=== PATIENT | male | born 1970 | race Caucasian/White ===

== ENCOUNTER 2021-09-11 16:52 | Inpatient (IN) | payer SELFPAY ==
[2021-09-11 16:53] VITALS: BP 122/77; PULSE 86; RESP 18; TEMP 35.9; O2SAT 97; BMI 32.9
--- NOTE | 2021-09-11 17:07 | CT_ITS ---
STUDY: CT ABDOMEN AND PELVIS WITH CONTRAST REASON FOR EXAM: Male, 51 years old. abd pain RADIATION DOSAGE (If Supplied By Facility): CTDIvol = ( 15.45 ) mGy, DLP = ( 1202.52 ) mGycm TECHNIQUE: Transaxial images were obtained from the dome of the diaphragm to the symphysis pubis without oral contrast. IV 100mL Isovue-370 was administered. Sagittal and coronal images were reconstructed. Individualized dose optimization techniques were used for this CT. COMPARISON: None. FINDINGS: The visualized lung bases are unremarkable. The visualized portions of the heart are within normal limits. Normal liver. Normal gallbladder and extrahepatic biliary system. Normal spleen. Normal pancreas. Moderate ascites with mesenteric thickening. Normal bilateral adrenal glands. Normal right kidney. Subcentimeter cysts in the left kidney. Normal visualized stomach. Normal small intestine. Normal colon. The appendix is not visualized. Normal abdominal aorta. Normal inferior vena cava. Normal retroperitoneum. Normal urinary bladder. Fatty density in the inguinal canals. Normal abdominal wall. Mild degenerative vertebral changes. Grade 1 spondylolisthesis at L4-5. Spondylolysis of L4. CT/Abdomen/Pelvis W IV Cont ONLY IMPRESSION: Moderate ascites with mild mesenteric thickening. Left renal cysts. Fatty density in the inguinal canals. Electronically Signed: Edu Herndon DO at 18:58 EST Reading Location ID and State: [facility] / [place] Tel [phone], Service support ,
--- NOTE | 2021-09-11 17:08 | ED.VIS.GI ---
HPI HPI - GI History of Present Illness Chief Complaint: Abd Pain Informant: patient and spouse/S.O. Abdominal Pain/Flank Pain Onset: Days Context: Gradual Onset Timing: Continuous Quality: Aching Location: Diffuse Current Severity: Mild Maximum Severity: Mild Worsened by: Nothing Relieved by: Nothing Nausea/Vomiting/Emesis GI Symptom: Positive for Nausea and Vomiting Onset: Days Diarrhea/Melena/Hematochezia GI Symptom: Negative for Diarrhea, Melena and Hematochezia Associated Symptoms Associated Symptoms: Negative for Dysuria, Frequency and Hematuria Narrative Narrative: 51-year-old male history of liver failure secondary to either alcohol abuse and/or autoimmune hepatitis. No history of ascites he has had 3 paracentesis I believe at [facility] in August. States he is having more abdominal discomfort. More swelling. He denies fever. He did have nausea and vomiting 2 days ago. States he is also had some constipation. Denies any dysuria. Prior similar symptoms: Yes Recent Illness/Hospitalization: Yes [facility] Medical History Cirrhosis of liver Home Medications furosemide [Lasix] 20 mg PO DAILY 09/11/21 [History Last Taken Unknown] spironolactone 50 mg PO DAILY 09/11/21 [History Last Taken Unknown] Allergy/AdvReac Type Severity Reaction Status Date / Time No Known Allergies Allergy Verified 09/11/21 16:52 Surgical History H/O repair of rotator cuff Social History Smoking Status: Never smoker ROS ROS ED ROS Narrative Abdominal pain. Constipation. Nausea and vomiting. Review of Systems ROS Unobtainable: Denies due to encephalopathy Constitutional Constitutional ED: Denies chills or fever(s) ENT ENT ED: Denies ear pain Cardiovascular Cardiovascular: Denies chest pain or palpitations Respiratory/Chest Respiratory/Chest: Denies cough or dyspnea Gastrointestinal Gastrointestinal: Reports abdominal pain, constipation, nausea and vomiting; Denies diarrhea or melena Genitourinary Genitourinary ED: Denies dysuria Musculoskeletal Musculoskeletal: Denies myalgias Integumentary Denies rash Neurologic Neurologic: Denies headache(s) Psychiatric Psychiatric: Denies depression Endocrine Endocrinology: Denies polyuria Hematologic/Lymphatic Hematologic/Lymphatic: Denies easy bruising Allergic/Immunologic Allergic/Immunologic ED: Denies urticaria EXAM Physical Exam Narrative Exam Narrative: 31-year-old male no acute distress vital signs stable afebrile. Pulse ox 97% on room air no signs hypoxia. H EENT exam unremarkable. Neck nontender. No JVD. Lungs clear to auscultation bilaterally. Heart regular rhythm rate about 85 no murmur. Abdomen soft. He is distended with ascites fluid. There are no peritoneal signs. He does have bowel sounds are slightly diminished. Moving all 4 extremities. Calves are nontender without edema. Neurologically is awake and alert. No focal motor deficits. Const Vital Signs: 09/11/21 16:53 09/11/21 18:54 Temperature 96.7 F L Temperature Source Temporal Pulse Rate 86 68 Respiratory Rate 18 14 Blood Pressure 122/77 H 122/74 H Blood Pressure Mean 92 90 Pulse Ox 97 98 Oxygen Delivery Method Room Air Room Air Positive well nourished, well developed and obese; Negative for cachectic, contractures or unkempt General Appearance ED: well developed and NAD; Negative for unkempt, cachectic, contractures or pallor Nutritional Appearance: obese; Negative for cachectic HEENT Reports moist mucous membranes normocephalic and atraumatic; Negative for trauma or tenderness Eyes PERRL and EOMs intact bilaterally Neck no lymphadenopathy, supple and no JVD General: Negative for tenderness Resp normal respiratory effort and clear to auscultation bilaterally Auscultation: Negative for rales, rhonchi or wheezes Cardio regular rate, regular rhythm, S1 normal heart sound, S2 normal heart sound and no murmurs GI non-tender and no masses; Negative for non-distended Inspection: abdominal distention Auscultation: hypoactive bowel sounds; Negative for normoactive bowel sounds Palpation: soft; Negative for tender, guarding, rigid or rebound tenderness present Back/Spine no CVA tenderness Cervical Spine: Negative for cervical spine tenderness Thoracic Spine / Upper Back: Negative for thoracic spinal tenderness Extremity full ROM General Extremety ED: Negative for edema or tenderness General Extremity: Negative for edema Neuro CN's II-XII intact bilaterally and moves all extremities Sensorium / Orientation: alert, oriented to person, oriented to place and oriented to time; Negative for confused, lethargic or stuporous Motor Exam: strength 5/5 throughout Psych mental status grossly normal and thought process normal Appearance: Negative for unkempt Attitude: No agitated Mood & Affect: Negative for depressed or tearful Skin no wounds General Skin Exam: Negative for jaundice or pallor Lesions: no lesions Rashes: no rashes MDM MDM MDM Narrative Medical decision making narrative: 51-year-old male with known liver failure and ascites. Complaining of more pain and more ascites. He has had 3 abdominal paracentesis in the last month. CAT scan labs are pending. He was also complained of mild shortness of breath so a chest x-ray was also obtained. Repeat exam patient is doing well at 7:30 PM. With his sodium being on 21 I spoke to the hospitalist will be down to discuss with the patient admission versus outpatient follow-up for paracentesis. Spoke to the patient and his he actually had sodiums around 113 before that had to be admitted for. Lab Data Attestation: I reviewed the patient's lab results. Lab results narrative: CBC shows a white count of 10. H&H 11.1 and 29.6. Platelets are slightly low at 146. Electrolytes show a sodium of 121. Gap of 9. Normal BUN and creatinine. Liver enzymes are elevated with a total bilirubin of 6. AST 185. ALT of 113. Albumin is low at 1.8. Lipase normal at 330. Glucose is 132. Urinalysis shows 5-10 white cells otherwise unremarkable. No bacteria no nitrates. CAT scan shows ascites and renal cyst. Labs: Laboratory Results - last 24 hr 09/11/21 09/11/21 09/11/21 17:23 17:23 18:35 WBC 10.7 RBC 3.19 L Hgb 11.1 L Hct 29.6 L MCV 92.8 MCH 34.8 H MCHC 37.5 H RDW Std Deviation 54.9 H RDW Coeff of Teri 16.2 H Plt Count 146 L MPV 11.4 Immature Gran % (Auto) 0.600 Neut % (Auto) 72.8 H Lymph % (Auto) 13.5 L [place] % (Auto) 10.9 H Eos % (Auto) 1.5 Baso % (Auto) 0.7 Absolute Neuts (auto) 7.8 H Absolute Lymphs (auto) 1.44 Nucleated RBC % 0 Sodium 121 L Potassium 3.9 Chloride 89 L Carbon Dioxide 23.0 Anion Gap 9 BUN 8 Creatinine 1.01 Estim Creat Clear Calc 86.53 Est GFR (MDRD) Af Amer 100 Est GFR (MDRD) Non-Af 83 BUN/Creatinine Ratio 7.9 L Glucose 132 H Calcium 8.4 L Total Bilirubin 6.00 H AST 185 H ALT 113 H Alkaline Phosphatase 117 Total Protein 7.5 Albumin 1.8 L Globulin 5.7 H Albumin/Globulin Ratio 0.3 L Lipase 330 Urine Color Yellow Urine Clarity Clear Urine pH 7.0 Ur Specific [place] 1.015 Urine Protein 15 H Urine Glucose (UA) Normal Urine Ketones Negative Urine Occult Blood Negative Urine Nitrite Negative Urine Bilirubin 1 H Urine Urobilinogen 4 H Ur Leukocyte Esterase 25 H Urine RBC 0 SEEN Urine WBC 5-10 SEEN Ur Squamous Epith Cells 0 SEEN Urine Bacteria 0 SEEN Urine Mucus 0 SEEN Radiography Diagnostic Testing: Clinical Impression(s) from Imaging Studies Abdomen/Pelvis CT 09/11/21 17:07 IMPRESSION: Moderate ascites with mild mesenteric thickening. Left renal cysts. Fatty density in the inguinal canals. Electronically Signed: Edu Herndon DO at 18:58 EST Reading Location ID and State: [facility] / [place] Tel [phone], Service support , Chest X-Ray 09/11/21 17:42 IMPRESSION: No acute pulmonary pathology of the chest. Electronically Signed: Edu Herndon DO at 19:00 EST , Chest x-ray single view shows no acute abnormality. Normal cardiac silhouette. No effusion. Normal lung berman. Interpreted both by myself and the radiology. Discharge Plan Triage Chief Complaint: Abd Pain ED Provider: Harris Lopez Dx/Rx/DC Orders Clinical Impression: Abdominal pain, Abdominal ascites, History of liver disease, Acute hyponatremia Prescriptions: No Action furosemide [Lasix] 20 mg Tablet 20 mg PO DAILY RF: 0 spironolactone 50 mg Tablet 50 mg PO DAILY RF: 0 Primary Care Provider: Jovi Rodriguez Referrals: Jovi Rodriguez DO [Primary Care Provider] -
--- NOTE | 2021-09-11 17:42 | RAD_ITS ---
STUDY: X-RAY CHEST REASON FOR EXAM: Male, 51 years old. Dyspnea TECHNIQUE: Frontal view COMPARISON: None. FINDINGS: Right pulmonary granuloma. The lungs are not fully expanded. There is no demonstrated pleural abnormality. Normal size heart. Normal mediastinum and kimmy. Normal visualized pulmonary arteries. Normal visualized aortic arch and descending thoracic aorta. Normal visualized thoracic spine. Normal visualized ribs, clavicles, and shoulders. There is no demonstrated abnormality of the visualized soft tissue structures of the upper abdomen. RAD/Chest 1 View (Portable) IMPRESSION: No acute pulmonary pathology of the chest. Electronically Signed: Edu Herndon DO at 19:00 EST ,
[2021-09-11 17:54] LABS: ALB/GLOB Ratio 0.3 RATIO (0.9-2.4); AST(SGOT) 185 U/L (15-37); Alanine Aminotransfer ALT/SGPT 113 U/L (16-61); Albumin, Serum 1.8 g/dL (3.2-5.0); Alkaline Phosphatase 117 U/L (45-117); Anion Gap 9 (5-15); BUN 8 mg/dL (7-18); BUN/Creat Ratio 7.9 RATIO (10-20); Calcium,Total 8.4 mg/dL (8.5-10.1); Chloride 89 mmol/L (98-107); Creatinine, Serum 1.01 mg/dL (0.70-1.30); EST Glomerular Filtration Rate 83 mL/min (>60); Est Glom Filt Rate - Afr Amer 100 mL/min (>60); Estimated Creatinine Clearance 86.53 ml/min; Globulin 5.7 g/dL (2.2-4.2); Glucose 132 mg/dL (74-106); Lipase 330 U/L (73-393); Potassium 3.9 mmol/L (3.5-5.1); Protein, Total 7.5 g/dL (6.4-8.2); Sodium Level 121 mmol/L (136-145)
[2021-09-11 18:07] LABS: Absolute Lymphocyte Count 1.44 X10^3/uL (0.83-4.51); Absolute Neutrophil Count 7.8 X10^3/uL (2.0-7.7); Basophil# 0.08 X10^3/uL; Basophil% 0.7 % (0-1); Eosinophil# 0.16 X10^3/uL; Eosinophils% 1.5 % (0-5); Hematocrit 29.6 % (40-54); Hemoglobin 11.1 g/dL (13.0-16.5); Lymphocyte # 1.44 X10^3/ul (0.83-4.51); Lymphocyte % 13.5 % (19-41); Mean Corp Hgb Conc 37.5 g/dL (32-36); Mean Corpuscular Hgb 34.8 pg (27.0-32.0); Mean Corpuscular Volume 92.8 fL (80-94); Mean Platelet Vol. 11.4 fl (6.2-12.0); Monocyte# 1.17 X10^3/uL; Monocyte% 10.9 % (0-10); NRBC Flagged by Analyzer 0 % (0-5); Neutrophil # 7.79 X10^3/uL (2.7-7.7); Neutrophil % 72.8 % (47-70); Platelet Count 146 K/mm3 (150-450); RBC Distribution Width CV 16.2 % (11.6-14.6); RBC Distribution Width SD 54.9 fl (35.1-43.9); Red Blood Count 3.19 M/mm3 (4.6-6.2); White Blood Count 10.7 K/mm3 (4.4-11.0)
[2021-09-11 18:40] LABS: Bacteria 0 SEEN /hpf (None Seen); Mucous, Urine 0 SEEN /hpf (<or=2+); Red Blood Cells-Urine 0 SEEN /hpf (0-5); Squamous Epithelial Cells - UA 0 SEEN /hpf (0-5)
[2021-09-11 18:43] LABS: Color, Urine Yellow (Yellow); Glucose, Dipstick Normal (Normal); Ketone-Dipstick Negative (Negative); Leukocyte Esterase-Dipstick 25 /ul (Negative); Nitrite-Dipstick Negative (Negative); Occult Blood-Urine Negative /ul (Negative); Protein-Dipstick 15 mg/dl (Negative); Specific Gravity, Urine 1.015 (1.002-1.030); Urine Clarity Clear (Clear); Urine Urobilinogen 4 mg/dl (Normal)
[2021-09-11 18:44] LABS: Urine Bilirubin Dipstick 1 mg/dL (Negative)
[2021-09-11 18:48] LABS: White Blood Cells 5-10 SEEN /hpf (0-5)
[2021-09-11 18:54] VITALS: BP 122/74; PULSE 68; RESP 14; O2SAT 98
--- NOTE | 2021-09-11 20:13 | HP.PCM.HOS_ITS ---
HPI - General HPI Narrative JOSE CRUZ THOMPSON, is a 51 M who presents to presents to the hospital with abdominal pain secondary to cirrhosis with ascites. This is a new diagnosis for him since about August. His last drink was in July and this is likely the cause of his cirrhosis. 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 According to his , he had a paracentesis done August 16, , but then has not had one since then. States that around each time they were draining around 6 L of fluid. Denies any fevers or chills and no significant abdominal pain with palpation. Of note in the ER his white count was normal however his sodium is 121 with a chloride of 89. Creatinine is 1.01 with a bilirubin of 6 and an AST of 185 and an ALT of 113 with a normal alk phos. We do not have previous labs to compare with. [facility] Medical History Cirrhosis of liver Home Medications furosemide [Lasix] 20 mg PO DAILY 09/11/21 [History Last Taken Unknown] spironolactone 50 mg PO DAILY 09/11/21 [History Last Taken Unknown] Allergy/AdvReac Type Severity Reaction Status Date / Time No Known Allergies Allergy Verified 09/11/21 16:52 Family History (Updated 09/11/21 @ 20:[address] Dustin Metz MD) Other Cancer Diabetes Heart disease Surgical History H/O repair of rotator cuff Social History Smoking Status: Never smoker ROS Constitutional Constitutional: Denies chills, fatigue, fever(s) or malaise Eyes Eyes: Denies blurry vision ENT HEENT: Denies headache(s) or nasal discharge Cardiovascular Cardiovascular: Denies chest pain, dyspnea on exertion or syncope Respiratory/Chest Respiratory/Chest: Denies cough, shortness of breath at rest or shortness of breath with exertion Gastrointestinal Gastrointestinal: Reports abdominal pain; Denies constipation, diarrhea, nausea or vomiting Genitourinary Genitourinary: Denies dysuria Neurologic Neurologic: Denies focal weakness, numbness or tremor(s) Psychiatric Psychiatric: Denies anxiety or depression Vital Signs Vital Signs Vital Signs: 09/11/21 16:53 09/11/21 18:54 Temperature 96.7 F L Temperature Source Temporal Pulse Rate 86 68 Respiratory Rate 18 14 Blood Pressure 122/77 H 122/74 H Blood Pressure Mean 92 90 Pulse Ox 97 98 Oxygen Delivery Method Room Air Room Air Weight Weight: 223 lb Body Mass Index (BMI) 32.9 Physical Exam Const alert, oriented x3 and no apparent distress General Appearance: cooperative HEENT normocephalic Mouth: dry mucous membranes Eyes PERRL, EOMs intact bilaterally and conjunctivae normal Neck supple and no JVD Resp normal respiratory effort, no retractions, no use of accessory muscles and clear to auscultation bilaterally Auscultation: Negative for crackles, rales, rhonchi or wheezes Cardio regular rate, regular rhythm, S1 normal heart sound, S2 normal heart sound and no murmurs GI soft to palpation and non-tender; Negative for hepatosplenomegaly Inspection: abdominal distention and fluid wave present Extremity no clubbing, cyanosis or edema Skin no rashes or lesions noted Neuro no focal motor deficits and no sensory deficits noted Psych affect normal Appearance: appropriate Results Lab / Micro Data Result Diagrams: 09/11/21 17:23 09/11/21 17:23 Labs: Laboratory Results - last 24 hr 09/11/21 17:23: WBC 10.7, RBC 3.19 L, Hgb 11.1 L, Hct 29.6 L, MCV 92.8, MCH 34.8 H, MCHC 37.5 H, RDW Std Deviation 54.9 H, RDW Coeff of Teri 16.2 H, Plt Count 146 L, MPV 11.4, Immature Gran % (Auto) 0.600, Neut % (Auto) 72.8 H, Lymph % (Auto) 13.5 L, [place] % (Auto) 10.9 H, Eos % (Auto) 1.5, Baso % (Auto) 0.7, Absolute Neuts (auto) 7.8 H, Absolute Lymphs (auto) 1.44, Nucleated RBC % 0 09/11/21 17:23: Sodium 121 L, Potassium 3.9, Chloride 89 L, Carbon Dioxide 23.0, Anion Gap 9, BUN 8, Creatinine 1.01, Estim Creat Clear Calc 86.53, Est GFR (MDRD) Af Amer 100, Est GFR (MDRD) Non-Af 83, BUN/Creatinine Ratio 7.9 L, Glucose 132 H, Calcium 8.4 L, Total Bilirubin 6.00 H, AST 185 H, ALT 113 H, Alkaline Phosphatase 117, Total Protein 7.5, Albumin 1.8 L, Globulin 5.7 H, Albumin/Globulin Ratio 0.3 L, Lipase 330 09/11/21 18:35: Urine Color Yellow, Urine Clarity Clear, Urine pH 7.0, Ur Specific [place] 1.015, Urine Protein 15 H, Urine Glucose (UA) Normal, Urine Ketones Negative, Urine Occult Blood Negative, Urine Nitrite Negative, Urine Bilirubin 1 H, Urine Urobilinogen 4 H, Ur Leukocyte Esterase 25 H, Urine RBC 0 SEEN, Urine WBC 5-10 SEEN, Ur Squamous Epith Cells 0 SEEN, Urine Bacteria 0 SEEN, Urine Mucus 0 SEEN Radiology Impression Abdomen/Pelvis CT 09/11/21 17:07 IMPRESSION: Moderate ascites with mild mesenteric thickening. Left renal cysts. Fatty density in the inguinal canals. Electronically Signed: Edu Herndon DO at 18:58 EST , Chest X-Ray 09/11/21 17:42 IMPRESSION: No acute pulmonary pathology of the chest. Electronically Signed: Edu Herndon DO at 19:00 EST , Assessment & Plan Assessment/Plan (1) Acute hyponatremia: (2) History of liver disease: (3) Abdominal ascites: PLAN: 1. Alcohol induced cirrhosis with ascites and abdominal pain/hyponatremia and hypochloremia ?Given his hyponatremia will hold his Lasix and Aldactone ?Consult to gastroenterology for possible paracentesis at bedside tomorrow or by IR on Monday ?We will obtain hepatitis panel and they would like to follow-up with gastroenterology here at this hospital ?No fevers and no significant tenderness to be concerned about SBP ?We will obtain an INR to better calculate a MELD score, regardless of his INR his Child class is a C DVT: Ambulation Charges/Coding Visit Charges Inpatient E&M: 43171 Init Hosp L2
[2021-09-11 20:18] VITALS: BP 140/85; PULSE 77; RESP 14; O2SAT 98
[2021-09-11 20:38] VITALS: BP 133/70; PULSE 76; RESP 18; TEMP 37.2; O2SAT 98
[2021-09-11 21:29] VITALS: BMI 32.1
[2021-09-11 21:33] VITALS: BP 115/65; PULSE 77; RESP 20; TEMP 36.7; O2SAT 99
[2021-09-12 03:30] VITALS: BP 114/65; PULSE 64; RESP 16; TEMP 36.9; O2SAT 98
[2021-09-12 05:24] LABS: Prothrombin Time (Protime)PT. 22.1 SECONDS (11.7-14.9)
[2021-09-12 05:56] LABS: ALB/GLOB Ratio 0.3 RATIO (0.9-2.4); AST(SGOT) 176 U/L (15-37); Alanine Aminotransfer ALT/SGPT 111 U/L (16-61); Albumin, Serum 1.8 g/dL (3.2-5.0); Alkaline Phosphatase 110 U/L (45-117); Anion Gap 7 (5-15); BUN 9 mg/dL (7-18); BUN/Creat Ratio 11.1 RATIO (10-20); Chloride 87 mmol/L (98-107); Creatinine, Serum 0.81 mg/dL (0.70-1.30); EST Glomerular Filtration Rate 107 mL/min (>60); Est Glom Filt Rate - Afr Amer 129 mL/min (>60); Estimated Creatinine Clearance 107.89 ml/min; Globulin 5.6 g/dL (2.2-4.2); Glucose 98 mg/dL (74-106); Potassium 3.7 mmol/L (3.5-5.1); Protein, Total 7.4 g/dL (6.4-8.2); Sodium Level 119 mmol/L (136-145)
[2021-09-12 07:14] LABS: Eosinophils% 2.6 % (0-5); Mean Corp Hgb Conc 37.5 g/dL (32-36); Mean Corpuscular Hgb 34.4 pg (27.0-32.0); Mean Corpuscular Volume 91.8 fL (80-94); Mean Platelet Vol. 11.9 fl (6.2-12.0); Monocyte% 9.8 % (0-10); NRBC Flagged by Analyzer 0 % (0-5); Neutrophil % 69.6 % (47-70); POSITIVE COUNT YES; POSITIVE DIFFERENTIAL YES; RBC Distribution Width CV 16.1 % (11.6-14.6); RBC Distribution Width SD 53.5 fl (35.1-43.9)
[2021-09-12 07:23] LABS: Hemoglobin 10.5 g/dL (13.0-16.5); Red Blood Count 3.05 M/mm3 (4.6-6.2); White Blood Count 9.7 K/mm3 (4.4-11.0)
[2021-09-12 07:24] LABS: Platelet Count 110 K/mm3 (150-450)
[2021-09-12 07:26] LABS: Absolute Lymphocyte Count 1.65 X10^3/uL (0.83-4.51); Absolute Neutrophil Count 6.8 X10^3/uL (2.0-7.7); Eosinophil# 0.25 X10^3/uL; Lymphocyte # 1.65 X10^3/ul (0.83-4.51); Monocyte# 0.95 X10^3/uL; Neutrophil # 6.75 X10^3/uL (2.7-7.7)
--- NOTE | 2021-09-12 07:57 | PCM.PN.HOSP ---
Subjective Subjective Follow-up on ascites: Patient was seen and examined. He denied any new complaints. He stated that he has had ascites for a while. Last had paracentesis in August. He denied any fever chills melena or hematemesis or hematochezia. No other acute events overnight. Objective Data Objective Data Vital Signs: Vital Signs Temp Pulse Resp BP Pulse Ox 98.4 F 64 16 114/65 98 09/12/21 03:30 09/12/21 03:30 09/12/21 03:30 09/12/21 03:30 09/12/21 03:30 Oxygen Delivery Method Room Air Weight: 98.5 kg Body Mass Index (BMI) 32.1 Lab / Micro Data Result Diagrams: 09/12/21 04:53 09/12/21 04:53 Labs: Laboratory Results - last 24 hr 09/11/21 17:23: WBC 10.7, RBC 3.19 L, Hgb 11.1 L, Hct 29.6 L, MCV 92.8, MCH 34.8 H, MCHC 37.5 H, RDW Std Deviation 54.9 H, RDW Coeff of Teri 16.2 H, Plt Count 146 L, MPV 11.4, Immature Gran % (Auto) 0.600, Neut % (Auto) 72.8 H, Lymph % (Auto) 13.5 L, [place] % (Auto) 10.9 H, Eos % (Auto) 1.5, Baso % (Auto) 0.7, Absolute Neuts (auto) 7.8 H, Absolute Lymphs (auto) 1.44, Nucleated RBC % 0 09/11/21 17:23: Sodium 121 L, Potassium 3.9, Chloride 89 L, Carbon Dioxide 23.0, Anion Gap 9, BUN 8, Creatinine 1.01, Estim Creat Clear Calc 86.53, Est GFR (MDRD) Af Amer 100, Est GFR (MDRD) Non-Af 83, BUN/Creatinine Ratio 7.9 L, Glucose 132 H, Calcium 8.4 L, Total Bilirubin 6.00 H, AST 185 H, ALT 113 H, Alkaline Phosphatase 117, Total Protein 7.5, Albumin 1.8 L, Globulin 5.7 H, Albumin/Globulin Ratio 0.3 L, Lipase 330 09/11/21 18:35: Urine Color Yellow, Urine Clarity Clear, Urine pH 7.0, Ur Specific [place] 1.015, Urine Protein 15 H, Urine Glucose (UA) Normal, Urine Ketones Negative, Urine Occult Blood Negative, Urine Nitrite Negative, Urine Bilirubin 1 H, Urine Urobilinogen 4 H, Ur Leukocyte Esterase 25 H, Urine RBC 0 SEEN, Urine WBC 5-10 SEEN, Ur Squamous Epith Cells 0 SEEN, Urine Bacteria 0 SEEN, Urine Mucus 0 SEEN 09/12/21 04:53: WBC 9.7, RBC 3.05 L, Hgb 10.5 L, Hct 28.0 L, MCV 91.8, MCH 34.4 H, MCHC 37.5 H, RDW Std Deviation 53.5 H, RDW Coeff of Teri 16.1 H, Plt Count 110 L, MPV 11.9, Immature Gran % (Auto) 1.000 H, Neut % (Auto) 69.6, Lymph % (Auto) 17.0 L, [place] % (Auto) 9.8, Eos % (Auto) 2.6, Baso % (Auto) 0.0, Absolute Neuts (auto) 6.8, Absolute Lymphs (auto) 1.65, Nucleated RBC % 0 09/12/21 04:53: PT 22.1 H, INR 2.0 09/12/21 04:53: Sodium 119 L*, Potassium 3.7, Chloride 87 L, Carbon Dioxide 25.0, Anion Gap 7, BUN 9, Creatinine 0.81, Estim Creat Clear Calc 107.89, Est GFR (MDRD) Af Amer 129, Est GFR (MDRD) Non-Af 107, BUN/Creatinine Ratio 11.1, Glucose 98, Calcium 8.0 L, Total Bilirubin 6.40 H, AST 176 H, ALT 111 H, Alkaline Phosphatase 110, Total Protein 7.4, Albumin 1.8 L, Globulin 5.6 H, Albumin/Globulin Ratio 0.3 L Radiography Diagnostic Testing: Radiology Impression Abdomen/Pelvis CT 09/11/21 17:07 IMPRESSION: Moderate ascites with mild mesenteric thickening. Left renal cysts. Fatty density in the inguinal canals. Electronically Signed: Edu Herndon DO at 18:58 EST Reading Location ID and State: [facility] / [place] Tel [phone], Service support , Chest X-Ray 09/11/21 17:42 IMPRESSION: No acute pulmonary pathology of the chest. Electronically Signed: Edu Herndon DO at 19:00 EST Reading Location ID and State: [facility] / [place] Tel [phone], Service support , Physical Exam Narrative Physical exam: General: Alert, Oriented x3, Cooperative, No apparent distress, jaundiced HEENT: Atraumatic Oral: Moist Mucosa Neck: Supple Lungs: Diminished to auscultation Cardiovascular: HS I+II, regular, no murmurs Abdomen: Distended abdomen, ascites ++, bowel Sounds Present, Soft, Non Tender Extremities: Bilateral leg edema +2 Assessment & Plan Assessment/Plan (1) Acute hyponatremia: (2) History of liver disease: (3) Abdominal ascites: QUALIFIERS: Ascites type: due to alcoholic cirrhosis Qualified Code(s): K70.31 - Alcoholic cirrhosis of liver with ascites PLAN: 1. Acute decompensated alcoholic liver cirrhosis with ascites; patient with gross ascites No concern for SBP clinically. No reported GI bleeding MELD score 29, Child-Franco score Class C, 12 LFTs remain about the same although total bilirubin is worsened to 6.4 INR is 2.0 GI consulted; diagnostic and therapeutic paracentesis planned for tomorrow We will give vitamin K 5 mg p.o. x1, repeat INR in a.m. Start patient on Lasix, Aldactone, lactulose, rifaximin, PPI Liver ultrasound, follow-up on acute hepatitis panel Stat [facility] 2. Acute on chronic hyponatremia secondary to fluid overload state/alcoholic liver cirrhosis We will continue to monitor on Lasix, Aldactone 3. DVT PPx- SCDs Charges/Coding Visit Charges Inpatient E&M: 97750 Subs Hosp L3
[2021-09-12 09:30] VITALS: BP 128/74; PULSE 79; RESP 20; TEMP 36.6; O2SAT 96
--- NOTE | 2021-09-12 12:44 | US_ITS ---
PROCEDURE: Ultrasound guided paracentesis. DATE OF EXAMINATION: 09/13/2021. INDICATION: Male, 51 years old. Ascites. PHYSICIAN: Austyn Aguilar M.D. TECHNIQUE: The risks, benefits, and alternatives to the procedure were explained to the patient. The specific risks of bleeding, infection, and damage to bowel were detailed and accepted. Witnessed informed consent was obtained. The abdomen was ultrasonographically surveyed. An appropriate pocket of fluid was identified at the right lower quadrant. The skin were cleaned and prepped in the usual sterile fashion. Using ultrasound guidance, the peritoneal cavity was accessed with a 5-Chadian paracentesis needle/catheter system. The trocar was removed. A total of 8750 ml of brian-colored fluid were removed from the peritoneal cavity. A 120 mL sample was sent to the laboratory as requested. The catheter was removed and a sterile dressing was applied. The procedure was well tolerated. US/Paracentesis with US IMPRESSION: Ultrasound guided paracentesis. Electronically Signed: Austyn Aguilar MD at 12:02 EST ,
[2021-09-12] MEDS: Morphine 2 MG/ML Syringe 1 MG IV ×2 (13:07→21:11)
[2021-09-12] MEDS: 0.9% Saline Lock 10 ML Syringe IV ×3 (13:07→21:11)
[2021-09-12] MEDS: Phytonadione (Vit K1) 5 MG TABLET PO (15:36)
[2021-09-12] MEDS: rifAXIMin 550 MG Tablet PO ×2 (15:36→21:02)
[2021-09-12 15:41] VITALS: BP 109/78; PULSE 74; RESP 16; TEMP 36.7; O2SAT 99
--- NOTE | 2021-09-12 18:28 | EX.PCM.CON.G ---
HPI Consult Data Date of Consult: 09/12/21 HPI Narrative HPI Narrative: JOSE CRUZ THOMPSON, is a 51 M who presents to the ED with abdominal distention. He is a newly diagnosed cirrhotic and has undergone 2 paracentesis. He has been on diuretic therapy. He is not know if he has been checked for hepatitis C. He says his family doctor has been prescribing his diuretics. He has not drank since July. He did notice that he was starting to become more yellow recently. He is not been treated for alcoholic hepatitis. He has never had a blood transfusion. He has no family members with liver disease. He said he has been struggling with his sodium and his abdominal distention. He has never seen a assistant associate professor. He denies any bleeding, fatigue or weakness. He is not having any problems sleeping at night. He has no problems with tremors. He had a paracentesis done August 16, , but then has not had one since then. States that around each time they were draining around 6 L of fluid. Denies any fevers or chills and no significant abdominal pain with palpation. Of note in the ER his white count was normal however his sodium is 121 with a chloride of 89. Creatinine is 1.01 with a bilirubin of 6 and an AST of 185 and an ALT of 113 with a normal alk phos. We do not have previous labs to compare with. [facility] Medical History (Updated 09/12/21 @ 18:[address] Lee Friend, DO) Cirrhosis of liver Nicotine dependence Home Medications furosemide [Lasix] 20 mg PO DAILY 09/11/21 [History Last Taken 09/11/21] spironolactone 50 mg PO DAILY 09/11/21 [History Last Taken 09/11/21] Allergy/AdvReac Type Severity Reaction Status Date / Time No Known Allergies Allergy Verified 09/11/21 16:52 Family History (Updated 09/11/21 @ 20:[address] Dustin Metz MD) Other Cancer Diabetes Heart disease Surgical History H/O repair of rotator cuff Social History Smoking Status: Never smoker ROS Review of Systems ROS Unobtainable: other Constitutional Constitutional: Denies fatigue, fever(s), poor appetite, weight gain or weight loss ENT HEENT: Denies mouth lesions Cardiovascular Cardiovascular: Denies abdominal bloating, abdominal edema or abdominal pain Respiratory/Chest Respiratory/Chest: Denies change in mental status, change in phlegm color, chest congestion or chest tightness Gastrointestinal Gastrointestinal: Reports abdominal pain and bloating Genitourinary Genitourinary: Denies abdominal discomfort, burning urination or itching Musculoskeletal Musculoskeletal: Reports as per HPI; Denies muscle weakness or myalgias Integumentary Integumentary: Denies jaundice Neurologic Neurologic: Denies lack of coordination or weakness Psychiatric Psychiatric: Denies confusion, depression, memory loss, mood swings, paranoia or suicidal ideation Endocrine Endocrinology: Denies systems reviewed and no addt'l complaints, except as documented Hematologic/Lymphatic Hematologic/Lymphatic: Denies anemia, easy bleeding, easy bruising or lymphadenopathy Allergic/Immunologic Allergic/Immunologic: Denies systems reviewed and no addt'l complaints, except as documented Physical Exam Const alert General Appearance: cooperative Orientation / Consciousness: oriented to person HEENT hearing grossly normal bilaterally Head and Scalp: normal to inspection Face and Sinus: face symmetric Nose: external nose normal Mouth: oral and palatal mucosa normal Eyes conjunctivae normal General Eye: normal appearance of both eyes Neck full ROM General: normal visual inspection Lymph Lymphatic: no lymphadenopathy noted Chest inspection of chest normal and palpation of chest normal Chest: symmetrical chest wall rise Resp normal respiratory effort Effort and Inspection: able to speak in complete sentences Cardio regular rate GI Percussion: fluid wave Rectal Exam: deferred Extremity Extremity Narrative: Multiple varices throughout his extremities. Neuro Speech: speech normal Gait (Neuro): normal gait Lab / Micro Data Result Diagrams: 09/12/21 04:53 09/12/21 04:53 Labs: Laboratory Results - last 24 hr 09/11/21 18:35: Urine Color Yellow, Urine Clarity Clear, Urine pH 7.0, Ur Specific [place] 1.015, Urine Protein 15 H, Urine Glucose (UA) Normal, Urine Ketones Negative, Urine Occult Blood Negative, Urine Nitrite Negative, Urine Bilirubin 1 H, Urine Urobilinogen 4 H, Ur Leukocyte Esterase 25 H, Urine RBC 0 SEEN, Urine WBC 5-10 SEEN, Ur Squamous Epith Cells 0 SEEN, Urine Bacteria 0 SEEN, Urine Mucus 0 SEEN 09/12/21 04:53: WBC 9.7, RBC 3.05 L, Hgb 10.5 L, Hct 28.0 L, MCV 91.8, MCH 34.4 H, MCHC 37.5 H, RDW Std Deviation 53.5 H, RDW Coeff of Teri 16.1 H, Plt Count 110 L, MPV 11.9, Immature Gran % (Auto) 1.000 H, Neut % (Auto) 69.6, Lymph % (Auto) 17.0 L, [place] % (Auto) 9.8, Eos % (Auto) 2.6, Baso % (Auto) 0.0, Absolute Neuts (auto) 6.8, Absolute Lymphs (auto) 1.65, Nucleated RBC % 0 09/12/21 04:53: PT 22.1 H, INR 2.0 09/12/21 04:53: Sodium 119 L*, Potassium 3.7, Chloride 87 L, Carbon Dioxide 25.0, Anion Gap 7, BUN 9, Creatinine 0.81, Estim Creat Clear Calc 107.89, Est GFR (MDRD) Af Amer 129, Est GFR (MDRD) Non-Af 107, BUN/Creatinine Ratio 11.1, Glucose 98, Calcium 8.0 L, Total Bilirubin 6.40 H, AST 176 H, ALT 111 H, Alkaline Phosphatase 110, Total Protein 7.4, Albumin 1.8 L, Globulin 5.6 H, Albumin/Globulin Ratio 0.3 L Radiology Impression Abdomen/Pelvis CT 09/11/21 17:07 IMPRESSION: Moderate ascites with mild mesenteric thickening. Left renal cysts. Fatty density in the inguinal canals. Electronically Signed: Edu Herndon DO at 18:58 EST Reading Location ID and State: [facility] / [place] Tel [phone], Service support , Chest X-Ray 09/11/21 17:42 IMPRESSION: No acute pulmonary pathology of the chest. Electronically Signed: Edu Herndon DO at 19:00 EST , Assessment & Plan Assessment/Plan (1) Abdominal ascites: QUALIFIERS: Ascites type: due to alcoholic cirrhosis Qualified Code(s): K70.31 - Alcoholic cirrhosis of liver with ascites PLAN: Intra-abdominal ascites likely secondary to cirrhosis from alcoholic cirrhosis. Also dual diagnosis would be hepatitis C, autoimmune hepatitis, chronic hepatitis B, hemochromatosis, secondary amyloidosis. Also differential diagnosis would be nephrotic syndrome be because he has a lot of protein in his urine. He should have a acute otitis profile, anti-smooth muscle antibody, antimitochondrial antibody, protein letter pheresis with immunofixation, ferritin, transferrin saturation. He will undergo large-volume paracentesis. I instructed him to have no more than a 500 mg of sodium per day. I would try that first before putting him on a fluid restriction. Along with increasing his diuretics hopefully will be able to decrease his recurrent need for paracentesis. I will also start him on Midrodrine 10 mg 3 times a day as it has been shown to decrease ascites formation. His meld score at this time is 36. Typically we list for transplant at 14. He had a meld of 36 his 1 year mortality is 60%. I will have a talk with his to explain the severity of his disease and the need for very strict compliance. He also may be a candidate for TIPS after 3 months of compliance with diuretics. (2) Cirrhosis of liver: PLAN: Alcoholic cirrhosis we will perform work-up to see if he has any other etiology to his cirrhosis. 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 I will start him on prednisone 20mg per day. Charges/Coding Visit Charges Inpatient E&M: 94165 Init Hosp L3
[2021-09-12] MEDS: Furosemide 40 MG/4 ML Vial IV (18:44)
[2021-09-12] MEDS: MELATONIN 3 MG TABLET PO (21:11)
[2021-09-12 21:40] VITALS: BP 149/132; PULSE 98; RESP 18; TEMP 36.5; O2SAT 95
--- NOTE | 2021-09-13 | FLU_PTH ---
PATIENT: JOSE CRUZ THOMPSON . LOC: MS3 U#:[id number] AGE/SX: 51/M ROOM: [facility] RE09/11/[address]: Dr. Maycol Christie MD : 1970 BED: 1 DIS: 09/14/2021 SPEC #: [id number] RECD: 09/13/21 10:57 STATUS: MARIA ALEJANDRA REQ #: [id number] GABRIELE: 09/13/21 00:[address]: Maycol Christie DEPT: CYTOLOGY RECD BY: Stephane Adam ENTERED: 09/13/21 13:46 SP TYPE: Fluid OTHR DR: MD Dr. Jovi Geiger DO Dr. Nicholas F Kotsonis, MD Tissues: PARACENTESIS FLUID Procedures: Special Stain Group II Surgery Specimen Level IV Cytospin Fluid HEADER OPERATION: Paracentesis PRE-OP DIAGNOSIS: Ascites TISSUE SUBMITTED: Paracentesis fluid for cytology DIAGNOSIS CYTOLOGY Paracentesis fluid for cytology (cytospin and cell block): Negative for malignant cells. See comment. MARILU:gold 09/14/2021 COMMENT Clinical correlation and appropriate follow up are necessary. CYTOLOGY STUDY Slides are reviewed. CYTOLOGY GROSS Received is 100 ml of yellow cloudy fluid labeled with the patient's name and and designated per the requisition as paracentesis. Submitted for cytology preparation including cell block. / gold 09/13/2021 TC:5 CPT: 36775, 38252
[2021-09-13 04:55] VITALS: BP 131/72; PULSE 86; RESP 18; TEMP 36.2; O2SAT 98
[2021-09-13] MEDS: Morphine 2 MG/ML Syringe 1 MG IV (05:22)
[2021-09-13] MEDS: 0.9% Saline Lock 10 ML Syringe IV ×3 (05:22→18:03)
[2021-09-13 05:47] LABS: International Normalized Ratio 1.9; Prothrombin Time (Protime)PT. 20.8 SECONDS (11.7-14.9)
--- NOTE | 2021-09-13 07:27 | PCM.PN.HOSP ---
Subjective Subjective Patient is a 51-year-old gentleman with history of cirrhosis of the liver who presented with abdominal painAn assessment of acute decompensated cirrhosis of the liver with mild ascites made admitted to the regular nursing floor where patient is currently being managed. Patient scheduled to undergo diagnostic and therapeutic paracentesis Objective Data Objective Data Vital Signs: Vital Signs Temp Pulse Resp BP Pulse Ox 97.1 F L 86 18 131/72 H 98 09/13/21 04:55 09/13/21 04:55 09/13/21 04:55 09/13/21 04:55 09/13/21 04:55 Oxygen Delivery Method Room Air Weight: 98.5 kg Body Mass Index (BMI) 32.1 Intake & Output: Intake and Output for Last 24 Hours 09/11/21 09/12/21 09/13/21 23:59 23:59 23:59 Intake Total 1560 / 1560 Balance 1560 / 1560 Lab / Micro Data Result Diagrams: 09/12/21 04:53 09/12/21 04:53 Labs: Laboratory Results - last 24 hr 09/12/21 04:53: WBC 9.7, RBC 3.05 L, Hgb 10.5 L, Hct 28.0 L, MCV 91.8, MCH 34.4 H, MCHC 37.5 H, RDW Std Deviation 53.5 H, RDW Coeff of Teri 16.1 H, Plt Count 110 L, MPV 11.9, Immature Gran % (Auto) 1.000 H, Neut % (Auto) 69.6, Lymph % (Auto) 17.0 L, [place] % (Auto) 9.8, Eos % (Auto) 2.6, Baso % (Auto) 0.0, Absolute Neuts (auto) 6.8, Absolute Lymphs (auto) 1.65, Nucleated RBC % 0 09/13/21 05:20: PT 20.8 H, INR 1.9 Physical Exam Narrative GENERAL: cooperative HEENT: Atraumatic;Distended JVD EYES; Anicteric, Normal Conjunctiva NECK; supple, normal thyroid, RESPIRATORY: Diminished to auscultation CARDIOVASCULAR: Regular S1 S2, GI: soft, normoactive bowel sounds, Abdomen markedly distended : No Renal angle tenderness; EXTREMITIES: No edema, no clubbing, MUSCULOSKELETAL: no muscle wasting NEURO: Awake; no lateralizing signs. SKIN: Mottling involving both lower extremities PSYCH; Flat affect Assessment & Plan Assessment/Plan (1) Acute hyponatremia: (2) History of liver disease: (3) Abdominal ascites: QUALIFIERS: Ascites type: due to alcoholic cirrhosis Qualified Code(s): K70.31 - Alcoholic cirrhosis of liver with ascites PLAN: Patient is a 51-year-old gentleman with history of cirrhosis of the liver who presented with abdominal painAn assessment of acute decompensated cirrhosis of the liver with mild ascites made admitted to the regular nursing floor where patient is currently being managed 1. Acute decompensated cirrhosis of the liver ?Patient was noted to have gross ascites. Started on Lasix Aldactone as well as rifaximin. Consult placed to GI plan is for patient to undergo diagnostic and therapeutic paracentesis on 09/13/2021. As part of patient's evaluation, Ascitic fluid analysis ordered. 2. Hyponatremia ?Multifactorial including patient fluid overload status as well as patient cirrhosis of the liver. Patient currently on Lasix and Aldactone with serial monitoring of electrolyte. Consult has been placed to nephrology 3.Coagulopathy ?Secondary to patient's cirrhosis of the liver monitoring 4. Acute cystitis ?Started on Rocephin 5. GI prophylaxis ?Patient on PPI 6. DVT prophylaxis ?SCDs 7. Class I obesity with BMI of 32.1 ?Weight loss advised. 8. Tobacco dependence Outpatient use counseled on cessation offered nicotine patch for tobacco cravings Charges/Coding Visit Charges Inpatient E&M: 29932 [facility] Hosp L3
--- NOTE | 2021-09-13 07:45 | NURSING ---
Esperanza From imaging called to tell this nurse that paracentsis /U.S will be at 1050 this morning. this nurse asked if pt had to be NPO. Esperanza said not for Paracentsis but not sure for U/.S. and would call them. Esperanza called this nurse back and informed me that he does need to be NPO for Ultrasound. This nurse went in to tell pt and pt already snf through his breakfast. Will Call [facility] and inform them.
[2021-09-13 08:28] LABS: Absolute Lymphocyte Count 1.92 X10^3/uL (0.83-4.51); Eosinophil# 0.35 X10^3/uL; Eosinophils% 3.4 % (0-5); Hematocrit 28.8 % (40-54); Hemoglobin 10.8 g/dL (13.0-16.5); Lymphocyte # 1.92 X10^3/ul (0.83-4.51); Lymphocyte % 18.4 % (19-41); Mean Corp Hgb Conc 37.5 g/dL (32-36); Mean Corpuscular Hgb 35.1 pg (27.0-32.0); Mean Corpuscular Volume 93.5 fL (80-94); Mean Platelet Vol. 11.2 fl (6.2-12.0); Monocyte# 0.96 X10^3/uL; Monocyte% 9.2 % (0-10); NRBC Flagged by Analyzer 0.2 % (0-5); Neutrophil # 7.04 X10^3/uL (2.7-7.7); Neutrophil % 67.5 % (47-70); POSITIVE COUNT YES; Platelet Count 138 K/mm3 (150-450); RBC Distribution Width CV 16.5 % (11.6-14.6); Red Blood Count 3.08 M/mm3 (4.6-6.2); White Blood Count 10.4 K/mm3 (4.4-11.0)
[2021-09-13 08:41] LABS: Albumin, Serum 1.8 g/dL (3.2-5.0); BUN 12 mg/dL (7-18); BUN/Creat Ratio 12.5 RATIO (10-20); Creatinine, Serum 0.96 mg/dL (0.70-1.30); EST Glomerular Filtration Rate 88 mL/min (>60); Est Glom Filt Rate - Afr Amer 107 mL/min (>60); Estimated Creatinine Clearance 91.03 ml/min; Glucose 112 mg/dL (74-106); Protein, Total 7.2 g/dL (6.4-8.2)
[2021-09-13 08:42] LABS: AST(SGOT) 166 U/L (15-37); Alanine Aminotransfer ALT/SGPT 102 U/L (16-61); Alkaline Phosphatase 161 U/L (45-117); Anion Gap 5 (5-15); Bilirubin, Direct 1.96 mg/dL (0.00-0.30); Calcium,Total 8.4 mg/dL (8.5-10.1); Chloride 90 mmol/L (98-107); Globulin 5.4 g/dL (2.2-4.2); Potassium 4.3 mmol/L (3.5-5.1); Sodium Level 119 mmol/L (136-145)
[2021-09-13] MEDS: Midodrine HCl 5 MG Tablet 10 MG PO ×3 (09:30→18:02)
[2021-09-13] MEDS: rifAXIMin 550 MG Tablet PO ×2 (09:31→21:00)
[2021-09-13] MEDS: Spironolactone 25 MG Tablet PO (09:31)
[2021-09-13] MEDS: predniSONE 20 MG Tablet PO (09:31)
[2021-09-13 09:43] LABS: Differential Indicated SCAN CRITERIA MET
[2021-09-13 09:44] LABS: Platelet Estimate SLT DEC (ADEQ)
[2021-09-13] MEDS: Ceftriaxone 1 GM/50 ML BAG IV (09:47)
[2021-09-13] MEDS: Furosemide 40 MG/4 ML Vial IV ×2 (09:47→18:02)
[2021-09-13 09:57] VITALS: BP 116/78; PULSE 73; RESP 18; TEMP 36.4; O2SAT 94
--- NOTE | 2021-09-13 10:09 | CASEMGMT ---
Social Work SW met w/pt in room, pt's present also. Pt in bed, eyes closed, minimally participating in conversation. Pt is waiting to go down for a paracentesis shortly, and thinks he will be discharged after that today. Pt is listed as self pay, and also has a history of alcohol abuse. SW initially inquired about self pay status. states her income is too high and they do not qualify for Medicaid. SW inquired if she has looked into insurance through the marketplace. She states she has not as she takes care of her mother and pt has had so many appointments. At [place] she said they got 75% off of their bill. They came here however as they felt like they were not getting clear answers on what to do for pt and his medical condition. SW inquired if they got the application for assist through the hospital. states she was told in the ER it would get mailed to them with the bill, declined getting the form from SW--she plans to just complete it when it comes in the mail. As per chart, pt stopped drinking in July. SW inquired if he would like any support around this. states he is managing well. SW offered resources, including [employer], explained also that there is someone here from [employer] who could talk to them if pt is interested. then said this is where someone she knew was going to sell meth. Pt not wanting to speak w/someone from [employer] today, but was open to the information from SW. SW gave pt and information on [employer] and [facility], did explain [facility] has open intake but it's better to make an appointment. SW also explained they have sliding scale for cost. Pt states understanding. SW also provided information on [facility], food pantries, [facility] assist, prescription assist programs, dental clinics and 211. Transportation is not an issue for them. No further needs are anticipated at this time, resources given, pt declined further intervention from [facility] around alcohol abuse. SW remains available should any needs arise. PEDRO Hudson
--- NOTE | 2021-09-13 10:20 | NURSING ---
Going down to Radiology for Paracentesis via bed. Ultrasound is aware that pt ate breakfast. Per Ultrasound they will reschedule to liver Ultrasound another day.
[2021-09-13] MEDS: Lidocaine 2% (20 ml mdv) 20 ML Vial INFILT (10:47)
[2021-09-13 10:48] VITALS: BP 123/69; BP 136/76; PULSE 74; PULSE 77; PULSE 81; RESP 20; TEMP 36.2; O2SAT 97; O2SAT 99
--- NOTE | 2021-09-13 10:56 | PCM.PN.REN ---
Objective Data Objective Data Vital Signs: Vital Signs Temp Pulse Resp BP Pulse Ox 97.5 F L 73 18 116/78 94 09/13/21 09:57 09/13/21 09:57 09/13/21 09:57 09/13/21 09:57 09/13/21 09:57 Oxygen Delivery Method Room Air Weight: 98.5 kg Body Mass Index (BMI) 32.1 Intake & Output: Intake and Output for Last 24 Hours 09/11/21 09/12/21 09/13/21 23:59 23:59 23:59 Intake Total 1560 / 1560 Balance 1560 / 1560 Lab / Micro Data Result Diagrams: 09/13/21 05:20 09/13/21 05:20 Labs: Laboratory Results - last 24 hr 09/13/21 05:20: PT 20.8 H, INR 1.9 09/13/21 05:20: WBC 10.4, RBC 3.08 L, Hgb 10.8 L, Hct 28.8 L, MCV 93.5, MCH 35.1 H, MCHC 37.5 H, RDW Std Deviation 56.0 H, RDW Coeff of Teri 16.5 H, Plt Count 138 L, MPV 11.2, Immature Gran % (Auto) 0.500, Neut % (Auto) 67.5, Lymph % (Auto) 18.4 L, [place] % (Auto) 9.2, Eos % (Auto) 3.4, Baso % (Auto) 1.0, Absolute Neuts (auto) 7.0, Absolute Lymphs (auto) 1.92, Nucleated RBC % 0.2, Platelet Estimate SLT 09/13/21 05:20: Sodium 119 L*, Potassium 4.3, Chloride 90 L, Carbon Dioxide 24.0, Anion Gap 5, BUN 12, Creatinine 0.96, Estim Creat Clear Calc 91.03, Est GFR (MDRD) Af Amer 107, Est GFR (MDRD) Non-Af 88, BUN/Creatinine Ratio 12.5, Glucose 112 H, Calcium 8.4 L, Total Bilirubin 3.90 H, Direct Bilirubin 1.96 H, AST 166 H, ALT 102 H, Alkaline Phosphatase 161 H, Total Protein 7.2, Albumin 1.8 L, Globulin 5.4 H Assessment & Plan Assessment/Plan (1) Acute hyponatremia: PLAN: patient went down to paracentesis. could not examine. chart reviewed. albumin for today. full note to follow
[2021-09-13 10:59] LABS: Cytology, Body Fluid / CSF SEE PATHOLOGY REPORT
[2021-09-13 11:26] LABS: Body Fluid Mononuclear WBC # 0.163 10^3/uL; Body Fluid Mononuclear WBC % 96.4 %; Body Fluid Polynuclear WBC # 0.006 10^3/uL; Body Fluid Polynuclear WBC % 3.6 %; Body Fluid Total Cells Counted 0.283 10^3/ul; White Blood Count/Body Fluid 0.169 10^3/uL
[2021-09-13 11:45] LABS: Appearance/Body Fluid SL CLDY; Auto B Fluid Analyzer BKGD Ct COUNTS W/IN LIMITS (W/IN LIMITS); Color/Body Fluid YELLOW; Source- Body Fluid OTHER
[2021-09-13] MEDS: Lactulose 20 GM/30 ML UDC PO (11:48)
--- NOTE | 2021-09-13 11:53 | PCA ---
RECIEVED MEDICAL RECORDS FROM [facility] FOR THIS PATIENT. PLACED THEM ON THE CHART
--- NOTE | 2021-09-13 11:54 | NURSING ---
Pt back in his room at this time.
--- NOTE | 2021-09-13 12:00 | CASEMGMT ---
RN CM Face to Face with patient for initial transition planning/care coordination assessment. RN CM introduced self and role at [facility]. Patient lying in bed, alert and oriented, at bedside. Patient willing to participate in assessment and is able to answer all questions appropriately. Care providers, pharmacy, and demographics verified. Patient wishes to discharge home, denies need for home health at this time. Patient states he has no further needs or concerns at this time. CM to follow for discharge planning needs that may arise. PCP: Michael. Patient and thinking of changing PCP, provided with physician directory. Specialists: Friend, GI Preferred Pharmacy: [facility] Insurance: none Prescription Benefit: none Living Will/HPOA: none LNOK: Living Arrangements: Patient lives in a 2 story home with . Patient states he is independent at home and able to ambulate stairs. Transportation: self, DME/HHC: Patient denies DME at home. No previous HHC or SNF. states she is a nurse and able to provide care to patient. Disposition Plan: Patient to discharge home with family support and folllow-up plans in place. Luana WELLSN, RN, CM
[2021-09-13 12:02] LABS: Red Cell Count/Body Fluid 88 /mm3
[2021-09-13 12:13] LABS: LDH,Body Fluid 48 Units/l (Not Establ.)
[2021-09-13] MEDS: Albumin Human 25% (100 mL) 25 GM/100 ML BAG IV (12:42)
[2021-09-13 14:00] LABS: Lymphocytes 16 %; Macrophages 16 %; Mesothelial Cells 48 %; Monocytes 13 %; Neutrophil (Segs) 4 %; Plasma Cell/BodyFluid 3 %
[2021-09-13 14:01] LABS: Body Fluid QC Type(s) BF1Q,BF2Q
--- NOTE | 2021-09-13 17:44 | PN_ITS ---
Subjective Subjective Did well with paracentesis today. He had 9 L removed. He is not having abdominal pain. He is getting albumin at this time. His is with him at the bedside. Objective Data Objective Data Vital Signs: Vital Signs Temp Pulse Resp BP Pulse Ox 97.1 F L 74 20 H 123/69 H 94 09/13/21 10:48 09/13/21 10:48 09/13/21 10:48 09/13/21 10:48 09/13/21 09:57 Oxygen Delivery Method [3] Room Air Oxygen Delivery Method Room Air Weight: 217 lb 2.485 oz Body Mass Index (BMI) 32.1 Intake & Output: Intake and Output for Last 24 Hours 09/11/21 09/12/21 09/13/21 23:59 23:59 23:59 Intake Total 1560 / 1560 403.5 / 403.5 Output Total 8650 / 8650 Balance 1560 / 1560 -8246.5 / -8246.5 Lab / Micro Data Result Diagrams: 09/13/21 05:20 09/13/21 05:20 Labs: Laboratory Results - last 24 hr 09/13/21 05:20: PT 20.8 H, INR 1.9 09/13/21 05:20: WBC 10.4, RBC 3.08 L, Hgb 10.8 L, Hct 28.8 L, MCV 93.5, MCH 35.1 H, MCHC 37.5 H, RDW Std Deviation 56.0 H, RDW Coeff of Teri 16.5 H, Plt Count 138 L, MPV 11.2, Immature Gran % (Auto) 0.500, Neut % (Auto) 67.5, Lymph % (Auto) 18.4 L, [place] % (Auto) 9.2, Eos % (Auto) 3.4, Baso % (Auto) 1.0, Absolute Neuts (auto) 7.0, Absolute Lymphs (auto) 1.92, Nucleated RBC % 0.2, Platelet Estimate SLT 09/13/21 05:20: Sodium 119 L*, Potassium 4.3, Chloride 90 L, Carbon Dioxide 24.0, Anion Gap 5, BUN 12, Creatinine 0.96, Estim Creat Clear Calc 91.03, Est GFR (MDRD) Af Amer 107, Est GFR (MDRD) Non-Af 88, BUN/Creatinine Ratio 12.5, Glucose 112 H, Calcium 8.4 L, Total Bilirubin 3.90 H, Direct Bilirubin 1.96 H, AST 166 H, ALT 102 H, Alkaline Phosphatase 161 H, Total Protein 7.2, Albumin 1.8 L, Globulin 5.4 H 09/13/21 10:45: Fluid LDH 48 09/13/21 10:45: Fluid Total Protein 1.0 09/13/21 10:45: Fluid Source OTHER, Fluid Color YELLOW, Fluid Appearance SL CLDY, Fluid WBC 0.169, Fluid RBC 88, Fluid Tot Cell Count 0.283, Fld Polynuclear WBCs # 0.006, Fld Polynuclear WBCs % 3.6, Fluid Mononuclear WBCs 0.163, Fld Mononuclear WBCs % 96.4, Fluid Neutrophils 4, Fluid Lymphocytes 16, Fluid [place] cytes 13, Fluid Plasma Cells 3, Fluid Macrophages 16, Fld Mesothelial Cells 48, Fl Pathologist Comment May follow, Fluid Comment 2 Not Reportable Radiography Diagnostic Testing: Radiology Impression Paracentesis Ultrasound 09/12/21 12:44 IMPRESSION: Ultrasound guided paracentesis. Electronically Signed: Austyn Aguilar MD at 12:02 EST , Physical Exam Const alert General Appearance: cooperative Orientation / Consciousness: oriented to person HEENT hearing grossly normal bilaterally Head and Scalp: normal to inspection Face and Sinus: face symmetric Nose: external nose normal Mouth: oral and palatal mucosa normal Eyes conjunctivae normal General Eye: normal appearance of both eyes Neck full ROM General: normal visual inspection Lymph Lymphatic: no lymphadenopathy noted Chest inspection of chest normal and palpation of chest normal Chest: symmetrical chest wall rise Resp normal respiratory effort Effort and Inspection: able to speak in complete sentences Cardio regular rate GI non-distended Percussion: normal to percussion Rectal Exam: deferred Neuro Speech: speech normal Gait (Neuro): normal gait Assessment & Plan Assessment/Plan (1) Alcoholic hepatitis: PLAN: Patient is on steroids for alcoholic hepatitis. His bilirubin is improving. He is looking less jaundiced today and is more alert today. He will need to be on steroids for 30 days. 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 Seems to be stable at this time. (3) Anemia: PLAN: His hemoglobin seems to be stable. This is likely secondary to bone marrow toxicity. He will also need to be screened for varices. (4) Cirrhosis of liver: PLAN: Cirrhosis of the liver likely secondary to alcohol. He will be st arted on propanolol therapy versus nadolol therapy, lactulose 10 mg twice a day, Xifaxan 550 twice a day, ursodiol 250 or 300 mg twice a day. (5) Abdominal ascites: QUALIFIERS: Ascites type: due to alcoholic cirrhosis Qualified Code(s): K70.31 - Alcoholic cirrhosis of liver with ascites PLAN: I had a long talk with his and the patient at the bedside explained to them that if he gains more than 5 pounds and he will have to adjust his diuretics. At this time I would not adjust his diuretics until nephrology has seen him regarding his hyponatremia. Charges/Coding Visit Charges Inpatient E&M: 28216 Subs Hosp L3
[2021-09-13 18:09] VITALS: BP 121/64; PULSE 72; RESP 18; TEMP 36.5; O2SAT 96
[2021-09-13 19:29] VITALS: BP 113/59; PULSE 72; RESP 16; TEMP 36.6; O2SAT 100
[2021-09-14 02:32] VITALS: BP 117/61; PULSE 83; RESP 16; TEMP 37; O2SAT 100
--- NOTE | 2021-09-14 07:00 | US_ITS ---
STUDY: ABDOMINAL ULTRASOUND - RIGHT UPPER QUADRANT REASON FOR VISIT: Male, 51 years old Ascites -- CIRRHOSIS W/ ASCITES HYPONATREMIA TECHNIQUE: Ultrasound evaluation of the right upper quadrant was performed with real-time and static bartlett-scale imaging. TECHNICAL QUALITY: Adequate. COMPARISON: Comparison is made with prior CT scan of the abdomen and pelvis dated 09/11/2021. FINDINGS: Liver: The liver is enlarged and measures 19.5 cm. There is increased echogenicity consistent with fatty infiltration. The bile ducts are within normal limits. There is hepatic color flow. The direction of portal flow is hepatopetal. There is no demonstrated mass lesion. Gallbladder: Normal distended gallbladder. The gallbladder wall is slightly thickened and measures 3.2 mm. There is a negative sonographic Baig''s sign. There is small amount of pericholecystic fluid. There are no gallstones. Sludge is seen within the gallbladder lumen. Common Bile Duct (C.B.D.): The common bile duct measures 3.7 mm. Pancreas: Normal size of the head, body and tail of the pancreas. There is normal echogenicity of the pancreas. There is no demonstrated pancreatic mass or cyst. Right Kidney: Normal size of the right kidney. The right kidney measures 11.8 cm x 6.2cmx 7 cm. Normal renal cortex. The right cortex measures 1.8 cm. There is no demonstrated renal mass or cyst. There is no right hydronephrosis. Small amount of residual ascites. US/Liver IMPRESSION: Hepatomegaly and fatty infiltration of the liver. Minimal thickening of the gallbladder wall with a small amount of pericholecystic fluid. Electronically Signed: Austyn Aguilar MD at 8:45 EST ,
[2021-09-14 07:08] LABS: HEPATITIS B SURFACE AG Negative (Negative); Hepatitis A IgM Antibody Negative (Negative); Hepatitis B Core AB IgM Negative (Negative)
[2021-09-14 07:14] LABS: Absolute Neutrophil Count 9.6 X10^3/uL (2.0-7.7); Basophil# 0.05 X10^3/uL; Basophil% 0.4 % (0-1); Eosinophil# 0.11 X10^3/uL; Eosinophils% 0.9 % (0-5); Hematocrit 26.4 % (40-54); Hemoglobin 10.1 g/dL (13.0-16.5); Lymphocyte % 11.7 % (19-41); Mean Corp Hgb Conc 38.3 g/dL (32-36); Mean Corpuscular Hgb 34.8 pg (27.0-32.0); Monocyte# 0.77 X10^3/uL; Monocyte% 6.4 % (0-10); NRBC Flagged by Analyzer 0 % (0-5); Neutrophil # 9.56 X10^3/uL (2.7-7.7); Neutrophil % 79.7 % (47-70); POSITIVE COUNT YES; Platelet Count 115 K/mm3 (150-450); RBC Distribution Width SD 53.4 fl (35.1-43.9)
[2021-09-14 07:16] LABS: Prothrombin Time (Protime)PT. 21.9 SECONDS (11.7-14.9)
[2021-09-14 07:33] LABS: AST(SGOT) 134 U/L (15-37); Alanine Aminotransfer ALT/SGPT 87 U/L (16-61); Albumin, Serum 1.8 g/dL (3.2-5.0); Alkaline Phosphatase 126 U/L (45-117); Anion Gap 7 (5-15); BUN 13 mg/dL (7-18); BUN/Creat Ratio 18.6 RATIO (10-20); Bilirubin, Direct 1.32 mg/dL (0.00-0.30); Calcium,Total 8.1 mg/dL (8.5-10.1); Chloride 92 mmol/L (98-107); EST Glomerular Filtration Rate 126 mL/min (>60); Est Glom Filt Rate - Afr Amer 153 mL/min (>60); Estimated Creatinine Clearance 124.85 ml/min; Globulin 4.8 g/dL (2.2-4.2); Glucose 127 mg/dL (74-106); Potassium 3.9 mmol/L (3.5-5.1); Protein, Total 6.6 g/dL (6.4-8.2); Sodium Level 122 mmol/L (136-145)
--- NOTE | 2021-09-14 08:12 | PN.HOSP_ITS ---
Subjective Subjective Patient underwent paracentesis with a total of 8750 ml of brian-colored fluid removed. Objective Data Objective Data Vital Signs: Vital Signs Temp Pulse Resp BP Pulse Ox 98.6 F 83 16 117/61 100 09/14/21 02:32 09/14/21 02:32 09/14/21 02:32 09/14/21 02:32 09/14/21 02:32 Oxygen Delivery Method [3] Room Air Oxygen Delivery Method Room Air Weight: 98.5 kg Body Mass Index (BMI) 32.1 Intake & Output: Intake and Output for Last 24 Hours 09/12/21 09/13/21 09/14/21 23:59 23:59 23:59 Intake Total 1560 / 1560 1310.75 / 1310.75 Output Total 8650 / 8650 Balance 1560 / 1560 -7339.25 / -7339.25 Lab / Micro Data Result Diagrams: 09/14/21 06:30 09/14/21 06:30 Labs: Laboratory Results - last 24 hr 09/13/21 05:20: WBC 10.4, RBC 3.08 L, Hgb 10.8 L, Hct 28.8 L, MCV 93.5, MCH 35.1 H, MCHC 37.5 H, RDW Std Deviation 56.0 H, RDW Coeff of Teri 16.5 H, Plt Count 138 L, MPV 11.2, Immature Gran % (Auto) 0.500, Neut % (Auto) 67.5, Lymph % (Auto) 18.4 L, [place] % (Auto) 9.2, Eos % (Auto) 3.4, Baso % (Auto) 1.0, Absolute Neuts (auto) 7.0, Absolute Lymphs (auto) 1.92, Nucleated RBC % 0.2, Platelet Est imate SLT 09/13/21 05:20: Sodium 119 L*, Potassium 4.3, Chloride 90 L, Carbon Dioxide 24.0, Anion Gap 5, BUN 12, Creatinine 0.96, Estim Creat Clear Calc 91.03, Est GFR (MDRD) Af Amer 107, Est GFR (MDRD) Non-Af 88, BUN/Creatinine Ratio 12.5, Glucose 112 H, Calcium 8.4 L, Total Bilirubin 3.90 H, Direct Bilirubin 1.96 H, AST 166 H, ALT 102 H, Alkaline Phosphatase 161 H, Total Protein 7.2, Albumin 1.8 L, Globulin 5.4 H 09/13/21 10:45: Fluid LDH 48 09/13/21 10:45: Fluid Total Protein 1.0 09/13/21 10:45: Fluid Source OTHER, Fluid Color YELLOW, Fluid Appearance SL CLDY, Fluid WBC 0.169, Fluid RBC 88, Fluid Tot Cell Count 0.283, Fld Polynuclear WBCs # 0.006, Fld Polynuclear WBCs % 3.6, Fluid Mononuclear WBCs 0.163, Fld Mononuclear WBCs % 96.4, Fluid Neutrophils 4, Fluid Lymphocytes 16, Fluid Monocytes 13, Fluid Plasma Cells 3, Fluid Macrophages 16, Fld Mesothelial Cells 48, Fl Pathologist Comment May follow, Fluid Comment 2 Not Reportable 09/14/21 06:30: PT 21.9 H, INR 2.0 09/14/21 06:30: Sodium 122 L, Potassium 3.9, Chloride 92 L, Carbon Dioxide 23.0, Anion Gap 7, BUN 13, Creatinine 0.70, Estim Creat Clear Calc 124.85, Est GFR (MDRD) Af Amer 153, Est GFR (MDRD) Non-Af 126, BUN/Creatinine Ratio 18.6, Glucose 127 H, Calcium 8.1 L, Total Bilirubin 2.50 H, Direct Bilirubin 1.32 H, AST 134 H, ALT 87 H, Alkaline Phosphatase 126 H, Total Protein 6.6, Albumin 1.8 L, Globulin 4.8 H Radiography Diagnostic Testing: Radiology Impression Paracentesis Ultrasound 09/12/21 12:44 IMPRESSION: Ultrasound guided paracentesis. Electronically Signed: Austyn Aguilar MD at 12:02 EST , Physical Exam Narrative GENERAL: cooperative HEENT: Atraumatic;Distended JVD EYES; Anicteric, Normal Conjunctiva NECK; supple, normal thyroid, RESPIRATORY: Diminished to auscultation CARDIOVASCULAR: Regular S1 S2, GI: soft, normoactive bowel sounds, Abdomen markedly distended : No Renal angle tenderness; EXTREMITIES: No edema, no clubbing, MUSCULOSKELETAL: no muscle wasting NEURO: Awake; no lateralizing signs. SKIN: Mottling involving both lower extremities PSYCH; Flat affect Assessment & Plan Assessment/Plan (1) Acute hyponatremia: (2) History of liver disease: (3) Abdominal ascites: QUALIFIERS: Ascites type: due to alcoholic cirrhosis Qualified Code(s): K70.31 - Alcoholic cirrhosis of liver with ascites PLAN: Patient is a 51-year-old gentleman with history of cirrhosis of the liver who presented with abdominal painAn assessment of acute decompensated cirrhosis of the liver with mild ascites made admitted to the regular nursing floor where patient is currently being managed 1. Acute decompensated cirrhosis of the liver ?Patient was noted to have gross ascites. Started on Lasix Aldactone as well as rifaximin. Consult placed to GI plan is for patient to undergo diagnostic and therapeutic paracentesis on 09/13/2021. As part of patient's evaluation, Ascitic fluid analysis ordered. 09/14/2021; Patient underwent paracentesis with a total of 8750 ml of brian- colored fluid removed on 09/13/2021. Remains on recommended medications including rifaximin lactulose Aldactone midodrine and furosemide in addition to pred nisone 2. Hyponatremia ?Multifactorial including patient fluid overload status as well as patient cirrhosis of the liver. Patient currently on Lasix and Aldactone with serial monitoring of electrolyte. Consult has been placed to nephrology -09/14/2021; sodium remains significantly low at 122 3.Coagulopathy ?Secondary to patient's cirrhosis of the liver monitoring 4. Acute cystitis ?Started on Rocephin 5. GI prophylaxis ?Patient on PPI 6. DVT prophylaxis ?SCDs 7. Class I obesity with BMI of 32.1 ?Weight loss advised. 8. Tobacco dependence Outpatient use counseled on cessation offered nicotine patch for tobacco cravings Charges/Coding Visit Charges Inpatient E&M: 21527 Subs Hosp L2
[2021-09-14] MEDS: predniSONE 20 MG Tablet PO (08:14)
[2021-09-14] MEDS: Midodrine HCl 5 MG Tablet 10 MG PO ×3 (08:15→18:21)
[2021-09-14 08:40] VITALS: BP 113/56; PULSE 74; RESP 16; TEMP 37.2; O2SAT 100
[2021-09-14] MEDS: rifAXIMin 550 MG Tablet PO (10:14)
[2021-09-14] MEDS: Spironolactone 25 MG Tablet PO (10:14)
[2021-09-14] MEDS: Lactulose 20 GM/30 ML UDC PO (10:14)
[2021-09-14] MEDS: Furosemide 40 MG/4 ML Vial IV (10:14)
[2021-09-14] MEDS: Ceftriaxone 1 GM/50 ML BAG IV (10:19)
[2021-09-14] MEDS: 0.9% Saline Lock 10 ML Syringe IV (10:19)
[2021-09-14 10:30] LABS: Pathologist Comment/Body Fluid Reviewed
[2021-09-14 11:12] LABS: Hep C Antibodies 0.2 s/co ratio (0.0-0.9)
--- NOTE | 2021-09-14 11:54 | PCM.CONS.R ---
Assessment & Plan Assessment/Plan (1) Acute hyponatremia: PLAN: Due to cirrhosis. Hypervolemic hyponatremia. Sodium was 119 yesterday. Ordered albumin yesterday. Slightly better at 122. He is already on midodrine. Blood pressure values are acceptable. Repeat albumin today. We do not have 2% sodium chloride here. If sodium continues to remain low, he may need 3% sodium chloride temporarily. Usually that has to go through central line. We will see if he responds to albumin today. He follows with gastroenterology, is not enrolled in liver transplant yet. HPI Consult Data Date of Consult: 09/14/21 HPI Narrative HPI Narrative: JOSE CRUZ THOMPSON, is a 51 M who presents to the hospital with worsening abdominal distention. 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 Required multiple paracentesis, just had fourth paracentesis yesterday. Possible evaluation for TIPS in the future. He says he has been sober since last month. Not enrolled in any transplant program yet. He had about 8 and half liters of fluid taken out and abdominal looks pretty distended today. Minimal lower extremity edema. Urine output is present. He has been on Lasix and spironolactone. Blood pressure is borderline. Currently denies any complaints other than abdominal distention. [facility] [place] Medical History (Updated 09/12/21 @ 18:[address] Lee Friend, DO) Cirrhosis of liver Nicotine dependence Home Medications furosemide [Lasix] 20 mg PO DAILY 09/11/21 [History Last Taken 09/11/21] spironolactone 50 mg PO DAILY 09/11/21 [History Last Taken 09/11/21] Allergy/AdvReac Type Severity Reaction Status Date / Time No Known Allergies Allergy Verified 09/11/21 16:52 Family History (Updated 09/11/21 @ 20:[address] Dustin Metz MD) Other Cancer Diabetes Heart disease Surgical History H/O repair of rotator cuff Social History Smoking Status: Never smoker ROS ROS Narrative Negative except above Physical Exam Narrative Alert awake oriented x 3 no obvious distress no pallor no icterus no JVD s1s2 no murmurs lungs clear abdomen distended no edema no cyanosis Lab / Micro Data Result Diagrams: 09/14/21 06:30 09/14/21 06:30 Labs: Laboratory Results - last 24 hr 09/11/21 17:38: Hepatitis A IgM Ab Negative, Hep Bs Antigen Negative, Hep B Core IgM Ab Negative, Hepatitis C Ab (EIA) 0.2 09/13/21 10:45: Fluid LDH 48 09/13/21 10:45: Fluid Total Protein 1.0 09/13/21 10:45: Fluid RBC 88, Fluid Neutrophils 4, Fluid Lymphocytes 16, Fluid Monocytes 13, Fluid Plasma Cells 3, Fluid Macrophages 16, Fld Mesothelial Cells 48, Fl Pathologist Comment Reviewed, Fluid Comment 2 Not Reportable 09/14/21 06:30: PT 21.9 H, INR 2.0 09/14/21 06:30: WBC 12.0 H, RBC 2.90 L, Hgb 10.1 L, Hct 26.4 L, MCV 91.0, MCH 34.8 H, MCHC 38.3 H, RDW Std Deviation 53.4 H, RDW Coeff of Teri 16.0 H, Plt Count 115 L, MPV 11.0, Immature Gran % (Auto) 0.900, Neut % (Auto) 79.7 H, Lymph % (Auto) 11.7 L, [place] % (Auto) 6.4, Eos % (Auto) 0.9, Baso % (Auto) 0.4, Absolute Neuts (auto) 9.6 H, Absolute Lymphs (auto) 1.40, Nucleated RBC % 0 09/14/21 06:30: Sodium 122 L, Potassium 3.9, Chloride 92 L, Carbon Dioxide 23.0, Anion Gap 7, BUN 13, Creatinine 0.70, Estim Creat Clear Calc 124.85, Est GFR (MDRD) Af Amer 153, Est GFR (MDRD) Non-Af 126, BUN/Creatinine Ratio 18.6, Glucose 127 H, Calcium 8.1 L, Total Bilirubin 2.50 H, Direct Bilirubin 1.32 H, AST 134 H, ALT 87 H, Alkaline Phosphatase 126 H, Total Protein 6.6, Albumin 1.8 L, Globulin 4.8 H Micro: Microbiology 09/13/21 10:45 Fluid - Ascites Body Fluid Culture - Preliminary No growth-Final to follow Radiology Impression Paracentesis Ultrasound 09/12/21 12:44 IMPRESSION: Ultrasound guided paracentesis. Electronically Signed: Austyn Aguilar MD at 12:02 EST , Liver Ultrasound 09/14/21 07:00 IMPRESSION: Hepatomegaly and fatty infiltration of the liver. Minimal thickening of the gallbladder wall with a small amount of pericholecystic fluid. Electronically Signed: Austyn Aguilar MD at 8:45 EST ,
[2021-09-14] MEDS: Albumin Human 25% (100 mL) 25 GM/100 ML BAG IV ×2 (13:59→15:46)
[2021-09-14 14:00] VITALS: BP 119/72; PULSE 67; RESP 18; TEMP 36.6; O2SAT 100
--- NOTE | 2021-09-14 14:48 | NURSING ---
student charting reviewed. GIOVANNA Gil instructor
--- NOTE | 2021-09-14 16:14 | DS.PCM_ITS ---
Providers Date of Admission: 09/11/21 Primary Care Physician: Dr. Jovi Rodriguez, Consultations 09/11/21 21:19 Consult: Gastroenterology Routine Consulting Provider: Brittany [facility] Reason for Consult: Cirrhosis with ascites due to alcohol EMERGENT Consult: No Notified: Yes Date Notified: 09/11/21 Time Notified: 20:12 Method of Notification: Text 09/13/21 08:17 Consult: Nephrology Routine Consulting Provider: Alfa Camara Reason for Consult: Hyponatremia EMERGENT Consult: No Notified: Yes Date Notified: 09/13/21 Time Notified: 08:47 Method of Notification: Office Reason For Visit: CIRRHOSIS WITH ASCITES AND HYPONATREMIA Diagnosis Discharge Diagnosis (1) Acute hyponatremia: Status: Acute Code(s): E87.1 - Hypo-osmolality and hyponatremia Medications at Discharge Home Medications spironolactone 50 mg PO DAILY 09/11/21 furosemide [Lasix] 40 mg PO DAILY #0 tab 09/14/21 lactulose 20 g PO DAILY #900 ml 09/14/21 midodrine 10 mg PO TIDCM #90 tab 09/14/21 prednisone 20 mg PO BREAKFAST #30 tab 09/14/21 rifaximin [Xifaxan] 550 mg PO BID #60 tab 09/14/21 ursodiol 250 mg PO QHS #30 tab 09/14/21 Hospital Course Operations None Procedures Paracentesis Summary of Care Provided Minutes Spent on Discharge: 40 Hospital Course: Patient is a 51-year-old gentleman with history of cirrhosis of the liver who presented with abdominal painAn assessment of acute decompensated cirrhosis of the liver with mild ascites made admitted to the regular nursing floor where patient is currently being managed 1. Acute decompensated cirrhosis of the liver ?Patient was noted to have gross ascites. Started on Lasix Aldactone as well as rifaximin. Consult placed to GI plan is for patient to undergo diagnostic and therapeutic paracentesis on 09/13/2021. As part of patient's evaluation, Ascitic fluid analysis ordered. 09/14/2021; Patient underwent paracentesis with a total of 8750 ml of brian- colored fluid removed on 09/13/2021. Remains on recommended medications including rifaximin lactulose Aldactone midodrine and furosemide in addition to prednisone. Ursodiol was added to patient's discharge medications after discussion with GI 2. Hyponatremia ?Multifactorial including patient fluid overload status as well as patient cirrhosis of the liver. Patient currently on Lasix and Aldactone with serial monitoring of electrolyte. Consult has been placed to nephrology -09/14/2021; sodium remains significantly low at 122 -Recommendations from nephrology reviewed patient to follow-up with nephrology as outpatient. 3.Coagulopathy ?Secondary to patient's cirrhosis of the liver monitoring 4. Acute cystitis ?Started on Rocephin 5. GI prophylaxis ?Patient on PPI 6. DVT prophylaxis ?SCDs 7. Class I obesity with BMI of 32.1 ?Weight loss advised. 8. Tobacco dependence Outpatient use counseled on cessation offered nicotine patch for tobacco cravings Physical Exam Narrative GENERAL: cooperative HEENT: Atraumatic;Distended JVD EYES; Anicteric, Normal Conjunctiva NECK; supple, normal thyroid, RESPIRATORY: Diminished to auscultation CARDIOVASCULAR: Regular S1 S2, GI: soft, normoactive bowel sounds, Abdomen distended : No Renal angle tenderness; EXTREMITIES: No edema, no clubbing, MUSCULOSKELETAL: no muscle wasting NEURO: Awake; no lateralizing signs. SKIN: Mottling involving both lower extremities PSYCH; Flat affect Weight / BMI Weight Weight: 98.5 kg Body Mass Index (BMI) 32.1 ABG / Lab / Microbiology Data Result Diagrams: 09/14/21 06:30 09/14/21 06:30 Laboratory: Laboratory Results - last 24 hr 09/11/21 17:38: Hepatitis A IgM Ab Negative, Hep Bs Antigen Negative, Hep B Core IgM Ab Negative, Hepatitis C Ab (EIA) 0.2 09/13/21 10:45: Fl Pathologist Comment Reviewed 09/14/21 06:30: PT 21.9 H, INR 2.0 09/14/21 06:30: WBC 12.0 H, RBC 2.90 L, Hgb 10.1 L, Hct 26.4 L, MCV 91.0, MCH 34.8 H, MCHC 38.3 H, RDW Std Deviation 53.4 H, RDW Coeff of Teri 16.0 H, Plt Count 115 L, MPV 11.0, Immature Gran % (Auto) 0.900, Neut % (Auto) 79.7 H, Lymph % (Auto) 11.7 L, [place] % (Auto) 6.4, Eos % (Auto) 0.9, Baso % (Auto) 0.4, Absolute Neuts (auto) 9.6 H, Absolute Lymphs (auto) 1.40, Nucleated RBC % 0 09/14/21 06:30: Sodium 122 L, Potassium 3.9, Chloride 92 L, Carbon Dioxide 23.0, Anion Gap 7, BUN 13, Creatinine 0.70, Estim Creat Clear Calc 124.85, Est GFR (MDRD) Af Amer 153, Est GFR (MDRD) Non-Af 126, BUN/Creatinine Ratio 18.6, Glucose 127 H, Calcium 8.1 L, Total Bilirubin 2.50 H, Direct Bilirubin 1.32 H, AST 134 H, ALT 87 H, Alkaline Phosphatase 126 H, Total Protein 6.6, Albumin 1.8 L, Globulin 4.8 H Microbiology: Microbiology 09/13/21 10:45 Fluid - Ascites Gram Stain - Final 09/13/21 10:45 Fluid - Ascites Body Fluid Culture - Preliminary No growth-Final to follow Radiography Diagnostic Testing: Radiology Impression Liver Ultrasound 09/14/21 07:00 IMPRESSION: Hepatomegaly and fatty infiltration of the liver. Minimal thickening of the gallbladder wall with a small amount of pericholecystic fluid. Electronically Signed: Austyn Aguilar MD at 8:45 EST , Meaningful Use Info Meaningful Use Diagnoses (Choose all that apply): None applicable Discharge Plan Admission Admit Date/Time: 09/11/21 20:09 Attending Provider: Maycol Christie Primary Care Provider: Jovi Rodriguez Consulting Providers: Alfa Camara Discharge Orders/Prescriptions Prescriptions: New prednisone 20 mg Tablet 20 mg PO BREAKFAST Qty: 30 RF: 0 midodrine 5 mg Tablet 10 mg PO TIDCM Qty: 90 RF: 0 Xifaxan 550 mg Tablet 550 mg PO BID Qty: 60 RF: 0 lactulose 20 gram/30 mL Solution 20 g PO DAILY Qty: 900 RF: 0 ursodiol 250 mg tablet 250 mg PO QHS Qty: 30 RF: 0 Continued spironolactone 50 mg Tablet 50 mg PO DAILY RF: 0 Changed furosemide [Lasix] 20 mg Tablet 40 mg PO DAILY Qty: 0 RF: 0 Referrals / Follow Up: Alfa Camara MD [STAFF PHYSICIAN] - Within 1 Week Jovi Rodriguez DO [Primary Care Provider] - Jesus Posada DO [STAFF PHYSICIAN] - Within 2 Weeks Disposition Disposition (needs filled in before D/C Order can be placed): Home, Self Care Charges/Coding Visit Charges Inpatient E&M: 11686 Disch Hosp
[2021-09-14 18:35] VITALS: BP 134/77; PULSE 90; RESP 18; O2SAT 100
== END 2021-09-14 18:35 | disposition home or self-care (01) | DRG 433 ==
LOC: ED 17:28 → MS3 20:39
PROVIDERS: Internal Medicine; Admitting Provider Family Medicine; Emergency Provider Emergency Medicine; PCP Student in an Organized Health Care Education/Training Program; Visit Provider Internal Medicine
DX: K70.31 Alcoholic cirrhosis of liver with ascites (principal); E87.1 Hypo-osmolality and hyponatremia; D68.9 Coagulation defect, unspecified; N30.00 Acute cystitis without hematuria; E87.79 Other fluid overload; D64.89 Other specified anemias; D69.59 Other secondary thrombocytopenia; E87.8 Other disorders of electrolyte and fluid balance, not elsewhere classified; K70.11 Alcoholic hepatitis with ascites; E66.9 Obesity, unspecified; Z68.32 Body mass index [BMI] 32.0-32.9, adult; Z79.899 Other long term (current) drug therapy
CPT/HCPCS: 36415; 49083; 71045; 74177; 76705; 80048; 80053; 80074; 80076; 81001; 83615; 83690; 84157; 85025; 85610; 87070; 87075; 87205; 88108; 88305; 88313; 89050; 99285; 99406; J7050; P9047; Q9967; A4216; J1940

== ENCOUNTER 2021-09-22 09:19 | Emergency (ER) | payer SELFPAY ==
[2021-09-22 09:19] VITALS: BP 142/83; PULSE 98; RESP 14; TEMP 36.5; O2SAT 100; BMI 34.4
--- NOTE | 2021-09-22 09:29 | US_ITS ---
PROCEDURE: Ultrasound guided paracentesis. DATE OF EXAMINATION: 09/22/2021. INDICATION: Male, 51 years old. Ascites. PHYSICIAN: Dr. Diego Siddiqui TECHNIQUE: The risks, benefits, and alternatives to the procedure were explained to the patient. The specific risks of bleeding, infection, and damage to bowel were detailed and accepted. Witnessed informed consent was obtained. The abdomen was ultrasonographically surveyed. An appropriate pocket of fluid was identified at the right lower quadrant. The skin were cleaned and prepped in the usual sterile fashion. Using ultrasound guidance, the peritoneal cavity was accessed with a 5-Yemeni paracentesis needle/catheter system. The trocar was removed. A total of 8000 ml of cloudy yellow ascites fluid were removed from the peritoneal cavity. The catheter was removed and a sterile dressing was applied. The procedure was well tolerated. US/Paracentesis with US IMPRESSION: Ultrasound guided therapeutic paracentesis with 8000 cc of cloudy yellow ascites fluid aspirated and discarded. Electronically Signed: Diego Siddiqui, at 12:56 EDT ,
--- NOTE | 2021-09-22 09:31 | EX.ED.DYSGE1 ---
HPI History of Present Illness Chief Complaint: Abd Pain Narrative Narrative: Patient presents with abdominal pain and distention secondary to his cirrhosis. He was seen by GI and sent for paracentesis. He does not feel confused. He has no fever or chills. He has abdominal distention but not worsening of the pain. No cough or congestion. He has no back pain or tearing sensation no urinary symptoms. [facility] Medical History Cirrhosis of liver Nicotine dependence Home Medications spironolactone 50 mg PO DAILY 09/11/21 [History Last Taken 09/11/21] furosemide [Lasix] 40 mg PO DAILY #0 tab 09/14/21 [Rx Last Taken 09/11/21] lactulose 20 g PO DAILY #900 ml 09/14/21 [Rx Last Taken Unknown] midodrine 10 mg PO TIDCM #90 tab 09/14/21 [Rx Last Taken Unknown] prednisone 20 mg PO BREAKFAST #30 tab 09/14/21 [Rx Last Taken Unknown] rifaximin [Xifaxan] 550 mg PO BID #60 tab 09/14/21 [Rx Last Taken Unknown] ursodiol 250 mg PO QHS #30 tab 09/14/21 [Rx Last Taken Unknown] Allergy/AdvReac Type Severity Reaction Status Date / Time No Known Allergies Allergy Verified 09/22/21 09:21 Family History Other Cancer Diabetes Heart disease Surgical History H/O repair of rotator cuff Social History Smoking Status: Never smoker ROS ROS ED ROS Narrative Past medical history: Reviewed, significant for cirrhosis, and sequelae of cirrhosis including thrombocytopenia and anemia and ascites. Medications: Reviewed Social history: He no longer drinks alcohol. Review of systems: All systems negative except as indicated General: No fever Eyes: No visual changes ENT: No upper airway congestion, normal voice Neck: No neck pain Cardiovascular: No chest pain Respiratory: No shortness of breath or cough Gastrointestinal: Abdominal pain and distention. Genitourinary: No dysuria Musculoskeletal: Denies myalgias no difficulty with ambulation Skin: No rash, chronic jaundice Neurological: No memory loss, confusion or any focal weakness Psych: No recent behavioral changes Hematologic: No easy bleeding or easy bruising EXAM Physical Exam Narrative Exam Narrative: Physical exam Afebrile. General: Patient does not appear acutely ill. He does appear chronically ill he appears in some distress. Head: Normocephalic, Atraumatic Eyes: Scleral icterus is pleasant ENT: Moist mucous membranes. No signs of dehydration Neck: Supple, Nontender, No lymphadenopathy Cardiovascular: Regular rate, Regular rhythm Respiratory: No distress, coarse bilateral breath sounds. No wheezing. He is speaking in full sentences. Abdomen: There is a distended abdomen with quite a bit of fluid. Back: Nontender, Normal Inspection. Negative for: CVA tenderness Extremities: Nontender, No edema Skin: Patient is jaundice Neurological: Alert, Normal Strength, Normal Sensation. No asterixis Psychological: Normal affect Const Vital Signs: 09/22/21 09:19 09/22/21 11:36 Temperature 97.7 F L Temperature [1 (Initial Baseline)] 97.8 F Temperature Source Temporal Pulse Rate 98 Pulse Rate [1 (Initial Baseline)] 89 Pulse Rate [2] 80 Pulse Rate [3] 82 Respiratory Rate 14 Respiratory Rate [1 (Initial Baseline)] 18 Respiratory Rate [2] 16 Respiratory Rate [3] 16 Blood Pressure 142/83 H Blood Pressure [1 (Initial Baseline)] 137/83 H Blood Pressure [2] 134/85 H Blood Pressure [3] 136/80 H Blood Pressure Mean 102 Pulse Ox 100 Oxygen Delivery Method Room Air Oxygen Delivery Method [1 (Initial Baseline)] Room Air Oxygen Delivery Method [2] Room Air Oxygen Delivery Method [3] Room Air MDM MDM MDM Narrative Medical decision making narrative: Patient's work-up is unremarkable other than chronic cirrhosis. He went for paracentesis 8 L were removed, he is going now for an infusion for albumin. He will be discharged so he can go for his infusion. Lab Data Labs: Laboratory Results - last 24 hr 09/22/21 09/22/21 09/22/21 09:33 09:33 09:35 WBC 9.7 RBC 3.11 L Hgb 10.9 L Hct 29.7 L MCV 95.5 H MCH 35.0 H MCHC 36.7 H RDW Std Deviation 63.6 H RDW Coeff of Teri 18.0 H Plt Count 137 L MPV 10.7 Immature Gran % (Auto) 1.100 H Neut % (Auto) 72.4 H Lymph % (Auto) 13.4 L [place] % (Auto) 11.2 H Eos % (Auto) 1.5 Baso % (Auto) 0.4 Absolute Neuts (auto) 7.0 Absolute Lymphs (auto) 1.31 Nucleated RBC % 0 Platelet Estimate ADEQUATE RBC Morphology NORM C+C PT 20.6 H INR 1.9 Sodium 124 L Potassium 3.5 Chloride 93 L Carbon Dioxide 23.0 Anion Gap 8 BUN 17 Creatinine 1.04 Estim Creat Clear Calc 84.03 Est GFR (MDRD) Af Amer 97 Est GFR (MDRD) Non-Af 80 BUN/Creatinine Ratio 16.3 Glucose 151 H Calcium 8.6 Total Bilirubin 5.20 H Direct Bilirubin 2.53 H AST 130 H ALT 94 H Alkaline Phosphatase 132 H Ammonia Total Protein 7.4 Albumin 2.4 L Globulin 5.0 H Lipase 309 09/22/21 09:36 WBC RBC Hgb Hct MCV MCH MCHC RDW Std Deviation RDW Coeff of Teri Plt Count MPV Immature Gran % (Auto) Neut % (Auto) Lymph % (Auto) [place] % (Auto) Eos % (Auto) Baso % (Auto) Absolute Neuts (auto) Absolute Lymphs (auto) Nucleated RBC % Platelet Estimate RBC Morphology PT INR Sodium Potassium Chloride Carbon Dioxide Anion Gap BUN Creatinine Estim Creat Clear Calc Est GFR (MDRD) Af Amer Est GFR (MDRD) Non-Af BUN/Creatinine Ratio Glucose Calcium Total Bilirubin Direct Bilirubin AST ALT Alkaline Phosphatase Ammonia < 10.0 L Total Protein Albumin Globulin Lipase Discharge Plan Triage Chief Complaint: Abd Pain ED Provider: Elijah Bustillo Dx/Rx/DC Orders Clinical Impression: Cirrhosis of liver, Ascites Instructions: ED Ascites, ED Cirrhosis Prescriptions: No Action spironolactone 50 mg Tablet 50 mg PO DAILY RF: 0 prednisone 20 mg Tablet 20 mg PO BREAKFAST Qty: 30 RF: 0 midodrine 5 mg Tablet 10 mg PO TIDCM Qty: 90 RF: 0 Xifaxan 550 mg Tablet 550 mg PO BID Qty: 60 RF: 0 lactulose 20 gram/30 mL Solution 20 g PO DAILY Qty: 900 RF: 0 ursodiol 250 mg tablet 250 mg PO QHS Qty: 30 RF: 0 furosemide [Lasix] 20 mg Tablet 40 mg PO DAILY Qty: 0 RF: 0 Primary Care Provider: Jovi Rodriguez Referrals: Jovi Rodriguez DO [Primary Care Provider] - 2 Days Disposition Disposition: Home, Self Care
[2021-09-22 10:00] LABS: AST(SGOT) 130 U/L (15-37); Alanine Aminotransfer ALT/SGPT 94 U/L (16-61); Albumin, Serum 2.4 g/dL (3.2-5.0); Alkaline Phosphatase 132 U/L (45-117); Anion Gap 8 (5-15); BUN 17 mg/dL (7-18); BUN/Creat Ratio 16.3 RATIO (10-20); Bilirubin, Direct 2.53 mg/dL (0.00-0.30); Calcium,Total 8.6 mg/dL (8.5-10.1); Chloride 93 mmol/L (98-107); Creatinine, Serum 1.04 mg/dL (0.70-1.30); EST Glomerular Filtration Rate 80 mL/min (>60); Est Glom Filt Rate - Afr Amer 97 mL/min (>60); Estimated Creatinine Clearance 84.03 ml/min; Glucose 151 mg/dL (74-106); Lipase 309 U/L (73-393); Potassium 3.5 mmol/L (3.5-5.1); Protein, Total 7.4 g/dL (6.4-8.2); Sodium Level 124 mmol/L (136-145)
[2021-09-22 10:40] LABS: Ammonia < 10.0 umol/L (11-32)
[2021-09-22 10:41] LABS: International Normalized Ratio 1.9; Prothrombin Time (Protime)PT. 20.6 SECONDS (11.7-14.9)
[2021-09-22 11:36] VITALS: BP 134/85; BP 136/80; BP 137/83; PULSE 80; PULSE 82; PULSE 89; RESP 16; RESP 18; TEMP 36.6; O2SAT 98; O2SAT 99
[2021-09-22 11:39] LABS: Absolute Lymphocyte Count 1.31 X10^3/uL (0.83-4.51); Basophil# 0.04 X10^3/uL; Basophil% 0.4 % (0-1); Eosinophil# 0.15 X10^3/uL; Eosinophils% 1.5 % (0-5); Hematocrit 29.7 % (40-54); Hemoglobin 10.9 g/dL (13.0-16.5); Lymphocyte # 1.31 X10^3/ul (0.83-4.51); Lymphocyte % 13.4 % (19-41); Mean Corp Hgb Conc 36.7 g/dL (32-36); Mean Corpuscular Volume 95.5 fL (80-94); Mean Platelet Vol. 10.7 fl (6.2-12.0); Monocyte# 1.09 X10^3/uL; Monocyte% 11.2 % (0-10); NRBC Flagged by Analyzer 0 % (0-5); Neutrophil # 7.04 X10^3/uL (2.7-7.7); Neutrophil % 72.4 % (47-70); POSITIVE COUNT YES; Platelet Count 137 K/mm3 (150-450); RBC Distribution Width SD 63.6 fl (35.1-43.9); Red Blood Count 3.11 M/mm3 (4.6-6.2); White Blood Count 9.7 K/mm3 (4.4-11.0)
[2021-09-22 11:41] LABS: Differential Indicated SCAN CRITERIA MET
[2021-09-22] MEDS: Lidocaine 2% (20 ml mdv) 20 ML Vial INFILT (11:53)
[2021-09-22 12:08] LABS: Platelet Estimate ADEQUATE (ADEQ); Red Cell Morphology NORM C+C NORMAL (NORM C&C)
[2021-09-22 12:39] VITALS: BP 131/79; PULSE 84
== END 2021-09-22 12:41 | disposition home or self-care (01) ==
PROVIDERS: Emergency Provider Emergency Medicine; PCP Student in an Organized Health Care Education/Training Program; Visit Provider Emergency Medicine
DX: K74.60 Unspecified cirrhosis of liver (principal); R18.8 Other ascites
CPT/HCPCS: 49083; 80048; 80076; 82140; 83690; 85025; 85610; 99282; A4216

== ENCOUNTER 2021-09-22 12:43 | Outpatient (CLI) | payer SELFPAY ==
[2021-09-22 12:48] VITALS: BP 129/76; PULSE 69; RESP 16; TEMP 35.9; O2SAT 97; BMI 32.1
[2021-09-22] MEDS: 0.9% Saline Lock 10 ML Syringe IV (13:17)
[2021-09-22] MEDS: Albumin Human 25% (100 mL) 25 GM/100 ML BAG IV ×2 (13:17→14:40)
[2021-09-22 16:26] VITALS: BP 111/62; PULSE 73; RESP 16; O2SAT 98
== END 2021-09-22 23:59 | disposition home or self-care (01) ==
PROVIDERS: PCP Student in an Organized Health Care Education/Training Program; Referring Provider Internal Medicine Gastroenterology; Visit Provider Internal Medicine Gastroenterology
DX: K74.60 Unspecified cirrhosis of liver (principal)
CPT/HCPCS: 96365; 96366 ×2; P9047; A4216

== ENCOUNTER 2021-09-24 09:13 | Outpatient (CLI) | payer SELFPAY ==
[2021-09-23 09:38] VITALS: BP 112/68; BP 112/72; BP 116/69; BP 118/75; BP 122/77; PULSE 73; PULSE 75; PULSE 78; PULSE 79; PULSE 82; RESP 16; RESP 18; TEMP 36.2; O2SAT 100; O2SAT 9; O2SAT 98; O2SAT 99
--- NOTE | 2021-09-24 09:19 | US_ITS ---
PROCEDURE: Ultrasound guided paracentesis. DATE OF EXAMINATION: 09/24/2021. INDICATION: Male, 51 years old. Ascites. PHYSICIAN: Dr. Diego Siddiqui TECHNIQUE: The risks, benefits, and alternatives to the procedure were explained to the patient. The specific risks of bleeding, infection, and damage to bowel were detailed and accepted. Witnessed informed consent was obtained. The abdomen was ultrasonographically surveyed. An appropriate pocket of fluid was identified at the right lower quadrant. The skin were cleaned and prepped in the usual sterile fashion. Using ultrasound guidance, the peritoneal cavity was accessed with a 5-Surinamese paracentesis needle/catheter system. The trocar was removed. A total of 7450 ml of cloudy yellow ascites fluid were removed from the peritoneal cavity. The catheter was removed and a sterile dressing was applied. The procedure was well tolerated. US/Paracentesis with US IMPRESSION: Ultrasound guided therapeutic paracentesis with 7450 cc of cloudy yellow ascites fluid aspirated and discarded. Electronically Signed: Diego Siddiqui, at 13:40 EDT ,
[2021-09-24] MEDS: Lidocaine 2% (20 ml mdv) 20 ML Vial INFILT (09:40)
[2021-09-24 10:55] VITALS: BP 125/75; PULSE 71; RESP 16; TEMP 35.9; O2SAT 97
[2021-09-24] MEDS: 0.9% Saline Lock 10 ML Syringe IV (11:06)
[2021-09-24] MEDS: Albumin Human 25% (100 mL) 25 GM/100 ML BAG IV (11:06)
--- NOTE | 2021-09-24 11:40 | CASEMGMT ---
Addendum entered by Ozzy Abad 09/24/21 16:44: Pt states Dr Posada has spoken w/him about TIPS procedure. He states he has an appt scheduled w/Dr Posada on 10/20/21 and he thinks this will be discussed further during that appt. Original Note: GIOVANNA ALEJANDRE Care Coordination: GIOVANNA ALEJANDRE met w/pt in the Out-patient infusion bay, while pt receiving Albumin, post paracentesis today. Pt had removal of 7,450 ml today. Pt resting in recliner chair. Introduced self and role of GIOVANNA ALEJANDRE. Fluid intake and sodium restrictions: Pt states he has been provided w/information re: sodium restriction of 500 mg and fluid restriction information. Pt states he has a good understanding of what he can have and what things to avoid. He states he has been checking food labels and trying to adhere to both sodium and fluid restrictions, but it is difficult at times. Questions answered and further education provided by GIOVANNA ALEJANDRE. Pt voices appreciation. Insurance: Pt does not currently have insurance. Pt states he was working up until May 18, 2021. He states he was injured at work that day and has not been back to work since. He was on Worker's Comp until about a month ago. Pt states while he was on Worker's Comp, he received a bill from the insurance co, stating he owed $1,268. He states he was unable to pay for it, so therefore lost his insurance. He states his is a nurse, is still working, and that she makes too much for him to qualify for [facility]. He states that she has looked into having him added to her insurance, but that is not an option. He is not sure if she has checked into insurance through the marketplace yet. He also states is not sure if they have received paperwork in the mail yet from [facility] for financial assistance. He states his is home today and should be available to talk w/CM or SW for further information. Rx: He states he just paid over $1,000 for a month-supply of Midodrine and that paperwork has been submitted to Dr Loving office. They are awaiting to hear back if they qualify for Rx assistance for this medication. Pt states he often uses [facility] for medications, but sometimes medications are still very expensive. Pt became tearful and stated, I wish I could get some some help, stating he does not want his burdened w/a lot of medical bills. He was provided previously w/resources but is not sure what his has looked into yet. See note by ORQUIDEA Covarrubias on 09/13/21 during In-patient hospitalization. Referral made w/Babs HEARD, and she was notified of above insurance/financial concerns. Emma WELLSN RN CM
[2021-09-24] MEDS: Albumin Human 25% (50 mL) 12.5 GM/50 ML IV.SOLN IV (12:30)
[2021-09-24 13:36] VITALS: BP 106/65; PULSE 69; RESP 16; TEMP 36.6; O2SAT 99
== END 2021-09-24 23:59 | disposition home or self-care (01) ==
LOC: US 10:44 → MEDOUTP 10:56
PROVIDERS: PCP Student in an Organized Health Care Education/Training Program; Referring Provider Internal Medicine Gastroenterology; Visit Provider Internal Medicine Gastroenterology
DX: K74.60 Unspecified cirrhosis of liver (principal)
CPT/HCPCS: 96365; 96366; 49083; J7050; P9047; A4216

== ENCOUNTER 2021-09-30 08:05 | Outpatient (CLI) | payer SELFPAY ==
--- NOTE | 2021-09-30 08:19 | US_ITS ---
PROCEDURE: Ultrasound guided paracentesis. DATE OF EXAMINATION: 09/30/2021. INDICATION: Male, 51 years old. Ascites. PHYSICIAN: Austyn Aguilar M.D. TECHNIQUE: The risks, benefits, and alternatives to the procedure were explained to the patient. The specific risks of bleeding, infection, and damage to bowel were detailed and accepted. Witnessed informed consent was obtained. The abdomen was ultrasonographically surveyed. An appropriate pocket of fluid was identified at the right lower quadrant. The skin were cleaned and prepped in the usual sterile fashion. Using ultrasound guidance, the peritoneal cavity was accessed with a 5-Afghan paracentesis needle/catheter system. The trocar was removed. A total of 5950 ml of brian-colored fluid were removed from the peritoneal cavity. The catheter was removed and a sterile dressing was applied. The procedure was well tolerated. US/Paracentesis with US IMPRESSION: Ultrasound guided paracentesis. Electronically Signed: Austyn Aguilar MD at 9:47 EDT ,
[2021-09-30 08:50] VITALS: BP 105/57; BP 108/61; BP 111/57; PULSE 70; PULSE 71; PULSE 76; RESP 14; RESP 16; TEMP 36.6; O2SAT 100; O2SAT 98; O2SAT 99
[2021-09-30] MEDS: Lidocaine 2% (20 ml mdv) 20 ML Vial INFILT (08:57)
[2021-09-30 09:50] VITALS: RESP 16; TEMP 36.2; BMI 32.0
[2021-09-30] MEDS: Albumin Human 25% (100 mL) 25 GM/100 ML BAG IV (10:00)
[2021-09-30] MEDS: Albumin Human 25% (50 mL) 12.5 GM/50 ML IV.SOLN IV (11:23)
[2021-09-30 12:23] VITALS: BP 119/69; PULSE 65; RESP 16; TEMP 35.8
--- NOTE | 2021-09-30 15:44 | CASEMGMT ---
Social Work Received request from RN HILL regarding financial and insurance concerns and need to follow up with patient's who has been handling much of these concerns. Called the Carol Dickerson. 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 reports mailed the application for SSDI out today for the patient. reports to have the financial assistance application and will be working in that next. Educated that there is a marketplace insurance to look into. reports has tried to start this but then got many calls before the application was even down. Educated to director of casework at [facility] who can hep people look for insurance on the marketplace. Discussed Medicaid and that sometimes, while waiting on disability decision medicaid is given until decision on disability to determined. reports has been thinking of reapplying for medicaid for patient and including the 's mother as a part of the household, as Carol reports the living space is attached to patient's/Carol's home and Carol is carrying all of the bill paying for this as well. Encouraged Carol to reapply. Carol did mention that patient's Xisaxan was 1700 dollars last month so could use help with this. Carol ji has sent application off to the [employer] but has not heard back yet. Will send in the mail the number for [facility] and name of director of casework as a possible option to help look into the Marketplace for patient. Will also send [facility] phone numbers for [facility] as a resource and referral line. -PEDRO Tmaayo, MANAGER PIPELINE
== END 2021-09-30 23:59 | disposition home or self-care (01) ==
PROVIDERS: PCP Student in an Organized Health Care Education/Training Program; Referring Provider Internal Medicine Gastroenterology; Visit Provider Internal Medicine Gastroenterology
DX: K74.60 Unspecified cirrhosis of liver (principal)
CPT/HCPCS: 96365; 96366; 49083; J7050; P9047

== ENCOUNTER 2021-10-07 07:57 | Outpatient (CLI) | payer SELFPAY ==
--- NOTE | 2021-10-07 08:02 | US_ITS ---
PROCEDURE: Ultrasound guided paracentesis. DATE OF EXAMINATION: 10/07/2021. INDICATION: Male, 51 years old. Ascites. PHYSICIAN: Austyn Aguilar M.D. TECHNIQUE: The risks, benefits, and alternatives to the procedure were explained to the patient. The specific risks of bleeding, infection, and damage to bowel were detailed and accepted. Witnessed informed consent was obtained. The abdomen was ultrasonographically surveyed. An appropriate pocket of fluid was identified at the right lower quadrant. The skin were cleaned and prepped in the usual sterile fashion. Using ultrasound guidance, the peritoneal cavity was accessed with a 5-Canadian paracentesis needle/catheter system. The trocar was removed. A total of 7700 ml of brian-colored fluid were removed from the peritoneal cavity. The catheter was removed and a sterile dressing was applied. The procedure was well tolerated. US/Paracentesis with US IMPRESSION: Ultrasound guided paracentesis. Electronically Signed: Austyn Aguilar MD at 9:35 EDT ,
[2021-10-07] MEDS: Lidocaine 2% (20 ml mdv) 20 ML Vial INFILT (08:47)
[2021-10-07 08:53] VITALS: BP 105/61; BP 111/61; BP 113/66; BP 118/64; PULSE 77; PULSE 79; PULSE 85; PULSE 86; RESP 16; TEMP 36.4; O2SAT 100; O2SAT 96; O2SAT 97; O2SAT 99
[2021-10-07 09:47] VITALS: BP 115/63; PULSE 77; RESP 16; TEMP 35.9; O2SAT 100; BMI 32.0
[2021-10-07] MEDS: Albumin Human 25% (100 mL) 25 GM/100 ML BAG IV ×2 (09:54→11:29)
[2021-10-07 13:02] VITALS: BP 125/66; PULSE 77; RESP 16; TEMP 35.9; O2SAT 100
[2021-10-07] MEDS: 0.9% Saline Lock 10 ML Syringe IV (13:02)
== END 2021-10-07 23:59 | disposition home or self-care (01) ==
LOC: US 07:57 → MEDOUTP 09:31
PROVIDERS: PCP Student in an Organized Health Care Education/Training Program; Referring Provider Internal Medicine Gastroenterology; Visit Provider Internal Medicine Gastroenterology
DX: K74.60 Unspecified cirrhosis of liver (principal)
CPT/HCPCS: 96365; 96366 ×2; 49083; P9047; A4216

== ENCOUNTER 2021-10-14 07:55 | Outpatient (CLI) | payer SELFPAY ==
--- NOTE | 2021-10-14 08:05 | US_ITS ---
PROCEDURE: Ultrasound guided paracentesis. DATE OF EXAMINATION: 10/14/2021.. INDICATION: Male, 51 years old. Ascites. PHYSICIAN: Austyn Aguilar M.D. TECHNIQUE: The risks, benefits, and alternatives to the procedure were explained to the patient. The specific risks of bleeding, infection, and damage to bowel were detailed and accepted. Witnessed informed consent was obtained. The abdomen was ultrasonographically surveyed. An appropriate pocket of fluid was identified at the right lower quadrant. The skin were cleaned and prepped in the usual sterile fashion. Using ultrasound guidance, the peritoneal cavity was accessed with a 5-Indonesian paracentesis needle/catheter system. The trocar was removed. A total of 7550 ml of brian-colored fluid were removed from the peritoneal cavity. The catheter was removed and a sterile dressing was applied. The procedure was well tolerated. US/Paracentesis with US IMPRESSION: Ultrasound guided paracentesis. Electronically Signed: Austyn Aguilar MD at 9:32 EDT ,
[2021-10-14] MEDS: Lidocaine 2% (20 ml mdv) 20 ML Vial INFILT (08:18)
[2021-10-14 08:39] VITALS: BP 119/73; BP 121/73; PULSE 78; PULSE 81; PULSE 82; RESP 16; RESP 18; TEMP 37.2; O2SAT 100
[2021-10-14 09:23] VITALS: BP 117/69; PULSE 70; RESP 16; TEMP 36.2; O2SAT 97; BMI 32.5
[2021-10-14] MEDS: Albumin Human 25% (100 mL) 25 GM/100 ML BAG IV ×2 (10:15→11:51)
[2021-10-14] MEDS: 0.9% Saline Lock 10 ML Syringe IV (10:15)
[2021-10-14 12:06] VITALS: BP 100/50; PULSE 59; RESP 16; O2SAT 100
[2021-10-14 13:53] VITALS: BP 134/85; PULSE 86; RESP 18; TEMP 36.1; O2SAT 100
== END 2021-10-14 23:59 | disposition home or self-care (01) ==
LOC: US 08:04 → MEDOUTP 09:13
PROVIDERS: PCP Student in an Organized Health Care Education/Training Program; Referring Provider Internal Medicine Gastroenterology; Visit Provider Internal Medicine Gastroenterology
DX: K74.60 Unspecified cirrhosis of liver (principal)
CPT/HCPCS: 96365; 96366 ×3; 49083; P9047; A4216

== ENCOUNTER 2021-10-21 07:57 | Outpatient (CLI) | payer SELFPAY ==
--- NOTE | 2021-10-21 07:59 | US_ITS ---
PROCEDURE: Ultrasound guided paracentesis. DATE OF EXAMINATION: 10/21/2021. INDICATION: Male, 51 years old. Ascites. PHYSICIAN: Austyn Aguilar M.D. TECHNIQUE: The risks, benefits, and alternatives to the procedure were explained to the patient. The specific risks of bleeding, infection, and damage to bowel were detailed and accepted. Witnessed informed consent was obtained. The abdomen was ultrasonographically surveyed. An appropriate pocket of fluid was identified at the right lower quadrant. The skin were cleaned and prepped in the usual sterile fashion. Using ultrasound guidance, the peritoneal cavity was accessed with a 5-Gibraltarian paracentesis needle/catheter system. The trocar was removed. A total of 6350 ml of brian-colored fluid were removed from the peritoneal cavity. The catheter was removed and a sterile dressing was applied. The procedure was well tolerated. US/Paracentesis with US IMPRESSION: Ultrasound guided paracentesis. Electronically Signed: Austyn Aguilar MD at 9:17 EDT ,
[2021-10-21 08:28] VITALS: BP 100/57; BP 108/56; BP 109/58; PULSE 62; PULSE 64; PULSE 68; RESP 14; RESP 16; TEMP 37.1; O2SAT 100; O2SAT 99
[2021-10-21] MEDS: Lidocaine 2% (20 ml mdv) 20 ML Vial INFILT (08:34)
[2021-10-21] MEDS: Albumin Human 25% (100 mL) 25 GM/100 ML BAG IV (09:51)
[2021-10-21] MEDS: 0.9% Saline Lock 10 ML Syringe IV (09:51)
[2021-10-21] MEDS: Albumin Human 25% (50 mL) 12.5 GM/50 ML IV.SOLN IV (11:12)
[2021-10-21 12:18] VITALS: BP 110/70; PULSE 69; RESP 16; TEMP 36.4; O2SAT 99
== END 2021-10-21 23:59 | disposition home or self-care (01) ==
LOC: US 07:57 → MEDOUTP 09:13
PROVIDERS: PCP Student in an Organized Health Care Education/Training Program; Referring Provider Internal Medicine Gastroenterology; Visit Provider Internal Medicine Gastroenterology
DX: K74.60 Unspecified cirrhosis of liver (principal)
CPT/HCPCS: 96365; 96366; 49083; P9047; A4216

== ENCOUNTER 2021-10-22 12:23 | Outpatient (CLI) | payer SELFPAY ==
[2021-10-22 13:24] LABS: Anion Gap 6 (5-15); BUN 10 mg/dL (7-18); BUN/Creat Ratio 9.4 RATIO (10-20); Calcium,Total 8.8 mg/dL (8.5-10.1); Chloride 95 mmol/L (98-107); Creatinine, Serum 1.06 mg/dL (0.70-1.30); EST Glomerular Filtration Rate 78 mL/min (>60); Est Glom Filt Rate - Afr Amer 95 mL/min (>60); Glucose 246 mg/dL (74-106); Potassium 3.7 mmol/L (3.5-5.1); Sodium Level 128 mmol/L (136-145)
== END 2021-10-22 23:59 | disposition home or self-care (01) ==
LOC: LAB 12:23
PROVIDERS: PCP Student in an Organized Health Care Education/Training Program; Referring Provider Internal Medicine Nephrology; Visit Provider Internal Medicine Nephrology
DX: E87.1 Hypo-osmolality and hyponatremia (principal)
CPT/HCPCS: 36415; 80048

== ENCOUNTER → 2021-10-28 | Outpatient (CLI) | payer SELFPAY ==
--- NOTE | 2021-10-28 08:08 | US_ITS ---
PROCEDURE: Ultrasound guided paracentesis. INDICATION: Male, 51 years old. LIVER CIRRHOSIS PHYSICIAN: Gato Hill MD INFORMED CONSENT: The risks, benefits, and alternatives to the procedure were explained to the patient. The specific risks of bleeding, infection, and damage to bowel were detailed and accepted. Witnessed informed consent was obtained. TECHNIQUES: The abdomen was ultrasonographically surveyed. An appropriate pocket of fluid was identified at the right lower quadrant. The skin was cleaned and prepped in the usual sterile fashion. Using ultrasound guidance, the peritoneal cavity was accessed with a 5-Icelandic paracentesis needle/catheter system. The trocar was removed. A total of 9600 ml of cloudy yellow ascitic fluid was removed from the peritoneal cavity. The catheter was removed and sterile dressing was applied. The procedure was well tolerated. The patient did receive albumin during the procedure. # of Images: 18 US/Paracentesis with US IMPRESSION: Ultrasound guided paracentesis. Electronically Signed: Dhaval Hill MD at 11:29 EDT ,
[2021-10-28 08:26] VITALS: BP 115/76; BP 121/75; BP 124/77; BP 127/73; BP 129/87; BP 132/79; BP 136/79; PULSE 69; PULSE 70; PULSE 71; PULSE 73; PULSE 75; RESP 16; RESP 18; TEMP 36.9; O2SAT 100; O2SAT 99
[2021-10-28] MEDS: Lidocaine 2% (20 ml mdv) 20 ML Vial INFILT (09:00)
[2021-10-28 09:59] VITALS: BP 107/72; PULSE 64; RESP 16; TEMP 36.6; O2SAT 98
[2021-10-28] MEDS: Albumin Human 25% (100 mL) 25 GM/100 ML BAG IV ×2 (10:09→11:33)
[2021-10-28] MEDS: 0.9% Saline Lock 10 ML Syringe IV ×2 (10:09→13:26)
[2021-10-28 13:29] VITALS: BP 123/65; PULSE 70; RESP 16; TEMP 36.5; O2SAT 100
== END | disposition home or self-care (01) ==
LOC: US 08:07 → MEDOUTP 09:51
PROVIDERS: PCP Student in an Organized Health Care Education/Training Program; Referring Provider Internal Medicine Gastroenterology; Visit Provider Internal Medicine Gastroenterology
DX: K74.60 Unspecified cirrhosis of liver (principal)
CPT/HCPCS: 96365; 96366 ×2; 49083; P9047; A4216

== ENCOUNTER → 2021-11-04 | Outpatient (CLI) | payer SELFPAY ==
--- NOTE | 2021-11-03 11:25 | CASEMGMT ---
GIOVANNA ALEJANDRE OP paracentesis follow-up: Call placed to pt. He states he has been doing okay. GIOVANNA ALEJANDRE inquired if paperwork sent via mail by [facility] was received. He states, I think so and states that his is taking care of that paperwork for assistance/coverage. He is not sure what all she has done so far. He states they are waiting to hear back from [facility]. He reports he was initially denied but his has filed an appeal. GIOVANNA ALEJANDRE inquired about Midodrine and cost. He reports that the pharmacy it comes from is going to pay for it, stating it will be free until October 2022. He states he has all of the prescribed medications and is taking them as instructed. Discussed Na+ and fluid restrictions. Pt states he is attempting to monitor sodium and fluid intake. He states states the sodium restriction was increased from 500 mg to 2,000 mg daily, so that is easier to adhere to. He does state it is difficult to adhere to a 2,000 ml fluid restriction d/t his mouth gets dry and then he sometimes goes over that amt. He reports he does chew on ice chips at times, which does help some and also chews gum occasionally to help. Pt reports he has an appt w/nephrology, Dr Camara, today and thinks he will having an U/S done. Next scheduled paracentesis is tomorrow 11/04. Pt denies having any questions or concerns at this time and thanked GIOVANNA ALEJANDRE for calling. Emma LOPEZ RN, CM
--- NOTE | 2021-11-04 08:09 | US_ITS ---
PROCEDURE: Ultrasound guided paracentesis. DATE OF EXAMINATION: 11/04/2021. INDICATION: Male, 51 years old. Ascites. PHYSICIAN: Austyn Aguilar M.D. TECHNIQUE: The risks, benefits, and alternatives to the procedure were explained to the patient. The specific risks of bleeding, infection, and damage to bowel were detailed and accepted. Witnessed informed consent was obtained. The abdomen was ultrasonographically surveyed. An appropriate pocket of fluid was identified at the left lower quadrant. The skin were cleaned and prepped in the usual sterile fashion. Using ultrasound guidance, the peritoneal cavity was accessed with a 5-Czech paracentesis needle/catheter system. The trocar was removed. A total of 8550 ml of brian-colored fluid were removed from the peritoneal cavity. The catheter was removed and a sterile dressing was applied. The procedure was well tolerated. US/Paracentesis with US IMPRESSION: Ultrasound guided paracentesis. Electronically Signed: Austyn Aguilar MD at 9:26 EDT ,
[2021-11-04] MEDS: Lidocaine 2% (20 ml mdv) 20 ML Vial INFILT (08:26)
[2021-11-04 08:29] VITALS: BP 111/69; BP 119/77; BP 121/67; BP 122/70; PULSE 67; PULSE 69; PULSE 70; PULSE 71; RESP 16; RESP 18; TEMP 36.2; O2SAT 100; O2SAT 99
[2021-11-04 09:24] VITALS: BP 108/65; PULSE 60; RESP 16; TEMP 36.6; O2SAT 99
[2021-11-04] MEDS: Albumin Human 25% (100 mL) 25 GM/100 ML BAG IV ×2 (09:39→11:08)
[2021-11-04] MEDS: 0.9% Saline Lock 10 ML Syringe IV (09:42)
[2021-11-04 13:03] VITALS: BP 112/57; PULSE 72; RESP 16; TEMP 36; O2SAT 100
== END | disposition home or self-care (01) ==
LOC: US 08:09 → MEDOUTP 09:15
PROVIDERS: PCP Student in an Organized Health Care Education/Training Program; Referring Provider Internal Medicine Gastroenterology; Visit Provider Internal Medicine Gastroenterology
DX: K74.60 Unspecified cirrhosis of liver (principal)
CPT/HCPCS: 96365; 96366 ×3; 49083; P9047; A4216

== ENCOUNTER → 2021-11-11 | Outpatient (CLI) | payer SELFPAY ==
--- NOTE | 2021-11-11 07:45 | US_ITS ---
PROCEDURE: Ultrasound guided paracentesis. DATE OF EXAMINATION: 11/11/2021. INDICATION: Male, 51 years old. Ascites. PHYSICIAN: Austyn Aguilar M.D. TECHNIQUE: The risks, benefits, and alternatives to the procedure were explained to the patient. The specific risks of bleeding, infection, and damage to bowel were detailed and accepted. Witnessed informed consent was obtained. The abdomen was ultrasonographically surveyed. An appropriate pocket of fluid was identified at the right lower quadrant. The skin were cleaned and prepped in the usual sterile fashion. Using ultrasound guidance, the peritoneal cavity was accessed with a 5-Armenian paracentesis needle/catheter system. The trocar was removed. A total of 5550 ml of brian-colored fluid were removed from the peritoneal cavity. The catheter was removed and a sterile dressing was applied. The procedure was well tolerated. US/Paracentesis with US IMPRESSION: Ultrasound guided paracentesis. Electronically Signed: Austyn Aguilar MD at 9:31 EDT ,
[2021-11-11] MEDS: Lidocaine 2% (20 ml mdv) 20 ML Vial INFILT (08:24)
[2021-11-11 08:28] VITALS: BP 105/63; BP 108/65; BP 108/69; BP 117/65; PULSE 54; PULSE 57; PULSE 59; PULSE 60; RESP 16; TEMP 35.9; O2SAT 100; O2SAT 99
[2021-11-11] MEDS: Albumin Human 25% (100 mL) 25 GM/100 ML BAG IV (09:38)
[2021-11-11] MEDS: Albumin Human 25% (50 mL) 12.5 GM/50 ML IV.SOLN IV (11:05)
[2021-11-11 12:07] VITALS: BP 104/54; PULSE 62; RESP 16; TEMP 36; O2SAT 100
== END | disposition home or self-care (01) ==
LOC: US 07:44 → MEDOUTP 09:11
PROVIDERS: PCP Student in an Organized Health Care Education/Training Program; Referring Provider Internal Medicine Gastroenterology; Visit Provider Internal Medicine Gastroenterology
DX: K74.60 Unspecified cirrhosis of liver (principal)
CPT/HCPCS: 96365; 96366; 49083; P9047

== ENCOUNTER → 2021-11-18 | Outpatient (CLI) | payer SELFPAY ==
--- NOTE | 2021-11-18 07:51 | US_ITS ---
PROCEDURE: Ultrasound guided paracentesis. DATE OF EXAMINATION: 11/18/2021. INDICATION: Male, 51 years old. Ascites. PHYSICIAN: Austyn Aguilar M.D. TECHNIQUE: The risks, benefits, and alternatives to the procedure were explained to the patient. The specific risks of bleeding, infection, and damage to bowel were detailed and accepted. Witnessed informed consent was obtained. The abdomen was ultrasonographically surveyed. An appropriate pocket of fluid was identified at the right lower quadrant. The skin were cleaned and prepped in the usual sterile fashion. Using ultrasound guidance, the peritoneal cavity was accessed with a 5-Botswanan paracentesis needle/catheter system. The trocar was removed. A total of 8150 ml of brian-colored fluid were removed from the peritoneal cavity. The catheter was removed and a sterile dressing was applied. The procedure was well tolerated. US/Paracentesis with US IMPRESSION: Ultrasound guided paracentesis. Electronically Signed: Austyn Aguilar MD at 9:06 EDT ,
[2021-11-18 07:55] VITALS: BP 107/65; BP 119/72; BP 132/84; PULSE 72; PULSE 73; PULSE 76; RESP 18; RESP 24; TEMP 36.4; O2SAT 98; O2SAT 99
[2021-11-18] MEDS: Lidocaine 2% (20 ml mdv) 20 ML Vial INFILT (09:05)
[2021-11-18 09:08] VITALS: BMI 29.5
[2021-11-18] MEDS: 0.9% Saline Lock 10 ML Syringe IV (09:22)
[2021-11-18] MEDS: Albumin Human 25% (100 mL) 25 GM/100 ML BAG IV ×2 (09:23→10:53)
[2021-11-18 12:47] VITALS: BP 116/68; PULSE 81; RESP 12; TEMP 36.3; O2SAT 100
== END | disposition home or self-care (01) ==
LOC: US 07:50 → MEDOUTP 08:59
PROVIDERS: PCP Student in an Organized Health Care Education/Training Program; Referring Provider Internal Medicine Gastroenterology; Visit Provider Internal Medicine Gastroenterology
DX: K74.60 Unspecified cirrhosis of liver (principal); R18.8 Other ascites
CPT/HCPCS: 96365; 96366 ×2; 49083; P9047; A4216

== ENCOUNTER → 2021-11-24 | Outpatient (CLI) | payer SELFPAY ==
--- NOTE | 2021-11-24 10:03 | VDLE_ITS ---
Reason For Study: Edema RIGHT LEFT GSV is normal. GSV is normal. CFV is compressible, spontaneous, phasic, CFV is compressible, spontaneous, phasic, competent and demonstrates normal competent, and demonstrates normal augmentation. augmentation. FV is compressible, spontaneous, phasic, FV is compressible, spontaneous, phasic, competent and demonstrates normal competent and demonstrates normal augmentation. augmentation. POP V is compressible, spontaneous, phasic, POP V is compressible, spontaneous, phasic, competent and demonstrates normal competent and demonstrates normal augmentation. augmentation. T/P Trunk is compressible. T/P Trunk is compressible. PTV is compressible. PTV is compressible. RT PerV is compressible. LT PerV is compressible. Procedure This is a venous duplex using B-mode, color flow and spectral Doppler. Exam performed in department. A preliminary report was called and/or faxed to Dr. Rodriguez. VL/Venous Duplex US - Dariusz Extrem Interpretation Summary No evidence for acute deep venous thrombosis bilateral lower extremities with p atent and compressible bilateral great saphenous veins. Ordering Physician: Jovi Rodriguez Referring Physician: Jovi Rodriguez Performed By: Cathy Melendez, MARK, RVT
== END | disposition home or self-care (01) ==
PROVIDERS: PCP Student in an Organized Health Care Education/Training Program; Visit Provider Student in an Organized Health Care Education/Training Program
DX: R60.9 Edema, unspecified (principal)
CPT/HCPCS: 93970

== ENCOUNTER → 2021-11-25 | Outpatient (CLI) | payer SELFPAY ==
--- NOTE | 2021-11-25 07:27 | US_ITS ---
PROCEDURE: Ultrasound guided paracentesis. DATE OF EXAMINATION: 11/25/2021. INDICATION: Male, 51 years old. Ascites. PHYSICIAN: Austyn Aguilar M.D. TECHNIQUE: The risks, benefits, and alternatives to the procedure were explained to the patient. The specific risks of bleeding, infection, and damage to bowel were detailed and accepted. Witnessed informed consent was obtained. The abdomen was ultrasonographically surveyed. An appropriate pocket of fluid was identified at the right lower quadrant. The skin were cleaned and prepped in the usual sterile fashion. Using ultrasound guidance, the peritoneal cavity was accessed with a 5-Eritrean paracentesis needle/catheter system. The trocar was removed. A total of 8860 ml of brian-colored fluid were removed from the peritoneal cavity. The catheter was removed and a sterile dressing was applied. The procedure was well tolerated. US/Paracentesis with US IMPRESSION: Ultrasound guided paracentesis. Electronically Signed: Austyn Aguilar MD at 9:56 EDT ,
[2021-11-25 08:19] VITALS: BP 104/68; BP 106/70; BP 117/63; BP 120/75; BP 120/79; BP 99/69; PULSE 71; PULSE 74; PULSE 83; PULSE 84; RESP 16; RESP 18; TEMP 36.8; O2SAT 98; O2SAT 99
[2021-11-25] MEDS: Albumin Human 25% (100 mL) 25 GM/100 ML BAG IV ×2 (09:56→11:24)
[2021-11-25 13:20] VITALS: BP 108/69; PULSE 83; RESP 12; TEMP 36.2; O2SAT 100
== END | disposition home or self-care (01) ==
LOC: US 07:26 → MEDOUTP 09:36
PROVIDERS: PCP Student in an Organized Health Care Education/Training Program; Referring Provider Internal Medicine Gastroenterology; Visit Provider Internal Medicine Gastroenterology
DX: K74.60 Unspecified cirrhosis of liver (principal)
CPT/HCPCS: 96365; 96366 ×2; 49083; P9047

== ENCOUNTER → 2021-12-02 | Outpatient (CLI) | payer SELFPAY ==
--- NOTE | 2021-12-02 07:35 | US_ITS ---
PROCEDURE: Ultrasound guided paracentesis. DATE OF EXAMINATION: 12/02/2021. INDICATION: Male, 51 years old. Ascites. PHYSICIAN: Diego Siddiqui DO TECHNIQUE: The risks, benefits, and alternatives to the procedure were explained to the patient. The specific risks of bleeding, infection, and damage to bowel were detailed and accepted. Witnessed informed consent was obtained. The abdomen was ultrasonographically surveyed. An appropriate pocket of fluid was identified at the right lower quadrant. The skin were cleaned and prepped in the usual sterile fashion. Using ultrasound guidance, the peritoneal cavity was accessed with a 5-Moroccan paracentesis needle/catheter system. The trocar was removed. A total of 8700 ml of clear yellow ascites fluid were removed from the peritoneal cavity and discarded. The catheter was removed and a sterile dressing was applied. The procedure was well tolerated. The patient was discharged in stable condition US/Paracentesis with US IMPRESSION: Ultrasound guided therapeutic paracentesis with 8700 cc of clear yellow ascites fluid aspirated and discarded. Electronically Signed: Diego Siddiqui, at 9:20 EDT ,
[2021-12-02 08:08] VITALS: BP 103/70; BP 108/68; BP 108/77; BP 110/75; BP 113/75; PULSE 61; PULSE 63; PULSE 64; PULSE 65; RESP 16; RESP 18; RESP 20; TEMP 36.3; O2SAT 100; O2SAT 98; O2SAT 99
[2021-12-02] MEDS: Lidocaine 2% (20 ml mdv) 20 ML Vial INFILT (08:13)
[2021-12-02] MEDS: 0.9% NaCl Peripheral Flush Adult/Peds IV (09:22)
[2021-12-02 09:30] VITALS: BP 107/57; PULSE 95; RESP 12; TEMP 36.4; O2SAT 100; BMI 32.3
[2021-12-02] MEDS: Albumin Human 25% (100 mL) 25 GM/100 ML BAG IV ×2 (09:30→10:55)
[2021-12-02 12:42] VITALS: BP 119/59; PULSE 95; RESP 14; TEMP 36.2; O2SAT 98
== END | disposition home or self-care (01) ==
LOC: US 07:34 → MEDOUTP 09:01
PROVIDERS: PCP Student in an Organized Health Care Education/Training Program; Referring Provider Internal Medicine Gastroenterology; Visit Provider Internal Medicine Gastroenterology
DX: K74.60 Unspecified cirrhosis of liver (principal)
CPT/HCPCS: 96365; 96366 ×2; 49083; P9047; A4216

== ENCOUNTER → 2021-12-09 | Outpatient (CLI) | payer OTHER, SELFPAY ==
--- NOTE | 2021-12-09 07:50 | US_ITS ---
PROCEDURE: Ultrasound guided paracentesis. DATE OF EXAMINATION: 12/09/2021. INDICATION: Male, 51 years old. Ascites. PHYSICIAN: Austyn Aguilar M.D. TECHNIQUE: The risks, benefits, and alternatives to the procedure were explained to the patient. The specific risks of bleeding, infection, and damage to bowel were detailed and accepted. Witnessed informed consent was obtained. The abdomen was ultrasonographically surveyed. An appropriate pocket of fluid was identified at the right lower quadrant. The skin were cleaned and prepped in the usual sterile fashion. Using ultrasound guidance, the peritoneal cavity was accessed with a 5-Lebanese paracentesis needle/catheter system. The trocar was removed. A total of 6950 ml of brian-colored fluid were removed from the peritoneal cavity. The catheter was removed and a sterile dressing was applied. The procedure was well tolerated. US/Paracentesis with US IMPRESSION: Ultrasound guided paracentesis. Electronically Signed: Austyn Aguilar MD at 9:01 EDT ,
[2021-12-09 08:05] VITALS: BP 105/56; BP 106/69; BP 111/59; BP 115/61; PULSE 64; PULSE 65; PULSE 66; RESP 18; TEMP 36.4; O2SAT 100; O2SAT 95; O2SAT 98
[2021-12-09] MEDS: Lidocaine 2% (20 ml mdv) 20 ML Vial INFILT (08:15)
[2021-12-09] MEDS: 0.9% Saline Lock 10 ML Syringe IV ×2 (08:40→09:05)
[2021-12-09 09:00] VITALS: BP 117/63; PULSE 58; RESP 14; TEMP 35.9; O2SAT 100; BMI 31.6
[2021-12-09] MEDS: Albumin Human 25% (100 mL) 25 GM/100 ML BAG IV (09:06)
[2021-12-09] MEDS: Albumin Human 25% (50 mL) 12.5 GM/50 ML IV.SOLN IV (10:37)
[2021-12-09 11:52] LABS: ALB/GLOB Ratio 0.9 RATIO (0.9-2.4); AST(SGOT) 67 U/L (15-37); Alanine Aminotransfer ALT/SGPT 43 U/L (16-61); Albumin, Serum 2.8 g/dL (3.2-5.0); Alkaline Phosphatase 92 U/L (45-117); Anion Gap 7 (5-15); BUN 10 mg/dL (7-18); BUN/Creat Ratio 14.3 RATIO (10-20); Calcium,Total 8.7 mg/dL (8.5-10.1); Chloride 91 mmol/L (98-107); EST Glomerular Filtration Rate 127 mL/min (>60); Est Glom Filt Rate - Afr Amer 153 mL/min (>60); Estimated Creatinine Clearance 124.85 ml/min; Globulin 3.2 g/dL (2.2-4.2); Glucose 117 mg/dL (74-106); Potassium 4.6 mmol/L (3.5-5.1); Sodium Level 121 mmol/L (136-145)
--- NOTE | 2021-12-09 13:34 | CASEMGMT ---
RN HILL asked to see patient regarding concerns for possible outpatient nutritional services. GIOVANNA ALEJANDRE met patient in the infusion suite with Galileo. Galileo voiced concerns that patient is on a sodium restricted diet and his sodium level has been low recently according to lab work. RN CM discussed outpatient nutritional services with and patient. states they do not need outpatient nutrition services. RN CM encourage patient and to discuss diet with NESTOR Alvarez, at appointment next week to see if sodium restriction could be lifted or if patient needs supplements. Patient and voiced understanding. and patient were informed that this RN CM would call Dr. Posada's office to update regarding concerns for low sodium and sodium restricted diet. Patient and thanked this RN CM and had no further questions or concerns at this time. RN CM called and left message on Dr. Posada's nurse's line with patient's concerns and requested call back. CM will continue to follow this patient and assist with care coordination.
== END | disposition home or self-care (01) ==
LOC: US 07:50 → MEDOUTP 08:49
PROVIDERS: PCP Student in an Organized Health Care Education/Training Program; Referring Provider Internal Medicine Gastroenterology; Visit Provider Internal Medicine Gastroenterology
DX: K74.60 Unspecified cirrhosis of liver (principal)
CPT/HCPCS: 96365; 96366; 49083; 36415; 80053; P9047; A4216

== ENCOUNTER 2021-12-14 16:36 | Inpatient (IN) | payer SELFPAY ==
[2021-12-14 16:40] VITALS: BP 143/85; PULSE 81; RESP 14; TEMP 36.2; O2SAT 93; BMI 33.4
--- NOTE | 2021-12-14 17:07 | EKG12_ITS ---
Test Reason : ABN LABS Blood Pressure : / mmHG Vent. Rate : 067 BPM Atrial Rate : 067 BPM P-R Int : 154 ms QRS Dur : 090 ms QT Int : 402 ms P-R-T Axes : 036 -09 024 degrees QTc Int : 424 ms Normal sinus rhythm Normal ECG Confirmed by BROOK CADET, ANITA ([id number]), website/blog editor KELLY FRANKS ([id number]) on 12/15/2021 9:03:54 AM Referred By: DERICK Confirmed By:ANITA DOE MD
--- NOTE | 2021-12-14 17:08 | EDS_ITS ---
HPI History of Present Illness Chief Complaint: Abn Labs Detail of Chief Complaint: Low sodium and high potassium Informant: patient Narrative Narrative: Patient presents to the emergency department at the request of his change control coordinator for evaluation of low sodium and high potassium. Patient is being seen for cirrhosis of the liver. Patient has been having issues with low sodium and they have been trying to treat as an outpatient unsuccessfully. Patient has been off of his Lasix for the last 6 days. Patient complains of generalized weakness. He denies recent illness otherwise. Patient has history of ascites as well as history of Warnicke's encephalopathy. Prior similar symptoms: Yes PFSH [facility] Medical History (Updated 12/14/21 @ 18:[address] Arlin Deng, DO) Cirrhosis of liver Nicotine dependence Rotator cuff arthropathy of left shoulder Home Medications lactulose 20 gram/30 mL oral solution 20 g PO DAILY #900 ml 10/01/21 [Rx Last Taken Unknown] rifaximin 550 mg tablet 550 mg PO BID #60 tab 10/01/21 [Rx Last Taken Unknown] magnesium 250 mg tablet 250 mg PO DAILY #30 tab 10/20/21 [Rx Last Taken Unknown] midodrine 5 mg tablet 10 mg PO TIDCM #90 tab 10/20/21 [Rx Last Taken Unknown] prednisone 20 mg tablet 20 mg PO BREAKFAST #30 tab 10/20/21 [Rx Last Taken Unkn own] ursodiol 250 mg tablet 250 mg PO QHS #30 tab 10/20/21 [Rx Last Taken Unknown] spironolactone 50 mg tablet 25 mg PO DAILY #30 tab 12/08/21 [Rx Last Taken Unknown] Allergy/AdvReac Type Severity Reaction Status Date / Time Bandaid Allergy Skin tear Uncoded 12/14/21 16:40 when removed Family History Other Cancer Diabetes Heart disease Surgical History H/O repair of rotator cuff Social History Smoking Status: Never smoker ROS ROS ED Constitutional Constitutional ED: Reports systems reviewed and no addt'l complaints, except as documented; Denies body ache(s), change in weight or chills Eyes Eyes: Denies acute decrease in peripheral vision, change in vision, double vision or loss of vision ENT ENT ED: Reports none; Denies ear pain, lip swelling, loss taste/smell, neck pain, otalgia or sore throat Cardiovascular Cardiovascular: Reports none; Denies abdominal pain, chest pain with activity, leg edema, lightheadedness, palpitations, rapid heart rate or syncope Respiratory/Chest Respiratory/Chest: Reports none; Denies change in mental status, dry cough, dyspnea, hemoptysis, shortness of breath at rest or shortness of breath with exertion Gastrointestinal Gastrointestinal: Reports none; Denies abdominal pain, change in stool character, diarrhea, hematemesis, hematochezia, melena, rectal bleeding or vomiting Genitourinary Genitourinary ED: Reports none; Denies abdominal discomfort, anuria, dysuria, genital pain or polyuria Musculoskeletal Musculoskeletal: Reports none; Denies arthralgias, back pain, difficulty walking, extremity pain, muscle weakness or myalgias Integumentary Reports none; Denies abscess or rash Neurologic Neurologic: Reports none and weakness; Denies abnormal gait, confusion, focal weakness, frequent falls, headache(s), loss of vision, numbness, paresthesias, radicular pain or vertigo Psychiatric Psychiatric: Reports systems reviewed and no addt'l complaints, except as documented and none; Denies behavioral changes, confusion, difficulty concentrating, hallucinations, suicidal ideation, tactile hallucinations or visual hallucinations Endocrine Endocrinology: Denies none, cold intolerance, excessive sweating, fatigue or heat intolerance Hematologic/Lymphatic Hematologic/Lymphatic: Reports none; Denies anemia, easy bleeding or easy bruising Allergic/Immunologic Allergic/Immunologic ED: Denies as per HPI, none, lip swelling, mouth swelling, throat swelling, tongue swelling or hives EXAM Physical Exam Const Vital Signs: 12/14/21 16:40 12/14/21 16:54 12/14/21 18:30 Temperature 97.2 F L 97.5 F L Temperature Source Temporal Oral Pulse Rate 81 74 Respiratory Rate 14 18 Respiratory Effort Normal Non-Labored Respiratory Pattern Normal Blood Pressure 143/85 H 127/85 H Blood Pressure Mean 104 99 Pulse Ox 93 99 Oxygen Delivery Method Room Air Room Air Positive well nourished and well developed General Appearance ED: well developed and NAD HEENT Reports TM's clear and moist mucous membranes normocephalic and atraumatic; Negative for trauma or tenderness Tympanic Membrane ED: Yes TM's clear Eyes PERRL and EOMs intact bilaterally General Eye ED: Negative for pale conjunctiva or scleral icterus Neck no lymphadenopathy, supple and no JVD General: Negative for tenderness Chest Wall inspection of chest normal and palpation of chest normal Chest: Negative for tenderness Resp normal respiratory effort and clear to auscultation bilaterally Effort and Inspection: Negative for respiratory distress or pain with movement Auscultation: Negative for rhonchi, wheezes or diminished lung sounds Cardio regular rate, regular rhythm, S1 normal heart sound, S2 normal heart sound and no murmurs Peripheral Pulses: pulses 2+ throughout GI soft to palpation, non-tender and no masses GI Narrative: Patient with diffuse abdominal distention and fluid wave consistent with ascites. Abdomen is nontender. Back/Spine no CVA tenderness and no thoracic nor lumbar tenderness Extremity normal to inspection General Extremety ED: Negative for edema General Extremity: Negative for edema Neuro oriented x3, CN's II-XII intact bilaterally, no sensory deficits noted and gait normal Sensorium / Orientation: awake, alert, oriented to person, oriented to place and oriented to time Motor Exam: strength 5/5 throughout and strength abnormal Psych mental status grossly normal Skin no rashes or lesions noted and no wounds MDM MDM MDM Narrative Medical decision making narrative: IV line established on arrival. Patient was started on normal saline. Lab work significant for a sodium of 121 and a potassium of 5.1. Case will be discussed with hospitalist to evaluate patient for admission for the hyponatremia and generalized weakness. Lab Data Attestation: I reviewed the patient's lab results. Labs: Laboratory Results - last 24 hr 12/14/21 12/14/21 16:58 16:58 WBC 9.7 RBC 3.39 L Hgb 12.4 L Hct 34.2 L MCV 100.9 H MCH 36.6 H MCHC 36.3 H RDW Std Deviation 51.3 H RDW Coeff of Teri 13.8 Plt Count 141 L MPV 10.3 Immature Gran % (Auto) 3.200 H Neut % (Auto) 79.5 H Lymph % (Auto) 8.0 L Nobles % (Auto) 8.9 Eos % (Auto) 0.2 Baso % (Auto) 0.2 Absolute Neuts (auto) 7.7 Absolute Lymphs (auto) 0.77 L Nucleated RBC % 0 Sodium 121 L Potassium 5.1 Chloride 92 L Carbon Dioxide 21.0 Anion Gap 8 BUN 14 Creatinine 0.71 Estim Creat Clear Calc 123.09 Est GFR (MDRD) Af Amer 150 Est GFR (MDRD) Non-Af 124 BUN/Creatinine Ratio 19.7 Glucose 133 H Calcium 9.0 EKG Initial EKG: Attestation: I personally reviewed and interpreted this EKG as follows: Comments: Signed rhythm with a rate of 67 bpm with no acute ST segment changes Discharge Plan Dx/Rx/DC Orders Clinical Impression: Cirrhosis of liver, Acute hyponatremia, Weakness Disposition Disposition: Acute Care Hospital [facility]
[2021-12-14] MEDS: 0.9% Normal Saline 1,000 ML 150 ML IV ×2 (17:12→23:15)
[2021-12-14 17:31] LABS: Absolute Lymphocyte Count 0.77 X10^3/uL (0.83-4.51); Absolute Neutrophil Count 7.7 X10^3/uL (2.0-7.7); Basophil# 0.02 X10^3/uL; Basophil% 0.2 % (0-1); Eosinophil# 0.02 X10^3/uL; Eosinophils% 0.2 % (0-5); Hematocrit 34.2 % (40-54); Hemoglobin 12.4 g/dL (13.0-16.5); Lymphocyte # 0.77 X10^3/ul (0.83-4.51); Mean Corp Hgb Conc 36.3 g/dL (32-36); Mean Corpuscular Hgb 36.6 pg (27.0-32.0); Mean Corpuscular Volume 100.9 fL (80-94); Mean Platelet Vol. 10.3 fl (6.2-12.0); Monocyte# 0.86 X10^3/uL; Monocyte% 8.9 % (0-10); NRBC Flagged by Analyzer 0 % (0-5); Neutrophil % 79.5 % (47-70); Platelet Count 141 K/mm3 (150-450); RBC Distribution Width CV 13.8 % (11.6-14.6); RBC Distribution Width SD 51.3 fl (35.1-43.9); Red Blood Count 3.39 M/mm3 (4.6-6.2); White Blood Count 9.7 K/mm3 (4.4-11.0)
--- NOTE | 2021-12-14 17:31 | NURSING ---
NO OLD EKGS
[2021-12-14 17:34] LABS: Anion Gap 8 (5-15); BUN 14 mg/dL (7-18); BUN/Creat Ratio 19.7 RATIO (10-20); Chloride 92 mmol/L (98-107); Creatinine, Serum 0.71 mg/dL (0.70-1.30); EST Glomerular Filtration Rate 124 mL/min (>60); Est Glom Filt Rate - Afr Amer 150 mL/min (>60); Estimated Creatinine Clearance 123.09 ml/min; Glucose 133 mg/dL (74-106); Potassium 5.1 mmol/L (3.5-5.1); Sodium Level 121 mmol/L (136-145)
--- NOTE | 2021-12-14 18:08 | HP.PCM.HOS_ITS ---
HPI - General General Date of Admission: 12/14/21 HPI Narrative JOSE CRUZ THOMPSON, is a 51 M with a PMH as outlined who presents via the ED o/a of abnormal labs. He was referred to the ED by his creative producer due to low sodium and high potassium. He has a known history of alcoholic liver cirrhosis. He has a history of low sodium as well, and was seen in the hospital in September 2021 for low sodium. He has been off his lasix for the last 7 days due to low sodium, but sodium remained low today at 122 when checked on outpatient basis. He also had been complaining of generalised weakness and lethargy. He denied any fever, chills, nausea, vomiting or diarrhea. Review of systems is otherwise negative. Per his , his sodium a few days ago was 117 and potassium was elevated, and he was taken off his lasix by his PCP. His last paracentesis was a week ago, and he says his abdomen is more distended than usual because he has been off his lasix. Vitals in the ED were blood pressure of 143/85, pulse rate of 81, respiratory rate of 14 and temperature of 97.2 Fahrenheit. He was saturating at 93% on room air. CBC showed hemoglobin of 12.4 and platelets of 141 with WBC of 9.7. Chemistry showed sodium of 121 with potassium of 5.1 and creatinine of 0.71. He has been admitted to be managed for recurrent hyponatremia and generalized weakness and lethargy. [facility] Medical History (Updated 12/14/21 @ 18:[address] rAlin Deng, ) Cirrhosis of liver Nicotine dependence Rotator cuff arthropathy of left shoulder Home Medications lactulose 20 gram/30 mL oral solution 20 g PO DAILY #900 ml 10/01/21 [Rx Last Taken Unknown] rifaximin 550 mg tablet 550 mg PO BID #60 tab 10/01/21 [Rx Last Taken Unknown] magnesium 250 mg tablet 250 mg PO DAILY #30 tab 10/20/21 [Rx Last Taken Unknown] midodrine 5 mg tablet 10 mg PO TIDCM #90 tab 10/20/21 [Rx Last Taken Unknown] prednisone 20 mg tablet 20 mg PO BREAKFAST #30 tab 10/20/21 [Rx Last Taken Unknown] ursodiol 250 mg tablet 250 mg PO QHS #30 tab 10/20/21 [Rx Last Taken Unknown] spironolactone 50 mg tablet 25 mg PO DAILY #30 tab 12/08/21 [Rx Last Taken Unknown] Allergy/AdvReac Type Severity Reaction Status Date / Time Bandaid Allergy Skin tear Uncoded 12/14/21 16:40 when removed Family History Other Cancer Diabetes Heart disease Surgical History H/O repair of rotator cuff Social History Smoking Status: Never smoker ROS Review of Systems ROS Unobtainable: Denies due to encephalopathy Constitutional Constitutional: Reports fatigue and weakness; Denies anorexia, change in weight, chills or fever(s) Eyes Eyes: Denies change in vision ENT HEENT: Denies dysphagia or headache(s) Cardiovascular Cardiovascular: Denies chest pain, dyspnea on exertion, edema, lightheadedness, orthopnea, palpitations, paroxysmal nocturnal dyspnea or rapid heart rate Respiratory/Chest Respiratory/Chest: Denies cough, dyspnea, shortness of breath at rest or shortness of breath with exertion Gastrointestinal Gastrointestinal: Denies abdominal pain, constipation, diarrhea, dyspepsia, nausea or vomiting Genitourinary Genitourinary: Denies burning urination Musculoskeletal Musculoskeletal: Denies arthralgias, back pain or joint swelling Neurologic Neurologic: Denies confusion, dizziness, focal weakness, seizures or syncope Psychiatric Psychiatric: Denies anxiety Endocrine Endocrinology: Denies change in body appearance Hematologic/Lymphatic Hematologic/Lymphatic: Denies anemia Vital Signs Vital Signs Vital Signs: 12/14/21 16:40 12/14/21 16:54 Temperature 97.2 F L Temperature Source Temporal Pulse Rate 81 Respiratory Rate 14 Respiratory Effort Normal Non-Labored Respiratory Pattern Normal Blood Pressure 143/85 H Blood Pressure Mean 104 Pulse Ox 93 Oxygen Delivery Method Room Air Weight Weight: 226 lb 3.108 oz Body Mass Index (BMI) 33.4 Physical Exam Const alert, oriented x3 and no apparent distress General Appearance: cooperative HEENT normocephalic, head/scalp atraumatic, hearing grossly normal bilaterally and moist oral mucous membranes Eyes PERRL, EOMs intact bilaterally and conjunctivae normal Neck no lymphadenopathy, supple and no JVD Resp normal respiratory effort, no retractions, no use of accessory muscles and clear to auscultation bilaterally Cardio regular rate, regular rhythm, S1 normal heart sound, S2 normal heart sound and no murmurs GI non-tender GI Narrative: marked abdominal distension, due to ascites. positive fluid thrill. Extremity normal to inspection, full ROM and no clubbing, cyanosis or edema Peripheral Pulses: Yes pulses 2+ throughout Skin no rashes or lesions noted Neuro oriented x3, CN's II-XII intact bilaterally and moves all extremities Sensorium / Orientation: awake and alert Psych affect normal Results Lab / Micro Data Result Diagrams: 12/14/21 16:58 12/14/21 16:58 Labs: Laboratory Results - last 24 hr 12/14/21 16:58: WBC 9.7, RBC 3.39 L, Hgb 12.4 L, Hct 34.2 L, MCV 100.9 H, MCH 36.6 H, MCHC 36.3 H, RDW Std Deviation 51.3 H, RDW Coeff of Teri 13.8, Plt Count 141 L, MPV 10.3, Immature Gran % (Auto) 3.200 H, Neut % (Auto) 79.5 H, Lymph % (Auto) 8.0 L, Jenkins % (Auto) 8.9, Eos % (Auto) 0.2, Baso % (Auto) 0.2, Absolute Neuts (auto) 7.7, Absolute Lymphs (auto) 0.77 L, Nucleated RBC % 0 12/14/21 16:58: Sodium 121 L, Potassium 5.1, Chloride 92 L, Carbon Dioxide 21.0, Anion Gap 8, BUN 14, Creatinine 0.71, Estim Creat Clear Calc 123.09, Est GFR (MDRD) Af Amer 150, Est GFR (MDRD) Non-Af 124, BUN/Creatinine Ratio 19.7, Glucose 133 H, Calcium 9.0 Assessment & Plan Assessment/Plan (1) Hyponatremia: PLAN: #Acute on crhonic hyponatremia * admit to PCU * sodium is 121. Was discharged in September with sodium of 122, and was to follow up with nephrology on outpatient basis * consult nephrology * lasix on hold. THis ls likely due to his cirrhosis * hydrate with IVF * check serum and urine osmolality as well as urine sodium * trend sodium * #Alcoholic liver cirrhosis with massive ascites * has ascites also * follows with gastroenterology * on lactulose * titrate lactulose to aim for 2-3 loose stools daily * also on spironolactone, rifaximin and midodrine as well as prednisone * potassium is now 5.1, so will continue with spironolactone * for therapeutic paracentesis tomorrow * #History of Wernicke;s encephalopathy due to alcoholic liver disease * currently stable * #Thrombocytopenia: chronic, due to alcoholic liver disease. Will monitor. #Debility and weakness due to cirrhosis * consult PT/OT./ * fall precautions * DVT prophylaxis: SCDs. Code status: full code * Patient and counseled extensively about different types of CODE STATUS including full code, DNR CCA and DNR CCA. Patient elects to be full code. Total [id number] time 17 minutes. Charges/Coding Visit Charges Inpatient E&M: 83813 Init Hosp L3 Procedures Hospitalists Procedures: 29273 Advncd Care Plan 30 Min
--- NOTE | 2021-12-14 18:26 | NURSING ---
PCU OBS KORAM HYPONATREMIA, WEAKNESS
[2021-12-14 18:30] VITALS: BP 127/85; PULSE 74; RESP 18; TEMP 36.4; O2SAT 99
--- NOTE | 2021-12-14 18:40 | CM.ED ---
ORQUIDEA Notes Presentation to the ED: Abnormal Labs Information Source: Patient and patient's , [employer] Demographics: [address] [facility] [address] Galileo's phone [phone] and Len's phone [phone] Advanced Directives: [employer] said that they have just gotten the paperwork. SW educated that forms can be completed with 2 witnesses (non family members) or notary. PCP: Jovi Rodriguez in [place] Specialist: Friend Insurance: [employer] said that they have [employer] effective 11/21/2021 but read the small print and it said that it does not cover for preexisting condition for 1 year. [employer] said that they are waiting on disability. Name of Pharmacy: [facility] Lives with: [employer] Living Arrangements: Patient resides in a 2 story house with the bedrooms and bathrooms on the 2nd floor. [employer] said that the steps have railing. There are 2 steps into the house. ADLs: Patient does not need assistance with any of his ADL's. Employed: Patient has applied for disability. Applied mid september Patient reports he feels safe at home. Patient is able to drive Patient does not smoke or use alcohol. Patient reports he chews. Current DME: Patient reports no need for any DME. SW asked about DME needed and patient said no need. SW asked about home health and patient's said no need. Plan: Home at discharge Dawna MARTIN
[2021-12-14 18:54] VITALS: BP 127/85; PULSE 72; RESP 18; O2SAT 100
[2021-12-14 19:40] VITALS: PULSE 73; BMI 33.2
[2021-12-14 20:02] VITALS: BP 134/82; PULSE 83; RESP 18; TEMP 36.2; O2SAT 100
[2021-12-14 20:22] LABS: Osmolality, Serum 256 mOsm/KG (275-295)
[2021-12-14] MEDS: rifAXIMin 550 MG Tablet PO (21:58)
[2021-12-14] MEDS: Ursodiol 250 MG Tablet PO (21:58)
[2021-12-14 22:07] VITALS: BP 134/86; PULSE 80; RESP 18; TEMP 36.6; O2SAT 100
[2021-12-14 22:09] LABS: Urine Sodium < 5 mmol/L (Not Establ.)
[2021-12-14 22:13] LABS: Osmolality, Urine 653 mOsm/KG
[2021-12-15] VITALS (7 sets, daily range): BP systolic 130–144; BP diastolic 77–88; PULSE 65–80; RESP 16; TEMP 36.1–36.6; O2SAT 100
[2021-12-15] MEDS: 0.9% Normal Saline 1,000 ML 150 ML IV (05:20)
[2021-12-15 06:03] LABS: Absolute Lymphocyte Count 2.51 X10^3/uL (0.83-4.51); Absolute Neutrophil Count 7.4 X10^3/uL (2.0-7.7); Basophil# 0.05 X10^3/uL; Basophil% 0.4 % (0-1); Eosinophil# 0.15 X10^3/uL; Eosinophils% 1.3 % (0-5); Hematocrit 34.2 % (40-54); Hemoglobin 12.4 g/dL (13.0-16.5); Lymphocyte # 2.51 X10^3/ul (0.83-4.51); Lymphocyte % 21.2 % (19-41); Mean Corp Hgb Conc 36.3 g/dL (32-36); Mean Corpuscular Volume 102.1 fL (80-94); Mean Platelet Vol. 10.4 fl (6.2-12.0); Monocyte# 1.44 X10^3/uL; Monocyte% 12.2 % (0-10); NRBC Flagged by Analyzer 0 % (0-5); Neutrophil # 7.44 X10^3/uL (2.7-7.7); Neutrophil % 62.9 % (47-70); Platelet Count 125 K/mm3 (150-450); RBC Distribution Width CV 13.7 % (11.6-14.6); RBC Distribution Width SD 51.7 fl (35.1-43.9); Red Blood Count 3.35 M/mm3 (4.6-6.2); White Blood Count 11.8 K/mm3 (4.4-11.0)
[2021-12-15 06:48] LABS: ALB/GLOB Ratio 0.8 RATIO (0.9-2.4); AST(SGOT) 72 U/L (15-37); Alanine Aminotransfer ALT/SGPT 50 U/L (16-61); Albumin, Serum 2.6 g/dL (3.2-5.0); Alkaline Phosphatase 155 U/L (45-117); Anion Gap 5 (5-15); BUN 13 mg/dL (7-18); BUN/Creat Ratio 21.2 RATIO (10-20); Calcium,Total 8.6 mg/dL (8.5-10.1); Chloride 92 mmol/L (98-107); Creatinine, Serum 0.61 mg/dL (0.70-1.30); EST Glomerular Filtration Rate 147 mL/min (>60); Est Glom Filt Rate - Afr Amer 178 mL/min (>60); Estimated Creatinine Clearance 143.27 ml/min; Globulin 3.3 g/dL (2.2-4.2); Glucose 109 mg/dL (74-106); Potassium 4.8 mmol/L (3.5-5.1); Protein, Total 5.9 g/dL (6.4-8.2); Sodium Level 120 mmol/L (136-145)
[2021-12-15] MEDS: Furosemide 20 MG Tablet PO ×2 (09:47→17:24)
[2021-12-15] MEDS: Spironolactone 25 MG Tablet PO (09:48)
[2021-12-15] MEDS: Midodrine HCl 5 MG Tablet 10 MG PO ×3 (09:48→17:23)
[2021-12-15] MEDS: Lactulose 20 GM/30 ML UDC PO (09:48)
[2021-12-15] MEDS: predniSONE 20 MG Tablet PO (09:48)
[2021-12-15] MEDS: rifAXIMin 550 MG Tablet PO ×2 (09:48→21:36)
[2021-12-15] MEDS: Magnesium Chloride 64 MG Delay Rel.Tablet 128 MG PO (09:48)
--- NOTE | 2021-12-15 11:49 | PN.HOSP_ITS ---
Documented by User: Dr. Fela Rodriguez, 12/15/21 15:13 Subjective Subjective Patient has no significant plaints at this time. His is at the bedside and reports that she has not really noticed any changes in his mental status however he reports that he had been confused intermittently. He had been on Lasix previously but this was discontinued by someone. He was also placed on salt tablets at some point but is no longer taking these. He does not seem to monitor his fluid intake all that much. He received paracentesis every and seemingly has approximately 5 to 8 L removed with albumin to follow. He is evidently been evaluated for transplant and referred denied but is currently looking at [facility] for further evaluation for transplant. Dr. Posada does report that the patient is still intermittently drinking alcohol however. Objective Data Objective Data Vital Signs: Vital Signs Temp Pulse Resp BP Pulse Ox 97.5 F L 80 16 144/87 H 100 12/15/21 09:46 12/15/21 09:46 12/15/21 09:46 12/15/21 09:46 12/15/21 09:46 Oxygen Delivery Method Room Air Weight: 102 kg Body Mass Index (BMI) 33.2 Intake & Output: Intake and Output for Last 24 Hours 12/13/21 12/14/21 12/15/21 23:59 23:59 23:59 Intake Total 907.5 / 907.5 1582.5 / 1582.5 Output Total 1000 / 1000 Balance 907.5 / 407.5 582.5 / 582.5 Lab / Micro Data Result Diagrams: 12/15/21 05:35 12/15/21 13:01 Labs: Laboratory Results - last 24 hr 12/14/21 16:58: WBC 9.7, RBC 3.39 L, Hgb 12.4 L, Hct 34.2 L, MCV 100.9 H, MCH 36.6 H, MCHC 36.3 H, RDW Std Deviation 51.3 H, RDW Coeff of Teri 13.8, Plt Count 141 L, MPV 10.3, Immature Gran % (Auto) 3.200 H, Neut % (Auto) 79.5 H, Lymph % (Auto) 8.0 L, [place] % (Auto) 8.9, Eos % (Auto) 0.2, Baso % (Auto) 0.2, Absolute Neuts (auto) 7.7, Absolute Lymphs (auto) 0.77 L, Nucleated RBC % 0 12/14/21 16:58: Sodium 121 L, Potassium 5.1, Chloride 92 L, Carbon Dioxide 21.0, Anion Gap 8, BUN 14, Creatinine 0.71, Estim Creat Clear Calc 123.09, Est GFR (MDRD) Af Amer 150, Est GFR (MDRD) Non-Af 124, BUN/Creatinine Ratio 19.7, Glucose 133 H, Calcium 9.0 12/14/21 19:59: Serum Osmolality 256 L 12/14/21 21:34: Urine Osmolality 653 12/14/21 21:34: Ur Random Sodium < 5 12/15/21 05:35: WBC 11.8 H, RBC 3.35 L, Hgb 12.4 L, Hct 34.2 L, MCV 102.1 H, MCH 37.0 H, MCHC 36.3 H, RDW Std Deviation 51.7 H, RDW Coeff of Teri 13.7, Plt Count 125 L, MPV 10.4, Immature Gran % (Auto) 2.000 H, Neut % (Auto) 62.9, Lymph % (Auto) 21.2, [place] % (Auto) 12.2 H, Eos % (Auto) 1.3, Baso % (Auto) 0.4, Absolute Neuts (auto) 7.4, Absolute Lymphs (auto) 2.51, Nucleated RBC % 0 12/15/21 05:35: Sodium 120 L, Potassium 4.8, Chloride 92 L, Carbon Dioxide 23.0, Anion Gap 5, BUN 13, Creatinine 0.61 L, Estim Creat Clear Calc 143.27, Est GFR (MDRD) Af Amer 178, Est GFR (MDRD) Non-Af 147, BUN/Creatinine Ratio 21.2 H, Glucose 109 H, Calcium 8.6, Total Bilirubin 4.00 H, AST 72 H, ALT 50, Alkaline Phosphatase 155 H, Total Protein 5.9 L, Albumin 2.6 L, Globulin 3.3, Albumin/Globulin Ratio 0.8 L Physical Exam Const alert, oriented x3 and no apparent distress Constitutional Narrative: Middle-aged white male lying in bed, appears comfortable nontoxic, is at the bedside, mentation seems to be normal at this time Exam Limitations: no limitations Nutritional Appearance: obese HEENT head/scalp atraumatic and moist oral mucous membranes HEENT Narrative: Mallampati 2-3, no thrush Head and Scalp: normocephalic Eyes PERRL, EOMs intact bilaterally and conjunctivae normal Eyes Narrative: Positive scleral icterus Neck no lymphadenopathy, supple and no JVD Neck Narrative: Trachea midline, no thyroid enlargement Resp normal respiratory effort, no retractions, no use of accessory muscles and clear to auscultation bilaterally Auscultation: Negative for crackles, rales, rhonchi or wheezes Cardio regular rate, regular rhythm, S1 normal heart sound, S2 normal heart sound, no murmurs, no rub, no gallops, no clicks and no JVD GI soft to palpation; Negative for non-distended GI Narrative: Abdomen distended and tense with positive fluid wave, dressing in place right upper to mid abdominal region wrapped with Bebeto bandage secondary to ascitic fluid leakage status post paracentesis. Dressing removed and no current leakage noted, abdomen is nontender and bowel sounds are normal active Extremity no clubbing, cyanosis or edema Peripheral Pulses: Yes pulses 2+ throughout Skin no wounds, skin turgor normal, No no jaundice, no petechiae and no mottling Skin Narrative: Mild jaundice, telangiectasias noted Neuro oriented x3, CN's II-XII intact bilaterally, moves all extremities, no focal motor deficits and no sensory deficits noted Sensorium / Orientation: awake and alert Speech: speech normal Motor Exam: strength 5/5 throughout Psych affect normal Assessment & Plan Assessment/Plan (1) History of Wernicke's encephalopathy: (2) Chronic hyponatremia: (3) Hyperkalemia: PLAN: Chronic hypervolemic hypotonic hyponatremia -This is most likely related to his chronic liver disease -It appears his baseline runs approximately 124-128 -He was 120 on admission however he had been recently admitted to [facility] in August at which time he had a sodium of 113 -IV fluids were discontinued this morning -Continue fluid restriction at 1500 cc daily -Sodium restriction at 2 g daily -Albumin after paracentesis tomorrow -Lasix 20 mg p.o. twice daily -Discussed extensively with both he and his the importance of fluid restriction and sodium restriction after discharge -Appears to have no neurological sequelae related to his hyponatremia -Appreciate nephrology input Alcoholic liver cirrhosis with chronic refractory ascites and alcoholic hepatitis -Per discussion with Dr. Posada from gastroenterology the patient is unfortunately still intermittently drinking -Would preclude him from obtaining a liver transplant -Meld score is 27 -Continue Aldactone -Continue steroids as ordered -Continue rifaximin -Continue lactulose -Continue Urosodiol -Paracentesis tomorrow with concomitant albumin following to prevent hepatorenal syndrome Hyperkalemia -Resolved -Being on chronic diuretic should help this -Renal function is normal Chronic macrocytic anemia -Hemoglobin stable Chronic thrombocytopenia -Likely related to use splenic sequestration plus/minus ongoing alcohol abuse with marrow suppression -Counts are stable -Continue to monitor Alcohol abuse -Per discussion with GI patient has had ongoing issues with alcohol abuse -Recommend cessation -Continue prednisone for alcoholic hepatitis -AST was mildly elevated and consistent with alcoholic hepatitis Chronic hyperbilirubinemia -Counts are stable next-continue to monitor periodically History of Warnicke's encephalopathy -Mental status appears to be at baseline currently -Continue to monitor Nicotine abuse -Recommend cessation -Nicotine replacement therapy if needed DVT prophylaxis -SCDs -Start Lovenox CODE STATUS -Full code Charges/Coding Visit Charges Inpatient E&M: 57672 Subs Hosp L2 Documented by User: MARLENY KRAMER 12/15/21 14:50 Subjective Subjective Patient is sitting upright in bed talking with his at bedside. Patient d enies complaints, aside from obvious ascites. Patient reports transient confusion present prior to arrival has resolved. Objective Data Lab / Micro Data Attestation: I reviewed the patient's lab results. Result Diagrams: 12/15/21 05:35 12/15/21 13:01 Physical Exam Const alert, oriented x3 and no apparent distress Exam Limitations: no limitations HEENT moist oral mucous membranes Head and Scalp: normocephalic Eyes PERRL and EOMs intact bilaterally Neck no lymphadenopathy and supple Resp normal respiratory effort and clear to auscultation bilaterally Cardio regular rate and regular rhythm GI non-tender GI Narrative: Dressing, consisting of incontinence pad and Bebeto wrap, covering previous paracentesis site in right upper quadrant. Dressing removed. No leaking noted, and dressing dry. No surrounding erythema. Site left open to air. Inspection: abdominal distention and caput medusae present Auscultation: normoactive bowel sounds Palpation: soft and ascites Extremity normal to inspection, full ROM and no clubbing, cyanosis or edema Peripheral Pulses: Yes pulses 2+ throughout Skin no rashes or lesions noted General Skin Exam: jaundice Neuro oriented x3 Sensorium / Orientation: awake and alert Psych affect normal Assessment & Plan Assessment/Plan (1) Acute hyponatremia: (2) Cirrhosis of liver: QUALIFIERS: Ascites presence: with ascites Hepatic cirrhosis type: alcoholic cirrhosis Qualified Code(s): K70.31 - Alcoholic cirrhosis of liver with ascites (3) Abdominal ascites: QUALIFIERS: Ascites type: due to alcoholic cirrhosis Qualified Code(s): K70.31 - Alcoholic cirrhosis of liver with ascites (4) History of Wernicke's encephalopathy: (5) Thrombocytopenia: PLAN: Hypervolemic hypotonic hyponatremia ? This is an acute on chronic issue secondary to patient's alcoholic liver cirrhosis, with facility records showing sodium level as low as 119 in September 2021 and as high as 128 in October 2021 ? Sodium 120 with am labs , down from 121 on arrival yesterday ? Fluid restriction at 1.5 L ? Sodium restriction at 2000 mg ? 0.9 normal saline infusion discontinued ? Lasix 20 mg p.o. twice daily ? Discussion with patient and regarding the importance of adherence to fluid and sodium restriction. Questions answered regarding ongoing management with the use of diuretics and contraindication of sodium tablets. ? Repeat BMP at 1300 shows sodium of 122 ? Trend daily BMP Alcoholic liver cirrhosis with ascites ? Patient of Dr. Posada who receives weekly large-volume paracentesis with albumin infusion ? Meld score: 27 ? Plan to proceed with scheduled paracentesis tomorrow morning ? Continue spironolactone, potassium 4.5 ? Continue midodrine ? Continue magnesium chloride; draw Mg level tomorrow ? Continue prednisone for alcoholic hepatitis ? Continue ursodiol History of Wernicke's encephalopathy secondary to alcoholic liver cirrhosis ? No confusion, ataxia, or vision changes on assessment ? Continue lactulose, with goal of 2-3 soft stools per day ? Continue rifaximin Thrombocytopenia ? Platelet count 125 ? Chronic, secondary to alcoholic cirrhosis with splenic sequestration Macrocytic anemia ?Hemoglobin 12.4 ?Trend with CBCD Ongoing alcohol abuse ? [employer] alcohol abstinence ? Encourage AA attendance Nicotine dependence ?Pre [employer] cessation Nutrition ? Cardiac diet DVT prophylaxis ? SCDs
--- NOTE | 2021-12-15 12:56 | PCM.CONS.R ---
Assessment & Plan Assessment/Plan (1) Acute hyponatremia: PLAN: Hypervolemic hyponatremia due to cirrhosis. Still has significant ascites. He is scheduled for paracentesis tomorrow. Continue diuretics for now. Discussed about fluid restriction, even though this is somewhat limited benefit in cirrhosis patients. Blood pressure is okay, no role for Midodrine He is scheduled for paracentesis later today or tomorrow. He will get albumin with it Unfortunately not a lot of options Advised him to get listed for liver transplant soon HPI Consult Data Date of Consult: 12/15/21 HPI Narrative HPI Narrative: JOSE CRUZ THOMPSON, is a 51 M who presents the hospital with hyponatremia. Nephrology consultation in view of hyponatremia. he has known history of cirrhosis related to alcohol use. sees Dr. friend. currently getting paracentesis every . Usually gets anywhere between 6-9 L out. Sodium has been in the low 120 range. Last week his diuretics were cut down. Sodium remained low and hence he was sent in. He is currently not listed in transplant center. He is looking at [facility] since he got denied by local transplant center due to their covid vaccine policy. Other than abdominal distention, he denies any complaints. [facility] Medical History (Updated 12/14/21 @ 18:[address] Arlin Deng, DO) Cirrhosis of liver Nicotine dependence Rotator cuff arthropathy of left shoulder Home Medications lactulose 20 gram/30 mL oral solution 20 g PO DAILY #900 ml 10/01/21 [Rx Last Taken Unknown] rifaximin 550 mg tablet 550 mg PO BID #60 tab 10/01/21 [Rx Last Taken Unknown] magnesium 250 mg tablet 250 mg PO DAILY #30 tab 10/20/21 [Rx Last Taken Unknown] midodrine 5 mg tablet 10 mg PO TIDCM #90 tab 10/20/21 [Rx Last Taken Unknown] prednisone 20 mg tablet 20 mg PO BREAKFAST #30 tab 10/20/21 [Rx Last Taken Unknown] ursodiol 250 mg tablet 250 mg PO QHS #30 tab 10/20/21 [Rx Last Taken Unknown] spironolactone 50 mg tablet 25 mg PO DAILY #30 tab 12/08/21 [Rx Last Taken Unknown] Allergy/AdvReac Type Severity Reaction Status Date / Time Bandaid Allergy Skin tear Uncoded 12/14/21 16:40 when removed Family History Other Cancer Diabetes Heart disease Surgical History H/O repair of rotator cuff Social History Smoking Status: Never smoker ROS ROS Narrative negative except above Physical Exam Narrative Alert awake oriented x 3 no obvious distress no pallor no icterus no JVD s1s2 no murmurs lungs clear abdomen distended no edema no cyanosis Lab / Micro Data Result Diagrams: 12/15/21 05:35 12/15/21 05:35 Labs: Laboratory Results - last 24 hr 12/14/21 16:58: WBC 9.7, RBC 3.39 L, Hgb 12.4 L, Hct 34.2 L, MCV 100.9 H, MCH 36.6 H, MCHC 36.3 H, RDW Std Deviation 51.3 H, RDW Coeff of Teri 13.8, Plt Count 141 L, MPV 10.3, Immature Gran % (Auto) 3.200 H, Neut % (Auto) 79.5 H, Lymph % (Auto) 8.0 L, [place] % (Auto) 8.9, Eos % (Auto) 0.2, Baso % (Auto) 0.2, Absolute Neuts (auto) 7.7, Absolute Lymphs (auto) 0.77 L, Nucleated RBC % 0 12/14/21 16:58: Sodium 121 L, Potassium 5.1, Chloride 92 L, Carbon Dioxide 21.0, Anion Gap 8, BUN 14, Creatinine 0.71, Estim Creat Clear Calc 123.09, Est GFR (MDRD) Af Amer 150, Est GFR (MDRD) Non-Af 124, BUN/Creatinine Ratio 19.7, Glucose 133 H, Calcium 9.0 12/14/21 19:59: Serum Osmolality 256 L 12/14/21 21:34: Urine Osmolality 653 12/14/21 21:34: Ur Random Sodium < 5 12/15/21 05:35: WBC 11.8 H, RBC 3.35 L, Hgb 12.4 L, Hct 34.2 L, MCV 102.1 H, MCH 37.0 H, MCHC 36.3 H, RDW Std Deviation 51.7 H, RDW Coeff of Teri 13.7, Plt Count 125 L, MPV 10.4, Immature Gran % (Auto) 2.000 H, Neut % (Auto) 62.9, Lymph % (Auto) 21.2, [place] % (Auto) 12.2 H, Eos % (Auto) 1.3, Baso % (Auto) 0.4, Absolute Neuts (auto) 7.4, Absolute Lymphs (auto) 2.51, Nucleated RBC % 0 12/15/21 05:35: Sodium 120 L, Potassium 4.8, Chloride 92 L, Carbon Dioxide 23.0, Anion Gap 5, BUN 13, Creatinine 0.61 L, Estim Creat Clear Calc 143.27, Est GFR (MDRD) Af Amer 178, Est GFR (MDRD) Non-Af 147, BUN/Creatinine Ratio 21.2 H, Glucose 109 H, Calcium 8.6, Total Bilirubin 4.00 H, AST 72 H, ALT 50, Alkaline Phosphatase 155 H, Total Protein 5.9 L, Albumin 2.6 L, Globulin 3.3, Albumin/Globulin Ratio 0.8 L
[2021-12-15 13:46] LABS: Anion Gap 10 (5-15); BUN 13 mg/dL (7-18); BUN/Creat Ratio 17.8 RATIO (10-20); Chloride 93 mmol/L (98-107); Creatinine, Serum 0.73 mg/dL (0.70-1.30); EST Glomerular Filtration Rate 120 mL/min (>60); Est Glom Filt Rate - Afr Amer 145 mL/min (>60); Estimated Creatinine Clearance 119.72 ml/min; Glucose 108 mg/dL (74-106); Potassium 4.5 mmol/L (3.5-5.1); Sodium Level 122 mmol/L (136-145)
[2021-12-15] MEDS: oxyCODONE 5 MG Tablet PO ×2 (15:50→21:50)
[2021-12-15] MEDS: Ursodiol 250 MG Tablet PO (21:36)
[2021-12-15] MEDS: MELATONIN 10 MG TABLET PO (21:36)
[2021-12-16] VITALS (10 sets, daily range): BP systolic 108–132; BP diastolic 57–86; PULSE 60–86; RESP 16–18; TEMP 36.1–36.6; O2SAT 94–100
[2021-12-16 06:22] LABS: Absolute Lymphocyte Count 1.27 X10^3/uL (0.83-4.51); Absolute Neutrophil Count 7.6 X10^3/uL (2.0-7.7); Basophil# 0.03 X10^3/uL; Basophil% 0.3 % (0-1); Eosinophil# 0.08 X10^3/uL; Eosinophils% 0.8 % (0-5); Hematocrit 33.7 % (40-54); Hemoglobin 11.9 g/dL (13.0-16.5); Lymphocyte # 1.27 X10^3/ul (0.83-4.51); Lymphocyte % 12.4 % (19-41); Mean Corp Hgb Conc 35.3 g/dL (32-36); Mean Corpuscular Volume 101.8 fL (80-94); Mean Platelet Vol. 10.2 fl (6.2-12.0); Monocyte# 1.08 X10^3/uL; Monocyte% 10.6 % (0-10); NRBC Flagged by Analyzer 0 % (0-5); Neutrophil # 7.57 X10^3/uL (2.7-7.7); Platelet Count 120 K/mm3 (150-450); RBC Distribution Width CV 13.6 % (11.6-14.6); RBC Distribution Width SD 51.5 fl (35.1-43.9); Red Blood Count 3.31 M/mm3 (4.6-6.2); White Blood Count 10.2 K/mm3 (4.4-11.0)
[2021-12-16 06:47] LABS: Anion Gap 7 (5-15); BUN 14 mg/dL (7-18); Calcium,Total 8.7 mg/dL (8.5-10.1); Chloride 91 mmol/L (98-107); Creatinine, Serum 0.67 mg/dL (0.70-1.30); EST Glomerular Filtration Rate 133 mL/min (>60); Est Glom Filt Rate - Afr Amer 162 mL/min (>60); Estimated Creatinine Clearance 130.44 ml/min; Glucose 115 mg/dL (74-106); Magnesium 2.1 mg/dL (1.6-2.6); Sodium Level 120 mmol/L (136-145)
--- NOTE | 2021-12-16 07:00 | US_ITS ---
PROCEDURE: Ultrasound guided paracentesis. DATE OF EXAMINATION: 12/16/2021. INDICATION: Male, 51 years old. Ascites. PHYSICIAN: Austyn Aguilar M.D. TECHNIQUE: The risks, benefits, and alternatives to the procedure were explained to the patient. The specific risks of bleeding, infection, and damage to bowel were detailed and accepted. Witnessed informed consent was obtained. The abdomen was ultrasonographically surveyed. An appropriate pocket of fluid was identified at the right lower quadrant. The skin were cleaned and prepped in the usual sterile fashion. Using ultrasound guidance, the peritoneal cavity was accessed with a 5-Micronesian paracentesis needle/catheter system. The trocar was removed. A total of 9000 ml of brian-colored fluid were removed from the peritoneal cavity. The catheter was removed and a sterile dressing was applied. The procedure was well tolerated. US/Paracentesis with US IMPRESSION: Ultrasound guided paracentesis. Electronically Signed: Austyn Aguilar MD at 9:22 EDT ,
[2021-12-16] MEDS: Midodrine HCl 5 MG Tablet 10 MG PO ×3 (07:29→17:11)
[2021-12-16] MEDS: predniSONE 20 MG Tablet PO (07:29)
[2021-12-16] MEDS: Lidocaine 2% (20 ml mdv) 20 ML Vial INFILT (08:38)
[2021-12-16] MEDS: rifAXIMin 550 MG Tablet PO ×2 (09:29→21:55)
[2021-12-16] MEDS: Furosemide 20 MG Tablet PO ×2 (09:29→17:11)
[2021-12-16] MEDS: Magnesium Chloride 64 MG Delay Rel.Tablet 128 MG PO (09:29)
[2021-12-16] MEDS: Lactulose 20 GM/30 ML UDC PO (09:29)
[2021-12-16] MEDS: Spironolactone 25 MG Tablet PO ×2 (09:29→12:54)
[2021-12-16] MEDS: Albumin Human 25% (100 mL) 25 GM/100 ML BAG IV ×2 (11:09→12:49)
[2021-12-16] MEDS: Enoxaparin 40 MG/0.4 ML Syringe SC (11:09)
[2021-12-16] MEDS: 0.9% Saline Lock 10 ML Syringe IV (11:10)
--- NOTE | 2021-12-16 11:46 | PN.HOSP_ITS ---
Documented by User: Dr. Fela Rodriguez, DO 12/16/21 16:15 Subjective Subjective Patient states he slept well last night. Has no current complaints. is at the bedside somewhat frustrated that he was given Lovenox because he has low platelets. We discussed that his platelet counts have been 125,000 on 120,000 and it was appropriate to give him DVT prophylaxis and she voiced understanding. She was also frustrated that we were not able to the paracentesis yesterday but we discussed that Dr. Aguilar was not able to do it yesterday and that he is typically scheduled there was no urgent need. He was able to have his paracentesis this morning and 9 L were removed at that time. There are 2 L left at least to remove and that will be planned for tomorrow. Patient does admit that he recently tried to drink a beer but stated it did not make him feel good and that he did not drink the whole thing. We discussed extensively the importance of sobriety especially if he wants to obtain a liver transplant. He was not interested in pursuing evaluation at the [facility] as they require COVID-19 vaccination and he does not want to get one. Would like to now pursue possible transplant at [facility] in [place] or [facility]. They would like referral from Dr. Posada and they are asking about whether they should pursue a TIPS procedure or just be aggressive with transplant. I did discuss with them that he would need to at least 6 months of sobriety before they would probably be even considered for transplant. Dr. Posada will be in later today. Objective Data Objective Data Vital Signs: Vital Signs Temp Pulse Resp BP Pulse Ox 97.7 F L 60 16 122/71 H 94 12/16/21 09:25 12/16/21 09:25 12/16/21 09:25 12/16/21 09:25 12/16/21 10:18 Oxygen Delivery Method [5] Room Air Oxygen Delivery Method [4] Room Air Oxygen Delivery Method [3] Room Air Oxygen Delivery Method [2] Room Air Oxygen Delivery Method [1 ( Room Air Initial Baseline)] Oxygen Delivery Method Room Air Weight: 102 kg Body Mass Index (BMI) 33.2 Intake & Output: Intake and Output for Last 24 Hours 12/14/21 12/15/21 12/16/21 23:59 23:59 23:59 Intake Total 907.5 / 907.5 2472.5 / 2712.5 1040 / 1040 Output Total 1000 / 1000 26987 / 12293 Balance 907.5 / 407.5 1472.5 / 1712.5 -34871 / -29136 Lab / Micro Data Result Diagrams: 12/16/21 05:59 12/16/21 12:55 Labs: Laboratory Results - last 24 hr 12/15/21 13:01: Sodium 122 L, Potassium 4.5, Chloride 93 L, Carbon Dioxide 19.0 L, Anion Gap 10, BUN 13, Creatinine 0.73, Estim Creat Clear Calc 119.72, Est GFR (MDRD) Af Amer 145, Est GFR (MDRD) Non-Af 120, BUN/Creatinine Ratio 17.8, Glucose 108 H, Calcium 9.0 12/16/21 05:59: WBC 10.2, RBC 3.31 L, Hgb 11.9 L, Hct 33.7 L, MCV 101.8 H, MCH 36.0 H, MCHC 35.3, RDW Std Deviation 51.5 H, RDW Coeff of Teri 13.6, Plt Count 120 L, MPV 10.2, Immature Gran % (Auto) 1.900 H, Neut % (Auto) 74.0 H, Lymph % (Auto) 12.4 L, [place] % (Auto) 10.6 H, Eos % (Auto) 0.8, Baso % (Auto) 0.3, Absolute Neuts (auto) 7.6, Absolute Lymphs (auto) 1.27, Nucleated RBC % 0 12/16/21 05:59: Sodium 120 L, Potassium 5.0, Chloride 91 L, Carbon Dioxide 22.0, Anion Gap 7, BUN 14, Creatinine 0.67 L, Estim Creat Clear Calc 130.44, Est GFR (MDRD) Af Amer 162, Est GFR (MDRD) Non-Af 133, BUN/Creatinine Ratio 21.0 H, Glucose 115 H, Calcium 8.7, Magnesium 2.1 Radiography Diagnostic Testing: Radiology Impression Paracentesis Ultrasound 12/16/21 07:00 IMPRESSION: Ultrasound guided paracentesis. Electronically Signed: Austyn Aguilar MD at 9:22 EDT , Physical Exam Const alert, oriented x3 and no apparent distress Constitutional Narrative: Middle-aged white male sitting up in a chair eating breakfast, is at the bedside, patient appears comfortable nontoxic General Appearance: cooperative Exam Limitations: no limitations Nutritional Appearance: obese HEENT normocephalic, head/scalp atraumatic, hearing grossly normal bilaterally and moist oral mucous membranes Head and Scalp: normocephalic Resp normal respiratory effort, no retractions, no use of accessory muscles and clear to auscultation bilaterally Resp Narrative: Slightly diminished at bases bilaterally Auscultation: Negative for crackles, rales, rhonchi or wheezes Cardio regular rate, regular rhythm, S1 normal heart sound, S2 normal heart sound, no murmurs, no rub, no gallops, no clicks and no JVD GI soft to palpation and non-tender; Negative for non-distended GI Narrative: Abdomen is still slightly distended but much improved in last 24 hours, no further drainage from his previous paracentesis site, abdomen is soft and nontender bowel sounds are good Extremity Extremity Narrative: Trace bilateral lower extremity edema-pitting in nature, pedal pulses are 2+, no cyanosis Peripheral Pulses: Yes pulses 2+ throughout Neuro oriented x3, moves all extremities and no focal motor deficits Sensorium / Orientation: awake and alert Speech: speech normal Assessment & Plan Assessment/Plan (1) History of Wernicke's encephalopathy: (2) Hyperkalemia: PLAN: Chronic hypervolemic hypotonic hyponatremia -This is most likely related to his chronic liver disease -It appears his baseline runs approximately 124-128 -He was 120 on admission however he had been recently admitted to [facility] in August at which time he had a sodium of 113 -Continue fluid restriction at 1500 cc daily -Sodium tablets added by nephrology--> this will be a transient improvement and will probably cause worsening fluid retention -Nephrology did want a pursue hypertonic saline however its not available we are unable to run it peripherally -Nephrology did say they would discuss this with patient and his family -Dr. Beltran did indicate he would like his sodium approximately 130 before discharge -Albumin 50 g given today -Continue Lasix 20 mg p.o. twice daily -Discussed extensively with both he and his the importance of fluid restriction and sodium restriction after discharge -Appears to have no neurological sequelae related to his hyponatremia -Appreciate nephrology input Alcoholic liver cirrhosis with chronic refractory ascites and alcoholic hepatitis -Per discussion with Dr. Posada from gastroenterology the patient is unfortunately still intermittently drinking -Would preclude him from obtaining a liver transplant -Meld score is 27 most recently -Continue Aldactone -Continue steroids as ordered -Continue rifaximin -Continue lactulose -Continue Urosodiol -Paracentesis done today for 9 L removal--> 50 g of albumin given postprocedure -Radiology felt approximately 2 L were left--> we will repeat paracentesis tomorrow -She gets weekly paracenteses on --> may need more frequently especially for going to add salt tablets at discharge Hyperkalemia -Resolved -Repeat BMP in a.m. -Being on chronic diuretic should help this -Renal function is normal Chronic macrocytic anemia -Hemoglobin stable Chronic thrombocytopenia -Likely related to use splenic sequestration plus/minus ongoing alcohol abuse with marrow suppression -Counts are stable--> 120,000 today -K for DVT prophylaxis as a DVT would be profoundly devastating in his condition -Continue to monitor Alcohol abuse -Per discussion with GI patient has had ongoing issues with alcohol abuse and patient admitted to this today -Recommend cessation--extensive discussion with patient while his is at the bedside with regards to needs for sobriety if they would like to consider a liver transplant -Continue prednisone for alcoholic hepatitis -AST was mildly elevated and consistent with alcoholic hepatitis on admission -We will repeat liver function tomorrow Chronic hyperbilirubinemia -Counts are stable -continue to monitor periodically History of Warnicke's encephalopathy -Mental status appears to be at baseline currently -Continue to monitor Nicotine abuse -Recommend cessation--> patient uses chewing tobacco -Nicotine replacement therapy if needed DVT prophylaxis -SCDs -Continue Lovenox CODE STATUS -Full code Charges/Coding Visit Charges Inpatient E&M: 12122 Subs Hosp L2 Documented by User: MARLENY KRAMER 12/16/21 13:09 Subjective Subjective Patient is sitting up in chair eating his breakfast with in the room just shortly returning from his paracentesis. Patient states that he is feeling relief from the 9 L drainage. Patient states that he slept like a rock and has a good appetite. Patient states that he has been up and around the room without difficulty and denies any confusion. Objective Data Lab / Micro Data Attestation: I reviewed the patient's lab results. Result Diagrams: 12/16/21 05:59 12/16/21 12:55 Physical Exam Const alert, oriented x3 and no apparent distress General Appearance: cooperative and comfortable Exam Limitations: no limitations Nutritional Appearance: obese HEENT normocephalic and moist oral mucous membranes Eyes PERRL and EOMs intact bilaterally Eyes Narrative: scleral icterus Neck no lymphadenopathy, supple and no carotid bruits Resp normal respiratory effort and clear to auscultation bilaterally Cardio regular rate, regular rhythm, S1 normal heart sound and no murmurs GI soft to palpation and non-tender GI Narrative: Abdomen is still mildly distended, but nontender. Previous drainage site is no longer leaking. Today's paracentesis site dressed with Dermabond. Extremity normal to inspection, full ROM and no clubbing, cyanosis or edema Peripheral Pulses: Yes pulses 2+ throughout Skin no rashes or lesions noted General Skin Exam: jaundice Neuro oriented x3 Sensorium / Orientation: awake and alert Motor Exam: asterixis Psych affect normal Assessment & Plan Assessment/Plan (1) Chronic hyponatremia: PLAN: Chronic hypervolemic hypotonic hyponatremia ? Sodium 120 with morning labs ? Reinforced importance of adherence to fluid restriction at 1.5 L ? Nephrology consulted and continuing to follow ? Continue Lasix 20 mg p.o. twice daily ? Nephrology rounded and increasing spironolactone to 50 g daily and adding 2 g sodium chloride tablets 3 times daily ? Trend with daily BMP Alcoholic liver cirrhosis with chronic refractory ascites and alcoholic hepatitis ? Paracentesis this morning with 9000 mL drainage ? 50 g of albumin IV to prevent hepatorenal syndrome ? Continue spironolactone, potassium 5.0 ? Continue midodrine, blood pressures adequate ? Continue magnesium chloride, magnesium 2.1 ? Continue prednisone for alcoholic hepatitis ? Continue ursodiol ? GI consulted to discuss TIPS procedure versus transplant options with patient and Chronic macrocytic anemia ? Hemoglobin 11.9 ? Continue to monitor Chronic thrombocytopenia ? Platelet 120 ? Likely secondary to alcoholic cirrhosis with splenic sequestration ? Trend with CBCD Alcohol abuse ? Patient admits to trying a beer the other day, but just did not agree with me? But I get a craving for it every time about the store. Patient counseled on complete cessation. ? Patient's states that he has attended AA meetings in [place], but going forward will explore the online option with verified attendance. History of Wernicke's encephalopathy ? Confusion, ataxia, or vision changes on assessment ? Continue lactulose, with goal of 2-3 soft stools per day ? Continue rifaximin Nicotine abuse ? Recommend cessation ? Nicotine replacement if needed DVT prophylaxis ? SCDs ? Continue Lovenox ? Discussion with patient's to explain purpose of Lovenox and indication to hold Lovenox would be platelet count of less than 50,000 CODE STATUS ? Full code
--- NOTE | 2021-12-16 12:37 | PN.RENAL_ITS ---
Subjective Subjective s/p paracentesis Objective Data Objective Data Vital Signs: Vital Signs Temp Pulse Resp BP Pulse Ox 97.7 F L 60 16 122/71 H 94 12/16/21 09:25 12/16/21 09:25 12/16/21 09:25 12/16/21 09:25 12/16/21 10:18 Oxygen Delivery Method [5] Room Air Oxygen Delivery Method [4] Room Air Oxygen Delivery Method [3] Room Air Oxygen Delivery Method [2] Room Air Oxygen Delivery Method [1 ( Room Air Initial Baseline)] Oxygen Delivery Method Room Air Weight: 102 kg Body Mass Index (BMI) 33.2 Intake & Output: Intake and Output for Last 24 Hours 12/14/21 12/15/21 12/16/21 23:59 23:59 23:59 Intake Total 907.5 / 907.5 2472.5 / 2712.5 1040 / 1040 Output Total 1000 / 1000 86673 / 21491 Balance 907.5 / 407.5 1472.5 / 1712.5 -55962 / -74921 Lab / Micro Data Result Diagrams: 12/16/21 05:59 12/16/21 05:59 Labs: Laboratory Results - last 24 hr 12/15/21 13:01: Sodium 122 L, Potassium 4.5, Chloride 93 L, Carbon Dioxide 19.0 L, Anion Gap 10, BUN 13, Creatinine 0.73, Estim Creat Clear Calc 119.72, Est GFR (MDRD) Af Amer 145, Est GFR (MDRD) Non-Af 120, BUN/Creatinine Ratio 17.8, Glucose 108 H, Calcium 9.0 12/16/21 05:59: WBC 10.2, RBC 3.31 L, Hgb 11.9 L, Hct 33.7 L, MCV 101.8 H, MCH 36.0 H, MCHC 35.3, RDW Std Deviation 51.5 H, RDW Coeff of Teri 13.6, Plt Count 120 L, MPV 10.2, Immature Gran % (Auto) 1.900 H, Neut % (Auto) 74.0 H, Lymph % (Auto) 12.4 L, [place] % (Auto) 10.6 H, Eos % (Auto) 0.8, Baso % (Auto) 0.3, Absolute Neuts (auto) 7.6, Absolute Lymphs (auto) 1.27, Nucleated RBC % 0 12/16/21 05:59: Sodium 120 L, Potassium 5.0, Chloride 91 L, Carbon Dioxide 22.0, Anion Gap 7, BUN 14, Creatinine 0.67 L, Estim Creat Clear Calc 130.44, Est GFR (MDRD) Af Amer 162, Est GFR (MDRD) Non-Af 133, BUN/Creatinine Ratio 21.0 H, Glucose 115 H, Calcium 8.7, Magnesium 2.1 Radiography Diagnostic Testing: Radiology Impression Paracentesis Ultrasound 12/16/21 07:00 IMPRESSION: Ultrasound guided paracentesis. Electronically Signed: Austyn Aguilar MD at 9:22 EDT , Physical Exam Narrative Alert awake oriented x 3 no obvious distress no pallor no icterus no JVD s1s2 no murmurs lungs clear abdomen ascitis no edema no cyanosis Assessment & Plan Assessment/Plan (1) Acute hyponatremia: PLAN: Hypervolemic hyponatremia due to cirrhosis. sodium remains low. li mited options. not a candidate for tolvaptan, urea due to cirrhosis. called pharmacy. 3% has to be through central line as per policy. 2% Nacl not available. try salt tablets. explained about ascitic risk. plan would be to send home on salt tablets aldactone 50 mg BID lasix 40 mg daily increase aldactone further as needed dw family at bedside
[2021-12-16] MEDS: Sodium Chloride 1 GM Tablet 2 GM PO ×2 (12:54→21:55)
[2021-12-16 13:32] LABS: Anion Gap 7 (5-15); BUN 13 mg/dL (7-18); BUN/Creat Ratio 18.6 RATIO (10-20); Calcium,Total 8.8 mg/dL (8.5-10.1); Chloride 93 mmol/L (98-107); EST Glomerular Filtration Rate 127 mL/min (>60); Est Glom Filt Rate - Afr Amer 153 mL/min (>60); Estimated Creatinine Clearance 124.85 ml/min; Glucose 111 mg/dL (74-106); Potassium 5.1 mmol/L (3.5-5.1); Sodium Level 122 mmol/L (136-145)
--- NOTE | 2021-12-16 17:30 | PCM.CONS.GEN ---
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 At this time he is on a fluid restriction. His mental status as per his seems about the same however he is very lethargic. (2) Cirrhosis of liver: QUALIFIERS: Hepatic cirrhosis type: alcoholic cirrhosis Ascites presence: with ascites Qualified Code(s): K70.31 - Alcoholic cirrhosis of liver with ascites PLAN: He has alcoholic cirrhosis. Patient says that he still drinks on occasion. He cannot quantify what on occasion means. He wants a referral of to [facility] for transplant evaluation. His current meld is 22. I would increase his lactulose to 30 cc every 4 hours as with 17 g of lactulose. (3) Alcoholic hepatitis: PLAN: His numbers are indicative of alcoholic hepatitis he does not drink on a daily basis. No steroid therapy at this time. His Madrey score is 34. Typically at 32 we will give steroid therapy or potassium slightly. If his mental status gets worse than I may give him steroids. (4) Abdominal ascites: QUALIFIERS: Ascites type: due to alcoholic cirrhosis Qualified Code(s): K70.31 - Alcoholic cirrhosis of liver with ascites PLAN: He had 9 L of fluid removed this morning and is on albumin replacement. He will possibly get more fluid drained tomorrow. I would drain his left fluid as possible because it increases his risk of kidney failure due to prerenal azotemia paracentesis is also today. HPI Consult Data Date of Consult: 12/16/21 HPI Narrative HPI Narrative: JOSE CRUZ THOMPSON, is a 51 M who presents from home with worsening abdominal distention. He has a past medical history of alcoholic cirrhosis complicated by hyponatremia ,alcoholic hepatitis, encephalopathy and recurrent ascites. He gets paracentesis every week. He underwent large-volume paracentesis in which he had 9 L removed today. He is currently getting albumin replacement. He is a newly diagnosed cirrhotic .. He has been on diuretic therapy. He is not know if he has been checked for hepatitis C. He says his family doctor has been prescribing his diuretics. He has not drank since July. He did notice that he was starting to become more yellow recently. He is not been treated for alcoholic hepatitis. He has never had a blood transfusion. He has no family members with liver disease. He said he has been struggling with his sodium and his abdominal distention. He denies any bleeding, fatigue or weakness. He is not having any problems sleeping at night. He has no problems with tremors. He had a paracentesis done August 16, , but then has not had one since then. States that around each time they were draining around 6 L of fluid. Denies any fevers or chills and no significant abdominal pain with palpation. Of note in the ER his white count was normal however his sodium is 120 with a chloride of 89. Creatinine is 1.01 with a bilirubin of 6 and an AST of 185 and an ALT of 113 with a normal alk phos. [facility] Medical History (Updated 12/16/21 @ 17:[address] Lee Friend, DO) Abdominal ascites Alcoholic hepatitis Anemia Cirrhosis of liver Hyperbilirubinemia Nicotine dependence Rotator cuff arthropathy of left shoulder Thrombocytopenia Wernicke encephalopathy Home Medications lactulose 20 gram/30 mL oral solution 20 g PO DAILY #900 ml 10/01/21 [Rx Last Taken Unknown] rifaximin 550 mg tablet 550 mg PO BID #60 tab 10/01/21 [Rx Last Taken Unknown] magnesium 250 mg tablet 250 mg PO DAILY #30 tab 10/20/21 [Rx Last Taken Unknown] midodrine 5 mg tablet 10 mg PO TIDCM #90 tab 10/20/21 [Rx Last Taken Unknown] prednisone 20 mg tablet 20 mg PO BREAKFAST #30 tab 10/20/21 [Rx Last Taken Unknown] ursodiol 250 mg tablet 250 mg PO QHS #30 tab 10/20/21 [Rx Last Taken Unknown] spironolactone 50 mg tablet 25 mg PO DAILY #30 tab 12/08/21 [Rx Last Taken Unknown] Allergy/AdvReac Type Severity Reaction Status Date / Time Bandaid Allergy Skin tear Uncoded 12/14/21 16:40 when removed Family History Other Cancer Diabetes Heart disease Surgical History H/O repair of rotator cuff Social History Smoking Status: Never smoker ROS Gastrointestinal Gastrointestinal: Reports abdominal pain Physical Exam Const alert General Appearance: cooperative Orientation / Consciousness: oriented to person HEENT hearing grossly normal bilaterally Head and Scalp: normal to inspection Face and Sinus: face symmetric Nose: external nose normal Mouth: oral and palatal mucosa normal Eyes conjunctivae normal General Eye: normal appearance of both eyes Neck full ROM General: normal visual inspection Lymph Lymphatic: no lymphadenopathy noted Chest inspection of chest normal and palpation of chest normal Chest: symmetrical chest wall rise Resp normal respiratory effort Effort and Inspection: able to speak in complete sentences Cardio regular rate GI non-distended Percussion: normal to percussion Rectal Exam: deferred Neuro Speech: speech normal Gait (Neuro): normal gait Lab / Micro Data Result Diagrams: 12/16/21 05:59 12/16/21 12:55 Labs: Laboratory Results - last 24 hr 12/16/21 05:59: WBC 10.2, RBC 3.31 L, Hgb 11.9 L, Hct 33.7 L, MCV 101.8 H, MCH 36.0 H, MCHC 35.3, RDW Std Deviation 51.5 H, RDW Coeff of Teri 13.6, Plt Count 120 L, MPV 10.2, Immature Gran % (Auto) 1.900 H, Neut % (Auto) 74.0 H, Lymph % (Auto) 12.4 L, [place] % (Auto) 10.6 H, Eos % (Auto) 0.8, Baso % (Auto) 0.3, Absolute Neuts (auto) 7.6, Absolute Lymphs (auto) 1.27, Nucleated RBC % 0 12/16/21 05:59: Sodium 120 L, Potassium 5.0, Chloride 91 L, Carbon Dioxide 22.0, Anion Gap 7, BUN 14, Creatinine 0.67 L, Estim Creat Clear Calc 130.44, Est GFR (MDRD) Af Amer 162, Est GFR (MDRD) Non-Af 133, BUN/Creatinine Ratio 21.0 H, Glucose 115 H, Calcium 8.7, Magnesium 2.1 12/16/21 12:55: Sodium 122 L, Potassium 5.1, Chloride 93 L, Carbon Dioxide 22.0, Anion Gap 7, BUN 13, Creatinine 0.70, Estim Creat Clear Calc 124.85, Est GFR (MDRD) Af Amer 153, Est GFR (MDRD) Non-Af 127, BUN/Creatinine Ratio 18.6, Glucose 111 H, Calcium 8.8 Radiology Impression Paracentesis Ultrasound 12/16/21 07:00 IMPRESSION: Ultrasound guided paracentesis. Electronically Signed: Austyn Aguilar MD at 9:22 EDT , Charges/Coding Visit Charges Inpatient E&M: 01112 Init Hosp L3
[2021-12-16] MEDS: MELATONIN 10 MG TABLET PO (21:55)
[2021-12-16] MEDS: Ursodiol 250 MG Tablet PO (21:55)
[2021-12-17] VITALS (9 sets, daily range): BP systolic 116–129; BP diastolic 52–69; PULSE 65–72; RESP 16–18; TEMP 36.3–36.7; O2SAT 97–100
[2021-12-17] MEDS: Sodium Chloride 1 GM Tablet 2 GM PO ×2 (05:43→16:34)
[2021-12-17 06:16] LABS: Absolute Lymphocyte Count 2.41 X10^3/uL (0.83-4.51); Absolute Neutrophil Count 5.9 X10^3/uL (2.0-7.7); Basophil# 0.04 X10^3/uL; Basophil% 0.4 % (0-1); Eosinophil# 0.09 X10^3/uL; Eosinophils% 0.9 % (0-5); Hemoglobin 11.7 g/dL (13.0-16.5); Lymphocyte # 2.41 X10^3/ul (0.83-4.51); Lymphocyte % 25.4 % (19-41); Mean Corp Hgb Conc 35.5 g/dL (32-36); Mean Corpuscular Hgb 36.1 pg (27.0-32.0); Mean Corpuscular Volume 101.9 fL (80-94); Mean Platelet Vol. 10.6 fl (6.2-12.0); Monocyte# 0.97 X10^3/uL; Monocyte% 10.2 % (0-10); NRBC Flagged by Analyzer 0 % (0-5); Neutrophil # 5.86 X10^3/uL (2.7-7.7); Neutrophil % 61.9 % (47-70); POSITIVE COUNT YES; Platelet Count 97 K/mm3 (150-450); RBC Distribution Width CV 13.7 % (11.6-14.6); RBC Distribution Width SD 51.5 fl (35.1-43.9); Red Blood Count 3.24 M/mm3 (4.6-6.2); White Blood Count 9.5 K/mm3 (4.4-11.0)
[2021-12-17 06:22] LABS: Differential Indicated SCAN CRITERIA MET
[2021-12-17 06:49] LABS: Differential Comment SCANNED
[2021-12-17 07:05] LABS: ALB/GLOB Ratio 1.1 RATIO (0.9-2.4); AST(SGOT) 66 U/L (15-37); Alanine Aminotransfer ALT/SGPT 48 U/L (16-61); Albumin, Serum 3.1 g/dL (3.2-5.0); Alkaline Phosphatase 131 U/L (45-117); Anion Gap 8 (5-15); BUN 16 mg/dL (7-18); BUN/Creat Ratio 21.7 RATIO (10-20); Calcium,Total 8.9 mg/dL (8.5-10.1); Chloride 93 mmol/L (98-107); Creatinine, Serum 0.74 mg/dL (0.70-1.30); EST Glomerular Filtration Rate 119 mL/min (>60); Est Glom Filt Rate - Afr Amer 144 mL/min (>60); Globulin 2.9 g/dL (2.2-4.2); Glucose 90 mg/dL (74-106); Sodium Level 123 mmol/L (136-145)
--- NOTE | 2021-12-17 08:00 | PN_ITS ---
Subjective Subjective Patient is doing well today after repeat paracentesis. He has not had any abdominal pain. Is not have any cramping. He has been able to tolerate a normal diet. Objective Data Objective Data Vital Signs: Vital Signs Temp Pulse Resp BP Pulse Ox 98.1 F 68 18 127/65 H 100 12/17/21 16:18 12/17/21 16:18 12/17/21 16:18 12/17/21 16:18 12/17/21 16:18 Oxygen Delivery Method [5] Room Air Oxygen Delivery Method [4] Room Air Oxygen Delivery Method [3] Room Air Oxygen Delivery Method [2] Room Air Oxygen Delivery Method [1 ( Room Air Initial Baseline)] Oxygen Delivery Method [5] Room Air Oxygen Delivery Method [4] Room Air Oxygen Delivery Method [3] Room Air Oxygen Delivery Method [2] Room Air Oxygen Delivery Method [1 ( Room Air Initial Baseline)] Oxygen Delivery Method Room Air Weight: 224 lb 13.944 oz Body Mass Index (BMI) 33.2 Intake & Output: Intake and Output for Last 24 Hours 12/15/21 12/16/21 12/17/21 23:59 23:59 23:59 Intake Total 2472.5 / 2712.5 1840 / 1840 500 / 500 Output Total 1000 / 1000 38606 / 26110 5850 / 5850 Balance 1472.5 / 1712.5 -33070 / -71675 -5350 / -5350 Lab / Micro Data Result Diagrams: 12/17/21 05:56 12/17/21 05:56 Labs: Laboratory Results - last 24 hr 12/17/21 05:56: WBC 9.5, RBC 3.24 L, Hgb 11.7 L, Hct 33.0 L, MCV 101.9 H, MCH 36.1 H, MCHC 35.5, RDW Std Deviation 51.5 H, RDW Coeff of Teri 13.7, Plt Count 97 L, MPV 10.6, Immature Gran % (Auto) 1.200 H, Neut % (Auto) 61.9, Lymph % (Auto) 25.4, [place] % (Auto) 10.2 H, Eos % (Auto) 0.9, Baso % (Auto) 0.4, Absolute Neuts (auto) 5.9, Absolute Lymphs (auto) 2.41, Nucleated RBC % 0, Differential Comment SCANNED 12/17/21 05:56: Sodium 123 L, Potassium 5.0, Chloride 93 L, Carbon Dioxide 22.0, Anion Gap 8, BUN 16, Creatinine 0.74, Estim Creat Clear Calc 118.10, Est GFR (MDRD) Af Amer 144, Est GFR (MDRD) Non-Af 119, BUN/Creatinine Ratio 21.7 H, Glucose 90, Calcium 8.9, Total Bilirubin 4.50 H, AST 66 H, ALT 48, Alkaline Phosphatase 131 H, Total Protein 6.0 L, Albumin 3.1 L, Globulin 2.9, [place] min/Globulin Ratio 1.1 Physical Exam Const alert General Appearance: cooperative Orientation / Consciousness: oriented to person HEENT hearing grossly normal bilaterally Head and Scalp: normal to inspection Face and Sinus: face symmetric Nose: external nose normal Mouth: oral and palatal mucosa normal Eyes conjunctivae normal General Eye: normal appearance of both eyes Neck full ROM General: normal visual inspection Lymph Lymphatic: no lymphadenopathy noted Chest inspection of chest normal and palpation of chest normal Chest: symmetrical chest wall rise Resp normal respiratory effort Effort and Inspection: able to speak in complete sentences Cardio regular rate GI non-distended Percussion: normal to percussion Rectal Exam: deferred Neuro Speech: speech normal Gait (Neuro): normal gait Assessment & Plan Assessment/Plan (1) Cirrhosis of liver: QUALIFIERS: Hepatic cirrhosis type: alcoholic cirrhosis Ascites presence: with ascites Qualified Code(s): K70.31 - Alcoholic cirrhosis of liver with ascites PLAN: . He is still decompensated cirrhosis by the fact that he is jaundice, has ascites and has a low-grade encephalopathy. Recommend lactulose 30 cc every 6 hours. He will follow-up in the clinic. (2) Alcoholic hepatitis: PLAN: He was counseled on no alcohol at all especially if he is going to be able to get a liver transplant. His current Madrey score is 32. I would not give him any steroids for alcoholic hepatitis at this time (3) Abdominal ascites: QUALIFIERS: Ascites type: due to alcoholic cirrhosis Qualified Code(s): K70.31 - Alcoholic cirrhosis of liver with ascites PLAN: He is status post removal 12 L of serosanguineous fluid. No signs of SBP. Hopefully with fluid restriction and diuretic therapy he will last till the end of next week for another paracentesis. (4) Chronic hyponatremia: PLAN: His sodium is back up to 123 today and he actually appears more alert and awake today. He has been averaging a sodium level between 119 and 121 over the last 3 months. The plan is to continue to fluid restrict time to 1 L of fluid a day. If this continues to help then we will not have to decrease it down to 500 mg a day. Charges/Coding Visit Charges Inpatient E&M: 81582 Subs Hosp L3
--- NOTE | 2021-12-17 08:15 | PCM.PN.HOSP ---
Objective Data Objective Data Vital Signs: Vital Signs Temp Pulse Resp BP Pulse Ox 97.6 F L 69 18 122/66 H 97 12/17/21 03:41 12/17/21 06:38 12/17/21 03:41 12/17/21 03:41 12/17/21 07:34 Oxygen Delivery Method [5] Room Air Oxygen Delivery Method [4] Room Air Oxygen Delivery Method [3] Room Air Oxygen Delivery Method [2] Room Air Oxygen Delivery Method [1 ( Room Air Initial Baseline)] Oxygen Delivery Method Room Air Weight: 224 lb 13.944 oz Body Mass Index (BMI) 33.2 Intake & Output: Intake and Output for Last 24 Hours 12/15/21 12/16/21 12/17/21 23:59 23:59 23:59 Intake Total 2472.5 / 2712.5 1840 / 1840 Output Total 1000 / 1000 62641 / 21270 Balance 1472.5 / 1712.5 -34418 / -43893 Lab / Micro Data Result Diagrams: 12/17/21 05:56 12/17/21 05:56 Labs: Laboratory Results - last 24 hr 12/16/21 12:55: Sodium 122 L, Potassium 5.1, Chloride 93 L, Carbon Dioxide 22.0, Anion Gap 7, BUN 13, Creatinine 0.70, Estim Creat Clear Calc 124.85, Est GFR (MDRD) Af Amer 153, Est GFR (MDRD) Non-Af 127, BUN/Creatinine Ratio 18.6, Glucose 111 H, Calcium 8.8 12/17/21 05:56: WBC 9.5, RBC 3.24 L, Hgb 11.7 L, Hct 33.0 L, MCV 101.9 H, MCH 36.1 H, MCHC 35.5, RDW Std Deviation 51.5 H, RDW Coeff of Teri 13.7, Plt Count 97 L, MPV 10.6, Immature Gran % (Auto) 1.200 H, Neut % (Auto) 61.9, Lymph % (Auto) 25.4, [place] % (Auto) 10.2 H, Eos % (Auto) 0.9, Baso % (Auto) 0.4, Absolute Neuts (auto) 5.9, Absolute Lymphs (auto) 2.41, Nucleated RBC % 0, Differential Comment SCANNED 12/17/21 05:56: Sodium 123 L, Potassium 5.0, Chloride 93 L, Carbon Dioxide 22.0, Anion Gap 8, BUN 16, Creatinine 0.74, Estim Creat Clear Calc 118.10, Est GFR (MDRD) Af Amer 144, Est GFR (MDRD) Non-Af 119, BUN/Creatinine Ratio 21.7 H, Glucose 90, Calcium 8.9, Total Bilirubin 4.50 H, AST 66 H, ALT 48, Alkaline Phosphatase 131 H, Total Protein 6.0 L, Albumin 3.1 L, Globulin 2.9, Albumin/Globulin Ratio 1.1 Radiography Diagnostic Testing: Radiology Impression Paracentesis Ultrasound 12/16/21 07:00 IMPRESSION: Ultrasound guided paracentesis. Electronically Signed: Austyn Aguilar MD at 9:22 EDT , Assessment & Plan Assessment/Plan (1) History of Wernicke's encephalopathy: (2) Hyperkalemia: PLAN: Chronic hypervolemic hypotonic hyponatremia -This is most likely related to his chronic liver disease -It appears his baseline runs approximately 124-128 -He was 120 on admission however he had been recently admitted to [facility] in August at which time he had a sodium of 113 -Continue fluid restriction at 1500 cc daily -Sodium tablets added by nephrology--> this will be a transient improvement and will probably cause worsening fluid retention -Nephrology did want a pursue hypertonic saline however its not available we are unable to run it peripherally -Nephrology did say they would discuss this with patient and his family -Dr. Beltran did indicate he would like his sodium approximately 130 before discharge -Albumin 50 g given today -Continue Lasix 20 mg p.o. twice daily -Discussed extensively with both he and his the importance of fluid restriction and sodium restriction after discharge -Appears to have no neurological sequelae related to his hyponatremia -Appreciate nephrology input Alcoholic liver cirrhosis with chronic refractory ascites and alcoholic hepatitis -Per discussion with Dr. Posada from gastroenterology the patient is unfortunately still intermittently drinking -Would preclude him from obtaining a liver transplant -Meld score is 27 most recently -Continue Aldactone -Continue steroids as ordered -Continue rifaximin -Continue lactulose -Continue Urosodiol -Paracentesis done today for 9 L removal--> 50 g of albumin given postprocedure -Radiology felt approximately 2 L were left--> we will repeat paracentesis tomorrow -She gets weekly paracenteses on --> may need more frequently especially for going to add salt tablets at discharge Hyperkalemia -Resolved -Repeat BMP in a.m. -Being on chronic diuretic should help this -Renal function is normal Chronic macrocytic anemia -Hemoglobin stable Chronic thrombocytopenia -Likely related to use splenic sequestration plus/minus ongoing alcohol abuse with marrow suppression -Counts are stable--> 120,000 today -K for DVT prophylaxis as a DVT would be profoundly devastating in his condition -Continue to monitor Alcohol abuse -Per discussion with GI patient has had ongoing issues with alcohol abuse and patient admitted to this today -Recommend cessation--extensive discussion with patient while his is at the bedside with regards to needs for sobriety if they would like to consider a liver transplant -Continue prednisone for alcoholic hepatitis -AST was mildly elevated and consistent with alcoholic hepatitis on admission -We will repeat liver function tomorrow Chronic hyperbilirubinemia -Counts are stable -continue to monitor periodically History of Warnicke's encephalopathy -Mental status appears to be at baseline currently -Continue to monitor Nicotine abuse -Recommend cessation--> patient uses chewing tobacco -Nicotine replacement therapy if needed DVT prophylaxis -SCDs -Continue Lovenox CODE STATUS -Full code
[2021-12-17] MEDS: Lactulose 20 GM/30 ML UDC PO (08:39)
[2021-12-17] MEDS: rifAXIMin 550 MG Tablet PO (08:40)
[2021-12-17] MEDS: predniSONE 20 MG Tablet PO (08:40)
[2021-12-17] MEDS: Magnesium Chloride 64 MG Delay Rel.Tablet 128 MG PO (08:40)
[2021-12-17] MEDS: Midodrine HCl 5 MG Tablet 10 MG PO ×2 (08:40→11:33)
[2021-12-17] MEDS: Furosemide 20 MG Tablet PO ×2 (08:40→16:34)
[2021-12-17] MEDS: Spironolactone 50 MG Tablet PO (08:40)
--- NOTE | 2021-12-17 09:05 | PCM.DC ---
Discharge Instructions Diet Discharge Diet: 6 Cup Fluid Restriction, 8 Cup Fluid Restriction and 2000 mg Sodium Diet Activity Discharge Activity: Return to Normal Activity and May Not Drive Weight Bearing Status: Weight bearing as tolerated Dressing / Incision Call your doctor if you observe: Fever of 101 or Higher, Coldness, Increased Pain, Numbness or Tingling, Change in Color, Inability to urinate, Inability to have a bowel movement, Shortness of breath, Dizziness, Fainting spells, Swelling in the ankles, Chest pain, Prolonged hiccupping, Increased palpitations (irregular heartbeat), Calf discomfort and Uncontrolled pain Follow Up Care Test Results: Test results from this visit will be discussed in further detail at your follow-up appointment, if applicable. Discharge Plan Admission Admit Date/Time: 12/14/21 18:22 Primary Reason for Your Visit: Decompensated alcoholic cirrhosis Attending Provider: Israel Gardner Primary Care Provider: Jovi Rodriguez Consulting Providers: Alfa Camara ; Shauna Saab ; Fela Rodriguez Discharge Orders/Prescriptions Prescriptions: New midodrine 5 mg Tablet 10 mg PO TIDCM Qty: 90 RF: 0 furosemide 20 mg Tablet 20 mg PO BIDLX Qty: 60 RF: 2 sodium chloride 1,000 mg Tablet,Soluble 2 g PO TID Qty: 20 RF: 0 lactulose 20 gram/30 mL solution 20 g PO DAILY Qty: 900 RF: 6 Continued ursodiol 250 mg tablet 250 mg PO QHS Qty: 30 RF: 6 magnesium 250 mg tablet 250 mg PO DAILY Qty: 30 RF: 6 Xifaxan 550 mg tablet 550 mg PO BID Qty: 60 RF: 6 spironolactone 50 mg tablet 25 mg PO DAILY Qty: 30 RF: 6 No Action midodrine 5 mg tablet 10 mg PO TIDCM Qty: 90 RF: 6 prednisone 20 mg tablet 20 mg PO BREAKFAST Qty: 30 RF: 6 Referrals / Follow Up: Jovi Rodriguez DO [Primary Care Provider] - Disposition Disposition (needs filled in before D/C Order can be placed): Home, Self Care
--- NOTE | 2021-12-17 10:25 | US_ITS ---
PROCEDURE: Ultrasound guided paracentesis. DATE OF EXAMINATION: 12/17/2021. INDICATION: Male, 51 years old. Ascites. PHYSICIAN: Diego Siddiqui DO TECHNIQUE: The risks, benefits, and alternatives to the procedure were explained to the patient. The specific risks of bleeding, infection, and damage to bowel were detailed and accepted. Witnessed informed consent was obtained. The abdomen was ultrasonographically surveyed. An appropriate pocket of fluid was identified at the right lower quadrant. The skin were cleaned and prepped in the usual sterile fashion. Using ultrasound guidance, the peritoneal cavity was accessed with a 5-Panamanian paracentesis needle/catheter system. The trocar was removed. A total of 5850 ml of clear yellow ascites fluid were removed from the peritoneal cavity and discarded. The catheter was removed and a sterile dressing was applied. The procedure was well tolerated. The patient was discharged in stable condition US/Paracentesis with US IMPRESSION: Ultrasound guided therapeutic paracentesis with 5850 cc of clear yellow ascites fluid aspirated and discarded. Electronically Signed: Diego Siddiqui, at 16:42 EDT ,
--- NOTE | 2021-12-17 12:24 | DS.PCM_ITS ---
Providers Date of Admission: 12/14/21 Date of Discharge: 12/17/21 Primary Care Physician: Dr. Jovi Rodriguez, DO Consultations 12/14/21 19:05 Consult: Nephrology Routine Consulting Provider: Alfa Camara Reason for Consult: hyponatremia EMERGENT Consult: No Notified: Yes Date Notified: 12/14/21 Time Notified: 19:07 Method of Notification: Text 12/16/21 10:25 Consult: Gastroenterology Routine Consulting Provider: [facility] Reason for Consult: Liver disease EMERGENT Consult: No Notified: Yes Date Notified: 12/16/21 Time Notified: 10:26 Method of Notification: Verbal Reason For Visit: HYPONATREMIA, Diagnosis Discharge Diagnosis (1) Hyperkalemia: Status: Acute Code(s): E87.5 - Hyperkalemia Medications at Discharge Home Medications rifaximin 550 mg tablet 550 mg PO BID #60 tab 10/01/21 magnesium 250 mg tablet 250 mg PO DAILY #30 tab 10/20/21 ursodiol 250 mg tablet 250 mg PO QHS #30 tab 10/20/21 furosemide [Lasix] 40 mg PO BID #60 tab 12/17/21 lactulose 20 gram/30 mL oral solution 20 g PO DAILY #900 ml 12/17/21 midodrine 10 mg PO TIDCM #90 tab 12/17/21 sodium chloride 2,000 mg PO TID #21 tab 12/17/21 spironolactone 50 mg PO DAILY #30 tab 12/17/21 Hospital Course Summary of Care Provided Hospital Course: This is a 51-year-old gentleman admitted with hyponatremia and hyperkalemia. Patient history of decompensated alcoholic cirrhosis. Sodium was 122. Patient gets weekly paracentesis. 1. Chronic hypervolemic hypotonic hyponatremia: Overall it seems due to hypervolemia with component of SIADH. On fluid restriction. Jewelry Dipper was consulted and sodium tablet was added. Repeat sodium is 123. Patient also had IV albumin. Discharge meds discussed with the milling machine operator gear. Discharged on furosemide 40 mg twice daily, spironolactone 50 mg daily and sodium chloride 2 g tablet 3 times daily for 7 days. 2. Decompensated alcoholic cirrhosis with chronic refractory ascites and alcoholic hepatitis: GI was consulted. Recent meld score was 27. Prednisone discontinued as per GI recommendation. Continue lactulose, rifaximin, ursodiol and diuretic. Patient had 9 L paracentesis done on 12/16 with IV albumin replacement. Patient had repeat therapeutic paracentesis of 5.850 L. Post pa racentesis, IV albumin was given. He gets weekly paracentesis on . 3. Hyperkalemia: Potassium is stable at 5.0. Lasix dose increased. Continue spironolactone 50 mg daily. - Chronic macrocytic anemia, thrombocytopenia due to decompensated cirrhosis: Platelet count is stable 100,000 -120,000. 4. Chronic alcohol abuse: Patient is stated that he quit alcohol in August 2021 but as per GI he has ongoing issues with chronic alcohol use and dependence therefore history not reliable. Patient recommended complete alcohol cessation. He supposed to follow-up with liver transplant center in [place]. He is also refusing to take COVID vaccination therefore not candidate in [facility]. Total bilirubin 4.5. Albumin 3.1. ALT AST about 2 times normal. History of Warnicke's encephalopathy and possible chronic toxic metabolic encephalopathy, fluctuating from decompensated alcoholic cirrhosis -Mental status appears to be at baseline currently Chronic nicotine abuse -Recommend cessation--> patient uses chewing tobacco DVT prophylaxis -SCDs Discharge medication reconciliation done. Discharge follow-up instructions completed. Discharge process discussed with the patient and all questions were answered to patient's satisfaction. Total time spent, exact 35 minutes on discharge meds reconciliation, examination, coordination of care with nurses and ancillary staff, review of imaging and blood test and discussion with the patient on follow-up instruc tions. Physical Exam Narrative Seen and examined on the day of discharge. Patient had 9 L paracentesis done yesterday. Abdominal distention is much better. Scheduled for repeat paracentesis today. Physical exam General: Alert, Oriented x3, Cooperative HEENT: Atraumatic, PERRLA, EOMI, Normocephalic Oral: No Gingival or Mucosal Lesions/ Ulcerations Neck: Supple, No JVD, Negative Carotid Bruits Lungs: Air entry diminished in bilateral lung bases. No crepitation/rhonchi Cardiovascular: Regular rate, Regular Rhythm, Normal S1, Normal S2, No murmurs Abdomen: Bowel Sounds Present, Soft, Non Tender, moderate ascites. No rebound tenderness : No renal angle tenderness. No suprapubic tenderness. Extremities: Bilateral leg pitting edema, Capillary Refill Less than 3 Seconds Skin: No rashes, No breakdown Musculoskeletal: No Tenderness to Palpation of Joints or Extremities. Range of motion full. Neurological: Cranial nerves II-XII grossly intact, DTR 2+/4 and Symmetrical, Neuro grossly intact Psych/Mental Status: Normal Affect, Appropriate. Weight / BMI Weight Weight: 224 lb 13.944 oz Body Mass Index (BMI) 33.2 ABG / Lab / Microbiology Data Result Diagrams: 12/17/21 05:56 12/17/21 05:56 Laboratory: Laboratory Results - last 24 hr 12/16/21 12:55: Sodium 122 L, Potassium 5.1, Chloride 93 L, Carbon Dioxide 22.0, Anion Gap 7, BUN 13, Creatinine 0.70, Estim Creat Clear Calc 124.85, Est GFR (MDRD) Af Amer 153, Est GFR (MDRD) Non-Af 127, BUN/Creatinine Ratio 18.6, Glucose 111 H, Calcium 8.8 12/17/21 05:56: WBC 9.5, RBC 3.24 L, Hgb 11.7 L, Hct 33.0 L, MCV 101.9 H, MCH 36.1 H, MCHC 35.5, RDW Std Deviation 51.5 H, RDW Coeff of Teri 13.7, Plt Count 97 L, MPV 10.6, Immature Gran % (Auto) 1.200 H, Neut % (Auto) 61.9, Lymph % (Auto) 25.4, [place] % (Auto) 10.2 H, Eos % (Auto) 0.9, Baso % (Auto) 0.4, Absolute Neuts (auto) 5.9, Absolute Lymphs (auto) 2.41, Nucleated RBC % 0, Differential Comment SCANNED 12/17/21 05:56: Sodium 123 L, Potassium 5.0, Chloride 93 L, Carbon Dioxide 22.0, Anion Gap 8, BUN 16, Creatinine 0.74, Estim Creat Clear Calc 118.10, Est GFR (MDRD) Af Amer 144, Est GFR (MDRD) Non-Af 119, BUN/Creatinine Ratio 21.7 H, Glucose 90, Calcium 8.9, Total Bilirubin 4.50 H, AST 66 H, ALT 48, Alkaline Phosphatase 131 H, Total Protein 6.0 L, Albumin 3.1 L, Globulin 2.9, Albumin/Globulin Ratio 1.1 D/C Instructions Discharge Diet: 6 Cup Fluid Restriction, 8 Cup Fluid Restriction and 2000 mg Sodium Diet Weight Bearing Status: Weight bearing as tolerated Call your doctor if you observe: Fever of 101 or Higher, Coldness, Increased Pain, Numbness or Tingling, Change in Color, Inability to urinate, Inability to have a bowel movement, Shortness of breath, Dizziness, Fainting spells, Swelling in the ankles, Chest pain, Prolonged hiccupping, Increased palpitations (irregular heartbeat), Calf discomfort and Uncontrolled pain Meaningful Use Info Meaningful Use Diagnoses (Choose all that apply): None applicable Discharge Plan Admission Admit Date/Time: 12/14/21 18:22 Primary Reason for Your Visit: Decompensated alcoholic cirrhosis Attending Provider: Israel Gardner Primary Care Provider: Jovi Rodriguez Consulting Providers: Alfa Camara ; Shauna Saab ; Fela Rodriguez Discharge Orders/Prescriptions Prescriptions: New midodrine 5 mg Tablet 10 mg PO TIDCM Qty: 90 RF: 0 lactulose 20 gram/30 mL solution 20 g PO DAILY Qty: 900 RF: 6 furosemide [Lasix] 40 mg tablet 40 mg PO BID Qty: 60 RF: 2 sodium chloride 1 gram tablet 2,000 mg PO TID Qty: 21 RF: 0 spironolactone 50 mg Tablet 50 mg PO DAILY Qty: 30 RF: 2 Continued ursodiol 250 mg tablet 250 mg PO QHS Qty: 30 RF: 6 magnesium 250 mg tablet 250 mg PO DAILY Qty: 30 RF: 6 Xifaxan 550 mg tablet 550 mg PO BID Qty: 60 RF: 6 Discontinued midodrine 5 mg tablet 10 mg PO TIDCM Qty: 90 RF: 6 prednisone 20 mg tablet 20 mg PO BREAKFAST Qty: 30 RF: 6 spironolactone 50 mg tablet 25 mg PO DAILY Qty: 30 RF: 6 Referrals / Follow Up: Alfa Camara MD [STAFF PHYSICIAN] - Within 2 Weeks Jovi Rodriguez DO [Primary Care Provider] - Disposition Disposition (needs filled in before D/C Order can be placed): Home, Self Care Charges/Coding Visit Charges Inpatient E&M: 33109 Disch Hosp
[2021-12-17] MEDS: Lidocaine 2% (20 ml mdv) 20 ML Vial INFILT (15:06)
[2021-12-17] MEDS: Albumin Human 25% (100 mL) 25 GM/100 ML BAG IV (16:24)
== END 2021-12-17 18:21 | disposition home or self-care (01) | DRG 643 ==
LOC: ED 18:35 → PCU 19:19
PROVIDERS: Internal Medicine; Admitting Provider Student in an Organized Health Care Education/Training Program; Emergency Provider Emergency Medicine; PCP Student in an Organized Health Care Education/Training Program; Visit Provider Internal Medicine
DX: E22.2 Syndrome of inappropriate secretion of antidiuretic hormone (principal); G92.8 Other toxic encephalopathy; E51.2 Wernicke's encephalopathy; K70.31 Alcoholic cirrhosis of liver with ascites; D69.59 Other secondary thrombocytopenia; F10.20 Alcohol dependence, uncomplicated; K70.11 Alcoholic hepatitis with ascites; E87.5 Hyperkalemia; F17.220 Nicotine dependence, chewing tobacco, uncomplicated; D53.9 Nutritional anemia, unspecified; E80.7 Disorder of bilirubin metabolism, unspecified; E66.9 Obesity, unspecified; R53.1 Weakness; R53.83 Other fatigue; Y90.9 Presence of alcohol in blood, level not specified; Z68.33 Body mass index [BMI] 33.0-33.9, adult; Z79.01 Long term (current) use of anticoagulants; Z79.899 Other long term (current) drug therapy; Z28.310 Unvaccinated for COVID-19; Z28.21 Immunization not carried out because of patient refusal
CPT/HCPCS: 36415; 49083; 80048; 80053; 83735; 83930; 83935; 84300; 85025; 93005; 99284; J7030; P9047; A4216

== ENCOUNTER → 2021-12-14 | Outpatient (CLI) | payer SELFPAY ==
[2021-12-14 13:02] LABS: ALB/GLOB Ratio 0.8 RATIO (0.9-2.4); AST(SGOT) 71 U/L (15-37); Alanine Aminotransfer ALT/SGPT 48 U/L (16-61); Albumin, Serum 2.7 g/dL (3.2-5.0); Alkaline Phosphatase 128 U/L (45-117); Anion Gap 8 (5-15); BUN 15 mg/dL (7-18); BUN/Creat Ratio 21.6 RATIO (10-20); Calcium,Total 8.9 mg/dL (8.5-10.1); Chloride 91 mmol/L (98-107); Creatinine, Serum 0.69 mg/dL (0.70-1.30); EST Glomerular Filtration Rate 128 mL/min (>60); Est Glom Filt Rate - Afr Amer 155 mL/min (>60); Globulin 3.2 g/dL (2.2-4.2); Glucose 146 mg/dL (74-106); Potassium 5.2 mmol/L (3.5-5.1); Protein, Total 5.9 g/dL (6.4-8.2); Sodium Level 120 mmol/L (136-145)
== END | disposition home or self-care (01) ==
LOC: LAB 10:39
PROVIDERS: PCP Student in an Organized Health Care Education/Training Program; Referring Provider Internal Medicine Gastroenterology; Visit Provider Internal Medicine Gastroenterology
DX: K74.60 Unspecified cirrhosis of liver (principal)
CPT/HCPCS: 36415; 80053

== ENCOUNTER 2021-12-20 13:33 | Outpatient (CLI) | payer SELFPAY ==
--- NOTE | 2021-12-20 13:35 | US_ITS ---
PROCEDURE: Ultrasound guided paracentesis. DATE OF EXAMINATION: 12/20/2021. INDICATION: Male, 51 years old. Ascites. PHYSICIAN: Austyn Aguilar M.D. TECHNIQUE: The risks, benefits, and alternatives to the procedure were explained to the patient. The specific risks of bleeding, infection, and damage to bowel were detailed and accepted. Witnessed informed consent was obtained. The abdomen was ultrasonographically surveyed. An appropriate pocket of fluid was identified at the right lower quadrant. The skin were cleaned and prepped in the usual sterile fashion. Using ultrasound guidance, the peritoneal cavity was accessed with a 5-Paraguayan paracentesis needle/catheter system. The trocar was removed. A total of 7550 ml of brian-colored fluid were removed from the peritoneal cavity. The catheter was removed and a sterile dressing was applied. The procedure was well tolerated. US/Paracentesis with US IMPRESSION: Ultrasound guided paracentesis. Electronically Signed: Austyn Aguilar MD at 15:16 EDT ,
[2021-12-20 13:48] VITALS: BP 110/68; BP 114/64; BP 117/63; BP 123/59; BP 96/57; PULSE 67; PULSE 69; PULSE 70; PULSE 71; RESP 16; TEMP 36.2; O2SAT 100; O2SAT 98; O2SAT 99
[2021-12-20] MEDS: Lidocaine 2% (20 ml mdv) 20 ML Vial INFILT (13:50)
[2021-12-20] MEDS: Albumin Human 25% (100 mL) 25 GM/100 ML BAG IV ×2 (15:52→17:40)
[2021-12-20 16:00] VITALS: BP 122/64; PULSE 70; RESP 16; TEMP 36; O2SAT 99
[2021-12-20 17:46] VITALS: BP 104/39; PULSE 73; RESP 16; TEMP 35.8; O2SAT 100
[2021-12-20 19:17] VITALS: BP 116/65; PULSE 65; RESP 16; TEMP 36.2; O2SAT 100
--- NOTE | 2021-12-20 19:29 | NURSING ---
2nd infusion albumin completed now and pt eduard well. sl dc'd with site intact. pt waiting on to come and wc outside of room.
== END 2021-12-20 19:34 | disposition home or self-care (01) ==
LOC: US 13:35 → PCU 15:34
PROVIDERS: PCP Student in an Organized Health Care Education/Training Program; Referring Provider Internal Medicine Gastroenterology; Visit Provider Internal Medicine Gastroenterology
DX: R18.8 Other ascites (principal)
CPT/HCPCS: 96365; 96366 ×3; 49083; P9047

== ENCOUNTER → 2021-12-23 | Outpatient (CLI) | payer SELFPAY ==
--- NOTE | 2021-12-23 07:17 | US_ITS ---
PROCEDURE: Ultrasound guided paracentesis. DATE OF EXAMINATION: 12/23/2021. INDICATION: Male, 51 years old. Ascites. PHYSICIAN: Austyn Aguilar M.D. TECHNIQUE: The risks, benefits, and alternatives to the procedure were explained to the patient. The specific risks of bleeding, infection, and damage to bowel were detailed and accepted. Witnessed informed consent was obtained. The abdomen was ultrasonographically surveyed. An appropriate pocket of fluid was identified at the right lower quadrant. The skin were cleaned and prepped in the usual sterile fashion. Using ultrasound guidance, the peritoneal cavity was accessed with a 5-Kenyan paracentesis needle/catheter system. The trocar was removed. A total of 7000 ml of brian-colored fluid were removed from the peritoneal cavity. The catheter was removed and a sterile dressing was applied. The procedure was well tolerated. US/Paracentesis with US IMPRESSION: Ultrasound guided paracentesis. Electronically Signed: Austyn Aguilar MD at 9:09 EDT ,
--- NOTE | 2021-12-23 08:00 | FLU_PTH ---
PATIENT: JOSE CRUZ THOMPSON . LOC: [facility] U#:[id number] AGE/SX: 51/M ROOM: RE12/23/[address]: Dr. Jesus Posada DO : 1970 BED: DIS: 12/23/2021 SPEC #: [id number] RECD: 12/23/21 10:08 STATUS: MARIA ALEJANDRA RERudolph #: [id number] GABRIELE: 12/23/21 08:[address]: Jesus Posada DEPT: CYTOLOGY RECD BY: Rachel Granado ENTERED: 12/23/21 12:47 SP TYPE: Fluid OTHR DR: Dr. Jovi Rodriguez, Tissues: PARACENTESIS FLUID Procedures: Special Stain Group II Surgery Specimen Level IV Cytospin Fluid HEADER OPERATION: Paracentesis PRE-OP DIAGNOSIS: Cirrhosis TISSUE SUBMITTED: Paracentesis fluid for cytology DIAGNOSIS CYTOLOGY Paracentesis fluid for cytology (cytospin and cell block): Negative for malignant cells. See comment. SJ:gold 12/24/2021 COMMENT Clinical correlation and appropriate follow up are necessary. CYTOLOGY STUDY Slides are reviewed. CYTOLOGY GROSS Received is 100 ml of yellow cloudy fluid labeled with the patient's name and and designated per the requisition as paracentesis. Submitted for cytology preparation including cell block. / gold 12/23/2021 TC:5 CPT: 17221
[2021-12-23 08:05] VITALS: BP 102/68; BP 107/57; BP 97/53; PULSE 62; PULSE 66; PULSE 67; RESP 20; TEMP 36.5; O2SAT 100
[2021-12-23] MEDS: Lidocaine 2% (20 ml mdv) 20 ML Vial INFILT (08:10)
[2021-12-23 08:50] VITALS: BP 115/70; PULSE 60; RESP 14; TEMP 35.9; O2SAT 100; BMI 29.8
[2021-12-23] MEDS: Albumin Human 25% (100 mL) 25 GM/100 ML BAG IV (09:01)
[2021-12-23] MEDS: 0.9% Saline Lock 10 ML Syringe IV (09:02)
[2021-12-23] MEDS: Albumin Human 25% (50 mL) 12.5 GM/50 ML IV.SOLN IV (10:32)
[2021-12-23 11:28] VITALS: BP 126/72; PULSE 74; TEMP 36.6
--- NOTE | 2021-12-24 15:16 | CASEMGMT ---
Addendum entered by Ozzy Abad 12/24/21 16:18: Correction: Facilities Maintenance Worker, Cindy'linda # was not provided to Galileo during phone call. # given to radiology dep't and to be given to pt when he comes in for paracentesis on Monday along w/PCP Directory. Addendum entered by Ozzy Abad 12/24/21 16:01: Call placed to [facility] ([facility]) for Liver Disease @ [phone] and spoke w/Maryam. She confirms they did receive paperwork from Dr Posada's office and they are still waiting to see if they are in network w/pt's insurance and are pending insurance clearance. She states pt has been assigned a director of health care marketing, Cindy Ashley. Her contact # is: [phone]. Call placed to Dr Liu Reza's @ [facility]. Per teleradiologist, Dr Reza is not accepting pt's at this time, but Dr Loernzana, Dr Acevedo, and Dr Zepeda are accepting new pt's. SW to be notified of 's request for f/u re: Soc Sec Disability. Call placed back to pt's , Galileo. She was made aware of all of the above and provided w/Cindy's contact info @ [facility] for Liver Disease. She denies having other questions or needs at this time and voices appreciation for assistance given. GIOVANNA ALEJANDRE provided w/RN CM manager corporate communications, Dorie Lafleur, contact # for further questions or concerns. DGphuongumeme LOPEZ RN, CM Original Note: GIOVANNA ALEJANDRE Care Coordination Note: Call placed to pt's , Galileo. GIOVANNA ALEJANDRE introduced self and role of GIOVANNA ALEJANDRE. Offered support/assistance. states she has been very overwhelmed w/trying to manage everything for pt and working full-time. She states she also helps to care for her 91-yr-old mother and is having a difficult time keeping things in order. states [facility] was awaiting paperwork from Dr Posada's office and she is not sure if they have received it yet. She voices frustration w/on-going issues sodium and potassium issues. She states pt has been getting muscle cramps again and she thinks his K+ may be getting low again and so she has been having him take OTC K+ supplement. GIOVANNA ALEJANDRE informed that K+ should be re-checked if pt is having symptoms and advised on importance of electrolyte replacement being managed by PCP or another physician. states, It's only 99 mg and I'm just having him take it for 2 or 3 days to see if it helps the cramps. GIOVANNA ALEJANDRE inquired if pt has an upcoming appt w/PCP and advised for pt to be evaluated. voices being dissatisfied w/pt's current PCP, Dr Rodriguez, and she would like to have him switch to a different PCP. GIOVANNA ALEJANDRE offered list of local PCP's. She states she has been provided this but is not sure where she put it. GIOVANNA ALEJANDRE informed her another one will be left in radiology dept and to be given to pt when he comes in for his next paracentesis next week. states she is interested in pt seeing Dr Liu Reza @ [place]. states she will f/u w/ Friend for any on-going liver issues and monitoring of electrolytes. She states pt does have a f/u appt w/rn geriatric scheduled as well. states pt was finally able to get insurance, which began mid-November 21. She states she cannot remember the name of the insurance and she has not submitted it to [facility] yet. She plans to send it w/pt on Monday when he comes in for his paracentesis so it can be placed in pt's file. She states they applied for Soc Sec Disability in September and did a telephone interview. She states, They brad says he qualifies for medical, but that the paperwork needed sent to [place]. She states they are still waiting for final confirmation. She states she has called the # they provided to check on status, but keeps getting the response that a decision has not been made yet. inquired if someone could check on this to see if there is another # to contact or if things could be expedited. informed this GIOVANNA ALEJANDRE would f/u on all of the above and will call her back w/further information. Emma LOPEZ RN, CM
== END | disposition home or self-care (01) ==
LOC: US 07:09 → MEDOUTP 08:47
PROVIDERS: PCP Student in an Organized Health Care Education/Training Program; Referring Provider Internal Medicine Gastroenterology; Visit Provider Internal Medicine Gastroenterology
DX: K74.60 Unspecified cirrhosis of liver (principal); R18.8 Other ascites
CPT/HCPCS: 96365; 96366 ×2; 49083; 88108; 88305; 88313; P9047; A4216

== ENCOUNTER 2021-12-26 19:44 | Inpatient (IN) | payer OTHER, SELFPAY ==
[2021-12-26 19:45] VITALS: BP 116/36; PULSE 61; RESP 16; TEMP 36.1; O2SAT 100; BMI 29.5
--- NOTE | 2021-12-26 20:05 | CT_ITS ---
STUDY: CT BRAIN WITHOUT CONTRAST REASON FOR EXAM: Male, 51 years old. dizzy RADIATION DOSAGE (If Supplied By Facility): CTDIvol = ( 44.99 ) mGy, DLP = ( 863.60 ) mGycm TECHNIQUE: Transaxial CT imaging of the brain was performed without administration of intravenous contrast material. Individualized dose optimization techniques were used for this CT. COMPARISON: No relevant priors. FINDINGS: Normal soft tissue structures. Normal calvarium. There is mild cerebral atrophy with widening of the extra-axial spaces and ventricular dilatation. Normal white matter tracts of the cerebral hemispheres. Normal basal ganglia and thalami. Normal brainstem. Normal cerebellum. There is no intracranial hemorrhage. There are no findings of an acute ischemic infarction. Normal visualized paranasal sinuses. CT/Brain/Head without Contrast IMPRESSION: No acute findings. Chronic involutional changes of the brain. Electronically Signed: Sherry Olivia MD at 22:20 EDT Reading Location ID and State: [id number] / Tel , Service support ,
--- NOTE | 2021-12-26 20:06 | EKG12_ITS ---
Test Reason : DYSRHYTHMIA Blood Pressure : / mmHG Vent. Rate : 060 BPM Atrial Rate : 060 BPM P-R Int : 176 ms QRS Dur : 090 ms QT Int : 446 ms P-R-T Axes : 026 -08 010 degrees QTc Int : 446 ms Normal sinus rhythm Normal ECG Confirmed by BROOK CADET, ANITA ([id number]), pictures editor ANALI ROD ([id number]) on 12/27/2021 10:19:14 AM Referred By: DAO Confirmed By:ANITA DOE MD
[2021-12-26 21:11] LABS: Absolute Lymphocyte Count 1.31 X10^3/uL (0.83-4.51); Absolute Neutrophil Count 6.7 X10^3/uL (2.0-7.7); Basophil# 0.05 X10^3/uL; Basophil% 0.5 % (0-1); Eosinophil# 0.09 X10^3/uL; Eosinophils% 0.9 % (0-5); Hematocrit 34.4 % (40-54); Hemoglobin 12.7 g/dL (13.0-16.5); Lymphocyte # 1.31 X10^3/ul (0.83-4.51); Lymphocyte % 13.4 % (19-41); Mean Corp Hgb Conc 36.9 g/dL (32-36); Mean Corpuscular Hgb 36.1 pg (27.0-32.0); Mean Corpuscular Volume 97.7 fL (80-94); Mean Platelet Vol. 10.7 fl (6.2-12.0); Monocyte# 1.47 X10^3/uL; NRBC Flagged by Analyzer 0 % (0-5); Neutrophil % 68.4 % (47-70); Platelet Count 128 K/mm3 (150-450); RBC Distribution Width CV 13.1 % (11.6-14.6); RBC Distribution Width SD 46.2 fl (35.1-43.9); Red Blood Count 3.52 M/mm3 (4.6-6.2); White Blood Count 9.8 K/mm3 (4.4-11.0)
[2021-12-26 21:15] LABS: International Normalized Ratio 1.6; Prothrombin Time (Protime)PT. 18.6 SECONDS (11.7-14.9)
[2021-12-26 21:18] LABS: Bacteria 0 SEEN /hpf (None Seen); Mucous, Urine 0 SEEN /hpf (<or=2+); Squamous Epithelial Cells - UA 0 SEEN /hpf (0-5)
--- NOTE | 2021-12-26 21:25 | RAD_ITS ---
STUDY: X-RAY CHEST REASON FOR EXAM: Male, 51 years old. dizziness TECHNIQUE: Single AP portable view of the chest. COMPARISON: 09/11/2021. FINDINGS: Calcified granulomata bilaterally. The lungs are otherwise clear and expanded. There is no demonstrated pleural abnormality. Normal size heart. Normal mediastinum and kimmy. Normal visualized pulmonary arteries. Normal visualized aortic arch and descending thoracic aorta. Normal visualized thoracic spine. Normal visualized ribs, clavicles, and shoulders. There is no demonstrated abnormality of the visualized soft tissue structures of the upper abdomen. RAD/Chest 1 View (Portable) IMPRESSION: No acute findings. Electronically Signed: Sherry Olivia MD at 22:21 EDT Reading Location ID and State: [id number] / Tel , Service support ,
[2021-12-26 21:32] LABS: Color, Urine Yellow (Yellow); Glucose, Dipstick Normal (Normal); Ketone-Dipstick Negative (Negative); Leukocyte Esterase-Dipstick 25 /ul (Negative); Nitrite-Dipstick Negative (Negative); Occult Blood-Urine 10 /ul (Negative); Protein-Dipstick Negative (Negative); Urine Bilirubin Dipstick Negative (Negative); Urine Clarity Clear (Clear); Urine Urobilinogen 1 mg/dl (Normal); Urine pH 6.5 (5.0 - 8.0)
[2021-12-26 21:33] LABS: AST(SGOT) 100 U/L (15-37); Alanine Aminotransfer ALT/SGPT 58 U/L (16-61); Alkaline Phosphatase 134 U/L (45-117); Anion Gap 10 (5-15); BUN 18 mg/dL (7-18); BUN/Creat Ratio 15.5 RATIO (10-20); Calcium,Total 8.9 mg/dL (8.5-10.1); Chloride 86 mmol/L (98-107); Creatinine, Serum 1.16 mg/dL (0.70-1.30); EST Glomerular Filtration Rate 71 mL/min (>60); Est Glom Filt Rate - Afr Amer 85 mL/min (>60); Estimated Creatinine Clearance 75.34 ml/min; Globulin 2.9 g/dL (2.2-4.2); Glucose 100 mg/dL (74-106); Lipase 345 U/L (73-393); Magnesium 2.2 mg/dL (1.6-2.6); Potassium 5.4 mmol/L (3.5-5.1); Protein, Total 5.9 g/dL (6.4-8.2); Sodium Level 117 mmol/L (136-145); Troponin-I HS (w/2H Reflex) 31 pg/mL (3.0-78.0)
[2021-12-26 21:38] LABS: Red Blood Cells-Urine 0-5 SEEN /hpf (0-5); White Blood Cells 0-5 SEEN /hpf (0-5)
[2021-12-26 21:44] LABS: Alcohol, Blood (Medical)-Serum < 3.0 mg/dL
[2021-12-26 21:49] LABS: Urine Sodium 7 mmol/L (Not Establ.)
[2021-12-26 21:51] VITALS: BP 115/78; PULSE 66; RESP 14; TEMP 37.2; O2SAT 99
[2021-12-26 22:09] LABS: Osmolality, Serum 247 mOsm/KG (275-295)
[2021-12-26 22:09] LABS: Osmolality, Urine 301 mOsm/KG
--- NOTE | 2021-12-26 22:45 | EX.ED.DYSGE1 ---
HPI History of Present Illness Chief Complaint: Weakness Informant: patient and spouse/S.O. Onset/Context/Timing Onset: Days Context: Gradual Onset Current Severity: Moderate Worsened by: Nothing Relieved by: Nothing Associated Symptoms Associated Symptoms: Generalized weakness, blurry vision, vomiting, dizziness Narrative Narrative: Patient presents for generalized weakness, blurry vision in all berman, vomiting, and dizziness. 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 Planning for a transplant at [facility]. Follows with Dr. Friend. Patient denies any worsening of his jaundice. Denies any fevers. Denies abdominal pain. He has been compliant with his medications including lactulose. [facility] Medical History Abdominal ascites Alcoholic hepatitis Anemia Chronic hyponatremia Cirrhosis of liver Hyperbilirubinemia Nicotine dependence Rotator cuff arthropathy of left shoulder Thrombocytopenia Wernicke encephalopathy Home Medications rifaximin 550 mg tablet (Xifaxan) 550 mg PO BID #60 tabs 10/01/21 [Rx Last Taken Unknown] magnesium 250 mg tablet 250 mg PO DAILY #30 tabs 10/20/21 [Rx Last Taken Unknown] ursodiol 250 mg tablet 250 mg PO QHS #30 tabs 10/20/21 [Rx Last Taken Unknown] furosemide 40 mg tablet (Lasix) 40 mg PO BID #60 tabs 12/17/21 [Rx Last Taken Unknown] lactulose 20 gram/30 mL oral solution 20 g (30 mL) PO DAILY #900 mL 12/17/21 [Rx Last Taken Unknown] midodrine 5 mg tablet 10 mg PO TIDCM #90 tabs 12/17/21 [Rx Last Taken Unknown] sodium chloride 1 gram tablet 2,000 mg PO TID #21 tabs 12/17/21 [Rx Last Taken Unknown] spironolactone 50 mg tablet 50 mg PO DAILY #30 tabs 12/17/21 [Rx Last Taken Unknown] Allergy/AdvReac Type Severity Reaction Status Date / Time Bandaid Allergy Skin tear Uncoded 12/26/21 19:45 when removed Family History Other Cancer Diabetes Heart disease Surgical History H/O repair of rotator cuff Social History Smoking Status: Never smoker ROS ROS ED Constitutional Constitutional ED: Denies chills or fever(s) Eyes Eyes: Reports blurry vision ENT ENT ED: Denies ear pain Cardiovascular Cardiovascular: Denies chest pain Respiratory/Chest Respiratory/Chest: Denies cough Gastrointestinal Gastrointestinal: Reports nausea and vomiting; Denies abdominal pain, constipation, diarrhea or melena Genitourinary Genitourinary ED: Denies dysuria Musculoskeletal Musculoskeletal: Reports myalgias; Denies arthralgias or back pain Integumentary Denies abscess Neurologic Neurologic: Denies headache(s), paresthesias or weakness Psychiatric Psychiatric: Denies anxiety or depression Endocrine Endocrinology: Denies cold intolerance Allergic/Immunologic Allergic/Immunologic ED: Denies mouth swelling EXAM Physical Exam Const Vital Signs: 12/26/21 19:45 12/26/21 19:45 12/26/21 21:51 Temperature 97.0 F L 98.9 F Temperature Source Temporal Temporal Pulse Rate 61 66 Respiratory Rate 16 14 Respiratory Effort Normal Respiratory Pattern Normal Blood Pressure 116/36 L 115/78 Blood Pressure Mean 62 90 Pulse Ox 100 99 Oxygen Delivery Method Room Air Room Air Positive well nourished and well developed General Appearance ED: well developed HEENT Reports moist mucous membranes Negative for trauma Eyes EOMs intact bilaterally General Eye ED: Yes scleral icterus Resp normal respiratory effort and clear to auscultation bilaterally Cardio regular rate and regular rhythm GI normal to inspection, nondistended, normoactive bowel sounds, non-tender and non-distended Extremity normal to inspection Neuro oriented x3 and CN's II-XII intact bilaterally Sensorium / Orientation: alert; Negative for orientation impaired Psych mental status grossly normal Skin General Skin Exam: jaundice MDM MDM MDM Narrative Medical decision making narrative: EKG shows sinus rhythm at a rate of 60. No sign of acute ischemia or infarction pattern. This was interpreted by me. Chest x-ray was reviewed by the radiologist and myself. This shows no acute abnormalities. CT brain unremarkable. Labs were all fairly stable. Platelets 128, INR 1.6, sodium 117, potassium 5.4, bilirubin 4.7, AST 100, ALT 58, alkaline phosphatase 134, troponin normal, alcohol negative, ammonia 25, urinalysis unremarkable. I suspect that the patient's symptoms may be from his hyponatremia which is worse from his baseline. I cannot find anything focal on exam. I cannot find an infection. He is not having pain or fever. I believe he will need inpatient care. I spoke with Dr. Posada who will see him here in the hospital. I initially called ICU, Dr. Reza given his low sodium. After speaking with the hospitalist, we feel that this is largely stable and chronic and that he may be cared for appropriately in the PCU. Patient was admitted for further care. Impression #1 end-stage liver disease Impression #2 hyponatremia Impression #3 generalized weakness Critical care time 39 minutes for patient care, review of records, interpretation of results, and consultation with specialist. Lab Data Attestation: I reviewed the patient's lab results. Labs: Laboratory Results - last 24 hr 12/26/21 12/26/21 12/26/21 20:55 20:55 20:55 WBC 9.8 RBC 3.52 L Hgb 12.7 L Hct 34.4 L MCV 97.7 H MCH 36.1 H MCHC 36.9 H RDW Std Deviation 46.2 H RDW Coeff of Teri 13.1 Plt Count 128 L MPV 10.7 Immature Gran % (Auto) 1.800 H Neut % (Auto) 68.4 Lymph % (Auto) 13.4 L [place] % (Auto) 15.0 H Eos % (Auto) 0.9 Baso % (Auto) 0.5 Absolute Neuts (auto) 6.7 Absolute Lymphs (auto) 1.31 Nucleated RBC % 0 PT 18.6 H INR 1.6 Sodium 117 L* Potassium 5.4 H Chloride 86 L Carbon Dioxide 21.0 Anion Gap 10 BUN 18 Creatinine 1.16 Estim Creat Clear Calc 75.34 Est GFR (MDRD) Af Amer 85 Est GFR (MDRD) Non-Af 71 BUN/Creatinine Ratio 15.5 Glucose 100 Serum Osmolality Calcium 8.9 Magnesium 2.2 Total Bilirubin 4.70 H AST 100 H ALT 58 Alkaline Phosphatase 134 H Ammonia Troponin I High Sens 31 Total Protein 5.9 L Albumin 3.0 L Globulin 2.9 Albumin/Globulin Ratio 1.0 Lipase 345 Urine Color Urine Clarity Urine pH Ur Specific [place] Urine Protein Urine Glucose (UA) Urine Ketones Urine Occult Blood Urine Nitrite Urine Bilirubin Urine Urobilinogen Ur Leukocyte Esterase Urine RBC Urine WBC Ur Squamous Epith Cells Urine Bacteria Urine Mucus Urine Osmolality Ur Random Sodium Ethyl Alcohol 12/26/21 12/26/21 12/26/21 20:55 20:55 20:55 WBC RBC Hgb Hct MCV MCH MCHC RDW Std Deviation RDW Coeff of Teri Plt Count MPV Immature Gran % (Auto) Neut % (Auto) Lymph % (Auto) [place] % (Auto) Eos % (Auto) Baso % (Auto) Absolute Neuts (auto) Absolute Lymphs (auto) Nucleated RBC % PT INR Sodium Potassium Chloride Carbon Dioxide Anion Gap BUN Creatinine Estim Creat Clear Calc Est GFR (MDRD) Af Amer Est GFR (MDRD) Non-Af BUN/Creatinine Ratio Glucose Serum Osmolality 247 L Calcium Magnesium Total Bilirubin AST ALT Alkaline Phosphatase Ammonia 25.0 Troponin I High Sens Total Protein Albumin Globulin Albumin/Globulin Ratio Lipase Urine Color Urine Clarity Urine pH Ur Specific [place] Urine Protein Urine Glucose (UA) Urine Ketones Urine Occult Blood Urine Nitrite Urine Bilirubin Urine Urobilinogen Ur Leukocyte Esterase Urine RBC Urine WBC Ur Squamous Epith Cells Urine Bacteria Urine Mucus Urine Osmolality Ur Random Sodium Ethyl Alcohol < 3.0 12/26/21 12/26/21 21:14 21:14 WBC RBC Hgb Hct MCV MCH MCHC RDW Std Deviation RDW Coeff of Teri Plt Count MPV Immature Gran % (Auto) Neut % (Auto) Lymph % (Auto) [place] % (Auto) Eos % (Auto) Baso % (Auto) Absolute Neuts (auto) Absolute Lymphs (auto) Nucleated RBC % PT INR Sodium Potassium Chloride Carbon Dioxide Anion Gap BUN Creatinine Estim Creat Clear Calc Est GFR (MDRD) Af Amer Est GFR (MDRD) Non-Af BUN/Creatinine Ratio Glucose Serum Osmolality Calcium Magnesium Total Bilirubin AST ALT Alkaline Phosphatase Ammonia Troponin I High Sens Total Protein Albumin Globulin Albumin/Globulin Ratio Lipase Urine Color Yellow Urine Clarity Clear Urine pH 6.5 Ur Specific [place] 1.010 Urine Protein Negative Urine Glucose (UA) Normal Urine Ketones Negative Urine Occult Blood 10 H Urine Nitrite Negative Urine Bilirubin Negative Urine Urobilinogen 1 H Ur Leukocyte Esterase 25 H Urine RBC 0-5 SEEN Urine WBC 0-5 SEEN Ur Squamous Epith Cells 0 SEEN Urine Bacteria 0 SEEN Urine Mucus 0 SEEN Urine Osmolality 301 Ur Random Sodium 7 Ethyl Alcohol Radiography Diagnostic Testing: Clinical Impression(s) from Imaging Studies Brain CT 12/26/21 20:05 IMPRESSION: No acute findings. Chronic involutional changes of the brain. Electronically Signed: Sherry Olivia MD at 22:20 EDT Reading Location ID and State: [place] / Tel , Service support , Chest X-Ray 12/26/21 21:25 IMPRESSION: No acute findings. Electronically Signed: Sherry Olivia MD at 22:21 EDT Reading Location ID and State: [place] / Tel , Service support , Discharge Plan Triage Chief Complaint: Weakness ED Provider: Dennis Kong Dx/Rx/DC Orders Prescriptions: No Action ursodiol 250 mg tablet 250 mg PO QHS Qty: 30 6RF magnesium 250 mg tablet 250 mg PO DAILY Qty: 30 6RF midodrine 5 mg Tablet 10 mg PO TIDCM Qty: 90 0RF lactulose 20 gram/30 mL solution 20 g PO DAILY Qty: 900 6RF furosemide [Lasix] 40 mg tablet 40 mg PO BID Qty: 60 2RF Rx Instructions: Hold for SBP less than 100 mmHg sodium chloride 1 gram tablet 2,000 mg PO TID Qty: 21 0RF spironolactone 50 mg Tablet 50 mg PO DAILY Qty: 30 2RF Xifaxan 550 mg tablet 550 mg PO BID Qty: 60 6RF Primary Care Provider: Jovi Rodriguez Referrals: Jovi Rodriguez DO [Primary Care Provider] -
[2021-12-26 22:55] VITALS: BP 113/55; PULSE 88; RESP 14; TEMP 36.6; O2SAT 100
[2021-12-26 23:03] LABS: Reflex Troponin-HS? (from REC) Y
--- NOTE | 2021-12-26 23:36 | HP.PCM.HOS_ITS ---
HPI - General General Date of Admission: 12/26/21 Date of Service: 12/26/21 Chief Complaint: dizziness HPI Narrative JOSE CRUZ THOMPSON, is a 51 M who presents with dizziness. Dizziness began this past and Monday. Patient notes that he feels dizzy when he stands up but is okay when he is lying down. Is just progressively gotten worse. Patient was just discharged on the of this month for hyponatremia, decompensated cirrhosis and hyperkalemia. Patient presented to to the emergency room and his sodium was 117. Patient has not felt dizzy with previous low sodiums where he has been as low as 113. Patient was seen by nephrology and started on sodium tablets. Furosemide 40 mg twice daily as well as a spironolactone was increased from 50 daily. Also noted that he is not urinating as much. He is also cut back on his fluid from 2000 cc/day to 1500 cc daily. [facility] Medical History (Updated 12/26/21 @ 23:[address] Fabian Woodruff, ) Abdominal ascites Alcoholic hepatitis Anemia Chronic hyponatremia Cirrhosis of liver Hyperbilirubinemia Nicotine dependence Rotator cuff arthropathy of left shoulder Thrombocytopenia Wernicke encephalopathy Home Medications rifaximin 550 mg tablet (Xifaxan) 550 mg PO BID #60 tabs 10/01/21 [Rx Last Taken Unknown] magnesium 250 mg tablet 250 mg PO DAILY #30 tabs 10/20/21 [Rx Last Taken Unknown] ursodiol 250 mg tablet 250 mg PO QHS #30 tabs 10/20/21 [Rx Last Taken Unknown] furosemide 40 mg tablet (Lasix) 40 mg PO BID #60 tabs 12/17/21 [Rx Last Taken Unknown] lactulose 20 gram/30 mL oral solution 20 g (30 mL) PO DAILY #900 mL 12/17/21 [Rx Last Taken Unknown] midodrine 5 mg tablet 10 mg PO TIDCM #90 tabs 12/17/21 [Rx Last Taken Unknown] sodium chloride 1 gram tablet 2,000 mg PO TID #21 tabs 12/17/21 [Rx Last Taken Unknown] spironolactone 50 mg tablet 50 mg PO DAILY #30 tabs 12/17/21 [Rx Last Taken Unknown] Allergy/AdvReac Type Severity Reaction Status Date / Time Bandaid Allergy Skin tear Uncoded 12/26/21 19:45 when removed Family History Other Cancer Diabetes Heart disease Surgical History H/O repair of rotator cuff Social History Smoking Status: Never smoker ROS ROS Narrative No fever chills. Abdomen is become more distended since his last paracentesis and was scheduled to have a paracentesis tomorrow. All review of systems were negative except as mentioned above in the history of present illness and the other review of systems. Vital Signs Vital Signs Vital Signs: 12/26/21 19:45 12/26/21 19:45 12/26/21 21:51 Temperature 36.1 C L 37.2 C Temperature Source Temporal Temporal Pulse Rate 61 66 Respiratory Rate 16 14 Respiratory Effort Normal Respiratory Pattern Normal Blood Pressure 116/36 L 115/78 Blood Pressure Mean 62 90 Pulse Ox 100 99 Oxygen Delivery Method Room Air Room Air 12/26/21 22:55 Temperature 36.6 C Temperature Source Temporal Pulse Rate 88 Respiratory Rate 14 Respiratory Effort Respiratory Pattern Blood Pressure 113/55 L Blood Pressure Mean 74 Pulse Ox 100 Oxygen Delivery Method Room Air Weight Weight: 90.537 kg Body Mass Index (BMI) 29.5 Physical Exam Const alert, oriented x3 and no apparent distress HEENT normocephalic and head/scalp atraumatic Eyes Eyes Narrative: No icterus Resp normal respiratory effort, no retractions, no use of accessory muscles and clear to auscultation bilaterally Cardio regular rate, regular rhythm, S1 normal heart sound and S2 normal heart sound GI non-tender GI Narrative: Abdomen distended but nontender. Positive fluid wave. Not taut. Extremity normal to inspection and no clubbing, cyanosis or edema Neuro oriented x3 Psych affect normal Results Lab / Micro Data Attestation: I reviewed the patient's lab results. Result Diagrams: 12/26/21 20:55 12/26/21 20:55 Labs: Laboratory Results - last 24 hr 12/26/21 20:55: Sodium 117 L*, Potassium 5.4 H, Chloride 86 L, Carbon Dioxide 21.0, Anion Gap 10, BUN 18, Creatinine 1.16, Estim Creat Clear Calc 75.34, Est GFR (MDRD) Af Amer 85, Est GFR (MDRD) Non-Af 71, BUN/Creatinine Ratio 15.5, Glucose 100, Calcium 8.9, Magnesium 2.2, Total Bilirubin 4.70 H, AST 100 H, ALT 58, Alkaline Phosphatase 134 H, Troponin I High Sens 31, Total Protein 5.9 L, Albumin 3.0 L, Globulin 2.9, Albumin/Globulin Ratio 1.0, Lipase 345 12/26/21 20:55: WBC 9.8, RBC 3.52 L, Hgb 12.7 L, Hct 34.4 L, MCV 97.7 H, MCH 36.1 H, MCHC 36.9 H, RDW Std Deviation 46.2 H, RDW Coeff of Teri 13.1, Plt Count 128 L, MPV 10.7, Immature Gran % (Auto) 1.800 H, Neut % (Auto) 68.4, Lymph % (Auto) 13.4 L, [place] % (Auto) 15.0 H, Eos % (Auto) 0.9, Baso % (Auto) 0.5, Absolute Neuts (auto) 6.7, Absolute Lymphs (auto) 1.31, Nucleated RBC % 0 12/26/21 20:55: PT 18.6 H, INR 1.6 12/26/21 20:55: Ethyl Alcohol < 3.0 12/26/21 20:55: Ammonia 25.0 12/26/21 20:55: Serum Osmolality 247 L 12/26/21 21:14: Urine Color Yellow, Urine Clarity Clear, Urine pH 6.5, Ur Specific [place] 1.010, Urine Protein Negative, Urine Glucose (UA) Normal, Urine Ketones Negative, Urine Occult Blood 10 H, Urine Nitrite Negative, Urine Bilirubin Negative, Urine Urobilinogen 1 H, Ur Leukocyte Esterase 25 H, Urine RBC 0-5 SEEN, Urine WBC 0-5 SEEN, Ur Squamous Epith Cells 0 SEEN, Urine Bacteria 0 SEEN, Urine Mucus 0 SEEN 12/26/21 21:14: Urine Osmolality 301, Ur Random Sodium [address] 12/26/21 20:05 IMPRESSION: No acute findings. Chronic involutional changes of the brain. Electronically Signed: Sherry Olivia MD at 22:20 EDT Reading Location ID and State: [id number] / Tel , Service support , Chest X-Ray 12/26/21 21:25 IMPRESSION: No acute findings. Electronically Signed: Sherry Olivia MD at 22:21 EDT Reading Location ID and State: [place] / Tel , Service support , Assessment & Plan Assessment/Plan (1) Hyponatremia: PLAN: Chronic Previous seen by nephrology who felt patient had hypervolemic hyponatremia due to cirrhosis. Feel the patient may actually be hypovolemic at this point time and we will give him IV fluids. Continue with salt tablets Previously not a candidate for tolvaptan due to his cirrhosis Consult nephrology for further recommendations I do not feel his low sodium is contributing to his dizziness at this time (2) Dizziness: PLAN: Per the patient description he feels dizzy when he stands up and better when he lays down, his urine output has decreased. I am more concerned that this is due to orthostatic hypotension IV fluids Check orthostatic vital signs in the morning Hold diuretics (3) Abdominal ascites: QUALIFIERS: Ascites type: due to alcoholic cirrhosis Qualified Code(s): K70.31 - Alcoholic cirrhosis of liver with ascites PLAN: Chronic Hold off on paracentesis for now. Patient was scheduled to have it done as outpatient on the 20th Hold diuretics which had recent but increased PLAN: Plan Cirrhosis Chronic Patient following at [facility] but is currently not on the transplant list Consult gastroenterology for further recommendations and whether or not albumin would be indicated Continue with midodrine VTE prophylaxis: SCDs. Hold off on chemical prophylaxis given coagulopathy. Case discussed with the patient's at bedside. Explained that his situation is can to be constantly evolving in regards to the proper management. Explained the difficulties in treating his sodium with fluid restriction is compounding him being intravascularly depleted but also his diuretics are also contributing to that for his cirrhosis and ascites. Plan to give IV fluids which can make his ascites worse. Clear that this can be constantly evolving scenario depending on his clinical course that we will continue as outpatient. Charges/Coding Visit Charges Inpatient E&M: 25946 Init Hosp L2
[2021-12-27] VITALS (13 sets, daily range): BP systolic 82–117; BP diastolic 29–73; PULSE 55–92; RESP 16–18; TEMP 36.2–37.1; O2SAT 100; BMI 29.7
[2021-12-27 00:01] LABS: Troponin-I HS 24 pg/mL (3.0-78.0)
[2021-12-27] MEDS: Ursodiol 250 MG Tablet PO ×2 (01:14→22:31)
[2021-12-27] MEDS: rifAXIMin 550 MG Tablet PO ×3 (01:14→22:31)
[2021-12-27] MEDS: 0.9% Normal Saline 1,000 ML 150 ML IV (01:15)
[2021-12-27] MEDS: Sodium Chloride 1 GM Tablet 2 GM PO ×3 (05:12→22:31)
[2021-12-27 06:32] LABS: Absolute Lymphocyte Count 1.96 X10^3/uL (0.83-4.51); Absolute Neutrophil Count 5.1 X10^3/uL (2.0-7.7); Basophil# 0.05 X10^3/uL; Basophil% 0.6 % (0-1); Eosinophil# 0.14 X10^3/uL; Eosinophils% 1.7 % (0-5); Hematocrit 30.8 % (40-54); Hemoglobin 11.2 g/dL (13.0-16.5); Lymphocyte # 1.96 X10^3/ul (0.83-4.51); Lymphocyte % 23.3 % (19-41); Mean Corp Hgb Conc 36.4 g/dL (32-36); Mean Platelet Vol. 10.9 fl (6.2-12.0); Monocyte# 1.06 X10^3/uL; Monocyte% 12.6 % (0-10); NRBC Flagged by Analyzer 0 % (0-5); Neutrophil % 60.5 % (47-70); Platelet Count 115 K/mm3 (150-450); RBC Distribution Width CV 13.2 % (11.6-14.6); Red Blood Count 3.11 M/mm3 (4.6-6.2); White Blood Count 8.4 K/mm3 (4.4-11.0)
--- NOTE | 2021-12-27 08:00 | US_ITS ---
PROCEDURE: ULTRASOUND GUIDED PARACENTESIS CLINICAL HISTORY: Male, 51 years old. ASCITES CONSENT: PROCEDURE: Ultrasound guided paracentesis. DATE OF EXAMINATION: 12/27/2021. INDICATION: Male, 51 years old. Ascites. PHYSICIAN: Diego Siddiqui DO TECHNIQUE: The risks, benefits, and alternatives to the procedure were explained to the patient. The specific risks of bleeding, infection, and damage to bowel were detailed and accepted. Witnessed informed consent was obtained. The abdomen was ultrasonographically surveyed. An appropriate pocket of fluid was identified at the right lower quadrant. The skin were cleaned and prepped in the usual sterile fashion. Using ultrasound guidance, the peritoneal cavity was accessed with a 5-Malaysian paracentesis needle/catheter system. The trocar was removed. A total of 5900 ml of clear yellow ascites fluid were removed from the peritoneal cavity and discarded. The catheter was removed and a sterile dressing was applied. The procedure was well tolerated. The patient was discharged in stable condition US/Paracentesis with US IMPRESSION: Ultrasound guided therapeutic paracentesis with 5900 cc of clear yellow ascites fluid aspirated and discarded. Electronically Signed: Diego Siddiqui, at 11:32 EDT ,
[2021-12-27] MEDS: Lidocaine 2% (20 ml mdv) 20 ML Vial INFILT (08:32)
--- NOTE | 2021-12-27 08:54 | PCM.CONS.R ---
Assessment & Plan Assessment/Plan (1) Hyponatremia: (2) Dizziness: (3) Abdominal ascites: QUALIFIERS: Ascites type: due to alcoholic cirrhosis Qualified Code(s): K70.31 - Alcoholic cirrhosis of liver with ascites PLAN: Plan Patient presented to the emergency room yesterday with complaints of dizziness. Found to have a sodium level of 117. He was admitted for further evaluation and treatment. Patient is known to our practice as we were consulted last hospitalization for hyponatremia. Hypervolemic hyponatremia secondary to cirrhosis. Patient has limited options for hyponatremia as he is not a candidate for tolvaptan or urea due to cirrhosis. Patient has acute on chronic hyponatremia with baseline sodium has been ranging around 121-128. Sodium was 117 yesterday emergency room, lab work is pending today. His last sodium level before this admission was on December 17 and resulted at 123. Patient is on sodium chloride tablets 2 g 3 times daily. Patient was to continue sodium chloride tablets at home however he ran out and has not had sodium chloride light tablets for a few days. He did continue Lasix and Aldactone. He also tried following fluid restriction around 1.5 to 2 L/day. Continue fluid restriction in hospital. Blood pressures acceptable on midodrine 10 mg 3 times daily. Aldactone was stopped as potassium yesterday was 5.4. Chest x-ray in emergency room was clear. Last paracentesis was on December 23, 7 L fluid was removed and before that December 22 with 7.5L fluid removed. He is scheduled for paracentesis today. Continue salt tablets as ordered, will also add Lasix daily. Continue monitor sodium levels frequently. Further orders forthcoming as hospitalization evolves. HPI Consult Data Date of Consult: 12/27/21 HPI Narrative HPI Narrative: JOSE CRUZ THOMPSON, is a 51 M who presented to the ER with complaints of dizziness. Patient was found to have a sodium of 117. He was admitted for further evaluation and treatment. We were consulted for hyponatremia. Patient is known to our practice from previous hospitalization where we were consulted for hyponatremia when patient was admitted to the hospital earlier this month (admitted December 14 and discharged December 17). He was found to have hypervolemic hyponatremia secondary to cirrhosis. He was started on salt tablets and discharged home on salt tablets. He was also continued on Aldactone 50 mg twice daily and furosemide 40 mg daily. During last hospitalization patient's sodium on admission was 120 and by time of discharge improved to 123. Patient has noted low sodium levels since September 2021. Apparently patient has not had salt tablets over the last few days or so as he ran out and did not have a refill. No recent falls. [facility] Medical History (Updated 12/26/21 @ 23:[address] Fabian Woodruff DO) Abdominal ascites Alcoholic hepatitis Anemia Chronic hyponatremia Cirrhosis of liver Hyperbilirubinemia Nicotine dependence Rotator cuff arthropathy of left shoulder Thrombocytopenia Wernicke encephalopathy Home Medications rifaximin 550 mg tablet (Xifaxan) 550 mg PO BID #60 tabs 10/01/21 [Rx Last Taken Unknown] magnesium 250 mg tablet 250 mg PO DAILY #30 tabs 10/20/21 [Rx Last Taken Unknown] ursodiol 250 mg tablet 250 mg PO QHS #30 tabs 10/20/21 [Rx Last Taken Unknown] furosemide 40 mg tablet (Lasix) 40 mg PO BID #60 tabs 12/17/21 [Rx Last Taken Unknown] lactulose 20 gram/30 mL oral solution 20 g (30 mL) PO DAILY #900 mL 12/17/21 [Rx Last Taken Unknown] midodrine 5 mg tablet 10 mg PO TIDCM #90 tabs 12/17/21 [Rx Last Taken Unknown] sodium chloride 1 gram tablet 2,000 mg PO TID #21 tabs 12/17/21 [Rx Last Taken Unknown] spironolactone 50 mg tablet 50 mg PO DAILY #30 tabs 12/17/21 [Rx Last Taken Unknown] Allergy/AdvReac Type Severity Reaction Status Date / Time Bandaid Allergy Skin tear Uncoded 12/26/21 19:45 when removed Family History Other Cancer Diabetes Heart disease Surgical History H/O repair of rotator cuff Social History Smoking Status: Never smoker ROS ROS Narrative As per HPI and past medical history Physical Exam Narrative Const: Alert and oriented HEENT: Head is normocephalic, oral mucosa moist Respiratory: Lung sounds clear anteriorly Cardio: S1, S2, RRR GI: Abdomen soft, rounded, distended Extremities: No pitting edema Lab / Micro Data Result Diagrams: 12/27/21 05:30 12/27/21 05:30 Labs: Laboratory Results - last 24 hr 12/26/21 20:55: Sodium 117 L*, Potassium 5.4 H, Chloride 86 L, Carbon Dioxide 21.0, Anion Gap 10, BUN 18, Creatinine 1.16, Estim Creat Clear Calc 75.34, Est GFR (MDRD) Af Amer 85, Est GFR (MDRD) Non-Af 71, BUN/Creatinine Ratio 15.5, Glucose 100, Calcium 8.9, Magnesium 2.2, Total Bilirubin 4.70 H, AST 100 H, ALT 58, Alkaline Phosphatase 134 H, Troponin I High Sens 31, Total Protein 5.9 L, Albumin 3.0 L, Globulin 2.9, Albumin/Globulin Ratio 1.0, Lipase 345 12/26/21 20:55: WBC 9.8, RBC 3.52 L, Hgb 12.7 L, Hct 34.4 L, MCV 97.7 H, MCH 36.1 H, MCHC 36.9 H, RDW Std Deviation 46.2 H, RDW Coeff of Teri 13.1, Plt Count 128 L, MPV 10.7, Immature Gran % (Auto) 1.800 H, Neut % (Auto) 68.4, Lymph % (Auto) 13.4 L, [place] % (Auto) 15.0 H, Eos % (Auto) 0.9, Baso % (Auto) 0.5, Absolute Neuts (auto) 6.7, Absolute Lymphs (auto) 1.31, Nucleated RBC % 0 12/26/21 20:55: PT 18.6 H, INR 1.6 12/26/21 20:55: Ethyl Alcohol < 3.0 12/26/21 20:55: Ammonia 25.0 12/26/21 20:55: Serum Osmolality 247 L 12/26/21 21:14: Urine Color Yellow, Urine Clarity Clear, Urine pH 6.5, Ur Specific [place] 1.010, Urine Protein Negative, Urine Glucose (UA) Normal, Urine Ketones Negative, Urine Occult Blood 10 H, Urine Nitrite Negative, Urine Bilirubin Negative, Urine Urobilinogen 1 H, Ur Leukocyte Esterase 25 H, Urine RBC 0-5 SEEN, Urine WBC 0-5 SEEN, Ur Squamous Epith Cells 0 SEEN, Urine Bacteria 0 SEEN, Urine Mucus 0 SEEN 12/26/21 21:14: Urine Osmolality 301, Ur Random Sodium 7 12/26/21 23:20: Troponin I High Sens 24 12/27/21 05:30: WBC 8.4, RBC 3.11 L, Hgb 11.2 L, Hct 30.8 L, MCV 99.0 H, MCH 36.0 H, MCHC 36.4 H, RDW Std Deviation 47.0 H, RDW Coeff of Teri 13.2, Plt Count 115 L, MPV 10.9, Immature Gran % (Auto) 1.300 H, Neut % (Auto) 60.5, Lymph % (Auto) 23.3, [place] % (Auto) 12.6 H, Eos % (Auto) 1.7, Baso % (Auto) 0.6, Absolute Neuts (auto) 5.1, Absolute Lymphs (auto) 1.96, Nucleated RBC % 0 12/27/21 05:30: Sodium Cancelled, Potassium Cancelled, Chloride Cancelled, Carbon Dioxide Cancelled, Anion Gap Cancelled, BUN Cancelled, Creatinine Cancelled, Estim Creat Clear Calc Cancelled, Est GFR (MDRD) Af Amer Cancelled, Est GFR (MDRD) Non-Af Cancelled, BUN/Creatinine Ratio Cancelled, Glucose Cancelled, Calcium Cancelled, Total Bilirubin Cancelled, AST Cancelled, ALT Cancelled, Alkaline Phosphatase Cancelled, Total Protein Cancelled, Albumin Cancelled, Globulin Cancelled, Albumin/Globulin Ratio Cancelled Radiology Impression Brain CT 12/26/21 20:05 IMPRESSION: No acute findings. Chronic involutional changes of the brain. Electronically Signed: Sherry Olivia MD at 22:20 EDT Reading Location ID and State: Nerissa Ross MD Tel , Service support , Chest X-Ray 12/26/21 21:25 IMPRESSION: No acute findings. Electronically Signed: Sherry Olivia MD at 22:21 EDT Reading Location ID and State: Nerissa Ross MD Tel , Service support ,
[2021-12-27 09:23] LABS: ALB/GLOB Ratio 0.5 RATIO (0.9-2.4); AST(SGOT) 97 U/L (15-37); Alanine Aminotransfer ALT/SGPT 53 U/L (16-61); Albumin, Serum 1.7 g/dL (3.2-5.0); Alkaline Phosphatase 110 U/L (45-117); Anion Gap 7 (5-15); BUN 18 mg/dL (7-18); BUN/Creat Ratio 16.8 RATIO (10-20); Calcium,Total 8.4 mg/dL (8.5-10.1); Chloride 89 mmol/L (98-107); Creatinine, Serum 1.07 mg/dL (0.70-1.30); EST Glomerular Filtration Rate 77 mL/min (>60); Est Glom Filt Rate - Afr Amer 94 mL/min (>60); Estimated Creatinine Clearance 81.68 ml/min; Globulin 3.5 g/dL (2.2-4.2); Glucose 110 mg/dL (74-106); Potassium 5.4 mmol/L (3.5-5.1); Protein, Total 5.2 g/dL (6.4-8.2); Sodium Level 113 mmol/L (136-145)
[2021-12-27] MEDS: Midodrine HCl 5 MG Tablet 10 MG PO ×3 (09:59→17:36)
[2021-12-27] MEDS: Lactulose 20 GM/30 ML UDC PO (09:59)
[2021-12-27] MEDS: 0.9% Saline Lock 10 ML Syringe IV ×2 (09:59→13:09)
[2021-12-27] MEDS: Magnesium Chloride 64 MG Delay Rel.Tablet PO (10:00)
[2021-12-27] MEDS: Furosemide 40 MG Tablet PO (10:02)
--- NOTE | 2021-12-27 11:45 | CASEMGMT ---
GIOVANNA ALEJANDRE readmission note: Prior admission: Admitted 12/14/21 for hyponatremia. Discharged home 12/17. Pt has a history of liver disease, ETOH cirrhosis and autoimmune hepatitis. Planning for a transplant at [facility]. Follows with Dr. Posada and Dr Camara. Patient was seen by nephrology and started on sodium tablets, Furosemide 40 mg twice daily, and spironolactone was increased from 50 daily. Pt gets OP paracentesis @ [facility] 2 x's/week. Current admission: Admitted 12/26/21 w/dizziness and hyponatremia. GIOVANNA ALEJANDRE to room. Pt resting in bed. @ bedside. Pt and state pt has been taking his medications as prescribed. states he has not had any appts w/any physicians since discharge from the hospital on the . She is not sure when Dr Posada wants to see him again. She is still wishing to have pt change PCP's and did receive the list of local PCP's in radiology today that GIOVANNA ALEJANDRE had left for them to give to pt. She also received the contact info for the Supervisory Geographer, [facility] and has reached out to her today. Pt and states pt has not drank any alcohol since Jul. They are still planning on having pt do on-line AA meetings. Pt states he has been weak and wants to get some strength back. He is interested in doing OP therapy. GIOVANNA Regna made aware. Emma LOPEZ RN, CM
--- NOTE | 2021-12-27 11:57 | PN.HOSP_ITS ---
Subjective Subjective Patient seen and examined. Patient just returned from paracentesis. Patient states that he is feeling okay now that some of the fluid is off Objective Data Objective Data Vital Signs: Vital Signs Temp Pulse Resp BP Pulse Ox 97.5 F L 69 18 105/38 L 100 12/27/21 10:06 12/27/21 10:06 12/27/21 10:06 12/27/21 10:06 12/27/21 10:06 Oxygen Delivery Method [5] Room Air Oxygen Delivery Method [4] Room Air Oxygen Delivery Method [3] Room Air Oxygen Delivery Method [2] Room Air Oxygen Delivery Method [1 ( Room Air Initial Baseline)] Oxygen Delivery Method Room Air Weight: 201 lb 11.567 oz Body Mass Index (BMI) 29.7 Intake & Output: Intake and Output for Last 24 Hours 12/25/21 12/26/21 12/27/21 23:59 23:59 23:59 Intake Total 1400 / 1400 Output Total 5900 / 5900 Balance -4500 / -4500 Lab / Micro Data Result Diagrams: 12/27/21 05:30 12/27/21 05:30 Labs: Laboratory Results - last 24 hr 12/26/21 20:55: Sodium 117 L*, Potassium 5.4 H, Chloride 86 L, Carbon Dioxide 21.0, Anion Gap 10, BUN 18, Creatinine 1.16, Estim Creat Clear Calc 75.34, Est GFR (MDRD) Af Amer 85, Est GFR (MDRD) Non-Af 71, BUN/Creatinine Ratio 15.5, Glucose 100, Calcium 8.9, Magnesium 2.2, Total Bilirubin 4.70 H, AST 100 H, ALT 58, Alkaline Phosphatase 134 H, Troponin I High Sens 31, Total Protein 5.9 L, Al bumin 3.0 L, Globulin 2.9, Albumin/Globulin Ratio 1.0, Lipase 345 12/26/21 20:55: WBC 9.8, RBC 3.52 L, Hgb 12.7 L, Hct 34.4 L, MCV 97.7 H, MCH 36.1 H, MCHC 36.9 H, RDW Std Deviation 46.2 H, RDW Coeff of Teri 13.1, Plt Count 128 L, MPV 10.7, Immature Gran % (Auto) 1.800 H, Neut % (Auto) 68.4, Lymph % (Auto) 13.4 L, [place] % (Auto) 15.0 H, Eos % (Auto) 0.9, Baso % (Auto) 0.5, Absolute Neuts (auto) 6.7, Absolute Lymphs (auto) 1.31, Nucleated RBC % 0 12/26/21 20:55: PT 18.6 H, INR 1.6 12/26/21 20:55: Ethyl Alcohol < 3.0 12/26/21 20:55: Ammonia 25.0 12/26/21 20:55: Serum Osmolality 247 L 12/26/21 21:14: Urine Color Yellow, Urine Clarity Clear, Urine pH 6.5, Ur Specific [place] 1.010, Urine Protein Negative, Urine Glucose (UA) Normal, Urine Ketones Negative, Urine Occult Blood 10 H, Urine Nitrite Negative, Urine Bilirubin Negative, Urine Urobilinogen 1 H, Ur Leukocyte Esterase 25 H, Urine RBC 0-5 SEEN, Urine WBC 0-5 SEEN, Ur Squamous Epith Cells 0 SEEN, Urine Bacteria 0 SEEN, Urine Mucus 0 SEEN 12/26/21 21:14: Urine Osmolality 301, Ur Random Sodium 7 12/26/21 23:20: Troponin I High Sens 24 12/27/21 05:30: WBC 8.4, RBC 3.11 L, Hgb 11.2 L, Hct 30.8 L, MCV 99.0 H, MCH 36.0 H, MCHC 36.4 H, RDW Std Deviation 47.0 H, RDW Coeff of Teri 13.2, Plt Count 115 L, MPV 10.9, Immature Gran % (Auto) 1.300 H, Neut % (Auto) 60.5, Lymph % (Auto) 23.3, [place] % (Auto) 12.6 H, Eos % (Auto) 1.7, Baso % (Auto) 0.6, Absolute Neuts (auto) 5.1, Absolute Lymphs (auto) 1.96, Nucleated RBC % 0 12/27/21 05:30: Sodium Cancelled, Potassium Cancelled, Chloride Cancelled, Carbon Dioxide Cancelled, Anion Gap Cancelled, BUN Cancelled, Creatinine Cancelled, Estim Creat Clear Calc Cancelled, Est GFR (MDRD) Af Amer Cancelled, Est GFR (MDRD) Non-Af Cancelled, BUN/Creatinine Ratio Cancelled, Glucose Cancelled, Calcium Cancelled, Total Bilirubin Cancelled, AST Cancelled, ALT Cancelled, Alkaline Phosphatase Cancelled, Total Protein Cancelled, Albumin Cancelled, Globulin Cancelled, Albumin/Globulin Ratio Cancelled 12/27/21 05:30: Sodium 113 L*, Potassium 5.4 H, Chloride 89 L, Carbon Dioxide 17.0 L, Anion Gap 7, BUN 18, Creatinine 1.07, Estim Creat Clear Calc 81.68, Est GFR (MDRD) Af Amer 94, Est GFR (MDRD) Non-Af 77, BUN/Creatinine Ratio 16.8, Glucose 110 H, Calcium 8.4 L, Total Bilirubin 4.60 H, AST 97 H, ALT 53, Alkaline Phosphatase 110, Total Protein 5.2 L, Albumin 1.7 L, Globulin 3.5, Albumin/Globulin Ratio 0.5 L Radiography Diagnostic Testing: Radiology Impression Brain CT 12/26/21 20:05 IMPRESSION: No acute findings. Chronic involutional changes of the brain. Electronically Signed: Sherry Olivia MD at 22:20 EDT Reading Location ID and State: [id number] / Tel , Service support , Chest X-Ray 12/26/21 21:25 IMPRESSION: No acute findings. Electronically Signed: Sherry Olivia MD at 22:21 EDT Reading Location ID and State: [id number] / Tel , Service support , Paracentesis Ultrasound 12/27/21 08:00 IMPRESSION: Ultrasound guided therapeutic paracentesis with 5900 cc of clear yellow ascites fluid aspirated and discarded. Electronically Signed: Diego Siddiqui, at 11:32 EDT , Physical Exam Const alert, oriented x3 and no apparent distress HEENT head/scalp atraumatic and moist oral mucous membranes Head and Scalp: normocephalic Eyes conjunctivae normal and no scleral icterus Neck no lymphadenopathy and supple Resp normal respiratory effort Effort and Inspection: able to speak in complete sentences and symmetric chest movement Auscultation: diminished lung sounds Cardio regular rate, regular rhythm, S1 normal heart sound and S2 normal heart sound GI soft to palpation Inspection: abdominal distention Palpation: tender Extremity normal to inspection and full ROM General Extremity: edema Neuro oriented x3, moves all extremities, no focal motor deficits and no sensory deficits noted Psych affect normal Assessment & Plan Assessment/Plan (1) Abdominal ascites: QUALIFIERS: Ascites type: due to alcoholic cirrhosis Qualified Code(s): K70.31 - Alcoholic cirrhosis of liver with ascites (2) Dizziness: (3) Hyponatremia: PLAN: Plan 1. Hyponatremia -Patient has chronic hyponatremia however that his sodium level was 117 and 113 respectively following admission -Patient reports that he had run out of his sodium tablets as has not taken them for a couple of days. This was restarted 12/27/21 -Daily CMP ordered -Nephrology consulted, Stephenie VELAZQUEZ following 2. Abdominal ascites secondary to alcoholic cirrhosis -Patient had paracentesis today 5900 mL taken off -Albumin 37.5 g IV x1 ordered. Patient chronically receives albumin at 6 g/L removed following paracentesis. -Continue 1500 mL fluid restriction -Continue lactulose and rifaximin and ursodiol 3. Hyperkalemia -Potassium 5.4 -Continue to hold Aldactone -Continue Lasix DVT prophylaxis-SCDs This patient was seen by Janell Tinoco, RD PROJECT MANAGER-C under the supervision of Dr. Farrar. 13 minutes spent in clinical coordination of patient's plan of care.
[2021-12-27 12:36] LABS: Anion Gap 6 (5-15); BUN 18 mg/dL (7-18); BUN/Creat Ratio 17.1 RATIO (10-20); Calcium,Total 8.7 mg/dL (8.5-10.1); Chloride 88 mmol/L (98-107); Creatinine, Serum 1.05 mg/dL (0.70-1.30); EST Glomerular Filtration Rate 79 mL/min (>60); Est Glom Filt Rate - Afr Amer 96 mL/min (>60); Estimated Creatinine Clearance 83.23 ml/min; Glucose 121 mg/dL (74-106); Potassium 5.1 mmol/L (3.5-5.1); Sodium Level 119 mmol/L (136-145)
[2021-12-27] MEDS: Albumin Human 25% (100 mL) 25 GM/100 ML BAG IV (13:00)
[2021-12-27] MEDS: Pantoprazole Sodium 20 MG Tablet PO (13:12)
[2021-12-27] MEDS: Albumin Human 25% (50 mL) 12.5 GM/50 ML IV.SOLN IV (14:33)
[2021-12-27 17:14] LABS: Anion Gap 10 (5-15); BUN 18 mg/dL (7-18); BUN/Creat Ratio 16.7 RATIO (10-20); Calcium,Total 8.7 mg/dL (8.5-10.1); Chloride 90 mmol/L (98-107); Creatinine, Serum 1.08 mg/dL (0.70-1.30); EST Glomerular Filtration Rate 77 mL/min (>60); Est Glom Filt Rate - Afr Amer 93 mL/min (>60); Estimated Creatinine Clearance 80.92 ml/min; Glucose 106 mg/dL (74-106); Potassium 5.2 mmol/L (3.5-5.1); Sodium Level 120 mmol/L (136-145)
[2021-12-27 20:21] LABS: Anion Gap 9 (5-15); BUN 18 mg/dL (7-18); BUN/Creat Ratio 16.5 RATIO (10-20); Calcium,Total 8.5 mg/dL (8.5-10.1); Chloride 91 mmol/L (98-107); Creatinine, Serum 1.09 mg/dL (0.70-1.30); EST Glomerular Filtration Rate 76 mL/min (>60); Est Glom Filt Rate - Afr Amer 92 mL/min (>60); Estimated Creatinine Clearance 80.18 ml/min; Glucose 117 mg/dL (74-106); Potassium 5.4 mmol/L (3.5-5.1); Sodium Level 120 mmol/L (136-145)
--- NOTE | 2021-12-27 20:39 | PN.HOSP_ITS ---
Subjective Subjective Was seen and examined today, he underwent a paracentesis today with removal of 5900 cc of fluid. Patient was given IV albumin. I discussed the case with nephrology today, patient's sodium today was 119. I talked briefly with his who was in the room at the time my examination today. Patient admits to having depression and anxiety, I placed him on Lexapro 10 mg daily. Patient's also states that the patient occasionally has vomiting and upper abdominal discomfort, he is not on a PPI at this time and so I have added Protonix orally. Objective Data Objective Data Vital Signs: Vital Signs Temp Pulse Resp BP Pulse Ox 97.5 F L 74 18 107/44 L 100 12/27/21 17:33 12/27/21 19:12 12/27/21 17:33 12/27/21 17:33 12/27/21 17:33 Oxygen Delivery Method [5] Room Air Oxygen Delivery Method [4] Room Air Oxygen Delivery Method [3] Room Air Oxygen Delivery Method [2] Room Air Oxygen Delivery Method [1 ( Room Air Initial Baseline)] Oxygen Delivery Method Room Air Weight: 91.5 kg Body Mass Index (BMI) 29.7 Intake & Output: Intake and Output for Last 24 Hours 12/25/21 12/26/21 12/27/21 23:59 23:59 23:59 Intake Total 2425 / 2425 Output Total 5900 / 5900 Balance -3475 / -3475 Lab / Micro Data Result Diagrams: 12/27/21 05:30 12/27/21 19:50 Labs: Laboratory Results - last 24 hr 12/26/21 20:55: Sodium 117 L*, Potassium 5.4 H, Chloride 86 L, Carbon Dioxide 21.0, Anion Gap 10, BUN 18, Creatinine 1.16, Estim Creat Clear Calc 75.34, Est GFR (MDRD) Af Amer 85, Est GFR (MDRD) Non-Af 71, BUN/Creatinine Ratio 15.5, Glucose 100, Calcium 8.9, Magnesium 2.2, Total Bilirubin 4.70 H, AST 100 H, ALT 58, Alkaline Phosphatase 134 H, Troponin I High Sens 31, Total Protein 5.9 L, Albumin 3.0 L, Globulin 2.9, Albumin/Globulin Ratio 1.0, Lipase 345 12/26/21 20:55: WBC 9.8, RBC 3.52 L, Hgb 12.7 L, Hct 34.4 L, MCV 97.7 H, MCH 36.1 H, MCHC 36.9 H, RDW Std Deviation 46.2 H, RDW Coeff of Teri 13.1, Plt Count 128 L, MPV 10.7, Immature Gran % (Auto) 1.800 H, Neut % (Auto) 68.4, Lymph % (Auto) 13.4 L, [place] % (Auto) 15.0 H, Eos % (Auto) 0.9, Baso % (Auto) 0.5, Absolute Neuts (auto) 6.7, Absolute Lymphs (auto) 1.31, Nucleated RBC % 0 12/26/21 20:55: PT 18.6 H, INR 1.6 12/26/21 20:55: Ethyl Alcohol < 3.0 12/26/21 20:55: Ammonia 25.0 12/26/21 20:55: Serum Osmolality 247 L 12/26/21 21:14: Urine Color Yellow, Urine Clarity Clear, Urine pH 6.5, Ur Specific [place] 1.010, Urine Protein Negative, Urine Glucose (UA) Normal, Urine Ketones Negative, Urine Occult Blood 10 H, Urine Nitrite Negative, Urine Bilirub in Negative, Urine Urobilinogen 1 H, Ur Leukocyte Esterase 25 H, Urine RBC 0-5 SEEN, Urine WBC 0-5 SEEN, Ur Squamous Epith Cells 0 SEEN, Urine Bacteria 0 SEEN, Urine Mucus 0 SEEN 12/26/21 21:14: Urine Osmolality 301, Ur Random Sodium 7 12/26/21 23:20: Troponin I High Sens 24 12/27/21 05:30: WBC 8.4, RBC 3.11 L, Hgb 11.2 L, Hct 30.8 L, MCV 99.0 H, MCH 36.0 H, MCHC 36.4 H, RDW Std Deviation 47.0 H, RDW Coeff of Teri 13.2, Plt Count 115 L, MPV 10.9, Immature Gran % (Auto) 1.300 H, Neut % (Auto) 60.5, Lymph % (Auto) 23.3, [place] % (Auto) 12.6 H, Eos % (Auto) 1.7, Baso % (Auto) 0.6, Absolute Neuts (auto) 5.1, Absolute Lymphs (auto) 1.96, Nucleated RBC % 0 12/27/21 05:30: Sodium Cancelled, Potassium Cancelled, Chloride Cancelled, C arbon Dioxide Cancelled, Anion Gap Cancelled, BUN Cancelled, Creatinine Cancelled, Estim Creat Clear Calc Cancelled, Est GFR (MDRD) Af Amer Cancelled, Est GFR (MDRD) Non-Af Cancelled, BUN/Creatinine Ratio Cancelled, Glucose Cancelled, Calcium Cancelled, Total Bilirubin Cancelled, AST Cancelled, ALT Cancelled, Alkaline Phosphatase Cancelled, Total Protein Cancelled, Albumin Cancelled, Globulin Cancelled, Albumin/Globulin Ratio Cancelled 12/27/21 05:30: Sodium 113 L*, Potassium 5.4 H, Chloride 89 L, Carbon Dioxide 17.0 L, Anion Gap 7, BUN 18, Creatinine 1.07, Estim Creat Clear Calc 81.68, Est GFR (MDRD) Af Amer 94, Est GFR (MDRD) Non-Af 77, BUN/Creatinine Ratio 16.8, Glucose 110 H, Calcium 8.4 L, Total Bilirubin 4.60 H, AST 97 H, ALT 53, Alkaline Phosphatase 110, Total Protein 5.2 L, Albumin 1.7 L, Globulin 3.5, Albumin/Globu silvia Ratio 0.5 L 12/27/21 12:00: Sodium 119 L*, Potassium 5.1, Chloride 88 L, Carbon Dioxide 25.0, Anion Gap 6, BUN 18, Creatinine 1.05, Estim Creat Clear Calc 83.23, Est GFR (MDRD) Af Amer 96, Est GFR (MDRD) Non-Af 79, BUN/Creatinine Ratio 17.1, Glucose 121 H, Calcium 8.7 12/27/21 16:09: Sodium 120 L, Potassium 5.2 H, Chloride 90 L, Carbon Dioxide 20.0 L, Anion Gap 10, BUN 18, Creatinine 1.08, Estim Creat Clear Calc 80.92, Est GFR (MDRD) Af Amer 93, Est GFR (MDRD) Non-Af 77, BUN/Creatinine Ratio 16.7, Glucose 106, Calcium 8.7 12/27/21 19:50: Sodium 120 L, Potassium 5.4 H, Chloride 91 L, Carbon Dioxide 20.0 L, Anion Gap 9, BUN 18, Creatinine 1.09, Estim Creat Clear Calc 80.18, Est GFR (MDRD) Af Amer 92, Est GFR (MDRD) Non-Af 76, BUN/Creatinine Ratio 16.5, Glucose 117 H, Calcium 8.5 Radiography Diagnostic Testing: Radiology Impression Brain CT 12/26/21 20:05 IMPRESSION: No acute findings. Chronic involutional changes of the brain. Electronically Signed: Sherry Olivia MD at 22:20 EDT Reading Location ID and State: [id number] / Tel , Service support , Chest X-Ray 12/26/21 21:25 IMPRESSION: No acute findings. Electronically Signed: Sherry Olivia MD at 22:21 EDT Reading Location ID and State: [id number] / Tel , Service support , Paracentesis Ultrasound 12/27/21 08:00 IMPRESSION: Ultrasound guided therapeutic paracentesis with 5900 cc of clear yellow ascites fluid aspirated and discarded. Electronically Signed: Diego Artur, at 11:32 EDT , Physical Exam Const alert, oriented x3 and no apparent distress HEENT head/scalp atraumatic and moist oral mucous membranes Eyes EOMs intact bilaterally and conjunctivae normal Resp normal respiratory effort, no retractions and no use of accessory muscles Cardio regular rate, regular rhythm, S1 normal heart sound and S2 normal heart sound Cardio Narrative: Patient has a 2/6 systolic murmur noted at the left sternal border and apex GI GI Narrative: Patient's abdomen is distended, it is nontender to palpation, no rebound abdominal tenderness is noted Extremity normal to inspection Extremity Narrative: No clubbing or cyanosis of the lower legs Neuro oriented x3, CN's II-XII intact bilaterally, moves all extremities and no focal motor deficits Sensorium / Orientation: awake, alert, oriented to person, oriented to place and oriented to time Psych affect normal Assessment & Plan Assessment/Plan (1) Abdominal ascites: QUALIFIERS: Ascites type: due to alcoholic cirrhosis Qualified Code(s): K70.31 - Alcoholic cirrhosis of liver with ascites PLAN: Plan 1. Hyponatremia-secondary to chronic liver cirrhosis from alcohol intake- patient states that is been several months since he is drinking alcohol, nep hrology is participating in his care, will monitor BMP. #2 chronic ascites-this was drained today, this will be an ongoing problem for the patient, patient and patient's was advised to see a liver specialist as soon as possible for possible TIPS procedure, is making arrangements for the patient to go to [place] to be seen. #3 chronic liver cirrhosis-makes care, recovery, and prognosis difficult Charges/Coding Visit Charges Inpatient E&M: 33717 Subs Hosp L2
[2021-12-28 00:50] LABS: Anion Gap 8 (5-15); BUN 20 mg/dL (7-18); Calcium,Total 8.5 mg/dL (8.5-10.1); Chloride 90 mmol/L (98-107); Creatinine, Serum 1.05 mg/dL (0.70-1.30); EST Glomerular Filtration Rate 79 mL/min (>60); Est Glom Filt Rate - Afr Amer 96 mL/min (>60); Estimated Creatinine Clearance 83.23 ml/min; Glucose 102 mg/dL (74-106); Potassium 4.9 mmol/L (3.5-5.1); Sodium Level 121 mmol/L (136-145)
[2021-12-28 02:29] VITALS: PULSE 66
[2021-12-28] MEDS: Sodium Chloride 1 GM Tablet 2 GM PO (04:07)
[2021-12-28 04:15] VITALS: BP 106/69; PULSE 68; RESP 18; TEMP 36.7; O2SAT 99
[2021-12-28 04:28] LABS: Anion Gap 8 (5-15); BUN 19 mg/dL (7-18); BUN/Creat Ratio 18.3 RATIO (10-20); Calcium,Total 8.5 mg/dL (8.5-10.1); Chloride 91 mmol/L (98-107); Creatinine, Serum 1.04 mg/dL (0.70-1.30); EST Glomerular Filtration Rate 80 mL/min (>60); Est Glom Filt Rate - Afr Amer 97 mL/min (>60); Estimated Creatinine Clearance 84.03 ml/min; Glucose 92 mg/dL (74-106); Potassium 4.8 mmol/L (3.5-5.1); Sodium Level 123 mmol/L (136-145)
[2021-12-28 04:35] LABS: Absolute Lymphocyte Count 1.54 X10^3/uL (0.83-4.51); Absolute Neutrophil Count 4.9 X10^3/uL (2.0-7.7); Basophil# 0.06 X10^3/uL; Basophil% 0.8 % (0-1); Eosinophils% 1.3 % (0-5); Lymphocyte # 1.54 X10^3/ul (0.83-4.51); Lymphocyte % 20.5 % (19-41); Mean Corpuscular Volume 93.6 fL (80-94); Monocyte# 0.89 X10^3/uL; Monocyte% 11.8 % (0-10); NRBC Flagged by Analyzer 0 % (0-5); Neutrophil # 4.87 X10^3/uL (2.7-7.7); Neutrophil % 64.7 % (47-70); POSITIVE COUNT YES; Platelet Count 99 K/mm3 (150-450); RBC Distribution Width CV 13.2 % (11.6-14.6); RBC Distribution Width SD 45.5 fl (35.1-43.9); Red Blood Count 2.99 M/mm3 (4.6-6.2); White Blood Count 7.5 K/mm3 (4.4-11.0)
[2021-12-28 05:04] LABS: Mean Corp Hgb Conc 36.4 g/dL (32-36); Mean Corpuscular Hgb 35.1 pg (27.0-32.0)
[2021-12-28 06:43] VITALS: PULSE 70
[2021-12-28 07:46] VITALS: BP 92/52; PULSE 73; RESP 18; TEMP 36.4; O2SAT 97
[2021-12-28] MEDS: Midodrine HCl 5 MG Tablet 10 MG PO (07:47)
[2021-12-28 08:43] LABS: Anion Gap 9 (5-15); BUN 20 mg/dL (7-18); BUN/Creat Ratio 20.5 RATIO (10-20); Calcium,Total 8.5 mg/dL (8.5-10.1); Chloride 92 mmol/L (98-107); Creatinine, Serum 0.98 mg/dL (0.70-1.30); EST Glomerular Filtration Rate 86 mL/min (>60); Est Glom Filt Rate - Afr Amer 104 mL/min (>60); Estimated Creatinine Clearance 89.18 ml/min; Glucose 98 mg/dL (74-106); Potassium 5.1 mmol/L (3.5-5.1); Sodium Level 123 mmol/L (136-145)
[2021-12-28 10:09] VITALS: BP 101/62; PULSE 81; RESP 18; TEMP 36.4; O2SAT 99
[2021-12-28] MEDS: Magnesium Chloride 64 MG Delay Rel.Tablet PO (10:12)
[2021-12-28] MEDS: Pantoprazole Sodium 20 MG Tablet PO (10:12)
[2021-12-28] MEDS: Escitalopram Oxalate 10 MG Tablet PO (10:12)
[2021-12-28] MEDS: Furosemide 40 MG Tablet PO (10:12)
[2021-12-28] MEDS: rifAXIMin 550 MG Tablet PO (10:12)
[2021-12-28] MEDS: Lactulose 20 GM/30 ML UDC PO (10:13)
--- NOTE | 2021-12-28 10:39 | DCINST_ITS ---
Discharge Instructions Diet Discharge Diet: No restrictions Activity Discharge Activity: Return to Normal Activity Dressing / Incision Call your doctor if you observe: Shortness of breath, Swelling in the ankles, Chest pain and Increased palpitations (irregular heartbeat) Follow Up Care Please Follow Up With: Stephenie Barlow NP-C When: as scheduled by her, office will contact you Test Results: Test results from this visit will be discussed in further detail at your follow- up appointment, if applicable. Discharge Plan Admission Admit Date/Time: 12/26/21 23:29 Primary Reason for Your Visit: Dizziness Attending Provider: Jerry Farrar Primary Care Provider: Jovi Rodriguez Consulting Providers: Alfa Camara ; Fabian Woodruff Discharge Orders/Prescriptions Prescriptions: New furosemide 40 mg Tablet 40 mg PO DAILY Qty: 0 0RF pantoprazole 20 mg Tablet,Delayed Release (Dr/Ec) 20 mg PO DAILY 30 Days Qty: 30 0RF escitalopram oxalate 10 mg Tablet 10 mg PO DAILY 30 Days Qty: 30 0RF Continued ursodiol 250 mg tablet 250 mg PO QHS Qty: 30 6RF magnesium 250 mg tablet 250 mg PO DAILY Qty: 30 6RF midodrine 5 mg Tablet 10 mg PO TIDCM Qty: 90 0RF lactulose 20 gram/30 mL solution 20 g PO DAILY Qty: 900 6RF sodium chloride 1 gram tablet 2,000 mg PO TID Qty: 21 0RF Xifaxan 550 mg tablet 550 mg PO BID Qty: 60 6RF Changed spironolactone 50 mg Tablet 25 mg PO DAILY Qty: 30 2RF Discontinued furosemide [Lasix] 40 mg tablet 40 mg PO BID Qty: 60 2RF Rx Instructions: Hold for SBP less than 100 mmHg Referrals / Follow Up: Jovi Rodriguez DO [Primary Care Provider] -
--- NOTE | 2021-12-28 10:42 | PCM.DC.SUM ---
Documented by User: ZURI Delarosa 12/28/21 10:47 Providers Date of Admission: 12/26/21 Date of Discharge: 12/28/21 Primary Care Physician: Dr. Jovi Rodriguez, Consultations 12/27/21 00:17 Consult: Gastroenterology Routine Consulting Provider: Brittany Gastro[facility] Reason for Consult: cirrhosis EMERGENT Consult: No Notified: Yes Date Notified: 12/26/21 Time Notified: 23:33 Method of Notification: ED Physician Initiated Consult: Nephrology Routine Consulting Provider: Alfa Camara Reason for Consult: hyponatremia EMERGENT Consult: No Notified: Yes Date Notified: 12/26/21 Time Notified: 06:16 Method of Notification: Answering Service Reason For Visit: DIZZINESS, HYPONATREMIA Diagnosis Discharge Diagnosis (1) Abdominal ascites: Status: Acute Code(s): R18.8 - Other ascites Qualifiers: Ascites type: due to alcoholic cirrhosis Qualified Code(s): K70.31 - Alcoholic cirrhosis of liver with ascites Medications at Discharge Home Medications rifaximin 550 mg tablet (Xifaxan) 550 mg PO BID #60 tabs 10/01/21 magnesium 250 mg tablet 250 mg PO DAILY #30 tabs 10/20/21 ursodiol 250 mg tablet 250 mg PO QHS #30 tabs 10/20/21 lactulose 20 gram/30 mL oral solution 20 g (30 mL) PO DAILY #900 mL 12/17/21 midodrine 5 mg tablet 10 mg PO TIDCM #90 tabs 12/17/21 sodium chloride 1 gram tablet 2,000 mg PO TID #21 tabs 12/17/21 escitalopram oxalate 10 mg tablet 10 mg PO DAILY 30 days #30 tabs 12/28/21 furosemide 40 mg tablet 40 mg PO BID #60 tabs 12/28/21 pantoprazole 20 mg tablet,delayed release 20 mg PO DAILY 30 days #30 tabs 12/28/21 spironolactone 50 mg tablet 25 mg PO DAILY #30 tabs 12/28/21 Hospital Course Operations None Procedures Paracentesis Summary of Care Provided Minutes Spent on Discharge: 35 Hospital Course: Patient is a 51-year-old male who presented to the ER with dizziness and abdominal ascites. Patient has a history of cirrhosis and has been undergoing twice weekly paracentesis with Dr. Aguilar. Patient reports that he had ran out of his salt tabs at home. Patient has a history of hypotension and is on salt tabs as well as midodrine to keep blood pressure up. Patient was seen by nephrology and will follow up with Stephenie outpatient. Patient will be notified patient in his office for follow-up appointment. Patient's Lasix decreased from twice a day to once a day and continue on Aldactone and salt tablets. Physical Exam Const alert, oriented x3 and no apparent distress HEENT normocephalic, head/scalp atraumatic and moist oral mucous membranes Eyes conjunctivae normal and no scleral icterus Eyes Narrative: No icterus Neck no lymphadenopathy and supple Resp normal respiratory effort and clear to auscultation bilaterally Effort and Inspection: able to speak in complete sentences and symmetric chest movement Auscultation: diminished lung sounds Cardio regular rate, regular rhythm, S1 normal heart sound and S2 normal heart sound Cardio Narrative: Patient has a 2/6 systolic murmur noted at the left sternal border and apex GI soft to palpation and non-tender GI Narrative: Patient's abdomen is distended, it is nontender to palpation, no rebound abdominal tenderness is noted Inspection: abdominal distention Palpation: tender Extremity normal to inspection, full ROM and no clubbing, cyanosis or edema Extremity Narrative: No clubbing or cyanosis of the lower legs General Extremity: edema Neuro oriented x3, moves all extremities, no focal motor deficits and no sensory deficits noted Sensorium / Orientation: awake and alert Psych affect normal Weight / BMI Weight Weight: 201 lb 11.567 oz Body Mass Index (BMI) 29.7 ABG / Lab / Microbiology Data Result Diagrams: 12/28/21 04:03 12/28/21 07:57 Laboratory: Laboratory Results - last 24 hr 12/27/21 12:00: Sodium 119 L*, Potassium 5.1, Chloride 88 L, Carbon Dioxide 25.0, Anion Gap 6, BUN 18, Creatinine 1.05, Estim Creat Clear Calc 83.23, Est GFR (MDRD) Af Amer 96, Est GFR (MDRD) Non-Af 79, BUN/Creatinine Ratio 17.1, Glucose 121 H, Calcium 8.7 12/27/21 16:09: Sodium 120 L, Potassium 5.2 H, Chloride 90 L, Carbon Dioxide 20.0 L, Anion Gap 10, BUN 18, Creatinine 1.08, Estim Creat Clear Calc 80.92, Est GFR (MDRD) Af Amer 93, Est GFR (MDRD) Non-Af 77, BUN/Creatinine Ratio 16.7, Glucose 106, Calcium 8.7 12/27/21 19:50: Sodium 120 L, Potassium 5.4 H, Chloride 91 L, Carbon Dioxide 20.0 L, Anion Gap 9, BUN 18, Creatinine 1.09, Estim Creat Clear Calc 80.18, Est GFR (MDRD) Af Amer 92, Est GFR (MDRD) Non-Af 76, BUN/Creatinine Ratio 16.5, Glucose 117 H, Calcium 8.5 12/28/21 00:25: Sodium 121 L, Potassium 4.9, Chloride 90 L, Carbon Dioxide 23.0, Anion Gap 8, BUN 20 H, Creatinine 1.05, Estim Creat Clear Calc 83.23, Est GFR (MDRD) Af Amer 96, Est GFR (MDRD) Non-Af 79, BUN/Creatinine Ratio 19.0, Glucose 102, Calcium 8.5 12/28/21 04:03: Sodium 123 L, Potassium 4.8, Chloride 91 L, Carbon Dioxide 24.0, Anion Gap 8, BUN 19 H, Creatinine 1.04, Estim Creat Clear Calc 84.03, Est GFR (MDRD) Af Amer 97, Est GFR (MDRD) Non-Af 80, BUN/Creatinine Ratio 18.3, Glucose 92, Calcium 8.5 12/28/21 04:03: WBC 7.5, RBC 2.99 L, Hgb 10.0 L, Hct 28.0 L, MCV 93.6 D, MCH 35.1 H, MCHC 36.4 H, RDW Std Deviation 45.5 H, RDW Coeff of Teri 13.2, Plt Count 99 L, MPV 11.0, Immature Gran % (Auto) 0.900, Neut % (Auto) 64.7, Lymph % (Auto) 20.5, [place] % (Auto) 11.8 H, Eos % (Auto) 1.3, Baso % (Auto) 0.8, Absolute Neuts (auto) 4.9, Absolute Lymphs (auto) 1.54, Nucleated RBC % 0 12/28/21 07:57: Sodium 123 L, Potassium 5.1, Chloride 92 L, Carbon Dioxide 22.0, Anion Gap 9, BUN 20 H, Creatinine 0.98, Estim Creat Clear Calc 89.18, Est GFR (MDRD) Af Amer 104, Est GFR (MDRD) Non-Af 86, BUN/Creatinine Ratio 20.5 H, Glucose 98, Calcium 8.5 Radiography Diagnostic Testing: Radiology Impression Paracentesis Ultrasound 12/27/21 08:00 IMPRESSION: Ultrasound guided therapeutic paracentesis with 5900 cc of clear yellow ascites fluid aspirated and discarded. Electronically Signed: Diego Siddiqui, at 11:32 EDT , D/C Instructions Discharge Diet: No restrictions Call your doctor if you observe: Shortness of breath, Swelling in the ankles, Chest pain and Increased palpitations (irregular heartbeat) Please Follow Up With: Stephenie Barlow NP-C When: as scheduled by her, office will contact you Meaningful Use Info Meaningful Use Diagnoses (Choose all that apply): None applicable Discharge Plan Admission Admit Date/Time: 12/26/21 23:29 Primary Reason for Your Visit: Dizziness Attending Provider: Jerry Farrar Primary Care Provider: Jovi Rodriguez Consulting Providers: Alfa Camara ; Fabian Woodruff Instructions Additional Instructions / Restrictions: Patient Problems: Altered Health Status related to Hospitalization Patient Goals: *Optimal Level of Health *Keep Appointments *Medication Compliance *Remain Safe Discharge Orders/Prescriptions Prescriptions: New pantoprazole 20 mg Tablet,Delayed Release (Dr/Ec) 20 mg PO DAILY 30 Days Qty: 30 0RF escitalopram oxalate 10 mg Tablet 10 mg PO DAILY 30 Days Qty: 30 0RF furosemide 40 mg tablet 40 mg PO BID Qty: 60 0RF Continued ursodiol 250 mg tablet 250 mg PO QHS Qty: 30 6RF magnesium 250 mg tablet 250 mg PO DAILY Qty: 30 6RF midodrine 5 mg Tablet 10 mg PO TIDCM Qty: 90 0RF lactulose 20 gram/30 mL solution 20 g PO DAILY Qty: 900 6RF sodium chloride 1 gram tablet 2,000 mg PO TID Qty: 21 0RF Xifaxan 550 mg tablet 550 mg PO BID Qty: 60 6RF Changed spironolactone 50 mg Tablet 25 mg PO DAILY Qty: 30 2RF Discontinued furosemide [Lasix] 40 mg tablet 40 mg PO BID Qty: 60 2RF Rx Instructions: Hold for SBP less than 100 mmHg Referrals / Follow Up: Jovi Rodriguez DO [Primary Care Provider] - Disposition Disposition (needs filled in before D/C Order can be placed): Home, Self Care Documented by User: Dr. Jerry Farrar DO 12/28/21 13:15 Providers Date of Admission: 12/26/21 Reason For Visit: DIZZINESS, HYPONATREMIA Diagnosis Discharge Diagnosis (1) Abdominal ascites: Status: Acute Code(s): R18.8 - Other ascites Qualifiers: Ascites type: due to alcoholic cirrhosis Qualified Code(s): K70.31 - Alcoholic cirrhosis of liver with ascites Medications at Discharge Home Medications rifaximin 550 mg tablet (Xifaxan) 550 mg PO BID #60 tabs 10/01/21 magnesium 250 mg tablet 250 mg PO DAILY #30 tabs 10/20/21 ursodiol 250 mg tablet 250 mg PO QHS #30 tabs 10/20/21 lactulose 20 gram/30 mL oral solution 20 g (30 mL) PO DAILY #900 mL 12/17/21 midodrine 5 mg tablet 10 mg PO TIDCM #90 tabs 12/17/21 sodium chloride 1 gram tablet 2,000 mg PO TID #21 tabs 12/17/21 escitalopram oxalate 10 mg tablet 10 mg PO DAILY 30 days #30 tabs 12/28/21 furosemide 40 mg tablet 40 mg PO BID #60 tabs 12/28/21 pantoprazole 20 mg tablet,delayed release 20 mg PO DAILY 30 days #30 tabs 12/28/21 spironolactone 50 mg tablet 25 mg PO DAILY #30 tabs 12/28/21 ABG / Lab / Microbiology Data Result Diagrams: 12/28/21 04:03 12/28/21 07:57 Discharge Plan Admission Admit Date/Time: 12/26/21 23:29 Primary Reason for Your Visit: Dizziness Attending Provider: Jerry Farrar Primary Care Provider: Jovi Rodriguez Consulting Providers: Alfa Camara ; Fabian Woodruff Instructions Additional Instructions / Restrictions: Patient Problems: Altered Health Status related to Hospitalization Patient Goals: *Optimal Level of Health *Keep Appointments *Medication Compliance *Remain Safe Discharge Orders/Prescriptions Prescriptions: New pantoprazole 20 mg Tablet,Delayed Release (Dr/Ec) 20 mg PO DAILY 30 Days Qty: 30 0RF escitalopram oxalate 10 mg Tablet 10 mg PO DAILY 30 Days Qty: 30 0RF furosemide 40 mg tablet 40 mg PO BID Qty: 60 0RF Continued ursodiol 250 mg tablet 250 mg PO QHS Qty: 30 6RF magnesium 250 mg tablet 250 mg PO DAILY Qty: 30 6RF midodrine 5 mg Tablet 10 mg PO TIDCM Qty: 90 0RF lactulose 20 gram/30 mL solution 20 g PO DAILY Qty: 900 6RF sodium chloride 1 gram tablet 2,000 mg PO TID Qty: 21 0RF Xifaxan 550 mg tablet 550 mg PO BID Qty: 60 6RF Changed spironolactone 50 mg Tablet 25 mg PO DAILY Qty: 30 2RF Discontinued furosemide [Lasix] 40 mg tablet 40 mg PO BID Qty: 60 2RF Rx Instructions: Hold for SBP less than 100 mmHg Referrals / Follow Up: Jovi Rodriguez DO [Primary Care Provider] - Disposition Disposition (needs filled in before D/C Order can be placed): Home, Self Care Charges/Coding Addendum Addendum: Patient was seen and examined today independently of Alexandra Tinoco, his sodium today is 123, he is alert and appropriate. I talked with his who was in the room at the time of my examination. I stressed that they must follow through with getting an appointment with a transplant surgeon regarding a liver transplant or TIPS procedure. alert, oriented x3 and no apparent distress HEENT head/scalp atraumatic and moist oral mucous membranes Eyes EOMs intact bilaterally and conjunctivae normal Resp normal respiratory effort, no retractions and no use of accessory muscles Cardio regular rate, regular rhythm, S1 normal heart sound and S2 normal heart sound Cardio Narrative: Patient has a 2/6 systolic murmur noted at the left sternal border and apex GI GI Narrative: Patient's abdomen is distended, it is nontender to palpation, no rebound abdominal tenderness is noted Extremity normal to inspection Extremity Narrative: No clubbing or cyanosis of the lower legs Neuro oriented x3, CN's II-XII intact bilaterally, moves all extremities and no focal motor deficits Sensorium / Orientation: awake, alert, oriented to person, oriented to place and oriented to time Psych affect normal Final diagnosis: #1 hyponatremia-secondary to chronic liver cirrhosis from alcohol intake #2 chronic ascites secondary to chronic liver cirrhosis #3 chronic liver cirrhosis secondary to alcohol use I have reviewed Alexandra Tinoco's discharge summary including her medical assessment and plan of care and with the above additions endorse it. Total clinical time spent by myself addressing the patient's medical issues, reviewing the data, and collaborating with patient's care team: 20 minutes Visit Charges Inpatient E&M: [id number] Disch Hosp
--- NOTE | 2021-12-28 11:04 | PCM.PN.REN ---
Subjective Subjective Resting quietly in bed. No overnight events. Significant other bedside. Objective Data Objective Data Vital Signs: Vital Signs Temp Pulse Resp BP Pulse Ox 97.6 F L 81 18 101/62 99 12/28/21 10:09 12/28/21 10:09 12/28/21 10:09 12/28/21 10:09 12/28/21 10:09 Oxygen Delivery Method [5] Room Air Oxygen Delivery Method [4] Room Air Oxygen Delivery Method [3] Room Air Oxygen Delivery Method [2] Room Air Oxygen Delivery Method [1 ( Room Air Initial Baseline)] Oxygen Delivery Method Room Air Weight: 91.5 kg Body Mass Index (BMI) 29.7 Intake & Output: Intake and Output for Last 24 Hours 12/26/21 12/27/21 12/28/21 23:59 23:59 23:59 Intake Total 2665 / 2665 240 / 240 Output Total 5900 / 5900 Balance -3235 / -3235 240 / 240 Lab / Micro Data Result Diagrams: 12/28/21 04:03 12/28/21 07:57 Labs: Laboratory Results - last 24 hr 12/27/21 12:00: Sodium 119 L*, Potassium 5.1, Chloride 88 L, Carbon Dioxide 25.0, Anion Gap 6, BUN 18, Creatinine 1.05, Estim Creat Clear Calc 83.23, Est GFR (MDRD) Af Amer 96, Est GFR (MDRD) Non-Af 79, BUN/Creatinine Ratio 17.1, Glucose 121 H, Calcium 8.7 12/27/21 16:09: Sodium 120 L, Potassium 5.2 H, Chloride 90 L, Carbon Dioxide 20.0 L, Anion Gap 10, BUN 18, Creatinine 1.08, Estim Creat Clear Calc 80.92, Est GFR (MDRD) Af Amer 93, Est GFR (MDRD) Non-Af 77, BUN/Creatinine Ratio 16.7, Glucose 106, Calcium 8.7 12/27/21 19:50: Sodium 120 L, Potassium 5.4 H, Chloride 91 L, Carbon Dioxide 20.0 L, Anion Gap 9, BUN 18, Creatinine 1.09, Estim Creat Clear Calc 80.18, Est GFR (MDRD) Af Amer 92, Est GFR (MDRD) Non-Af 76, BUN/Creatinine Ratio 16.5, Glucose 117 H, Calcium 8.5 12/28/21 00:25: Sodium 121 L, Potassium 4.9, Chloride 90 L, Carbon Dioxide 23.0, Anion Gap 8, BUN 20 H, Creatinine 1.05, Estim Creat Clear Calc 83.23, Est GFR (MDRD) Af Amer 96, Est GFR (MDRD) Non-Af 79, BUN/Creatinine Ratio 19.0, Glucose 102, Calcium 8.5 12/28/21 04:03: Sodium 123 L, Potassium 4.8, Chloride 91 L, Carbon Dioxide 24.0, Anion Gap 8, BUN 19 H, Creatinine 1.04, Estim Creat Clear Calc 84.03, Est GFR (MDRD) Af Amer 97, Est GFR (MDRD) Non-Af 80, BUN/Creatinine Ratio 18.3, Glucose 92, Calcium 8.5 12/28/21 04:03: WBC 7.5, RBC 2.99 L, Hgb 10.0 L, Hct 28.0 L, MCV 93.6 D, MCH 35.1 H, MCHC 36.4 H, RDW Std Deviation 45.5 H, RDW Coeff of Teri 13.2, Plt Count 99 L, MPV 11.0, Immature Gran % (Auto) 0.900, Neut % (Auto) 64.7, Lymph % (Auto) 20.5, [place] % (Auto) 11.8 H, Eos % (Auto) 1.3, Baso % (Auto) 0.8, Absolute Neuts (auto) 4.9, Absolute Lymphs (auto) 1.54, Nucleated RBC % 0 12/28/21 07:57: Sodium 123 L, Potassium 5.1, Chloride 92 L, Carbon Dioxide 22.0, Anion Gap 9, BUN 20 H, Creatinine 0.98, Estim Creat Clear Calc 89.18, Est GFR (MDRD) Af Amer 104, Est GFR (MDRD) Non-Af 86, BUN/Creatinine Ratio 20.5 H, Glucose 98, Calcium 8.5 Radiography Diagnostic Testing: Radiology Impression Paracentesis Ultrasound 12/27/21 08:00 IMPRESSION: Ultrasound guided therapeutic paracentesis with 5900 cc of clear yellow ascites fluid aspirated and discarded. Electronically Signed: Diego Siddiqui, at 11:32 EDT , Physical Exam Narrative Const: Alert and oriented HEENT: Head is normocephalic, oral mucosa moist Respiratory: Lung sounds clear anteriorly Cardio: S1, S2, RRR GI: Abdomen soft, rounded Extremities: No pitting edema Assessment & Plan Assessment/Plan (1) Hyponatremia: (2) Dizziness: (3) Abdominal ascites: QUALIFIERS: Ascites type: due to alcoholic cirrhosis Qualified Code(s): K70.31 - Alcoholic cirrhosis of liver with ascites PLAN: Plan - Acute on chronic hypervolemic hyponatremia secondary to cirrhosis. Sodium 117 on admission. Sodium yonathan 113 (before paracentesis) and sodium 119 after paracentesis. Baseline sodium has been ranging around 121-128. Sodium is 123 currently. Back to patient's baseline. His last sodium level before this admission was on December 17 and resulted at 123. Patient has limited options for hyponatremia as he is not a candidate for tolvaptan or urea due to cirrhosis. -Continue on sodium chloride tablets 2gm 3 times daily, Lasix 40 mg twice daily and Aldactone 25 mg daily at time of discharge. Patient has been using Nu-salt at home. Aware to avoid this as it is higher in potassium. Advised patient to continue fluid restriction of 1.5 L/day. - Blood pressures acceptable on midodrine 10 mg 3 times daily. - patient is scheduled for paracentesis twice weekly. -Patient will have follow-up arranged at time of discharge.
--- NOTE | 2021-12-28 11:32 | CASEMGMT ---
This RN CM to room to discuss d/c planning and states she would like script for OP therapy. Script obtained and provided to at this time. Pt/ unsure if/when they will use but would like to have. SStaten RN CM
--- NOTE | 2021-12-28 12:15 | PHA.DC.MR ---
Pharmacy Service has performed discharge medication reconciliation for this patient. The patient's discharge medication list was reviewed for discrepancies and discrepancies were resolved. Medication education papers prepared, patient discharged when I attempted to securities counselor. Home Medications rifaximin 550 mg tablet (Xifaxan) 550 mg PO BID #60 tabs 10/01/21 magnesium 250 mg tablet 250 mg PO DAILY #30 tabs 10/20/21 ursodiol 250 mg tablet 250 mg PO QHS #30 tabs 10/20/21 lactulose 20 gram/30 mL oral solution 20 g (30 mL) PO DAILY #900 mL 12/17/21 midodrine 5 mg tablet 10 mg PO TIDCM #90 tabs 12/17/21 sodium chloride 1 gram tablet 2,000 mg PO TID #21 tabs 12/17/21 escitalopram oxalate 10 mg tablet 10 mg PO DAILY 30 days #30 tabs 12/28/21 furosemide 40 mg tablet 40 mg PO BID #60 tabs 12/28/21 pantoprazole 20 mg tablet,delayed release 20 mg PO DAILY 30 days #30 tabs 12/28/21 spironolactone 50 mg tablet 25 mg PO DAILY #30 tabs 12/28/21
== END 2021-12-28 12:00 | disposition home or self-care (01) | DRG 641 ==
LOC: ED 20:17 → PCU 23:54
PROVIDERS: Nurse Practitioner Adult Health; Nurse Practitioner Family; Emergency Provider Emergency Medicine; PCP Student in an Organized Health Care Education/Training Program; Visit Provider Internal Medicine
DX: E87.1 Hypo-osmolality and hyponatremia (principal); K70.31 Alcoholic cirrhosis of liver with ascites; K70.11 Alcoholic hepatitis with ascites; I95.1 Orthostatic hypotension; F41.9 Anxiety disorder, unspecified; E87.5 Hyperkalemia; F10.10 Alcohol abuse, uncomplicated; E86.1 Hypovolemia; Y90.0 Blood alcohol level of less than 20 mg/100 ml; F32.A Depression, unspecified; Z72.89 Other problems related to lifestyle; Z79.899 Other long term (current) drug therapy
CPT/HCPCS: 36415; 49083; 70450; 71045; 80048; 80053; 81001; 82077; 82140; 83690; 83735; 83930; 83935; 84300; 84484; 85025; 85610; 93005; 97802; 99284; 99406; J7030; P9047; A4216

== ENCOUNTER → 2021-12-30 | Outpatient (CLI) | payer OTHER, SELFPAY ==
--- NOTE | 2021-12-30 10:53 | US_ITS ---
PROCEDURE: ULTRASOUND GUIDED PARACENTESIS CLINICAL HISTORY: Male, 51 years old. CIRRHOSIS CONSENT: PROCEDURE: Ultrasound guided paracentesis. DATE OF EXAMINATION: 12/30/2021. INDICATION: Male, 51 years old. Ascites. PHYSICIAN: Diego Siddiqui DO TECHNIQUE: The risks, benefits, and alternatives to the procedure were explained to the patient. The specific risks of bleeding, infection, and damage to bowel were detailed and accepted. Witnessed informed consent was obtained. The abdomen was ultrasonographically surveyed. An appropriate pocket of fluid was identified at the right lower quadrant. The skin were cleaned and prepped in the usual sterile fashion. Using ultrasound guidance, the peritoneal cavity was accessed with a 5-Angolan paracentesis needle/catheter system. The trocar was removed. A total of 4450 ml of clear yellow ascites fluid were removed from the peritoneal cavity and discarded. The catheter was removed and a sterile dressing was applied. The procedure was well tolerated. The patient was discharged in stable condition US/Paracentesis with US IMPRESSION: Ultrasound guided therapeutic paracentesis. Electronically Signed: Diego Siddiqui, at 13:21 EDT ,
[2021-12-30 11:11] VITALS: BP 105/54; BP 108/62; BP 111/39; PULSE 68; PULSE 73; PULSE 75; RESP 16; RESP 18; TEMP 36.2; O2SAT 100
== END | disposition home or self-care (01) ==
PROVIDERS: PCP Student in an Organized Health Care Education/Training Program; Referring Provider Internal Medicine Gastroenterology; Visit Provider Internal Medicine Gastroenterology
DX: K74.60 Unspecified cirrhosis of liver (principal)
CPT/HCPCS: 49083; A4216

== ENCOUNTER → 2022-01-03 | Outpatient (CLI) | payer OTHER, SELFPAY ==
--- NOTE | 2022-01-03 10:23 | US_ITS ---
PROCEDURE: Ultrasound guided paracentesis. DATE OF EXAMINATION: 01/03/2022. INDICATION: Male, 51 years old. Ascites. PHYSICIAN: Austyn Aguilar M.D. TECHNIQUE: The risks, benefits, and alternatives to the procedure were explained to the patient. The specific risks of bleeding, infection, and damage to bowel were detailed and accepted. Witnessed informed consent was obtained. The abdomen was ultrasonographically surveyed. An appropriate pocket of fluid was identified at the right lower quadrant. The skin were cleaned and prepped in the usual sterile fashion. Using ultrasound guidance, the peritoneal cavity was accessed with a 5-[place] paracentesis needle/catheter system. The trocar was removed. A total of 3200 ml of brian-colored fluid were removed from the peritoneal cavity. The catheter was removed and a sterile dressing was applied. The procedure was well tolerated. US/Paracentesis with US IMPRESSION: Ultrasound guided paracentesis. Electronically Signed: Austyn Aguilar MD at 12:07 EDT ,
[2022-01-03 10:37] VITALS: BP 101/60; BP 101/66; BP 91/58; PULSE 71; PULSE 72; RESP 16; RESP 18; RESP 20; TEMP 36.5; O2SAT 100
[2022-01-03] MEDS: Lidocaine 2% (20 ml mdv) 20 ML Vial INFILT (11:23)
--- NOTE | 2022-01-03 11:24 | CASEMGMT ---
Social Work Summary: Spoke with patient's /caregiver Carol Dickerson today for approximately 50 minutes via phone, as Carol had called and left this sign writer letterer or painter a message on Monday12.31.2021 asking for a call back and help regarding patient's insurance coverage and help with transplant. This sign writer letterer or painter provided much active listening, reflection, and reframing of information that Carol provided. Emotional support provided, as from Carol's description Carol is providing caregiving in all facets of life (professionally and personally). Carol discussed limited support system from other family members, thereby leaving much of the caregiving and healthcare navigating issues for this patient to Carol. Patient related concerns addressed by Carol: Insurance: Carol has expressed concerns about patient's current insurance not covering a hospital in [place] for transplant services. Concern that cannot find an insurance to cover in both [place] and [place]. Carol mentioned [facility] as an option for transplant services, but Carol is leary due to this being a teaching hospital. Carol reports [facility] referred patient to [place], as [facility] will not provide transplant due to patient not being COVID vaccinated. Disability claim: Carol expressed frustration that has been trying to get patient on disability and just found out that patient's claim has been sitting in a computer and not been processed for a couple of months now. Multiple diagnoses: Carol expressed concern about patient's various diagnoses and managing care. Expressed concern about patient having a diagnoses of Wernicke encephalopathy, and not knowing about this as well as question about whether patient received treatment when diagnosis occurred. reports has spoken with appropriate parties at hospital to help navigate these questions. Patient adherence: Carol discussed concern about patient not adhering to sodium restrictions, despite Carol's efforts to help manage this. Carol yury to voice that not sure patient is able to grasp the severity of illness. Interventions: Educated to the patient navigator at [facility] as an option to consult, to see if there are any other insurances on the marketplace that would be comparable or better to meet patient's needs. Educated to [facility] website, where can find covered insurances there, and suggested Carol compare what is listed on [facility] website, and see if navigator can determine whether any of these options are possible from the marketplace. Educated that finding an insurance that covers in both states could be difficult with the options patient has. Educated that [facility] has a financial assistance tab on website, so would be another thing to talk to the hospital about if patient is underinsured. Educated to local number for the [place] Social Security office, as sometimes easier to reach this local office. Educated to palliative care, as a possible option to help manage patients symptoms as well as potentially coordinate with other medical providers to ensure that all providers are on the same page. Carol agreed to consider. Educated Carol to caregiver burnout, secondary/vicarious trauma that many health customer care specialist are experiencing in today's world. Talked through focusing on what Carol has control over as a caregiver and what does not, making smaller goals/expectations as to what Carol can realistically do, as well as need for self-care in light of care the Carol is giving to so many others. Framed the need for self care as necessary to be able to continue helping the patient navigate his complex medical needs. Carol expressed receptivity to consider self-care and palliative services. Expressed plan to look at some of the insurance options discussed today. No other services requested or indicated at this time. -PEDRO Tamayo, GUARD DANCE HALL
== END | disposition home or self-care (01) ==
LOC: US 10:21
PROVIDERS: PCP Student in an Organized Health Care Education/Training Program; Referring Provider Internal Medicine Gastroenterology; Visit Provider Internal Medicine Gastroenterology
DX: K74.60 Unspecified cirrhosis of liver (principal); R18.8 Other ascites
CPT/HCPCS: 49083; A4216

== ENCOUNTER 2022-01-05 18:10 | Observation (INO) | payer OTHER, SELFPAY ==
[2022-01-05 17:08] VITALS: BMI 29.5
[2022-01-05 17:23] VITALS: BP 114/73; PULSE 63; RESP 16; TEMP 36.8; O2SAT 100
[2022-01-05 17:41] VITALS: PULSE 69
--- NOTE | 2022-01-05 18:14 | PCM.HP.STD ---
HPI - General General Date of Admission: 01/05/22 HPI Narrative JOSE CRUZ THOMPSON, is a 51 M who presents to outside hospital after syncopal episode. He states that he was in the bathroom and when he was finished and he got up he felt a little bit dizzy and he started walking towards his bedroom when he passed out. It was an unwitnessed fall. When he woke up he felt that he was back to his baseline. At the outside hospital he was noted to be hyponatremic however this appears to be his baseline with a sodium of 123 which is what it was about a week ago. Imaging was negative for any type of injury. 2 days ago he did have a little over 3 L of fluid taken off of his abdomen with paracentesis due to his alcoholic hepatitis. Of note he was also found to have an RICKY with a creatinine of 1.78 at the outside hospital. We will repeat labs in the morning, he was given 2 L of fluid in the outside hospital's ER and blood pressure here on admission was stable with a systolic of 114. [facility] Medical History (Updated 01/05/22 @ 18:[address] Dustin Metz MD) Abdominal ascites Alcoholic hepatitis Anemia Chronic hyponatremia Cirrhosis of liver Hyperbilirubinemia Nicotine dependence Rotator cuff arthropathy of left shoulder Thrombocytopenia Wernicke encephalopathy Home Medications rifaximin 550 mg tablet (Xifaxan) 550 mg PO BID #60 tabs 10/01/21 [Rx Last Taken Unknown] magnesium 250 mg tablet 250 mg PO DAILY #30 tabs 10/20/21 [Rx Last Taken Unknown] ursodiol 250 mg tablet 250 mg PO QHS #30 tabs 10/20/21 [Rx Last Taken Unknown] midodrine 5 mg tablet 10 mg PO TIDCM #90 tabs 12/17/21 [Rx Last Taken Unknown] escitalopram oxalate 10 mg tablet 10 mg PO DAILY 30 days #30 tabs 12/28/21 [Rx Last Taken Unknown] furosemide 40 mg tablet 40 mg PO BID #60 tabs 12/28/21 [Rx Last Taken Unknown] pantoprazole 20 mg tablet,delayed release 20 mg PO DAILY 30 days #30 tabs 12/28/21 [Rx Last Taken Unknown] sodium chloride 1 gram tablet 2,000 mg PO TID 30 days #180 tabs 12/28/21 [Rx Last Taken Unknown] spironolactone 50 mg tablet 25 mg PO DAILY #30 tabs 12/28/21 [Rx Last Taken Unknown] Vitamin B-1 100 mg PO/SL DAILY 01/05/22 [History Last Taken Unknown] lactulose 20 gram/30 mL oral solution 20 g PO TID 01/05/22 [History Last Taken Unknown] Allergy/AdvReac Type Severity Reaction Status Date / Time Bandaid Allergy Skin tear Uncoded 12/26/21 19:45 when removed Family History Other Cancer Diabetes Heart disease Surgical History H/O repair of rotator cuff Social History Smoking Status: Never smoker ROS Constitutional Constitutional: Denies chills, fatigue, fever(s) or malaise Eyes Eyes: Denies blurry vision ENT HEENT: Denies headache(s) or nasal discharge Cardiovascular Cardiovascular: Denies chest pain, dyspnea on exertion or syncope Respiratory/Chest Respiratory/Chest: Denies cough, shortness of breath at rest or shortness of breath with exertion Gastrointestinal Gastrointestinal: Denies constipation, diarrhea, nausea or vomiting Genitourinary Genitourinary: Denies dysuria Neurologic Neurologic: Reports tremor(s); Denies focal weakness or numbness Psychiatric Psychiatric: Denies anxiety or depression Vital Signs Vital Signs Vital Signs: 01/05/22 18:00 01/05/22 17:23 Temperature 98.2 F Temperature Source Oral Pulse Rate 63 Respiratory Rate 16 Respiratory Effort Normal Respiratory Depth Normal Respiratory Pattern Normal Blood Pressure 114/73 Blood Pressure Mean 86 Blood Pressure Source Monitor Blood Pressure Position Semi-Fowlers Blood Pressure Location Right Arm Pulse Ox 100 Oxygen Delivery Method Room Air Room Air Weight Weight: 199 lb 15.348 oz Body Mass Index (BMI) 29.5 Physical Exam Narrative Const alert, oriented x3 and no apparent distress General Appearance: cooperative HEENT normocephalic Mouth: dry mucous membranes Eyes PERRL, EOMs intact bilaterally and conjunctivae normal Neck supple and no JVD Resp normal respiratory effort, no retractions, no use of accessory muscles and clear to auscultation bilaterally Auscultation: Negative for crackles, rales, rhonchi or wheezes Cardio regular rate, regular rhythm, S1 normal heart sound, S2 normal heart sound and no murmurs GI soft to palpation and non-tender; Negative for hepatosplenomegaly Inspection: abdominal distention and fluid wave present Extremity no clubbing, cyanosis or edema Skin no rashes or lesions noted, jaundiced Neuro no focal motor deficits and no sensory deficits noted Psych affect normal Appearance: appropriate Assessment & Plan Assessment/Plan (1) Syncope: PLAN: Plan 1. Syncope ? He has a lot of reasons to be syncopal he is chronically hyponatremic and he just had a little over 3 L removed from his abdomen on 01/03/2022 ? He did just have 2 L of fluid infused at the outside hospital, will hold off on his home Lasix and recheck his creatinine in the morning, in the outside hospital is 1.78 ? His sodium is at baseline at 123, will continue with his salt tablets ? I do believe at this point dizziness is going to be a chronic state for him given how finally balance his fluid status will have to be. 2. 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 Bilirubin is always over 4, and he is chronically jaundiced ? He was recently hospitalized and was supposed to be being evaluated for possible TIPS procedure as an outpatient ? In the meantime we will continue with his lactulose and his other liver medications ? I did stressed to him the importance of outpatient follow-up for his liver disease ? States that he was post have another paracentesis tomorrow but will hold off given his syncopal episode ? Continue with midodrine, Protonix, and his salt tabs ? We will hold his Lasix and his Aldactone pending further evaluation with lab work in the morning 3. Anxiety/depression ? Stable ? Continue with Lexapro DVT: SCDs Charges/Coding Visit Charges OBSV E&M: 49774 Initial observation care L3
--- NOTE | 2022-01-05 18:17 | ECHOCS_ITS ---
Reason For Study: SYNCOPE/NEAR SYNCOPE Procedure This was a 2D Doppler, Color Flow transthoracic echocardiogram. The study was technically difficult. Exam performed portable in patient room. Left Ventricle Normal LV size. Left ventricular systolic function is hyperdynamic. The estimated ejection fraction is 70-75 %. No evidence for diastolic dysfunction. No regional wall motion abnormalities noted. Right Ventricle Normal RV size. Normal systolic function. Atria Normal left atrium. Normal right atrium. No doppler evidence for ASD. Mitral Valve There is moderate mitral annular calcification. There is no mitral valve stenosis. No mitral valve insufficiency. Tricuspid Valve There is no tricuspid stenosis. Trivial tricuspid valve insufficiency. Unable to estimate RV systolic pressure due to insufficient tricuspid regurgitant envelope. Aortic Valve Trisinus/trileaflet aortic valve. Aortic sclerosis, no stenosis. There is no aortic stenosis. No aortic valve insufficiency. Pulmonic Valve There is no pulmonic valvular stenosis. No pulmonic valve insufficiency. Great Vessels Normal aortic root. Pericardium/Pleural Trivial pericardial effusion. Medication Diluted definity 2ml given slow IV push to enhance endocardial definition. MMode/2D Measurements & Calculations LVIDd: 4.6 cm IVSd: 1.1 cm Ao root diam: 3.0 cm LVIDs: 2.3 cm LVPWd: 1.1 cm RVDd: 3.5 cm FS: 49.2 % LAV(MOD-bp): 51.1 ml LVAd ap4: 36.5 cm2 SV(MOD-sp4): 92.9 ml LAV(MOD-bp) Indexed: 24.8 ml/m2 LVLd ap4: 8.9 cm LAV(MOD-sp2): 49.1 ml EDV(MOD-sp4): 121.1 ml LAV(MOD-sp4): 47.6 ml EDV(sp4-el): 127.4 ml LVAs ap4: 15.5 cm2 LVLs ap4: 7.1 cm ESV(MOD-sp4): 28.1 ml ESV(sp4-el): 28.7 ml EF(MOD-sp4): 76.8 % EF(sp4-el): 77.5 % SV(sp4-el): 98.7 ml LA A4 area: 17.4 cm2 LA dimension(2D): 3.4 cm RA A4 area: 15.7 cm2 Time Measurements MV dec time: 0.31 sec Doppler Measurements & Calculations MV E max higinio: 65.5 cm/sec Lat Peak E' Higinio: 13.9 cm/sec Med Peak E' Higinio: 10.2 cm/sec MV A max higinio: 75.5 cm/sec E/E' lat: 4.7 E/E' med: 6.4 MV E/A: 0.87 Ao V2 max: 236.0 cm/sec LV V1 max: 204.3 cm/sec PA V2 max: 108.9 cm/sec Ao max P.3 mmHg LV V1 max P.7 mmHg TR max higniio: 219.8 cm/sec TR max P.3 mmHg ECHO/Echo Complete W/ Contrast Interpretation Summary The estimated ejection fraction is 70-75 %. No evidence for diastolic dysfunction. Trivial tricuspid valve insufficiency. Ordering Physician: Dustin Metz Referring Physician: LUIS HOBBS Performed By: Andreia Walters RDCS
[2022-01-05 19:00] VITALS: PULSE 62
[2022-01-05] MEDS: Ursodiol 250 MG Tablet PO (20:57)
[2022-01-05] MEDS: Lactulose 20 GM/30 ML UDC PO (20:57)
[2022-01-05] MEDS: Sodium Chloride 1 GM Tablet 2 GM PO (20:57)
[2022-01-05] MEDS: rifAXIMin 550 MG Tablet PO (20:58)
[2022-01-05 21:02] VITALS: BP 104/60; PULSE 71; RESP 20; TEMP 36.8; O2SAT 100
[2022-01-06 02:01] VITALS: PULSE 95
[2022-01-06 03:00] VITALS: BP 104/61; PULSE 72; RESP 20; TEMP 36.8; O2SAT 99
[2022-01-06] MEDS: Lactulose 20 GM/30 ML UDC PO ×2 (06:23→15:34)
[2022-01-06] MEDS: Sodium Chloride 1 GM Tablet 2 GM PO ×2 (06:23→15:34)
[2022-01-06 07:05] LABS: Absolute Lymphocyte Count 1.48 X10^3/uL (0.83-4.51); Absolute Neutrophil Count 5.4 X10^3/uL (2.0-7.7); Basophil# 0.07 X10^3/uL; Basophil% 0.8 % (0-1); Eosinophil# 0.13 X10^3/uL; Eosinophils% 1.6 % (0-5); Hematocrit 31.9 % (40-54); Hemoglobin 11.6 g/dL (13.0-16.5); Lymphocyte # 1.48 X10^3/ul (0.83-4.51); Lymphocyte % 17.8 % (19-41); Mean Corp Hgb Conc 36.4 g/dL (32-36); Mean Corpuscular Hgb 35.7 pg (27.0-32.0); Mean Corpuscular Volume 98.2 fL (80-94); Mean Platelet Vol. 10.2 fl (6.2-12.0); Monocyte# 1.14 X10^3/uL; Monocyte% 13.7 % (0-10); NRBC Flagged by Analyzer 0 % (0-5); Neutrophil # 5.39 X10^3/uL (2.7-7.7); Platelet Count 147 K/mm3 (150-450); RBC Distribution Width CV 13.3 % (11.6-14.6); RBC Distribution Width SD 47.9 fl (35.1-43.9); Red Blood Count 3.25 M/mm3 (4.6-6.2); White Blood Count 8.3 K/mm3 (4.4-11.0)
[2022-01-06 07:25] VITALS: PULSE 82
[2022-01-06 07:38] LABS: ALB/GLOB Ratio 0.8 RATIO (0.9-2.4); AST(SGOT) 74 U/L (15-37); Alanine Aminotransfer ALT/SGPT 40 U/L (16-61); Albumin, Serum 2.2 g/dL (3.2-5.0); Alkaline Phosphatase 154 U/L (45-117); Anion Gap 6 (5-15); BUN 24 mg/dL (7-18); BUN/Creat Ratio 18.9 RATIO (10-20); Calcium,Total 8.7 mg/dL (8.5-10.1); Chloride 102 mmol/L (98-107); Creatinine, Serum 1.27 mg/dL (0.70-1.30); EST Glomerular Filtration Rate 64 mL/min (>60); Est Glom Filt Rate - Afr Amer 77 mL/min (>60); Estimated Creatinine Clearance 68.81 ml/min; Globulin 2.9 g/dL (2.2-4.2); Glucose 99 mg/dL (74-106); Potassium 4.5 mmol/L (3.5-5.1); Protein, Total 5.1 g/dL (6.4-8.2); Sodium Level 129 mmol/L (136-145)
[2022-01-06 09:00] VITALS: BP 107/59; PULSE 67; RESP 16; TEMP 36.6; O2SAT 98
[2022-01-06] MEDS: rifAXIMin 550 MG Tablet PO (09:06)
[2022-01-06] MEDS: Pantoprazole Sodium 20 MG Tablet PO (09:06)
[2022-01-06] MEDS: Midodrine HCl 5 MG Tablet 10 MG PO ×2 (09:06→12:43)
[2022-01-06] MEDS: Escitalopram Oxalate 10 MG Tablet PO (09:06)
[2022-01-06 11:30] VITALS: PULSE 67
--- NOTE | 2022-01-06 15:20 | DCINST_ITS ---
Discharge Instructions Diet Discharge Diet: No restrictions Activity Discharge Activity: Return to Normal Activity Weight Bearing Status: Full weight bearing Follow Up Care Test Results: Test results from this visit will be discussed in further detail at your follow- up appointment, if applicable. Discharge Plan Admission Admit Date/Time: 01/05/22 18:10 Primary Reason for Your Visit: syncope Attending Provider: Jerry Farrar Primary Care Provider: Jovi Rodriguez Consulting Providers: Israel Gardner ; Dustin Metz Discharge Orders/Prescriptions Prescriptions: Continued ursodiol 250 mg tablet 250 mg PO QHS Qty: 30 6RF sodium chloride 1 gram tablet 2,000 mg PO TID 30 Days Qty: 180 0RF midodrine 5 mg Tablet 10 mg PO TIDCM Qty: 90 0RF pantoprazole 20 mg Tablet,Delayed Release (Dr/Ec) 20 mg PO DAILY 30 Days Qty: 30 0RF escitalopram oxalate 10 mg Tablet 10 mg PO DAILY 30 Days Qty: 30 0RF spironolactone 50 mg Tablet 25 mg PO DAILY Qty: 30 2RF furosemide 40 mg tablet 40 mg PO BID Qty: 60 0RF Vitamin B-1 100 mg PO/SL DAILY lactulose 20 gram/30 mL solution 20 g PO TID No Action magnesium 250 mg tablet 250 mg PO DAILY Xifaxan 550 mg tablet 550 mg PO BID Referrals / Follow Up: Jovi Rodriguez DO [Primary Care Provider] - FriendJesus DO [STAFF PHYSICIAN] - Within 2 Weeks Disposition Disposition (needs filled in before D/C Order can be placed): Home, Self Care
[2022-01-06 15:45] VITALS: BP 108/60; PULSE 66; RESP 16; TEMP 36.6; O2SAT 100
--- NOTE | 2022-01-06 16:33 | NURSING ---
patients called to review discharge instructions. made aware of paracentesis appt for 01/07/22 at 1300.
--- NOTE | 2022-01-06 19:42 | PCM.DC.SUM ---
Providers Date of Admission: 01/05/22 Date of Discharge: 01/06/22 Primary Care Physician: Dr. Luis Hobbs DO Reason For Visit: HYPNYTREMIA/ACUTE KIDNEY INJURY/SYNC P Diagnosis Discharge Diagnosis (1) Syncope: Status: Resolved Code(s): R55 - Syncope and collapse Plan 1. syncope-etiology unclear #2 chronic liver cirrhosis secondary to alcoholism #3 ascites secondary to liver cirrhosis #4 hyponatremia secondary to chronic liver cirrhosis #5 chronic anxiety/depression Medications at Discharge Home Medications ursodiol 250 mg tablet 250 mg PO QHS #30 tabs 10/20/21 midodrine 5 mg tablet 10 mg PO TIDCM #90 tabs 12/17/21 escitalopram oxalate 10 mg tablet 10 mg PO DAILY 30 days #30 tabs 12/28/21 furosemide 40 mg tablet 40 mg PO BID #60 tabs 12/28/21 pantoprazole 20 mg tablet,delayed release 20 mg PO DAILY 30 days #30 tabs 12/28/21 sodium chloride 1 gram tablet 2,000 mg PO TID 30 days #180 tabs 12/28/21 spironolactone 50 mg tablet 25 mg PO DAILY #30 tabs 12/28/21 Vitamin B-1 100 mg PO/SL DAILY vitamin 01/05/22 lactulose 20 gram/30 mL oral solution 20 g PO TID liver failure 01/05/22 magnesium 250 mg tablet 250 mg PO DAILY supplement 01/06/22 rifaximin 550 mg tablet (Xifaxan) 550 mg PO BID diarrhea 01/06/22 rifaximin 550 mg tablet (Xifaxan) 550 mg PO BID 7 days #14 tabs 01/07/22 Hospital Course Operations None Procedures None Summary of Care Provided Minutes Spent on Discharge: 30 Hospital Course: This 51-year-old white male was placed into observation status on PCU after he went to an outside hospital for evaluation of syncope. Labs obtained in the outside emergency room revealed the patient's sodium to be low with a sodium of 123, his creatinine was also noted to be elevated at 1.78 at the outside hospital. Patient was placed in observation status on PCU and he was monitored on telemetry, his diuretics were held, patient's repeat sodium level was 129. Patient ambulated without difficulty while in the hospital, he was felt to be stable for discharge on 01/06/2022. Patient was examined on 01/06/2022: On examination he appeared in good health and spirits. Vital signs as documented. Skin warm and dry and without overt rashes. Neck without JVD, neck was supple, trachea midline, thyroid was normal. Lungs clear bilaterally, normal air movement was noted. Heart exam notable for regular rhythm, normal sounds and absence of murmurs, rubs or gallops. Abdomen unremarkable and without evidence of organomegaly, masses, or abdominal aortic enlargement. Bowel sounds are present, abdomen is not distended. Extremities nonedematous, no cyanosis was noted, no clubbing was noted. Neuro: Cranial nerves II through XII are grossly intact, no focal motor deficits were noted, sensation to light touch and pinprick intact, motor exam 5/5 throughout. Psych: Patient is alert and oriented x3, he does not appear anxious or depressed, he does not appear agitated. Patient was discharged home in stable condition on 01/06/2022-the etiology of the patient's syncopal episode was unknown. Weight / BMI Weight Weight: 90.5 kg Body Mass Index (BMI) 29.5 ABG / Lab / Microbiology Data Result Diagrams: 01/06/22 06:39 01/06/22 06:39 Laboratory: Laboratory Results - last 24 hr 01/06/22 06:39: WBC 8.3, RBC 3.25 L, Hgb 11.6 L, Hct 31.9 L, MCV 98.2 H, MCH 35.7 H, MCHC 36.4 H, RDW Std Deviation 47.9 H, RDW Coeff of Teri 13.3, Plt Count 147 L, MPV 10.2, Immature Gran % (Auto) 1.100 H, Neut % (Auto) 65.0, Lymph % (Auto) 17.8 L, [place]ah % (Auto) 13.7 H, Eos % (Auto) 1.6, Baso % (Auto) 0.8, Absolute Neuts (auto) 5.4, Absolute Lymphs (auto) 1.48, Nucleated RBC % 0 01/06/22 06:39: Sodium 129 L, Potassium 4.5, Chloride 102, Carbon Dioxide 21.0, Anion Gap 6, BUN 24 H, Creatinine 1.27, Estim Creat Clear Calc 68.81, Est GFR (MDRD) Af Amer 77, Est GFR (MDRD) Non-Af 64, BUN/Creatinine Ratio 18.9, Glucose 99, Calcium 8.7, Total Bilirubin 2.50 H, AST 74 H, ALT 40, Alkaline Phosphatase 154 H, Total Protein 5.1 L, Albumin 2.2 L, Globulin 2.9, Albumin/Globulin Ratio 0.8 L Microbiology: Microbiology 01/06/22 09:07 Nasal Secretion SARS-CoV-2 Antigen (Rapid) - Final Radiography Diagnostic Testing: Radiology Impression Echocardiogram 01/05/22 18:17 Interpretation Summary The estimated ejection fraction is 70-75 %. No evidence for diastolic dysfunction. Trivial tricuspid valve insufficiency. Ordering Physician: Dustin Metz Referring Physician: LUIS HOBBS Performed By: Andreia Walters RDCS D/C Instructions Discharge Diet: No restrictions Weight Bearing Status: Full weight bearing Meaningful Use Info Meaningful Use Diagnoses (Choose all that apply): None applicable Discharge Plan Admission Admit Date/Time: 01/05/22 18:10 Primary Reason for Your Visit: syncope Attending Provider: Jerry Farrar Primary Care Provider: Luis Hobbs Consulting Providers: Israel Gardner ; Dustin Metz F Instructions Additional Instructions / Restrictions: scheduled for Paracentesis MondayJanuary 07 at 1pm Discharge Orders/Prescriptions Prescriptions: Continued ursodiol 250 mg tablet 250 mg PO QHS Qty: 30 6RF sodium chloride 1 gram tablet 2,000 mg PO TID 30 Days Qty: 180 0RF midodrine 5 mg Tablet 10 mg PO TIDCM Qty: 90 0RF pantoprazole 20 mg Tablet,Delayed Release (Dr/Ec) 20 mg PO DAILY 30 Days Qty: 30 0RF escitalopram oxalate 10 mg Tablet 10 mg PO DAILY 30 Days Qty: 30 0RF spironolactone 50 mg Tablet 25 mg PO DAILY Qty: 30 2RF furosemide 40 mg tablet 40 mg PO BID Qty: 60 0RF Vitamin B-1 100 mg PO/SL DAILY lactulose 20 gram/30 mL solution 20 g PO TID No Action magnesium 250 mg tablet 250 mg PO DAILY Xifaxan 550 mg tablet 550 mg PO BID Xifaxan 550 mg tablet 550 mg PO BID 7 Days Qty: 14 0RF Referrals / Follow Up: Luis Hobbs DO [Primary Care Provider] - Friend,DO Jesus [STAFF PHYSICIAN] - Within 2 Weeks Disposition Disposition (needs filled in before D/C Order can be placed): Home, Self Care Charges/Coding Visit Charges OBSV E&M: 24210 Observation care discharge
== END 2022-01-06 15:23 | disposition home or self-care (01) ==
PROVIDERS: Family Medicine; Admitting Provider Internal Medicine; PCP Student in an Organized Health Care Education/Training Program; Visit Provider Internal Medicine
DX: R55 Syncope and collapse (principal); N17.9 Acute kidney failure, unspecified; K70.31 Alcoholic cirrhosis of liver with ascites; K70.10 Alcoholic hepatitis without ascites; E87.1 Hypo-osmolality and hyponatremia; F32.A Depression, unspecified; F41.9 Anxiety disorder, unspecified; Z79.899 Other long term (current) drug therapy
CPT/HCPCS: 36415; 80053; 85025; 87426; 93306; 97162; 97166; 97802; 99218; 99406; Q9957; A4216; C8929; G0378

== ENCOUNTER → 2022-01-07 | Outpatient (CLI) | payer BC, SELFPAY ==
--- NOTE | 2022-01-07 12:40 | US_ITS ---
PROCEDURE: Ultrasound guided paracentesis. DATE OF EXAMINATION: 01/07/2022. INDICATION: Male, 51 years old. Ascites. PHYSICIAN: Austyn Aguilar M.D. TECHNIQUE: The risks, benefits, and alternatives to the procedure were explained to the patient. The specific risks of bleeding, infection, and damage to bowel were detailed and accepted. Witnessed informed consent was obtained. The abdomen was ultrasonographically surveyed. An appropriate pocket of fluid was identified at the left lower quadrant. The skin were cleaned and prepped in the usual sterile fashion. Using ultrasound guidance, the peritoneal cavity was accessed with a 5-Occitan paracentesis needle/catheter system. The trocar was removed. A total of 4900 ml of brian-colored fluid were removed from the peritoneal cavity. The catheter was removed and a sterile dressing was applied. The procedure was well tolerated. US/Paracentesis with US IMPRESSION: Ultrasound guided paracentesis. Electronically Signed: Austyn Aguilar MD at 14:14 EDT ,
[2022-01-07 12:53] VITALS: BP 101/55; BP 111/54; BP 112/64; BP 114/60; BP 115/52; BP 119/64; PULSE 66; PULSE 70; PULSE 74; PULSE 75; PULSE 79; RESP 16; RESP 18; TEMP 36.3; O2SAT 100; O2SAT 98; O2SAT 99
[2022-01-07] MEDS: Lidocaine 2% (20 ml mdv) 20 ML Vial INFILT (13:00)
[2022-01-07] MEDS: Ondansetron 4 MG/2 ML Vial IV (13:23)
== END | disposition home or self-care (01) ==
PROVIDERS: PCP Student in an Organized Health Care Education/Training Program; Referring Provider Internal Medicine Gastroenterology; Visit Provider Internal Medicine Gastroenterology
DX: K74.60 Unspecified cirrhosis of liver (principal); R18.8 Other ascites
CPT/HCPCS: 49083; A4216; J2405

== ENCOUNTER 2022-01-12 17:46 | Emergency (ER) | payer BC, SELFPAY ==
[2022-01-12 17:48] VITALS: BP 100/62; PULSE 88; RESP 18; TEMP 35.8; O2SAT 100; BMI 29.8
[2022-01-12 18:02] VITALS: BP 112/63; PULSE 75; RESP 14
--- NOTE | 2022-01-12 18:08 | EKG12_ITS ---
Test Reason : confusion Blood Pressure : / mmHG Vent. Rate : 073 BPM Atrial Rate : 073 BPM P-R Int : 150 ms QRS Dur : 092 ms QT Int : 400 ms P-R-T Axes : 033 -15 011 degrees QTc Int : 440 ms Normal sinus rhythm Cannot rule out Anterior infarct , age undetermined Abnormal ECG Confirmed by SIMÓN CADET, AZAEL ([id number]), medical transcription editor KELLY FRANKS ([id number]) on 01/15/2022 9:35:20 AM Referred By: Yazan Confirmed By:AZAEL GR MD
--- NOTE | 2022-01-12 18:12 | EDS_ITS ---
HPI History of Present Illness Chief Complaint: Confusion Informant: patient Onset/Context/Timing Onset: Days Context: Gradual Onset Narrative Narrative: Patient presents with couple day history of increasing confusion and generalized weakness. Patient was seen at the hospital a week ago after a syncopal episode. Patient states he still felt somewhat weak at the time of discharge and it is progressed throughout the past week. Has been nauseated the past 4 days with only a couple episodes of emesis. He has chronic diarrhea that is unchanged from baseline. No blood noted in the stool or emesis. He denies significant cough or shortness of breath. His did test positive for COVID last week. Patient states that he missed his last paracentesis appointment because he was just feeling too weak. [facility] Medical History Abdominal ascites Alcoholic hepatitis Anemia Chronic hyponatremia Cirrhosis of liver Hyperbilirubinemia Nicotine dependence Rotator cuff arthropathy of left shoulder Thrombocytopenia Wernicke encephalopathy Home Medications ursodiol 250 mg tablet 250 mg PO QHS #30 tabs 10/20/21 [Rx Last Taken Unknown] escitalopram oxalate 10 mg tablet 10 mg PO DAILY 30 days #30 tabs 12/28/21 [Rx Last Taken Unknown] furosemide 40 mg tablet 40 mg PO BID #60 tabs 12/28/21 [Rx Last Taken Unknown] pantoprazole 20 mg tablet,delayed release 20 mg PO DAILY 30 days #30 tabs 12/28/21 [Rx Last Taken Unknown] sodium chloride 1 gram tablet 2,000 mg PO TID 30 days #180 tabs 12/28/21 [Rx Last Taken Unknown] spironolactone 50 mg tablet 25 mg PO DAILY #30 tabs 12/28/21 [Rx Last Taken Unknown] Vitamin B-1 100 mg PO/SL DAILY vitamin 01/05/22 [History Last Taken Unknown] lactulose 20 gram/30 mL oral solution 20 g PO TID liver failure 01/05/22 [History Last Taken Unknown] magnesium 250 mg tablet 250 mg PO DAILY supplement 01/06/22 [History Last Taken Unknown] rifaximin 550 mg tablet (Xifaxan) 550 mg PO BID diarrhea 01/06/22 [History Last Taken Unknown] rifaximin 550 mg tablet (Xifaxan) 550 mg PO BID 7 days #14 tabs 01/07/22 [Rx Last Taken Unknown] midodrine 5 mg tablet 10 mg PO TIDCM #90 tabs 01/11/22 [Rx Last Taken Unknown] Allergy/AdvReac Type Severity Reaction Status Date / Time adhesive tape AdvReac Other Verified 01/12/22 17:48 Family History Other Cancer Diabetes Heart disease Surgical History H/O repair of rotator cuff Social History Smoking Status: Never smoker ROS ROS ED Constitutional Constitutional ED: Denies chills or fever(s) Eyes Eyes: Denies change in vision or discharge from eye(s) ENT ENT ED: Denies discharge from eye(s), rhinorrhea or sore throat Cardiovascular Cardiovascular: Denies chest pain or palpitations Respiratory/Chest Respiratory/Chest: Denies cough or dyspnea Gastrointestinal Gastrointestinal: Reports diarrhea, nausea and vomiting; Denies abdominal pain Genitourinary Genitourinary ED: Denies difficulty urinating or dysuria Musculoskeletal Musculoskeletal: Denies back pain or extremity pain Integumentary Denies Abrasions or rash Neurologic Neurologic: Reports weakness; Denies headache(s) Allergic/Immunologic Allergic/Immunologic ED: Denies lip swelling or urticaria EXAM Physical Exam Const Vital Signs: 01/12/22 17:48 01/12/22 18:02 Temperature 96.4 F L Temperature Source Temporal Pulse Rate 88 75 Respiratory Rate 18 14 Blood Pressure 100/62 112/63 Blood Pressure Mean 74 79 Pulse Ox 100 Oxygen Delivery Method Room Air Positive well nourished and well developed General Appearance ED: well developed HEENT Reports normocephalic and head/scalp atraumatic Eyes PERRL and EOMs intact bilaterally Neck supple Chest Wall inspection of chest normal and palpation of chest normal Resp normal respiratory effort and clear to auscultation bilaterally Cardio regular rate and regular rhythm GI non-tender GI Narrative: Abdomen distended Auscultation: hypoactive bowel sounds Palpation: soft Extremity normal to inspection Neuro oriented x3 Neuro Narrative: No focal neurologic deficits. Sensorium / Orientation: alert Psych mental status grossly normal Skin no rashes or lesions noted MDM MDM MDM Narrative Medical decision making narrative: EKG obtained. Lab work ordered along with urinalysis. Patient's recent visit from last week reviewed. Patient was admitted with a creatinine of 1.78 from an outside facility. After hydration he was discharged with a creatinine of 1.27. Initial concern from outside hospital with hyponatremia with a sodium of 123. After patient was here and records were able to be reviewed it appears his baseline is 123. Lab Data Attestation: I reviewed the patient's lab results. Labs: Laboratory Results - last 24 hr 01/12/22 01/12/22 01/12/22 18:30 18:30 18:30 WBC 9.2 RBC 3.05 L Hgb 10.7 L Hct 29.7 L MCV 97.4 H MCH 35.1 H MCHC 36.0 RDW Std Deviation 48.5 H RDW Coeff of Teri 13.7 Plt Count 169 MPV 10.2 Immature Gran % (Auto) 1.300 H Neut % (Auto) 65.9 Lymph % (Auto) 13.9 L [place]oula % (Auto) 16.7 H Eos % (Auto) 1.5 Baso % (Auto) 0.7 Absolute Neuts (auto) 6.1 Absolute Lymphs (auto) 1.28 Nucleated RBC % 0 Differential Comment SCANNED PT 19.2 H INR 1.7 APTT 35.5 Sodium 123 L Potassium 4.5 Chloride 95 L Carbon Dioxide 19.0 L Anion Gap 9 BUN 32 H Creatinine 1.81 H Estim Creat Clear Calc 48.28 Est GFR (MDRD) Af Amer 51 L Est GFR (MDRD) Non-Af 42 L BUN/Creatinine Ratio 17.7 Glucose 122 H Calcium 8.4 L Total Bilirubin 2.50 H Direct Bilirubin 1.30 H AST 77 H ALT 50 Alkaline Phosphatase 160 H Ammonia Total Protein 5.4 L Albumin 2.1 L Globulin 3.3 Lipase 289 Urine Color Urine Clarity Urine pH Ur Specific Hawkins Urine Protein Urine Glucose (UA) Urine Ketones Urine Occult Blood Urine Nitrite Urine Bilirubin Urine Urobilinogen Ur Leukocyte Esterase Urine RBC Urine WBC Ur Squamous Epith Cells Urine Bacteria Hyaline Casts Urine Mucus 01/12/22 01/12/22 18:30 19:20 WBC RBC Hgb Hct MCV MCH MCHC RDW Std Deviation RDW Coeff of Teri Plt Count MPV Immature Gran % (Auto) Neut % (Auto) Lymph % (Auto) [place]ata[place]oula % (Auto) Eos % (Auto) Baso % (Auto) Absolute Neuts (auto) Absolute Lymphs (auto) Nucleated RBC % Differential Comment PT INR APTT Sodium Potassium Chloride Carbon Dioxide Anion Gap BUN Creatinine Estim Creat Clear Calc Est GFR (MDRD) Af Amer Est GFR (MDRD) Non-Af BUN/Creatinine Ratio Glucose Calcium Total Bilirubin Direct Bilirubin AST ALT Alkaline Phosphatase Ammonia 12.0 Total Protein Albumin Globulin Lipase Urine Color Yellow Urine Clarity Clear Urine pH 6.0 Ur Specific Hawkins 1.015 Urine Protein Negative Urine Glucose (UA) Normal Urine Ketones Negative Urine Occult Blood Negative Urine Nitrite Negative Urine Bilirubin Negative Urine Urobilinogen 1 H Ur Leukocyte Esterase 25 H Urine RBC 0 SEEN Urine WBC 0-5 SEEN Ur Squamous Epith Cells 0-5 SEEN Urine Bacteria 1+ Hyaline Casts 10-25 SEEN Urine Mucus 0 SEEN Rapid COVID: Negative EKG Initial EKG: Attestation: I personally reviewed and interpreted this EKG as follows: Interpretation: Sinus Rhythm (Sinus at 73 with no acute ischemia.) Treatment and Re-Evaluation Narrative: On repeat evaluation patient resting comfortably. He states he does feel somewhat improved with fluids. I have given him a liter here and is now running at 150. At this point I do not know that have anything to admit him to the hospital for. He does state that he is unsteady on his feet. Nursing staff got him up and walked him up and down the hallway. He was slightly unsteady but did not want any assistance. Brother and [id number] are at bedside. Brother did state that the patient seems to have some intermittent confusions and earlier today thought it was Monday when it in fact is Monday. At this time it appears that all of the lab derangements are chronic in nature. I do not know that there is any benefit in admitting him to the hospital. [id number] did ask about having social work contact them for potential other services including meals, health aides, etc. I will write him a prescription for a bedside commode as he currently has to go upstairs to use the restroom. Discharge Plan Triage Chief Complaint: Confusion ED Provider: Ria Hand Dx/Rx/DC Orders Clinical Impression: Transient confusion, Dehydration, mild Instructions: ED Confusion, ED Dehydration (Adult) Prescriptions: No Action ursodiol 250 mg tablet 250 mg PO QHS Qty: 30 6RF sodium chloride 1 gram tablet 2,000 mg PO TID 30 Days Qty: 180 0RF pantoprazole 20 mg Tablet,Delayed Release (Dr/Ec) 20 mg PO DAILY 30 Days Qty: 30 0RF escitalopram oxalate 10 mg Tablet 10 mg PO DAILY 30 Days Qty: 30 0RF spironolactone 50 mg Tablet 25 mg PO DAILY Qty: 30 2RF furosemide 40 mg tablet 40 mg PO BID Qty: 60 0RF Vitamin B-1 100 mg PO/SL DAILY lactulose 20 gram/30 mL solution 20 g PO TID magnesium 250 mg tablet 250 mg PO DAILY Xifaxan 550 mg tablet 550 mg PO BID Xifaxan 550 mg tablet 550 mg PO BID 7 Days Qty: 14 0RF midodrine 5 mg tablet 10 mg PO TIDCM Qty: 90 5RF Primary Care Provider: Jovi Rodriguez Referrals: Jovi Rodriguez DO [Primary Care Provider] - 3-5 Days Disposition Disposition: Home, Self Care
[2022-01-12 18:48] LABS: Absolute Lymphocyte Count 1.28 X10^3/uL (0.83-4.51); Absolute Neutrophil Count 6.1 X10^3/uL (2.0-7.7); Basophil# 0.06 X10^3/uL; Basophil% 0.7 % (0-1); Eosinophil# 0.14 X10^3/uL; Eosinophils% 1.5 % (0-5); Hematocrit 29.7 % (40-54); Hemoglobin 10.7 g/dL (13.0-16.5); Lymphocyte # 1.28 X10^3/ul (0.83-4.51); Lymphocyte % 13.9 % (19-41); Mean Corpuscular Hgb 35.1 pg (27.0-32.0); Mean Corpuscular Volume 97.4 fL (80-94); Mean Platelet Vol. 10.2 fl (6.2-12.0); Monocyte# 1.54 X10^3/uL; Monocyte% 16.7 % (0-10); NRBC Flagged by Analyzer 0 % (0-5); Neutrophil # 6.08 X10^3/uL (2.7-7.7); Neutrophil % 65.9 % (47-70); POSITIVE DIFFERENTIAL YES; Platelet Count 169 K/mm3 (150-450); RBC Distribution Width CV 13.7 % (11.6-14.6); RBC Distribution Width SD 48.5 fl (35.1-43.9); Red Blood Count 3.05 M/mm3 (4.6-6.2); White Blood Count 9.2 K/mm3 (4.4-11.0)
[2022-01-12 18:49] LABS: Differential Indicated SCAN CRITERIA MET
[2022-01-12 19:02] LABS: International Normalized Ratio 1.7; Prothrombin Time (Protime)PT. 19.2 SECONDS (11.7-14.9)
[2022-01-12 19:03] LABS: Partial Thromboplast Time 35.5 Seconds (24.1-36.2)
[2022-01-12 19:06] LABS: AST(SGOT) 77 U/L (15-37); Alanine Aminotransfer ALT/SGPT 50 U/L (16-61); Albumin, Serum 2.1 g/dL (3.2-5.0); Alkaline Phosphatase 160 U/L (45-117); Anion Gap 9 (5-15); BUN 32 mg/dL (7-18); BUN/Creat Ratio 17.7 RATIO (10-20); Calcium,Total 8.4 mg/dL (8.5-10.1); Chloride 95 mmol/L (98-107); Creatinine, Serum 1.81 mg/dL (0.70-1.30); EST Glomerular Filtration Rate 42 mL/min (>60); Est Glom Filt Rate - Afr Amer 51 mL/min (>60); Estimated Creatinine Clearance 48.28 ml/min; Globulin 3.3 g/dL (2.2-4.2); Glucose 122 mg/dL (74-106); Lipase 289 U/L (73-393); Potassium 4.5 mmol/L (3.5-5.1); Protein, Total 5.4 g/dL (6.4-8.2); Sodium Level 123 mmol/L (136-145)
[2022-01-12 19:28] LABS: Mucous, Urine 0 SEEN /hpf (<or=2+); Red Blood Cells-Urine 0 SEEN /hpf (0-5)
[2022-01-12 19:35] LABS: Differential Comment SCANNED
[2022-01-12] MEDS: 0.9% Normal Saline 1,000 ML 1000 ML IV (19:38)
[2022-01-12 19:40] LABS: Color, Urine Yellow (Yellow); Glucose, Dipstick Normal (Normal); Ketone-Dipstick Negative (Negative); Leukocyte Esterase-Dipstick 25 /ul (Negative); Nitrite-Dipstick Negative (Negative); Occult Blood-Urine Negative /ul (Negative); Protein-Dipstick Negative (Negative); Specific Gravity, Urine 1.015 (1.002-1.030); Urine Bilirubin Dipstick Negative (Negative); Urine Clarity Clear (Clear); Urine Urobilinogen 1 mg/dl (Normal)
[2022-01-12 19:56] LABS: Bacteria 1+ /hpf (None Seen); Squamous Epithelial Cells - UA 0-5 SEEN /hpf (0-5); White Blood Cells 0-5 SEEN /hpf (0-5)
[2022-01-12 19:57] LABS: Hyaline Cast 10-25 SEEN /lpf (0-5)
[2022-01-12 22:31] VITALS: PULSE 79; RESP 15; O2SAT 99
--- NOTE | 2022-01-13 20:12 | CM.ED ---
Social Work Note Reason for Referral: Home Health, Community Resources ORQUIDEA placed a call to pt's brother Don, no answer, message left. ORQUIDEA placed a call to pt's MADDIE Brink. Keena states she would like information on Community Resources for pt in the home. ORQUIDEA spoke with Keena about HHC and how pt will need to reach out to his PCP who can assist pt with HHC arrangements. ORQUIDEA educated Keena on Community Resources including [facility] and Private Duty Aides. ORQUIDEA informed Keena that this worker can email her information about community resources. Keena agreeable to email and provided email at [email or web address]. ORQUIDEA informed Keena that this worker can make a referral to [facility] for pt or pt and pt's family can call and arrange assessment. Keena states that the family will call [facility]. Keena denied additional needs or concerns at this time. ORQUIDEA emailed Keena Community Resources including HHC list, Home Delivered Meals information, Medical Alert Brochure, Private Duty list and contact information for [facility]. Luana Tamayo FITTER UP, MANAGER FIRE
== END 2022-01-12 22:34 | disposition home or self-care (01) ==
PROVIDERS: Emergency Provider Emergency Medicine; PCP Student in an Organized Health Care Education/Training Program; Visit Provider Emergency Medicine
DX: R41.0 Disorientation, unspecified (principal); K74.60 Unspecified cirrhosis of liver; E86.0 Dehydration; R53.1 Weakness
CPT/HCPCS: 80048; 80076; 81001; 82140; 83690; 85025; 85610; 85730; 87811; 93005; 96360; 96361; 99283; J7030; A4216

== ENCOUNTER 2022-01-14 13:18 | Outpatient (CLI) | payer BC, SELFPAY ==
--- NOTE | 2022-01-14 13:22 | US_ITS ---
PROCEDURE: Ultrasound guided paracentesis. DATE OF EXAMINATION: 01/14/2022. INDICATION: Male, 51 years old. Ascites. PHYSICIAN: Austyn Aguilar M.D. TECHNIQUE: The risks, benefits, and alternatives to the procedure were explained to the patient. The specific risks of bleeding, infection, and damage to bowel were detailed and accepted. Witnessed informed consent was obtained. The abdomen was ultrasonographically surveyed. An appropriate pocket of fluid was identified at the right lower quadrant. The skin were cleaned and prepped in the usual sterile fashion. Using ultrasound guidance, the peritoneal cavity was accessed with a 5-Ghanaian paracentesis needle/catheter system. The trocar was removed. A total of 8950 ml of brian-colored fluid were removed from the peritoneal cavity. The catheter was removed and a sterile dressing was applied. The procedure was well tolerated. US/Paracentesis with US IMPRESSION: Ultrasound guided paracentesis. Electronically Signed: Austyn Aguilar MD at 14:55 EDT ,
[2022-01-14 13:55] VITALS: BP 110/68; BP 116/69; BP 117/58; PULSE 70; PULSE 71; PULSE 77; RESP 18; RESP 20; TEMP 36.2; O2SAT 100
[2022-01-14] MEDS: Lidocaine 2% (5ml sdv) 5 ML VIAL.MPF (14:00)
--- NOTE | 2022-01-14 15:01 | NURSING ---
This RN called Pt's to update with room number for infusion and discuss plan for transportation next for scheduled paracentesis.
[2022-01-14] MEDS: Albumin Human 25% (100 mL) 25 GM/100 ML BAG IV ×2 (15:50→17:50)
[2022-01-14] MEDS: 0.9% NaCl Peripheral Flush Adult/Peds IV (15:58)
[2022-01-14 16:00] VITALS: BP 120/62; PULSE 72; RESP 18; TEMP 36.5
[2022-01-14 19:35] VITALS: BP 110/56; PULSE 72; RESP 18; TEMP 36.7; O2SAT 100
== END 2022-01-14 19:45 | disposition home or self-care (01) ==
LOC: US 14:56 → MS3 14:57
PROVIDERS: PCP Student in an Organized Health Care Education/Training Program; Referring Provider Internal Medicine Gastroenterology; Visit Provider Internal Medicine Gastroenterology
DX: K74.60 Unspecified cirrhosis of liver (principal); R18.8 Other ascites
CPT/HCPCS: 96365; 96366 ×3; 49083; J7050; P9047; A4216

== ENCOUNTER → 2022-01-20 | Outpatient (CLI) | payer BC, OTHER, SELFPAY ==
--- NOTE | 2022-01-20 10:16 | US_ITS ---
PROCEDURE: Ultrasound guided paracentesis. DATE OF EXAMINATION: 01/20/2022. INDICATION: Male, 51 years old. Ascites. PHYSICIAN: Austyn Aguilar M.D. TECHNIQUE: The risks, benefits, and alternatives to the procedure were explained to the patient. The specific risks of bleeding, infection, and damage to bowel were detailed and accepted. Witnessed informed consent was obtained. The abdomen was ultrasonographically surveyed. An appropriate pocket of fluid was identified at the left lower quadrant. The skin were cleaned and prepped in the usual sterile fashion. Using ultrasound guidance, the peritoneal cavity was accessed with a 5-German paracentesis needle/catheter system. The trocar was removed. A total of 9000 ml of brian-colored fluid were removed from the peritoneal cavity. The catheter was removed and a sterile dressing was applied. The procedure was well tolerated. US/Paracentesis with US IMPRESSION: Ultrasound guided paracentesis. Electronically Signed: Austyn Aguilar MD at 12:23 EDT ,
[2022-01-20 10:46] VITALS: BP 110/66; BP 91/44; BP 95/63; PULSE 68; PULSE 79; PULSE 85; RESP 14; RESP 16; RESP 18; TEMP 36.1; O2SAT 100
[2022-01-20] MEDS: Lidocaine 2% (5ml sdv) 5 ML VIAL.MPF (11:58)
[2022-01-20] MEDS: Albumin Human 25% (100 mL) 25 GM/100 ML BAG IV ×2 (11:58→13:24)
[2022-01-20 15:17] VITALS: BP 111/41; PULSE 94; RESP 14; TEMP 35.9; O2SAT 100
--- NOTE | 2022-01-20 16:00 | CASEMGMT ---
GIOVANNA ALEJANDRE Care Coordination Note: Met w/pt @ [facility] infusion center today and then spoke w/pt's , Carol, via phone conversation. voiced concerns re: on-going needs for assistance in the home to help ensure pt is taking his medications and for someone to stay w/pt. She voices limited family support. Pt's MADDIE can assist some, but other family members have not been willing to help. She is aware multiple resources were e-mailed to pt's MADDIE yesterday. She plans to f/u with her to get that info. She also states pt's PCP has sent a referral to an agency for possible HHC services but she is not sure what HHC agency. educated on what can be provided through HHC (skilled) and private-duty aides. She was made aware an aide through skilled level of HHC does not stay w/pt--they only come in 2-3 x's/wk to assist w/bathing and dressing and that if an aide is needed to stay w/pt that would be either private-pay agency or thru [facility] (if pt would qualify and if they would have staffing). Questions answered. Discussed other options such as Adult Day Care and SNF. does not feel pt needs a SNF at this time. GIOVANNA ALEJANDRE provided Carol w/[facility] contact info for [facility] and also [facility] info for possible Adult Day Care and transportation assistance. Also discussed Palliative care w/Carol. She states she has thought about this and is agreeable to referral now. made aware pt informed GIOVANNA ALEJANDRE that he is interested in getting a walker, as his gait is getting more unsteady. Carol also states she is pursuing possible liver transplant for pt @ [facility] and they are currently awaiting insurance approval for pt to be seen there. She plans to f/u with PCP re: HHC, Palliative Care referral, and possible walker for pt. Carol denies having further questions or needs at this time and voices appreciation for info received. She was provided w/this GIOVANNA ALEJANDRE contact # and GIOVANNA ALEJANDRE online merchandising manager, [place], contact # if further questions or needs arise. Emma LOPEZ RN, CM
== END | disposition home or self-care (01) ==
LOC: US 10:13
PROVIDERS: PCP Student in an Organized Health Care Education/Training Program; Referring Provider Internal Medicine Gastroenterology; Visit Provider Internal Medicine Gastroenterology
DX: K74.60 Unspecified cirrhosis of liver (principal); R18.8 Other ascites
CPT/HCPCS: 96365; 96366 ×2; 49083; J7050; P9047; A4216

== ENCOUNTER 2022-01-25 18:52 | Inpatient (IN) | payer BC, SELFPAY ==
[2022-01-25 18:53] VITALS: BP 104/63; PULSE 71; RESP 18; TEMP 36.1; O2SAT 100; BMI 29.1
--- NOTE | 2022-01-25 19:22 | EDS_ITS ---
HPI History of Present Illness Chief Complaint: General Illness Informant: patient, spouse/S.O. and family Onset/Context/Timing Onset: Days Narrative Narrative: Patient presents via EMS secondary to increased confusion and hallucinations. He has a history of liver failure secondary to cirrhosis. states that she has been trying to get him to the [facility] for new procedure until he can be evaluated and placed on the liver transplant list. She states because of insurance clearance he has not yet been seen by the hematology team at [facility]. She called EMS to bring the patient to the hospital today secondary to increasing confusion and some hallucinations. Today she states he was looking for a gun because he thought she had some other man upstairs in their home. She did call a family member to come remove guns from the home. She states that it has been harder to keep him awake over the past couple days as well. [facility] Medical History Abdominal ascites Alcoholic hepatitis Anemia Chronic hyponatremia Cirrhosis of liver Hyperbilirubinemia Nicotine dependence Rotator cuff arthropathy of left shoulder Thrombocytopenia Wernicke encephalopathy Home Medications ursodiol 250 mg tablet 250 mg PO QHS #30 tabs 10/20/21 [Rx Last Taken Unknown] escitalopram oxalate 10 mg tablet 10 mg PO DAILY 30 days #30 tabs 12/28/21 [Rx Last Taken Unknown] furosemide 40 mg tablet 40 mg PO BID #60 tabs 12/28/21 [Rx Last Taken Unknown] pantoprazole 20 mg tablet,delayed release 20 mg PO DAILY 30 days #30 tabs 12/28/21 [Rx Last Taken Unknown] spironolactone 50 mg tablet 25 mg PO DAILY #30 tabs 12/28/21 [Rx Last Taken Unknown] Vitamin B-1 100 mg PO/SL DAILY vitamin 01/05/22 [History Last Taken Unknown] magnesium 250 mg tablet 250 mg PO DAILY supplement 01/06/22 [History Last Taken Unknown] rifaximin 550 mg tablet (Xifaxan) 550 mg PO BID diarrhea 01/06/22 [History Last Taken Unknown] midodrine 5 mg tablet 10 mg PO TIDCM #90 tabs 01/11/22 [Rx Last Taken Unknown] fludrocortisone 0.1 mg tablet 0.1 mg PO DAILY #30 tabs 01/17/22 [Rx Last Taken Unknown] midodrine 10 mg tablet 10 mg PO TID #90 tabs 01/17/22 [Rx Last Taken Unknown] lactulose 20 gram/30 mL oral solution 20 g (30 mL) PO TID liver failure 1 month #2,700 mL 01/25/22 [Rx Last Taken Unknown] sodium chloride 1 gram tablet 2,000 mg PO TID 30 days #180 tabs 01/25/22 [Rx Last Taken Unknown] Allergy/AdvReac Type Severity Reaction Status Date / Time adhesive tape AdvReac Other Verified 01/25/22 18:55 Family History Other Cancer Diabetes Heart disease Surgical History H/O repair of rotator cuff Social History Smoking Status: Current every day smoker tobacco type: smokeless tobacco ROS ROS ED Constitutional Constitutional ED: Denies chills or fever(s) Eyes Eyes: Denies change in vision or discharge from eye(s) ENT ENT ED: Denies discharge from eye(s), rhinorrhea or sore throat Cardiovascular Cardiovascular: Denies chest pain or palpitations Respiratory/Chest Respiratory/Chest: Denies cough or dyspnea Gastrointestinal Gastrointestinal: Denies abdominal pain, diarrhea, nausea or vomiting Genitourinary Genitourinary ED: Denies difficulty urinating or dysuria Musculoskeletal Musculoskeletal: Denies back pain or extremity pain Integumentary Denies Abrasions or rash Neurologic Neurologic: Reports weakness; Denies headache(s) Psychiatric Psychiatric: Denies anxiety or depression Allergic/Immunologic Allergic/Immunologic ED: Denies lip swelling or urticaria EXAM Physical Exam Narrative Exam Narrative: Patient alert and lying in bed. Able to converse and answer questions. Const Vital Signs: 01/25/22 18:53 01/25/22 20:52 01/25/22 22:00 Temperature 97 F L Temperature Source Temporal Pulse Rate 71 72 69 Respiratory Rate 18 12 18 Blood Pressure 104/63 92/48 L 90/64 Blood Pressure Mean 76 62 72 Pulse Ox 100 100 100 Oxygen Delivery Method Room Air Room Air Room Air Positive well nourished and well developed General Appearance ED: well developed HEENT Reports moist mucous membranes Eyes PERRL and EOMs intact bilaterally Neck no lymphadenopathy Chest Wall inspection of chest normal and palpation of chest normal Resp normal respiratory effort and clear to auscultation bilaterally Cardio regular rate and regular rhythm GI GI Narrative: Abdomen is soft and distended. Hypoactive but present bowel sounds are noted. Right upper quadrant fullness noted. Extremity normal to inspection Neuro oriented x3 Neuro Narrative: No focal neurologic deficits at this time. MDM MDM MDM Narrative Medical decision making narrative: Patient ordered IV fluids. Lab work obtained. Lab Data Attestation: I reviewed the patient's lab results. Labs: Laboratory Results - last 24 hr 01/25/22 01/25/22 01/25/22 19:45 19:45 19:45 WBC 8.4 RBC 2.86 L Hgb 9.5 L Hct 27.0 L MCV 94.4 H MCH 33.2 H MCHC 35.2 RDW Std Deviation 47.9 H RDW Coeff of Teri 14.0 Plt Count 162 MPV 10.8 Immature Gran % (Auto) 0.700 Neut % (Auto) 61.6 Lymph % (Auto) 22.3 Gilliam % (Auto) 11.6 H Eos % (Auto) 2.8 Baso % (Auto) 1.0 Absolute Neuts (auto) 5.2 Absolute Lymphs (auto) 1.86 Nucleated RBC % 0 PT 22.0 H INR 2.0 APTT 38.5 H Sodium 132 L Potassium 3.9 Chloride 103 Carbon Dioxide 20.0 L Anion Gap 9 BUN 27 H Creatinine 2.05 H Estim Creat Clear Calc 42.63 Est GFR (MDRD) Af Amer 44 L Est GFR (MDRD) Non-Af 37 L BUN/Creatinine Ratio 13.2 Glucose 129 H Calcium 9.4 Total Bilirubin 3.20 H Direct Bilirubin 1.10 H AST 60 H ALT 30 Alkaline Phosphatase 152 H Ammonia Total Protein 5.4 L Albumin 2.2 L Globulin 3.2 Lipase 210 01/25/22 20:54 WBC RBC Hgb Hct MCV MCH MCHC RDW Std Deviation RDW Coeff of Teri Plt Count MPV Immature Gran % (Auto) Neut % (Auto) Lymph % (Auto) Gilliam % (Auto) Eos % (Auto) Baso % (Auto) Absolute Neuts (auto) Absolute Lymphs (auto) Nucleated RBC % PT INR APTT Sodium Potassium Chloride Carbon Dioxide Anion Gap BUN Creatinine Estim Creat Clear Calc Est GFR (MDRD) Af Amer Est GFR (MDRD) Non-Af BUN/Creatinine Ratio Glucose Calcium Total Bilirubin Direct Bilirubin AST ALT Alkaline Phosphatase Ammonia < 10.0 L Total Protein Albumin Globulin Lipase Treatment and Re-Evaluation Narrative: Lab work is reviewed. CBC is largely unchanged compared to prior values. Chemistry studies do reveal a creatinine of 2.05. It appears the patient's baseline creatinine was 1-1.2 through December. In January he has had 2 lab values with a creatinine of 1.81 and 2.05. Patient's initial blood pressure was 104/63. Blood pressure did drop into the 90s. He was given a 500 cc bolus. At this time patient's blood pressure is 90/64. He is asymptomatic with this, however is concerned taking him home with his recent confusion and now lower than baseline blood pressure. We discussed that his liver function tests are not significantly worse than his prior and Dr. Posada had documented on his last office note that the patient at this time does not qualify for liver transplant. and patient now both agree that he is willing to stay overnight for hydration and monitoring of his renal function. It is hoped that physical therapy could see him to ensure he is stable on his feet. Discharge Plan Triage Chief Complaint: General Illness ED Provider: Ria Hand Dx/Rx/DC Orders Clinical Impression: Weakness, Hypotension, Hx of cirrhosis Prescriptions: No Action ursodiol 250 mg tablet 250 mg PO QHS Qty: 30 6RF pantoprazole 20 mg Tablet,Delayed Release (Dr/Ec) 20 mg PO DAILY 30 Days Qty: 30 0RF escitalopram oxalate 10 mg Tablet 10 mg PO DAILY 30 Days Qty: 30 0RF spironolactone 50 mg Tablet 25 mg PO DAILY Qty: 30 2RF furosemide 40 mg tablet 40 mg PO BID Qty: 60 0RF Vitamin B-1 100 mg PO/SL DAILY magnesium 250 mg tablet 250 mg PO DAILY Xifaxan 550 mg tablet 550 mg PO BID midodrine 5 mg tablet 10 mg PO TIDCM Qty: 90 5RF midodrine 10 mg tablet 10 mg PO TID Qty: 90 5RF Rx Instructions: do not give last dose of day after 6PM or within 4 hrs of bedtime fludrocortisone 0.1 mg tablet 0.1 mg PO DAILY Qty: 30 1RF lactulose 20 gram/30 mL solution 20 g PO TID 30 Days Qty: 2700 5RF sodium chloride 1 gram tablet 2,000 mg PO TID 30 Days Qty: 180 0RF Primary Care Provider: Jovi Rodriguez Referrals: Jovi Rodriguez DO [Primary Care Provider] - Disposition Disposition: Acute Care [facility]
[2022-01-25] MEDS: 0.9% Normal Saline 1,000 ML 150 ML IV (19:57)
[2022-01-25 20:06] LABS: Absolute Lymphocyte Count 1.86 X10^3/uL (0.83-4.51); Absolute Neutrophil Count 5.2 X10^3/uL (2.0-7.7); Basophil# 0.08 X10^3/uL; Eosinophil# 0.23 X10^3/uL; Eosinophils% 2.8 % (0-5); Hemoglobin 9.5 g/dL (13.0-16.5); Lymphocyte # 1.86 X10^3/ul (0.83-4.51); Lymphocyte % 22.3 % (19-41); Mean Corp Hgb Conc 35.2 g/dL (32-36); Mean Corpuscular Hgb 33.2 pg (27.0-32.0); Mean Corpuscular Volume 94.4 fL (80-94); Mean Platelet Vol. 10.8 fl (6.2-12.0); Monocyte# 0.97 X10^3/uL; Monocyte% 11.6 % (0-10); NRBC Flagged by Analyzer 0 % (0-5); Neutrophil # 5.15 X10^3/uL (2.7-7.7); Neutrophil % 61.6 % (47-70); Platelet Count 162 K/mm3 (150-450); RBC Distribution Width SD 47.9 fl (35.1-43.9); Red Blood Count 2.86 M/mm3 (4.6-6.2); White Blood Count 8.4 K/mm3 (4.4-11.0)
[2022-01-25 20:17] LABS: Partial Thromboplast Time 38.5 Seconds (24.1-36.2)
[2022-01-25 20:29] LABS: AST(SGOT) 60 U/L (15-37); Alanine Aminotransfer ALT/SGPT 30 U/L (16-61); Albumin, Serum 2.2 g/dL (3.2-5.0); Alkaline Phosphatase 152 U/L (45-117); Anion Gap 9 (5-15); BUN 27 mg/dL (7-18); BUN/Creat Ratio 13.2 RATIO (10-20); Calcium,Total 9.4 mg/dL (8.5-10.1); Chloride 103 mmol/L (98-107); Creatinine, Serum 2.05 mg/dL (0.70-1.30); EST Glomerular Filtration Rate 37 mL/min (>60); Est Glom Filt Rate - Afr Amer 44 mL/min (>60); Estimated Creatinine Clearance 42.63 ml/min; Globulin 3.2 g/dL (2.2-4.2); Glucose 129 mg/dL (74-106); Lipase 210 U/L (73-393); Potassium 3.9 mmol/L (3.5-5.1); Protein, Total 5.4 g/dL (6.4-8.2); Sodium Level 132 mmol/L (136-145)
[2022-01-25 20:52] VITALS: BP 92/48; PULSE 72; RESP 12; O2SAT 100
[2022-01-25 21:27] LABS: Ammonia < 10.0 umol/L (11-32)
[2022-01-25 22:00] VITALS: BP 90/64; PULSE 69; RESP 18; O2SAT 100
--- NOTE | 2022-01-25 23:53 | HP.PCM.HOS_ITS ---
HPI - General General Date of Admission: 01/25/22 Date of Service: 01/25/22 Chief Complaint: Confusion HPI Narrative JOSE CRUZ THOMPSON, is a 51 M with a significant history of liver cirrhosis and ascites who gets weekly paracentesis presents emergency department reportedly with confusion. History was taken from emergency department doctor as at a time of history taking patient was not willingly contributory to any meaningful history. Patient stated that he feels sick and he came to the hospital because this is his hospital. Per emergency department doctor patient's who was at the bedside reported that the patient has been confused, lethargic and sleepy. Reportedly patient thought that there were other people in his home seeking after his so patient was going to find his gun. His therefore caused all done in the homes to be removed. At the emergency department patient was found to have elevated creatinine above his baseline. Also his blood pressure was low so he received IV fluid bolus. Of note the patient is on midodrine and Florinef. Also he is on salt tablets. [facility] Medical History Abdominal ascites Alcoholic hepatitis Anemia Chronic hyponatremia Cirrhosis of liver Hyperbilirubinemia Nicotine dependence Rotator cuff arthropathy of left shoulder Thrombocytopenia Wernicke encephalopathy Home Medications ursodiol 250 mg tablet 250 mg PO QHS #30 tabs 10/20/21 [Rx Last Taken Unknown] escitalopram oxalate 10 mg tablet 10 mg PO DAILY 30 days #30 tabs 12/28/21 [Rx Last Taken Unknown] furosemide 40 mg tablet 40 mg PO BID #60 tabs 12/28/21 [Rx Last Taken Unknown] pantoprazole 20 mg tablet,delayed release 20 mg PO DAILY 30 days #30 tabs [Rx Last Taken Unknown] spironolactone 50 mg tablet 25 mg PO DAILY #30 tabs 12/28/21 [Rx Last Taken Unknown] Vitamin B-1 100 mg PO/SL DAILY vitamin 01/05/22 [History Last Taken Unknown] magnesium 250 mg tablet 250 mg PO DAILY supplement 01/06/22 [History Last Taken Unknown] rifaximin 550 mg tablet (Xifaxan) 550 mg PO BID diarrhea 01/06/22 [History Last Taken Unknown] midodrine 5 mg tablet 10 mg PO TIDCM #90 tabs 01/11/22 [Rx Last Taken Unknown] fludrocortisone 0.1 mg tablet 0.1 mg PO DAILY #30 tabs 01/17/22 [Rx Last Taken Unknown] midodrine 10 mg tablet 10 mg PO TID #90 tabs 01/17/22 [Rx Last Taken Unknown] lactulose 20 gram/30 mL oral solution 20 g (30 mL) PO TID liver failure 1 month #2,700 mL 01/25/22 [Rx Last Taken Unknown] sodium chloride 1 gram tablet 2,000 mg PO TID 30 days #180 tabs 01/25/22 [Rx Last Taken Unknown] Allergy/AdvReac Type Severity Reaction Status Date / Time adhesive tape AdvReac Other Verified 01/25/22 18:55 Family History Other Cancer Diabetes Heart disease Surgical History H/O repair of rotator cuff Social History Smoking Status: Current every day smoker tobacco type: smokeless tobacco ROS ROS Narrative Pertinent positives and pertinent negatives as noted in HPI. All other systems were reviewed and are negative. Vital Signs Vital Signs Vital Signs: 01/25/22 18:53 01/25/22 20:52 01/25/22 22:00 Temperature 97 F L Temperature Source Temporal Pulse Rate 71 72 69 Respiratory Rate 18 12 18 Blood Pressure 104/63 92/48 L 90/64 Blood Pressure Mean 76 62 72 Pulse Ox 100 100 100 Oxygen Delivery Method Room Air Room Air Room Air Weight Weight: 89.5 kg Body Mass Index (BMI) 29.1 Physical Exam Narrative Physical exam: General: Well-nourished, well-developed. Head: Normocephalic, atraumatic, no tenderness Eyes: Vision is grossly intact. EOMI ENT, no trauma, moist mucous membranes, no rhinorrhea Neck: Nontender, full range of motion, no spinal tenderness, deformities, step- off CVS: Regular rate and rhythm. S1-S2 present. No murmur, gallop or rub. Respiratory : clear to auscultation bilaterally, chest wall nontender, no wheezing Abdomen: Soft, nontender, distended, normal bowel sounds, no masses : Deferred Back: Nontender, no CVA tenderness, no midline spinal tenderness, deformities, step-offs Extremities: Nontender full range of motion, no trauma Skin: Normal color, no trauma, abrasions. Petechial rash on abdomen Neuro: Alert, oriented, cranial nerves II through XII grossly intact. Psychiatry: Normal mood. Normal affect. Not depressed. Not anxious. Results Lab / Micro Data Result Diagrams: 01/25/22 19:45 01/25/22 19:45 Labs: Laboratory Results - last 24 hr 01/25/22 19:45: WBC 8.4, RBC 2.86 L, Hgb 9.5 L, Hct 27.0 L, MCV 94.4 H, MCH 33.2 H, MCHC 35.2, RDW Std Deviation 47.9 H, RDW Coeff of Teri 14.0, Plt Count 162, MPV 10.8, Immature Gran % (Auto) 0.700, Neut % (Auto) 61.6, Lymph % (Auto) 22.3, Parmer % (Auto) 11.6 H, Eos % (Auto) 2.8, Baso % (Auto) 1.0, Absolute Neuts (auto) 5.2, Absolute Lymphs (auto) 1.86, Nucleated RBC % 0 01/25/22 19:45: PT 22.0 H, INR 2.0, APTT 38.5 H 01/25/22 19:45: Sodium 132 L, Potassium 3.9, Chloride 103, Carbon Dioxide 20.0 L , Anion Gap 9, BUN 27 H, Creatinine 2.05 H, Estim Creat Clear Calc 42.63, Est GFR (MDRD) Af Amer 44 L, Est GFR (MDRD) Non-Af 37 L, BUN/Creatinine Ratio 13.2, Glucose 129 H, Calcium 9.4, Total Bilirubin 3.20 H, Direct Bilirubin 1.10 H, AST 60 H, ALT 30, Alkaline Phosphatase 152 H, Total Protein 5.4 L, Albumin 2.2 L, Globulin 3.2, Lipase 210 01/25/22 20:54: Ammonia < 10.0 L Assessment & Plan Assessment/Plan (1) RICKY (acute kidney injury): (2) Weakness: (3) Hypotension: PLAN: Plan RICKY Creatinine on presentation was 2.05. Baseline creatinine is about 1.08. Received normal saline bolus at the emergency department. Will hold off further normal saline bolus. Hold home diuretics. Trend BMP Hypotension Blood pressures on presentation was soft. Lowest diastolic blood pressure of 48 and lowers systolic blood pressure of 90. Received normal saline bolus in the emergency department. We will hold off further IV fluids at this time. We will continue home midodrine Florinef and salt tablets. Generalized weakness PT and OT to work with patient. Case management consult. Cirrhosis with ascites Patient does not appear encephalopathic at this time. Ammonia level is less than 10. Stable. We will continue home rifaximin and lactulose. Chronic hyponatremia Sodium presentation was 132. Stable. DVT prophylaxis: SCDs ordered. Charges/Coding Visit Charges OBSV E&M: 44428 Initial observation care L2
[2022-01-26] VITALS (12 sets, daily range): BP systolic 0–102; BP diastolic 0–65; PULSE 0–74; RESP 0–18; TEMP -17.7–37.1; O2SAT 0–100; BMI 28.6
[2022-01-26 07:00] LABS: Absolute Lymphocyte Count 1.61 X10^3/uL (0.83-4.51); Absolute Neutrophil Count 4.5 X10^3/uL (2.0-7.7); Basophil# 0.09 X10^3/uL; Basophil% 1.2 % (0-1); Eosinophil# 0.25 X10^3/uL; Eosinophils% 3.3 % (0-5); Hematocrit 25.6 % (40-54); Hemoglobin 9.3 g/dL (13.0-16.5); Lymphocyte # 1.61 X10^3/ul (0.83-4.51); Lymphocyte % 21.3 % (19-41); Mean Corp Hgb Conc 36.3 g/dL (32-36); Mean Corpuscular Hgb 33.7 pg (27.0-32.0); Mean Corpuscular Volume 92.8 fL (80-94); Mean Platelet Vol. 10.8 fl (6.2-12.0); Monocyte# 1.04 X10^3/uL; Monocyte% 13.8 % (0-10); NRBC Flagged by Analyzer 0 % (0-5); Neutrophil % 59.5 % (47-70); Platelet Count 136 K/mm3 (150-450); RBC Distribution Width CV 14.1 % (11.6-14.6); RBC Distribution Width SD 48.1 fl (35.1-43.9); Red Blood Count 2.76 M/mm3 (4.6-6.2); White Blood Count 7.6 K/mm3 (4.4-11.0)
[2022-01-26 07:37] LABS: Anion Gap 9 (5-15); BUN 28 mg/dL (7-18); BUN/Creat Ratio 14.4 RATIO (10-20); Calcium,Total 9.3 mg/dL (8.5-10.1); Chloride 104 mmol/L (98-107); Creatinine, Serum 1.94 mg/dL (0.70-1.30); EST Glomerular Filtration Rate 39 mL/min (>60); Est Glom Filt Rate - Afr Amer 47 mL/min (>60); Estimated Creatinine Clearance 45.05 ml/min; Glucose 104 mg/dL (74-106); Potassium 3.5 mmol/L (3.5-5.1); Sodium Level 131 mmol/L (136-145)
[2022-01-26] MEDS: Sodium Chloride 1 GM Tablet PO ×3 (09:19→21:01)
[2022-01-26] MEDS: Escitalopram Oxalate 10 MG Tablet PO (09:20)
[2022-01-26] MEDS: Midodrine HCl 5 MG Tablet 10 MG PO ×3 (09:20→18:19)
[2022-01-26] MEDS: Magnesium Chloride 64 MG Delay Rel.Tablet PO (09:20)
[2022-01-26] MEDS: Pantoprazole Sodium 20 MG Tablet PO (09:20)
[2022-01-26] MEDS: Fludrocortisone Acetate 0.1 MG Tablet PO (09:21)
[2022-01-26] MEDS: Lactulose 20 GM/30 ML UDC PO ×3 (09:21→21:00)
[2022-01-26] MEDS: rifAXIMin 550 MG Tablet PO ×2 (09:21→21:00)
[2022-01-26] MEDS: 0.9% Normal Saline 1,000 ML 60 ML IV (11:54)
[2022-01-26] MEDS: Ondansetron 4 MG/2 ML Vial IV (11:57)
--- NOTE | 2022-01-26 12:13 | PCM.PN.HOSP ---
Documented by User: Annabel Meza NP, SPEECH AND DRAMA TEACHER-C 01/26/22 12:43 Subjective Subjective Patient seen and examined. at bedside reports patient has been confused at home and weak. Patient denies current symptoms or complaints. States he is to undergo paracentesis in the morning which was scheduled as outpatient. He denies fever, chills. Denies difficulty urinating. Objective Data Objective Data Vital Signs: Vital Signs Temp Pulse Resp BP Pulse Ox O2 Del Method 98.0 F 61 16 98/65 100 Room Air 01/26/22 09:00 01/26/22 09:00 01/26/22 09:00 01/26/22 09:00 01/26/22 09:00 01/26/22 09:00 Oxygen Delivery Method Room Air Weight: 193 lb 12.581 oz Body Mass Index (BMI) 28.6 Intake & Output: Intake and Output for Last 24 Hours 01/24/22 01/25/22 01/26/22 23:59 23:59 23:59 Intake Total 692.5 / 692.5 0 / 0 Balance 692.5 / 692.5 0 / 0 Lab / Micro Data Result Diagrams: 01/26/22 06:40 01/26/22 06:40 Labs: Laboratory Results - last 24 hr 01/25/22 19:45: WBC 8.4, RBC 2.86 L, Hgb 9.5 L, Hct 27.0 L, MCV 94.4 H, MCH 33.2 H, MCHC 35.2, RDW Std Deviation 47.9 H, RDW Coeff of Teri 14.0, Plt Count 162, MPV 10.8, Immature Gran % (Auto) 0.700, Neut % (Auto) 61.6, Lymph % (Auto) 22.3, Gentry % (Auto) 11.6 H, Eos % (Auto) 2.8, Baso % (Auto) 1.0, Absolute Neuts (auto) 5.2, Absolute Lymphs (auto) 1.86, Nucleated RBC % 0 01/25/22 19:45: PT 22.0 H, INR 2.0, APTT 38.5 H 01/25/22 19:45: Sodium 132 L, Potassium 3.9, Chloride 103, Carbon Dioxide 20.0 L, Anion Gap 9, BUN 27 H, Creatinine 2.05 H, Estim Creat Clear Calc 42.63, Est GFR (MDRD) Af Amer 44 L, Est GFR (MDRD) Non-Af 37 L, BUN/Creatinine Ratio 13.2, Glucose 129 H, Calcium 9.4, Total Bilirubin 3.20 H, Direct Bilirubin 1.10 H, AST 60 H, ALT 30, Alkaline Phosphatase 152 H, Total Protein 5.4 L, Albumin 2.2 L, Globulin 3.2, Lipase 210 01/25/22 20:54: Ammonia < 10.0 L 01/26/22 06:40: WBC 7.6, RBC 2.76 L, Hgb 9.3 L, Hct 25.6 L, MCV 92.8, MCH 33.7 H, MCHC 36.3 H, RDW Std Deviation 48.1 H, RDW Coeff of Teri 14.1, Plt Count 136 L, MPV 10.8, Immature Gran % (Auto) 0.900, Neut % (Auto) 59.5, Lymph % (Auto) 21.3, Gentry % (Auto) 13.8 H, Eos % (Auto) 3.3, Baso % (Auto) 1.2 H, Absolute Neuts (auto) 4.5, Absolute Lymphs (auto) 1.61, Nucleated RBC % 0 01/26/22 06:40: Sodium 131 L, Potassium 3.5, Chloride 104, Carbon Dioxide 18.0 L, Anion Gap 9, BUN 28 H, Creatinine 1.94 H, Estim Creat Clear Calc 45.05, Est GFR (MDRD) Af Amer 47 L, Est GFR (MDRD) Non-Af 39 L, BUN/Creatinine Ratio 14.4, Glucose 104, Calcium 9.3 Physical Exam Const alert and oriented x3 HEENT normocephalic Mouth: dry mucous membranes Eyes PERRL, EOMs intact bilaterally and conjunctivae normal Neck no lymphadenopathy Resp clear to auscultation bilaterally Auscultation: diminished lung sounds Cardio regular rate, regular rhythm and no murmurs Peripheral Pulses: pulses 2+ throughout GI normal to inspection, nondistended, normoactive bowel sounds, non-tender and non-distended Extremity normal to inspection Skin no rashes or lesions noted Skin Narrative: Right knee abrasion, upper extremity skin tears. Lesions: no lesions Rashes: no rashes Trauma: no lacerations or abrasions Neuro CN's II-XII intact bilaterally, no focal motor deficits, no sensory deficits noted and deep tendon reflexes 2+ bilaterally Psych mental status grossly normal and affect normal Assessment & Plan Assessment/Plan (1) RICKY (acute kidney injury): PLAN: Plan 1. Acute kidney injury-gentle IV fluids. Diuretic regimen on hold. Patient bladder scanned for greater than 700 cc. Straight cath x1. Add Flomax. Continue voiding trial. If repeat bladder scan remains increased, will place [place] catheter. Outpatient follow-up with urology. 2. Generalized weakness-PT/OT ordered. states she has a prescription for walker and will be picking up from pharmacy [facility]. 3. Hypotension-improved. Continue midodrine, Florinef. Diuretic regimen on hold. 4. Cirrhosis due to alcoholic hepatitis with ascites-undergoes weekly paracentesis. Follows with GI. Continue lactulose, Xifaxan. Spironolactone, Lasix temporarily held. 5. Chronic hyponatremia-appears improved from prior. Stable. On sodium tabs. 6. History of alcohol use-denies ongoing use. 7. Anxiety/depression-on escitalopram. DVT prophylaxis-SCDs This patient was seen by Annabel Meza NP-C under the supervision of Dr. Sexton. Time spent examining patient, reviewing data and subsequent management of care: 15 minutes Documented by User: Dr. Nay Sexton MD 01/26/22 14:33 Objective Data Lab / Micro Data Result Diagrams: 01/26/22 06:40 01/26/22 06:40 Assessment & Plan Assessment/Plan (1) RICKY (acute kidney injury): Charges/Coding Addendum Addendum: This patient was seen in conjunction with Annabel Meza NP. I have independently interviewed and examined the patient and reviewed pertinent historical, laboratory, and other data. I have reviewed her note and concur with her documentation Patient was seen and examined. No acute events overnight. Patient said that he felt a little better. Blood pressure remains relatively improved. Physical Exam: Gen: Comfortable, not pale, not jaundiced CVS:HS I +II, regular, no murmurs RESP: Diminished at lung bases GI: BS present and normal, soft, nontender, ascites++, no ballotable organs EXT: Bilateral leg edema +1-2 ASSESSMENT: 1. Debility 2. RICKY on CKD stage 3 3. Hypotension 4. Liver cirrhosis, chronically decompensated with ascites 5. Chronic hyponatremia 6. Anxiety/depression Plan: Gentle IV fluids Continue to hold spironolactone and Lasix Monitor vital Repeat renal function at 5 PM Probable discharge if patient is improved Paracentesis tomorrow -likely outpatient Time spent coordinating all aspects of patient's care, discussing with nursin minutes Visit Charges Inpatient E&M: 04135 Subs Hosp L2
--- NOTE | 2022-01-26 12:22 | CHAPLAIN ---
Type of Pastoral Visit _x__ Initial Visit ___ Follow-up Visit ___ On-call Visit ___ General Patient Visit ___ Spiritual Assessment ___ Family Conference ___ Bereavement ___ Rapid Response ___ Code Blue ___ Other (describe below) Pastoral Care Referral From _x__ Patient _x__ Family ___ Nurse ___ Physician ___ Breastfeeding Educator ___ Inspection Manager ___ Other (describe below) Sacrament/Intervention _x__ Active listening ___ Anointing ___ Taoist ___ Bereavement ___ Communion ___ Stella exploration ___ ___ Life review _x__ Prayer ___ Reconciliation ___ Sacrament of Sick _x__ Supportive presence ___ Wedding ___ Other (describe below) Pastoral Comments this patient was recently seen by this assistant professor of economics in time for infusion in Outpatient pavilion; spouse is at bedside and patient is sleeping; spouse states that pt has been hallucinating and confused recently and saying things that are hurtful to me even though not true; gave listening ear and reassurances to spouse during this difficult time; spouse is actively working toward further treatments and a potential transplant and expresses frustrations at insurance people and the system; lots of time to listen, offer a prayer, and sitting with spouse; spouse is tearful; offer of ongoing support
[2022-01-26] MEDS: Mupirocin Ointment 22gm Tube 1 APPLIC TOPICAL ×2 (14:41→23:26)
--- NOTE | 2022-01-26 17:00 | CASEMGMT ---
GIOVANNA ALEJANDRE readmission note: Pt has ETOH liver cirrhosis and gets weekly OP paracentesis @ [facility]. Prior admission: Admitted 12/26/21 w/dizziness and hyponatremia. Discharged home w/ 12/28/21. Current admission: Admitted 01/25/22 w/RICKY. Call to Ria @ [facility]. They had received a Palliative referral from pt's PCP, but had not met w/pt and yet. She was made aware of pt's admission to [facility]. Palliative contacted pt's today and came in and met w/pt and . Pt has now signed on w/Palliative care. GIOVANNA ALEJANDRE to room to talk w/pt and who is at bedside. She states [facility] contacted her today and informed her pt does not qualify for [facility] dialysis. They recommended pt be transferred to [facility] for eval for liver transplant. requesting physician contact [facility] re: possible transfer so he can be evaluated for liver transplant. Annabel, NET SOFTWARE DEVELOPER, made aware. states she has a script for a walker for pt, but she has not picked it up yet. She plans to do this tonight. GIOVANNA ALEJANDRE informed her, if has any difficulty w/getting the walker to inform GIOVANNA ALEJANDRE tomorrow. Pt and state pt has been taking his medications as prescribed. He has not had any appts scheduled w/PCP or w/Dr Friend since last admission and has no upcoming appts. states pt has an appt tomorrow w/Dr Camara, nephrology, but does not have his contact info to cancel the appt. GIOVANNA ALEJANDRE provided the # to and she plans to call and cancel it. Emma LOPEZ RN, CM
[2022-01-26 18:08] LABS: Anion Gap 10 (5-15); BUN 29 mg/dL (7-18); BUN/Creat Ratio 14.1 RATIO (10-20); Calcium,Total 9.1 mg/dL (8.5-10.1); Chloride 104 mmol/L (98-107); Creatinine, Serum 2.06 mg/dL (0.70-1.30); EST Glomerular Filtration Rate 36 mL/min (>60); Est Glom Filt Rate - Afr Amer 44 mL/min (>60); Estimated Creatinine Clearance 42.42 ml/min; Glucose 136 mg/dL (74-106); Potassium 3.5 mmol/L (3.5-5.1); Sodium Level 132 mmol/L (136-145)
[2022-01-26] MEDS: Ursodiol 250 MG Tablet PO (21:02)
[2022-01-27] VITALS (11 sets, daily range): BP systolic 91–112; BP diastolic 48–62; PULSE 62–76; RESP 16–20; TEMP 36.4–36.7; O2SAT 94–100; BMI 28.6
[2022-01-27 04:55] LABS: Absolute Lymphocyte Count 1.78 X10^3/uL (0.83-4.51); Absolute Neutrophil Count 4.5 X10^3/uL (2.0-7.7); Basophil# 0.08 X10^3/uL; Basophil% 1.1 % (0-1); Eosinophil# 0.33 X10^3/uL; Eosinophils% 4.4 % (0-5); Hematocrit 24.4 % (40-54); Hemoglobin 8.5 g/dL (13.0-16.5); Lymphocyte # 1.78 X10^3/ul (0.83-4.51); Lymphocyte % 23.6 % (19-41); Mean Corp Hgb Conc 34.8 g/dL (32-36); Mean Corpuscular Hgb 32.9 pg (27.0-32.0); Mean Corpuscular Volume 94.6 fL (80-94); Mean Platelet Vol. 10.8 fl (6.2-12.0); Monocyte# 0.86 X10^3/uL; Monocyte% 11.4 % (0-10); NRBC Flagged by Analyzer 0 % (0-5); Neutrophil # 4.47 X10^3/uL (2.7-7.7); Neutrophil % 59.1 % (47-70); Platelet Count 141 K/mm3 (150-450); RBC Distribution Width CV 14.5 % (11.6-14.6); RBC Distribution Width SD 50.4 fl (35.1-43.9); Red Blood Count 2.58 M/mm3 (4.6-6.2); White Blood Count 7.6 K/mm3 (4.4-11.0)
[2022-01-27 05:21] LABS: Anion Gap 8 (5-15); BUN 30 mg/dL (7-18); BUN/Creat Ratio 14.5 RATIO (10-20); Calcium,Total 9.1 mg/dL (8.5-10.1); Chloride 103 mmol/L (98-107); Creatinine, Serum 2.07 mg/dL (0.70-1.30); EST Glomerular Filtration Rate 36 mL/min (>60); Est Glom Filt Rate - Afr Amer 44 mL/min (>60); Estimated Creatinine Clearance 42.22 ml/min; Glucose 116 mg/dL (74-106); Sodium Level 127 mmol/L (136-145)
[2022-01-27] MEDS: Sodium Chloride 1 GM Tablet PO ×3 (05:23→21:28)
[2022-01-27] MEDS: Lactulose 20 GM/30 ML UDC PO ×3 (05:23→21:28)
--- NOTE | 2022-01-27 08:00 | US_ITS ---
PROCEDURE: Ultrasound guided paracentesis. DATE OF EXAMINATION: 01/27/2022. INDICATION: Male, 51 years old. Ascites. PHYSICIAN: Austyn Aguilar M.D. TECHNIQUE: The risks, benefits, and alternatives to the procedure were explained to the patient. The specific risks of bleeding, infection, and damage to bowel were detailed and accepted. Witnessed informed consent was obtained. The abdomen was ultrasonographically surveyed. An appropriate pocket of fluid was identified at the right lower quadrant. The skin were cleaned and prepped in the usual sterile fashion. Using ultrasound guidance, the peritoneal cavity was accessed with a 5-Salvadorean paracentesis needle/catheter system. The trocar was removed. A total of 8700 ml of brian-colored fluid were removed from the peritoneal cavity. The catheter was removed and a sterile dressing was applied. The procedure was well tolerated. US/Paracentesis with US IMPRESSION: Ultrasound guided paracentesis. Electronically Signed: Austyn Aguilar MD at 9:36 EDT ,
[2022-01-27] MEDS: Lidocaine 2% (5ml sdv) 5 ML VIAL.MPF INFILT (08:52)
[2022-01-27] MEDS: Midodrine HCl 5 MG Tablet 10 MG PO ×3 (09:03→16:12)
[2022-01-27] MEDS: rifAXIMin 550 MG Tablet PO ×2 (09:03→21:29)
[2022-01-27] MEDS: Magnesium Chloride 64 MG Delay Rel.Tablet PO (09:03)
[2022-01-27] MEDS: Escitalopram Oxalate 10 MG Tablet PO (09:04)
[2022-01-27] MEDS: Mupirocin Ointment 22gm Tube 1 APPLIC TOPICAL ×2 (09:04→21:27)
[2022-01-27] MEDS: Fludrocortisone Acetate 0.1 MG Tablet PO (09:04)
[2022-01-27] MEDS: Pantoprazole Sodium 20 MG Tablet PO (09:04)
--- NOTE | 2022-01-27 09:55 | CON.PCM.RE_ITS ---
Documented by User: ZURI Brooks 01/27/22 10:36 Assessment & Plan Assessment/Plan (1) RICKY (acute kidney injury): (2) Weakness: (3) Hypotension: (4) Hx of cirrhosis: (5) Hyponatremia: PLAN: Plan Patient was admitted to the hospital after presenting to the emergency room with confusion, weakness and also found to have acute kidney injury; he was also hypotensive at home and in ER. We were consulted for acute kidney injury. Patient is known to our group from previous hospital consultations for acute on chronic hypervolemic hyponatremia secondary to cirrhosis, baseline sodium ranging around 121-128. Home regimen for patient is sodium chloride tablets 2gm 3 times daily, Lasix 40 mg twice daily and Aldactone 25 mg daily (dose had been higher but was reduced due to episode of hyperkalemia). In the emergency room on January 25 creatinine was 2.05 mg/dL. Patient did receive fluid bolus. His creatinine on January 26 was 1.94 mg/dL but today his creatinine is at 2.07 mg/dL. Lasix and Aldactone are on hold. To note baseline creatinine had been around 1 mg/dL. He did have labs drawn on January 13 and creatinine was 1.81 mg/dL. We we will obtain urinalysis as well as renal ultrasound to rule out obstructive component contributing to RICKY. Patient is hypotensive which could also be contributing to RICKY; hepato-renal may also be contributing to rising serum creatinine. Patient may be intravascularly volume depleted. Albumin is 2.2. He had paracentesis today with 8.7L fluid removed and is getting a dose of Albumin IV. We will continue Albumin 25gm every 8hrs for total 6 doses. Continue midodrine. At this time there is no acute indication for [employer]. Potassium and acid-base are acceptable and volume status is acceptable. Patient is non-oliguric. Current sodium levels acceptable and at patient's baseline. Sodium was 132 on admission and today is 127. He is on sodium chloride tablets. Further orders forthcoming as hospitalization evolves, thank you for allowing us to participate in the care of Mr. Thompson. HPI Consult Data Date of Consult: 01/27/22 HPI Narrative HPI Narrative: JOSE CRUZ THOMPSON, is a 51 M who was brought to the ER for evaluation of increased confusion, low bp at home and weakness. Patient has past medical history significant for alcoholic cirrhosis of liver with ascites (followed by Dr. Posada), hyponatremia, hypotension. Patient has abdominal ascites and has been requiring weekly paracenteses. Currently patient has been having about 8 to 9 L of fluid removed with paracentesis. Patient did have paracentesis today with 8.7 L fluid removed. We were consulted for RICKY. Patient is known to our group for history of acute on chronic hyponatremia with baseline sodium ranging around 121-128. At home patient is on sodium chloride tablets 2gm 3 times daily, he is also on Lasix 40 mg twice daily and Aldactone 25 mg daily (dose had been higher but was reduced due to episode of hyperkalemia). Patient is also on midodrine 10 mg 3 times daily and was recently started on Florinef. Patient has been trying to maintain fluid restriction of 1.5 L/day. Patient's is at bedside and reports that recently patient's appetite has been poor; he has had decrease solute and fluid intake. No NSAIDs. No recent issues with urinating including dysuria or hematuria. States blood pressures have been low at home. No recent vomiting but has been nauseated. Continues to take lactulose as ordered. Baseline creatinine has been around 1 mg/dL however on 01/12/2022 creatinine was 1.8 mg/dL. In the emergency room on January 25 creatinine 2.05 mg/dL and today his creatinine is 2.07 mg/dL. [facility] Medical History Abdominal ascites Alcoholic hepatitis Anemia Chronic hyponatremia Cirrhosis of liver Hyperbilirubinemia Nicotine dependence Rotator cuff arthropathy of left shoulder Thrombocytopenia Wernicke encephalopathy Home Medications ursodiol 250 mg tablet 250 mg PO QHS #30 tabs 10/20/21 [Rx Last Taken Unknown] escitalopram oxalate 10 mg tablet 10 mg PO DAILY 30 days #30 tabs 12/28/21 [Rx Last Taken Unknown] furosemide 40 mg tablet 40 mg PO BID #60 tabs 12/28/21 [Rx Last Taken Unknown] pantoprazole 20 mg tablet,delayed release 20 mg PO DAILY 30 days #30 tabs 12/28/21 [Rx Last Taken Unknown] spironolactone 50 mg tablet 25 mg PO DAILY #30 tabs 12/28/21 [Rx Last Taken Unknown] Vitamin B-1 100 mg PO/SL DAILY vitamin 01/05/22 [History Last Taken Unknown] magnesium 250 mg tablet 250 mg PO DAILY supplement 01/06/22 [History Last Taken Unknown] rifaximin 550 mg tablet (Xifaxan) 550 mg PO BID diarrhea 01/06/22 [History Last Taken Unknown] midodrine 5 mg tablet 10 mg PO TIDCM #90 tabs 01/11/22 [Rx Last Taken Unknown] fludrocortisone 0.1 mg tablet 0.1 mg PO DAILY #30 tabs 01/17/22 [Rx Last Taken Unknown] midodrine 10 mg tablet 10 mg PO TID #90 tabs 01/17/22 [Rx Last Taken Unknown] lactulose 20 gram/30 mL oral solution 20 g (30 mL) PO TID liver failure 1 month #2,700 mL 01/25/22 [Rx Last Taken Unknown] sodium chloride 1 gram tablet 2,000 mg PO TID 30 days #180 tabs 01/25/22 [Rx Last Taken Unknown] Allergy/AdvReac Type Severity Reaction Status Date / Time adhesive tape AdvReac Other Verified 01/25/22 18:55 Family History Other Cancer Diabetes Heart disease Surgical History H/O repair of rotator cuff Social History Smoking Status: Current every day smoker tobacco type: smokeless tobacco ROS ROS Narrative As per HPI and past medical history Physical Exam Narrative Const: Alert and oriented x3. No apparent distress HEENT: Head is normocephalic, atraumatic. Oral mucosa dry, lips dry Cardio: S1, S2, no murmurs rubs or gallops Respiratory: Lung sounds clear anteriorly and posteriorly. No wheezes, rhonchi or rales noted Abdomen: Soft, nontender, slightly distended, positive bowel sounds Extremities: No pitting edema noted to bilateral lower legs, feet or arms Lab / Micro Data Result Diagrams: 01/27/22 04:47 01/27/22 04:47 Labs: Laboratory Results - last 24 hr 01/26/22 17:20: Sodium 132 L, Potassium 3.5, Chloride 104, Carbon Dioxide 18.0 L , Anion Gap 10, BUN 29 H, Creatinine 2.06 H, Estim Creat Clear Calc 42.42, Est GFR (MDRD) Af Amer 44 L, Est GFR (MDRD) Non-Af 36 L, BUN/Creatinine Ratio 14.1, Glucose 136 H, Calcium 9.1 01/27/22 04:47: WBC 7.6, RBC 2.58 L, Hgb 8.5 L, Hct 24.4 L, MCV 94.6 H, MCH 32.9 H, MCHC 34.8, RDW Std Deviation 50.4 H, RDW Coeff of Teri 14.5, Plt Count 141 L, MPV 10.8, Immature Gran % (Auto) 0.400, Neut % (Auto) 59.1, Lymph % (Auto) 23.6, [place] % (Auto) 11.4 H, Eos % (Auto) 4.4, Baso % (Auto) 1.1 H, Absolute Neuts (auto) 4.5, Absolute Lymphs (auto) 1.78, Nucleated RBC % 0 01/27/22 04:47: Sodium 127 L, Potassium 4.0, Chloride 103, Carbon Dioxide 16.0 L , Anion Gap 8, BUN 30 H, Creatinine 2.07 H, Estim Creat Clear Calc 42.22, Est GFR (MDRD) Af Amer 44 L, Est GFR (MDRD) Non-Af 36 L, BUN/Creatinine Ratio 14.5, Glucose 116 H, Calcium 9.1 Radiology Impression Paracentesis Ultrasound 01/27/22 08:00 IMPRESSION: Ultrasound guided paracentesis. Electronically Signed: Austyn Aguilar MD at 9:36 EDT , Documented by User: Dr. Kelly Hernandez DO 01/28/22 00:24 Assessment & Plan Assessment/Plan (1) RICKY (acute kidney injury): (2) Weakness: (3) Hypotension: (4) Hx of cirrhosis: (5) Hyponatremia: PLAN: Plan Patient was admitted to the hospital after presenting to the emergency room with confusion, weakness and also found to have acute kidney injury; he was also hypotensive at home and in ER. We were consulted for acute kidney injury. Patient is known to our group from previous hospital consultations for acute on chronic hypervolemic hyponatremia secondary to cirrhosis, baseline sodium ranging around 121-128. Home regimen for patient is sodium chloride tablets 2gm 3 times daily, Lasix 40 mg twice daily and Aldactone 25 mg daily (dose had been higher but was reduced due to episode of hyperkalemia). In the emergency room on January 25 creatinine was 2.05 mg/dL. Patient did receive fluid bolus. His creatinine on January 26 was 1.94 mg/dL but today his creatinine is at 2.07 mg/dL. Lasix and Aldactone are on hold. To note baseline creatinine had been around 1 mg/dL. He did have labs drawn on January 13 and creatinine was 1.81 mg/dL. We we will obtain urinalysis as well as renal ultrasound to rule out obstructive component contributing to RICKY. Patient is hypotensive which could also be contributing to RICKY; hepato-renal may also be contributing to rising serum creatinine. Patient may be intravascularly volume depleted. Albumin is 2.2. He had paracentesis today with 8.7L fluid removed and is getting a dose of Albumin IV. We will continue Albumin 25gm every 8hrs for total 6 doses. Continue midodrine. At this time there is no acute indication for [employer]. Potassium and acid-base are acceptable and volume status is acceptable. Patient is non-oliguric. Current sodium levels acceptable and at patient's baseline. Sodium was 132 on admission and today is 127. He is on sodium chloride tablets. Further orders forthcoming as hospitalization evolves, thank you for allowing us to participate in the care of Mr. Thompson. Addendum: I have discussed this patient with ZURI Brooks and I agree with her assessment and plan. suspect hepatorenal physiology and large volume paracentesis as cause for RICKY. Cont midodrine and IV albumin. Pt should cont to restrict po fluids to 1.5 L daily. Kelly Hernandez D.O. HPI Consult Data Date of Consult: 01/28/22 [facility] Medical History Abdominal ascites Alcoholic hepatitis Anemia Chronic hyponatremia Cirrhosis of liver Hyperbilirubinemia Nicotine dependence Rotator cuff arthropathy of left shoulder Thrombocytopenia Wernicke encephalopathy Home Medications ursodiol 250 mg tablet 250 mg PO QHS #30 tabs 10/20/21 [Rx Last Taken Unknown] escitalopram oxalate 10 mg tablet 10 mg PO DAILY 30 days #30 tabs 12/28/21 [Rx Last Taken Unknown] furosemide 40 mg tablet 40 mg PO BID #60 tabs 12/28/21 [Rx Last Taken Unknown] pantoprazole 20 mg tablet,delayed release 20 mg PO DAILY 30 days #30 tabs 0 12/28/21 [Rx Last Taken Unknown] spironolactone 50 mg tablet 25 mg PO DAILY #30 tabs 12/28/21 [Rx Last Taken Unknown] Vitamin B-1 100 mg PO/SL DAILY vitamin 01/05/22 [History Last Taken Unknown] magnesium 250 mg tablet 250 mg PO DAILY supplement 01/06/22 [History Last Taken Unknown] rifaximin 550 mg tablet (Xifaxan) 550 mg PO BID diarrhea 01/06/22 [History Last Taken Unknown] midodrine 5 mg tablet 10 mg PO TIDCM #90 tabs 01/11/22 [Rx Last Taken Unknown] fludrocortisone 0.1 mg tablet 0.1 mg PO DAILY #30 tabs 01/17/22 [Rx Last Taken Unknown] midodrine 10 mg tablet 10 mg PO TID #90 tabs 01/17/22 [Rx Last Taken Unknown] lactulose 20 gram/30 mL oral solution 20 g (30 mL) PO TID liver failure 1 month #2,700 mL 01/25/22 [Rx Last Taken Unknown] sodium chloride 1 gram tablet 2,000 mg PO TID 30 days #180 tabs 01/25/22 [Rx Last Taken Unknown] Allergy/AdvReac Type Severity Reaction Status Date / Time adhesive tape AdvReac Other Verified 01/25/22 18:55 Family History Other Cancer Diabetes Heart disease Surgical History H/O repair of rotator cuff Social History Smoking Status: Current every day smoker tobacco type: smokeless tobacco Lab / Micro Data Result Diagrams: 01/27/22 04:47 01/27/22 04:47
--- NOTE | 2022-01-27 10:36 | US_ITS ---
STUDY: RENAL ULTRASOUND - COMPLETE REASON FOR EXAM: Male, 51 years old. RICKY TECHNIQUE: Ultrasound evaluation of the kidneys was performed with real-time and static dc-scale imaging. COMPARISON: None. FINDINGS: RIGHT KIDNEY: Normal location of the right kidney, which is normal in size. The right kidney measures 10.4 cm x 6.5 cm x 5.9 cm. There is a normal cortex of the right kidney. The renal cortex measures 1.7 cm. There is no right renal mass or cyst. There are no right renal calculi. There is no right hydronephrosis. DISTAL RIGHT URETER: There is non-visualization of the distal right ureter. There is no demonstrated right ureterovesical junction calculus. There is a visualized right ureteral jet. LEFT KIDNEY: Normal location of the left kidney, which is normal in size. The left kidney measures 10.9 cm x 4.9 cm x 6 cm. There is a normal cortex of the left kidney. The renal cortex measures 2.2 cm. There is no left renal mass or cyst. There are no left renal calculi. There is no left hydronephrosis. DISTAL LEFT URETER: There is non-visualization of the distal left ureter. There is no demonstrated left ureterovesical junction calculus. There is a visualized left ureteral jet. BLADDER: The distended urinary bladder has a volume of 35 ml. There is a normal wall thickness of the distended urinary bladder. There is no demonstrated mass within the urinary bladder. There are no demonstrated bladder calculi. US/Kidney and Bladder IMPRESSION: Normal ultrasound of the kidneys and urinary bladder. Electronically Signed: Austyn Aguilar MD at 14:58 EDT ,
--- NOTE | 2022-01-27 11:00 | PN.HOSP_ITS ---
Documented by User: Janell Tinoco NP-C 01/27/22 11:13 Subjective Subjective Seen and examined. Patient just returned from paracentesis, 8700 mL taken off. Patient informed that he will be getting albumin ordered. Patient verbalized understanding. Objective Data Objective Data Vital Signs: Vital Signs Temp Pulse Resp BP Pulse Ox O2 Del Method 97.9 F 69 18 97/55 L 100 Room Air 01/27/22 09:00 01/27/22 09:00 01/27/22 09:00 01/27/22 09:00 01/27/22 09:00 01/27/22 09:00 Oxygen Delivery Method [3] Room Air Oxygen Delivery Method [2] Room Air Oxygen Delivery Method [1 ( Room Air Initial Baseline)] Oxygen Delivery Method Room Air Weight: 193 lb 12.581 oz Body Mass Index (BMI) 28.6 Intake & Output: Intake and Output for Last 24 Hours 01/25/22 01/26/22 01/27/22 23:59 23:59 23:59 Intake Total 692.5 / 692.5 360 / 360 1000 / 1000 Output Total 300 / 300 8700 / 8700 Balance 692.5 / 692.5 60 / 60 -7700 / -7700 Lab / Micro Data Result Diagrams: 01/27/22 04:47 01/27/22 04:47 Labs: Laboratory Results - last 24 hr 01/26/22 17:20: Sodium 132 L, Potassium 3.5, Chloride 104, Carbon Dioxide 18.0 L , Anion Gap 10, BUN 29 H, Creatinine 2.06 H, Estim Creat Clear Calc 42.42, Est GFR (MDRD) Af Amer 44 L, Est GFR (MDRD) Non-Af 36 L, BUN/Creatinine Ratio 14.1, Glucose 136 H, Calcium 9.1 01/27/22 04:47: WBC 7.6, RBC 2.58 L, Hgb 8.5 L, Hct 24.4 L, MCV 94.6 H, MCH 32.9 H, MCHC 34.8, RDW Std Deviation 50.4 H, RDW Coeff of Teri 14.5, Plt Count 141 L, MPV 10.8, Immature Gran % (Auto) 0.400, Neut % (Auto) 59.1, Lymph % (Auto) 23.6, [place] % (Auto) 11.4 H, Eos % (Auto) 4.4, Baso % (Auto) 1.1 H, Absolute Neuts (auto) 4.5, Absolute Lymphs (auto) 1.78, Nucleated RBC % 0 01/27/22 04:47: Sodium 127 L, Potassium 4.0, Chloride 103, Carbon Dioxide 16.0 L , Anion Gap 8, BUN 30 H, Creatinine 2.07 H, Estim Creat Clear Calc 42.22, Est GFR (MDRD) Af Amer 44 L, Est GFR (MDRD) Non-Af 36 L, BUN/Creatinine Ratio 14.5, Glucose 116 H, Calcium 9.1 Radiography Diagnostic Testing: Radiology Impression Paracentesis Ultrasound 01/27/22 08:00 IMPRESSION: Ultrasound guided paracentesis. Electronically Signed: Austyn Aguilar MD at 9:36 EDT Reading Location ID and State: [facility] / [place] , Service support , Physical Exam Const alert and oriented x3 HEENT normocephalic Eyes conjunctivae normal Neck no lymphadenopathy Resp clear to auscultation bilaterally Auscultation: diminished lung sounds Cardio regular rate, regular rhythm and no murmurs Peripheral Pulses: pulses 2+ throughout GI normal to inspection, nondistended, normoactive bowel sounds, non-tender and non-distended GI Narrative: Dressing to abdomen dry and intact from paracentesis Extremity normal to inspection Skin no rashes or lesions noted Skin Narrative: Right knee abrasion, upper extremity skin tears. General Skin Exam: jaundice Lesions: no lesions Rashes: no rashes Trauma: no lacerations or abrasions Neuro no focal motor deficits and no sensory deficits noted Psych mental status grossly normal and affect normal Assessment & Plan Assessment/Plan (1) RICKY (acute kidney injury): PLAN: Plan 1. Acute kidney injury -Diuretic regimen on hold -Continue Flomax. Outpatient follow-up with urology. 2. Generalized weakness -PT/OT ordered. 3. Hypotension -improved. -Continue midodrine, Florinef. -Diuretic regimen on hold. 4. Cirrhosis due to alcoholic hepatitis with ascites -undergoes weekly paracentesis, 8700 ml removed. Albumin replaced 6g/L removed. -Follows with GI. -Continue lactulose, Xifaxan. 5. Chronic hyponatremia -127, Stable. -Continue sodium tabs. 6. History of alcohol use -denies ongoing use. 7. Anxiety/depression -on escitalopram. DVT prophylaxis-SCDs This patient was seen by Janell Tinoco NP-C under the supervision of Dr. Sexton. 14 minutes spent in clinical coordination of patient's plan of care. Documented by User: Dr. Nay Sexton MD 01/27/22 14:46 Objective Data Lab / Micro Data Result Diagrams: 01/27/22 04:47 01/27/22 04:47 Assessment & Plan Assessment/Plan (1) RICKY (acute kidney injury): Charges/Coding Addendum Addendum: This patient was seen in conjunction with Dennis Tinoco NP.? I have independently interviewed and examined the patient and reviewed pertinent historical, laboratory, and other data. I have reviewed her note and concur with her documentation Patient was seen and examined.? No acute events overnight.? He underwent ultrasound-guided paracentesis today and about 8.7 L of fluid was taken out. He complains of feeling tired. Denied any dizziness or palpitation. 6 g of albumin were given. Gen: Comfortable, not pale, not jaundiced CVS:HS I +II, regular, no murmurs RESP: Diminished at lung bases GI: BS present and normal, soft, nontender, ascites+, no ballotable organs EXT: Bilateral leg edema +1-2 ASSESSMENT: 1. Debility 2. RICKY on CKD stage 3 3. Hypotension 4. Liver cirrhosis, chronically decompensated with ascites 5. Chronic hyponatremia 6. Anxiety/depression Plan: Continue to hold spironolactone and Lasix Continue with daily albumin infusions Continue lactulose Continue midodrine, rifaximin, ursodiol Time spent coordinating all aspects of patient's care, discussing with nursin minutes Visit Charges Inpatient E&M: 82019 Subs Hosp L2
--- NOTE | 2022-01-27 11:35 | CASEMGMT ---
Addendum entered by Ozzy Abad 01/27/22 21:02: 1600: Per MARCUS Lenz, [facility] has accepted pt for transfer, but there are no beds available at this time. and pt made aware. Original Note: GIOVANNA ALEJANDRE NOTE: states she is unable to locate the script for the walker and she would like to have another one. Script obtained from MARCUS Lenz, and provided to . made aware if pt is discharged home that walker can be obtained prior to leaving the hospital. Pt has filed for Social Security disability and determination is still pending. states she has taken an FMLA from work x 2 weeks to take care of pt. She voices on-going need of someone to help assist w/taking care of pt when she returns to work. She has called [facility] and [facility]. Pt does not qualify for waiver and does not have time to get pt ready in the morning to go to [facility], as she goes in to work @ 7 AM. Questions answered about HHC and she is aware the aides do not stay w/pt for hours at a time, they only come in to help bath and dress 2-3 x's/week. She states the PCP has initiated HHC set-up recently but she does not know what agency. She is interested in pt getting [facility] for therapy and if can be done, she plans to have the referral done by PCP cancelled. Call placed to [facility] @ [facility]. She states they are in-network w/pt's insurance and they can accept pt, but his insurance requires a prior auth and this could take up to 15 days. Pt would owe 30% per visit after he meets his deductible and per [facility], pt's cost would be approx $75. made aware of all of the above. She states, if pt discharges home, she would be agreeable to [facility] for therapy only. Emma LOPEZ RN, CM
[2022-01-27] MEDS: 0.9% Saline Lock 10 ML Syringe IV ×3 (11:49→21:37)
[2022-01-27] MEDS: Albumin Human 25% (100 mL) 25 GM/100 ML BAG IV ×3 (11:49→21:36)
[2022-01-27 14:01] LABS: Mucous, Urine 0 SEEN /hpf (<or=2+); Red Blood Cells-Urine 0 SEEN /hpf (0-5)
[2022-01-27 14:09] LABS: Color, Urine Yellow (Yellow); Glucose, Dipstick Normal (Normal); Ketone-Dipstick 5 mg/dl (Negative); Leukocyte Esterase-Dipstick 500 /ul (Negative); Nitrite-Dipstick Negative (Negative); Occult Blood-Urine 25 /ul (Negative); Protein-Dipstick Negative (Negative); Urine Bilirubin Dipstick Negative (Negative); Urine Clarity Sl. Cloudy (Clear); Urine Urobilinogen Normal (Normal)
[2022-01-27 14:15] LABS: Bacteria 3+ /hpf (None Seen); Squamous Epithelial Cells - UA 0-5 SEEN /hpf (0-5)
[2022-01-27 14:16] LABS: White Blood Cells 0-5 SEEN /hpf (0-5)
[2022-01-27 15:13] LABS: AST(SGOT) 57 U/L (15-37); Alanine Aminotransfer ALT/SGPT 27 U/L (16-61); Alkaline Phosphatase 149 U/L (45-117); Bilirubin, Direct 0.92 mg/dL (0.00-0.30); Globulin 2.8 g/dL (2.2-4.2); Protein, Total 4.8 g/dL (6.4-8.2)
--- NOTE | 2022-01-27 15:18 | CHAPLAIN ---
Type of Pastoral Visit ___ Initial Visit _x__ Follow-up Visit ___ On-call Visit ___ General Patient Visit ___ Spiritual Assessment ___ Family Conference ___ Bereavement ___ Rapid Response ___ Code Blue ___ Other (describe below) Pastoral Care Referral From _x__ Patient ___ Family ___ Nurse ___ Physician ___ Truck Rental Service Attendant ___ Cafe Lead ___ Other (describe below) Sacrament/Intervention _x__ Active listening ___ Anointing ___ Religion ___ Bereavement ___ Communion ___ Stella exploration ___ ___ Life review ___ Prayer ___ Reconciliation ___ Sacrament of Sick ___ Supportive presence ___ Wedding ___ Other (describe below) Pastoral Comments patient is alert and remembers this immigration coordinator; today patient is able to converse and knows what is happening; pt speaks of hallucinating and saying disturbing things to my ; pt understood that he needed to come to hospital for help; pt states that a new concern is for his kidneys; spouse is not in the room at this time; at this time staff came for testing so visit ended
--- NOTE | 2022-01-27 18:24 | PCM.CONS.GEN ---
Assessment & Plan Assessment/Plan (1) RICKY (acute kidney injury): PLAN: The differential diagnosis for acute kidney injury is likely prerenal azotemia but could be ATN and less likely hepatorenal syndrome. He is being seen by nephrology. Recommend gentle IV fluids. This is a unfortunate complication of worsening liver disease. (2) Cirrhosis of liver: QUALIFIERS: Hepatic cirrhosis type: alcoholic cirrhosis Ascites presence: with ascites Qualified Code(s): K70.31 - Alcoholic cirrhosis of liver with ascites PLAN: Cirrhosis of liver complicated by ascites, encephalopathy, GI bleed. He has never had a history of SBP. His abdomen is not hurting him at this time and he is tolerating a diet. However he appears to have a grade 3 hepatic encephalopathy. He cannot get neomycin due to his kidney function. Would recommend Xifaxan 550 p.o. twice daily and lactulose 3 times a day. He is very sick at this time and with his meld into the 30s that puts him at risk of a 65 to 75% mortality in the next 30 days. (3) Abdominal ascites: QUALIFIERS: Ascites type: due to alcoholic cirrhosis Qualified Code(s): K70.31 - Alcoholic cirrhosis of liver with ascites PLAN: Status post large-volume paracentesis. (4) Hyponatremia: PLAN: Persistent hyponatremia secondary to worsening liver failure which increases his meld. He has a very poor prognosis. HPI Consult Data Date of Consult: 01/27/22 HPI Narrative Reason for Consultation: cirrhosis HPI Narrative: JOSE CRUZ THOMPSON, is a 51 M who presents from home with worsening abdominal distention and confusion.? He has a past medical history of alcoholic cirrhosis complicated by hyponatremia ,alcoholic hepatitis, encephalopathy and recurrent ascites.? He gets paracentesis every week.? He underwent large-volume paracentesis in which he had 8.7 L removed today.? He is currently getting albumin replacement. ? He is a newly diagnosed cirrhotic ..? He has been on diuretic therapy.?? He says his family doctor has been prescribing his diuretics.? He has not drank since July.? He did notice that he was starting to become more yellow recently. He is not been treated for alcoholic hepatitis.? He has never had a blood transfusion.? He has no family members with liver disease.? He said he has been struggling with his sodium and his abdominal distention.? He denies any bleeding, fatigue or weakness.? He is not having any problems sleeping at night.? He has no problems with tremors. He had a paracentesis done January 13, , but then has not had one since then.? States that around each time they were draining around 6 L of fluid.? Denies any fevers or chills and no significant abdominal pain with palpation.? Of note in the ER his white count was normal however his sodium is 120 with a chloride of 89.? Creatinine is 1.01 with a bilirubin of 6 and an AST of 185 and an ALT of 113 with a normal alk phos.? His meld has increased into the 30s from the mid 20s. He has not been drinking any alcohol. He is becoming more more refractory to medical therapy. He does not have any signs of spontaneous bleeding. However he also has refractory encephalopathy to Xifaxan and lactulose therapy. He is awaiting transfer to [facility] for transplant evaluation. [facility] Medical History Abdominal ascites Alcoholic hepatitis Anemia Chronic hyponatremia Cirrhosis of liver Hyperbilirubinemia Nicotine dependence Rotator cuff arthropathy of left shoulder Thrombocytopenia Wernicke encephalopathy Home Medications ursodiol 250 mg tablet 250 mg PO QHS #30 tabs 10/20/21 [Rx Last Taken Unknown] escitalopram oxalate 10 mg tablet 10 mg PO DAILY 30 days #30 tabs 12/28/21 [Rx Last Taken Unknown] furosemide 40 mg tablet 40 mg PO BID #60 tabs 12/28/21 [Rx Last Taken Unknown] pantoprazole 20 mg tablet,delayed release 20 mg PO DAILY 30 days #30 tabs 12/28/21 [Rx Last Taken Unknown] spironolactone 50 mg tablet 25 mg PO DAILY #30 tabs 12/28/21 [Rx Last Taken Unknown] Vitamin B-1 100 mg PO/SL DAILY vitamin 01/05/22 [History Last Taken Unknown] magnesium 250 mg tablet 250 mg PO DAILY supplement 01/06/22 [History Last Taken Unknown] rifaximin 550 mg tablet (Xifaxan) 550 mg PO BID diarrhea 01/06/22 [History Last Taken Unknown] midodrine 5 mg tablet 10 mg PO TIDCM #90 tabs 01/11/22 [Rx Last Taken Unknown] fludrocortisone 0.1 mg tablet 0.1 mg PO DAILY #30 tabs 01/17/22 [Rx Last Taken Unknown] midodrine 10 mg tablet 10 mg PO TID #90 tabs 01/17/22 [Rx Last Taken Unknown] lactulose 20 gram/30 mL oral solution 20 g (30 mL) PO TID liver failure 1 month #2,700 mL 01/25/22 [Rx Last Taken Unknown] sodium chloride 1 gram tablet 2,000 mg PO TID 30 days #180 tabs 01/25/22 [Rx Last Taken Unknown] Allergy/AdvReac Type Severity Reaction Status Date / Time adhesive tape AdvReac Other Verified 01/25/22 18:55 Family History Other Cancer Diabetes Heart disease Surgical History H/O repair of rotator cuff Social History Smoking Status: Current every day smoker tobacco type: smokeless tobacco ROS ROS Narrative As per HPI and past medical history Physical Exam Const alert and oriented x3 HEENT normocephalic Eyes conjunctivae normal Neck no lymphadenopathy Resp clear to auscultation bilaterally Auscultation: diminished lung sounds Cardio regular rate, regular rhythm and no murmurs Peripheral Pulses: pulses 2+ throughout GI normal to inspection, nondistended, normoactive bowel sounds, non-tender and non-distended GI Narrative: Dressing to abdomen dry and intact from paracentesis Extremity normal to inspection Skin no rashes or lesions noted Skin Narrative: Right knee abrasion, upper extremity skin tears. General Skin Exam: jaundice Lesions: no lesions Rashes: no rashes Trauma: no lacerations or abrasions Neuro no focal motor deficits and no sensory deficits noted Psych mental status grossly normal and affect normal Lab / Micro Data Result Diagrams: 01/27/22 04:47 01/27/22 04:47 Labs: Laboratory Results - last 24 hr 01/27/22 04:47: WBC 7.6, RBC 2.58 L, Hgb 8.5 L, Hct 24.4 L, MCV 94.6 H, MCH 32.9 H, MCHC 34.8, RDW Std Deviation 50.4 H, RDW Coeff of Teri 14.5, Plt Count 141 L, MPV 10.8, Immature Gran % (Auto) 0.400, Neut % (Auto) 59.1, Lymph % (Auto) 23.6, [place] % (Auto) 11.4 H, Eos % (Auto) 4.4, Baso % (Auto) 1.1 H, Absolute Neuts (auto) 4.5, Absolute Lymphs (auto) 1.78, Nucleated RBC % 0 01/27/22 04:47: Sodium 127 L, Potassium 4.0, Chloride 103, Carbon Dioxide 16.0 L, Anion Gap 8, BUN 30 H, Creatinine 2.07 H, Estim Creat Clear Calc 42.22, Est GFR (MDRD) Af Amer 44 L, Est GFR (MDRD) Non-Af 36 L, BUN/Creatinine Ratio 14.5, Glucose 116 H, Calcium 9.1 01/27/22 04:47: Total Bilirubin 2.20 H, Direct Bilirubin 0.92 H, AST 57 H, ALT 27, Alkaline Phosphatase 149 H, Total Protein 4.8 L, Albumin 2.0 L, Globulin 2.8 01/27/22 13:45: Urine Color Yellow, Urine Clarity Sl. Cloudy, Urine pH 6.0, Ur Specific [place] 1.020, Urine Protein Negative, Urine Glucose (UA) Normal, Urine Ketones 5 H, Urine Occult Blood 25 H, Urine Nitrite Negative, Urine Bilirubin Negative, Urine Urobilinogen Normal, Ur Leukocyte Esterase 500 H, Urine RBC 0 SEEN, Urine WBC 0-5 SEEN, Ur Squamous Epith Cells 0-5 SEEN, Urine Bacteria 3+, Urine Mucus 0 SEEN Micro: Microbiology 01/27/22 14:42 Nasal Secretion SARS-CoV-2 Antigen (Rapid) - Final Radiology Impression Paracentesis Ultrasound 01/27/22 08:00 IMPRESSION: Ultrasound guided paracentesis. Electronically Signed: Austyn Aguilar MD at 9:36 EDT , Renal Ultrasound 01/27/22 10:36 IMPRESSION: Normal ultrasound of the kidneys and urinary bladder. Electronically Signed: Austyn Aguilar MD at 14:58 EDT , Charges/Coding Visit Charges Inpatient E&M: 15140 Init Hosp L3
[2022-01-27] MEDS: Ursodiol 250 MG Tablet PO (21:29)
[2022-01-28] VITALS (8 sets, daily range): BP systolic 91–106; BP diastolic 45–60; PULSE 64–85; RESP 16–18; TEMP 36.6–36.8; O2SAT 94–100
[2022-01-28] MEDS: Albumin Human 25% (100 mL) 25 GM/100 ML BAG IV ×2 (03:33→20:45)
[2022-01-28] MEDS: 0.9% Saline Lock 10 ML Syringe IV ×2 (03:34→20:45)
[2022-01-28] MEDS: Lactulose 20 GM/30 ML UDC PO ×3 (04:50→20:45)
[2022-01-28] MEDS: Sodium Chloride 1 GM Tablet PO (04:50)
[2022-01-28 06:15] LABS: Absolute Lymphocyte Count 1.32 X10^3/uL (0.83-4.51); Absolute Neutrophil Count 3.2 X10^3/uL (2.0-7.7); Basophil# 0.04 X10^3/uL; Basophil% 0.7 % (0-1); Eosinophils% 3.6 % (0-5); Hematocrit 21.6 % (40-54); Hemoglobin 7.7 g/dL (13.0-16.5); Lymphocyte # 1.32 X10^3/ul (0.83-4.51); Mean Corp Hgb Conc 35.6 g/dL (32-36); Mean Corpuscular Hgb 32.2 pg (27.0-32.0); Mean Corpuscular Volume 90.4 fL (80-94); Mean Platelet Vol. 10.7 fl (6.2-12.0); Monocyte# 0.72 X10^3/uL; Monocyte% 13.1 % (0-10); NRBC Flagged by Analyzer 0 % (0-5); Neutrophil # 3.19 X10^3/uL (2.7-7.7); Neutrophil % 58.1 % (47-70); Platelet Count 103 K/mm3 (150-450); RBC Distribution Width CV 13.9 % (11.6-14.6); RBC Distribution Width SD 45.7 fl (35.1-43.9); Red Blood Count 2.39 M/mm3 (4.6-6.2); White Blood Count 5.5 K/mm3 (4.4-11.0)
[2022-01-28 06:32] LABS: International Normalized Ratio 2.1
[2022-01-28 06:44] LABS: ALB/GLOB Ratio 1.4 RATIO (0.9-2.4); AST(SGOT) 46 U/L (15-37); Alanine Aminotransfer ALT/SGPT 22 U/L (16-61); Alkaline Phosphatase 131 U/L (45-117); Anion Gap 7 (5-15); BUN 29 mg/dL (7-18); BUN/Creat Ratio 15.3 RATIO (10-20); Calcium,Total 9.6 mg/dL (8.5-10.1); Chloride 100 mmol/L (98-107); Creatinine, Serum 1.89 mg/dL (0.70-1.30); EST Glomerular Filtration Rate 40 mL/min (>60); Est Glom Filt Rate - Afr Amer 49 mL/min (>60); Estimated Creatinine Clearance 46.24 ml/min; Globulin 2.2 g/dL (2.2-4.2); Glucose 104 mg/dL (74-106); Potassium 4.1 mmol/L (3.5-5.1); Protein, Total 5.2 g/dL (6.4-8.2); Sodium Level 127 mmol/L (136-145)
[2022-01-28] MEDS: Midodrine HCl 5 MG Tablet 10 MG PO ×2 (08:36→12:15)
[2022-01-28] MEDS: Fludrocortisone Acetate 0.1 MG Tablet PO (10:03)
[2022-01-28] MEDS: Mupirocin Ointment 22gm Tube 1 APPLIC TOPICAL ×2 (10:04→20:44)
[2022-01-28] MEDS: Pantoprazole Sodium 20 MG Tablet PO (10:04)
[2022-01-28] MEDS: rifAXIMin 550 MG Tablet PO ×2 (10:04→20:45)
[2022-01-28] MEDS: Escitalopram Oxalate 10 MG Tablet PO (10:04)
[2022-01-28] MEDS: Magnesium Chloride 64 MG Delay Rel.Tablet PO (10:04)
--- NOTE | 2022-01-28 10:47 | PN.HOSP_ITS ---
Documented by User: ZURI Delarosa 01/28/22 10:50 Subjective Subjective Patient seen and examined. Patient lying in bed no distress noted. Patient's lab results with patient and as well as status of transfer to [facility]. Verbalized understanding Objective Data Objective Data Vital Signs: Vital Signs Temp Pulse Resp BP Pulse Ox O2 Del Method 98.0 F 80 16 91/45 L 97 Room Air 01/28/22 10:00 01/28/22 10:00 01/28/22 10:00 01/28/22 10:00 01/28/22 10:00 01/28/22 10:00 Oxygen Delivery Method [3] Room Air Oxygen Delivery Method [2] Room Air Oxygen Delivery Method [1 ( Room Air Initial Baseline)] Oxygen Delivery Method Room Air Weight: 193 lb 12.581 oz Body Mass Index (BMI) 28.6 Intake & Output: Intake and Output for Last 24 Hours 01/26/22 01/27/22 01/28/22 23:59 23:59 23:59 Intake Total 360 / 360 2280 / 2280 220 / 220 Output Total 300 / 300 9350 / 9350 250 / 250 Balance 60 / 60 -7070 / -7070 -30 / -30 Lab / Micro Data Result Diagrams: 01/28/22 06:09 01/28/22 06:09 Labs: Laboratory Results - last 24 hr 01/27/22 04:47: Total Bilirubin 2.20 H, Direct Bilirubin 0.92 H, AST 57 H, ALT 27, Alkaline Phosphatase 149 H, Total Protein 4.8 L, Albumin 2.0 L, Globulin 2.8 01/27/22 13:45: Urine Color Yellow, Urine Clarity Sl. Cloudy, Urine pH 6.0, Ur Specific [place] 1.020, Urine Protein Negative, Urine Glucose (UA) Normal, Urine Ketones 5 H, Urine Occult Blood 25 H, Urine Nitrite Negative, Urine Bilirubin Negative, Urine Urobilinogen Normal, Ur Leukocyte Esterase 500 H, Urine RBC 0 SEEN, Urine WBC 0-5 SEEN, Ur Squamous Epith Cells 0-5 SEEN, Urine Bacteria 3+, Urine Mucus 0 SEEN 01/28/22 06:09: Sodium 127 L, Potassium 4.1, Chloride 100, Carbon Dioxide 20.0 L , Anion Gap 7, BUN 29 H, Creatinine 1.89 H, Estim Creat Clear Calc 46.24, Est GFR (MDRD) Af Amer 49 L, Est GFR (MDRD) Non-Af 40 L, BUN/Creatinine Ratio 15.3, Glucose 104, Calcium 9.6, Total Bilirubin 2.10 H, AST 46 H, ALT 22, Alkaline Phosphatase 131 H, Total Protein 5.2 L, Albumin 3.0 L, Globulin 2.2, Albumin/Globulin Ratio 1.4 01/28/22 06:09: WBC 5.5, RBC 2.39 L, Hgb 7.7 L, Hct 21.6 L, MCV 90.4, MCH 32.2 H , MCHC 35.6, RDW Std Deviation 45.7 H, RDW Coeff of Teri 13.9, Plt Count 103 L, MPV 10.7, Immature Gran % (Auto) 0.500, Neut % (Auto) 58.1, Lymph % (Auto) 24.0, [place] % (Auto) 13.1 H, Eos % (Auto) 3.6, Baso % (Auto) 0.7, Absolute Neuts (auto) 3.2, Absolute Lymphs (auto) 1.32, Nucleated RBC % 0 01/28/22 06:09: PT 23.0 H, INR 2.1 Micro: Microbiology 01/27/22 14:42 Nasal Secretion SARS-CoV-2 Antigen (Rapid) - Final Radiography Diagnostic Testing: Radiology Impression Renal Ultrasound 01/27/22 10:36 IMPRESSION: Normal ultrasound of the kidneys and urinary bladder. Electronically Signed: Austyn Aguilar MD at 14:58 EDT , Physical Exam Const alert and oriented x3 HEENT normocephalic Eyes conjunctivae normal Neck no lymphadenopathy Resp clear to auscultation bilaterally Auscultation: diminished lung sounds Cardio regular rate, regular rhythm and no murmurs Peripheral Pulses: pulses 2+ throughout GI normal to inspection, nondistended, normoactive bowel sounds, non-tender and non-distended GI Narrative: Dressing to abdomen dry and intact from paracentesis Extremity normal to inspection Skin no rashes or lesions noted Skin Narrative: Right knee abrasion, upper extremity skin tears. General Skin Exam: jaundice Lesions: no lesions Rashes: no rashes Trauma: no lacerations or abrasions Neuro CN's II-XII intact bilaterally, no focal motor deficits, no sensory deficits noted and deep tendon reflexes 2+ bilaterally Psych mental status grossly normal and affect normal Assessment & Plan Assessment/Plan (1) RICKY (acute kidney injury): PLAN: Plan 1. Acute kidney injury -Diuretic regimen on hold -Continue Flomax. Outpatient follow-up with urology. -Nephrology following, ordered albumin every 8 hours x6 doses to help with intravascular rehydration. 2. Generalized weakness -PT/OT ordered. 3. Hypotension -Blood pressure is labile -Continue midodrine, Florinef. -Diuretic regimen on hold. 4. 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 Albumin replaced 6g/L removed. -Follows with GI. -Continue lactulose, Xifaxan. 5. Chronic hyponatremia -Sodium 127. -Sodium tablets increased to 2 g 3 times daily which is what patient takes at home -Nephrology following 6. History of alcohol use -denies ongoing use. 7. Anxiety/depression -on escitalopram. DVT prophylaxis-SCDs This patient was seen by Janell Tinoco NP-C under the supervision of Dr. Sexton. 13 minutes spent in clinical coordination of patient's plan of care. Documented by User: Dr. Nay Sexton MD 01/28/22 15:35 Objective Data Lab / Micro Data Result Diagrams: 01/28/22 06:09 01/28/22 06:09 Assessment & Plan Assessment/Plan (1) RICKY (acute kidney injury): Charges/Coding Addendum Addendum: This patient was seen in conjunction with Dennis Tinoco NP.? I have indep endently interviewed and examined the patient and reviewed pertinent historical, laboratory, and other data. I have reviewed her note and concur with her documentation Patient was seen and examined.?No acute events overnight.?He feels slightly improved. Denied any abdominal pain, dizziness or palpitation. He has been accepted with [facility] transplant center; awaiting bed assignment. Gen: Comfortable, not pale, not jaundiced CVS:HS I +II, regular, no murmurs RESP: Diminished at lung bases GI: BS present and normal, soft, nontender, ascites+, no ballotable organs EXT: Bilateral leg edema +1-2 ASSESSMENT: 1. Debility 2. RICKY on CKD stage 3 3. Hypotension 4. Liver cirrhosis, chronically decompensated with ascites 5. Chronic hyponatremia 6. Anxiety/depression Plan: Continue with albumin infusions Continue to hold Spironolactone and Lasix Continue lactulose Continue midodrine, rifaximin, ursodiol Time spent coordinating all aspects of patient's care, discussing with nursin minutes Visit Charges Inpatient E&M: 10994 Subs Hosp L2
[2022-01-28] MEDS: Sodium Chloride 1 GM Tablet 2 GM PO ×2 (12:19→20:45)
--- NOTE | 2022-01-28 13:52 | PN.RENAL_ITS ---
Subjective Subjective Following for RICKY Patient is resting quietly in bed. Denies any complaints. at bedside. No overnight events. Objective Data Objective Data Vital Signs: Vital Signs Temp Pulse Resp BP Pulse Ox O2 Del Method 98.0 F 80 16 91/45 L 97 Room Air 01/28/22 10:00 01/28/22 10:00 01/28/22 10:00 01/28/22 10:00 01/28/22 10:00 01/28/22 11:00 Oxygen Delivery Method [3] Room Air Oxygen Delivery Method [2] Room Air Oxygen Delivery Method [1 ( Room Air Initial Baseline)] Oxygen Delivery Method Room Air Weight: 87.9 kg Body Mass Index (BMI) 28.6 Intake & Output: Intake and Output for Last 24 Hours 01/26/22 01/27/22 01/28/22 23:59 23:59 23:59 Intake Total 360 / 360 2280 / 2280 820 / 820 Output Total 300 / 300 9350 / 9350 350 / 350 Balance 60 / 60 -7070 / -7070 470 / 470 Lab / Micro Data Result Diagrams: 01/28/22 06:09 01/28/22 06:09 Labs: Laboratory Results - last 24 hr 01/27/22 04:47: Total Bilirubin 2.20 H, Direct Bilirubin 0.92 H, AST 57 H, ALT 27, Alkaline Phosphatase 149 H, Total Protein 4.8 L, Albumin 2.0 L, Globulin 2.8 01/27/22 13:45: Urine Color Yellow, Urine Clarity Sl. Cloudy, Urine pH 6.0, Ur Specific [place] 1.020, Urine Protein Negative, Urine Glucose (UA) Normal, Urine Ketones 5 H, Urine Occult Blood 25 H, Urine Nitrite Negative, Urine Bilirubin Negative, Urine Urobilinogen Normal, Ur Leukocyte Esterase 500 H, Urine RBC 0 SEEN, Urine WBC 0-5 SEEN, Ur Squamous Epith Cells 0-5 SEEN, Urine Bacteria 3+, Urine Mucus 0 SEEN 01/28/22 06:09: Sodium 127 L, Potassium 4.1, Chloride 100, Carbon Dioxide 20.0 L , Anion Gap 7, BUN 29 H, Creatinine 1.89 H, Estim Creat Clear Calc 46.24, Est GFR (MDRD) Af Amer 49 L, Est GFR (MDRD) Non-Af 40 L, BUN/Creatinine Ratio 15.3, Glucose 104, Calcium 9.6, Total Bilirubin 2.10 H, AST 46 H, ALT 22, Alkaline Phosphatase 131 H, Total Protein 5.2 L, Albumin 3.0 L, Globulin 2.2, Albumin/Globulin Ratio 1.4 01/28/22 06:09: WBC 5.5, RBC 2.39 L, Hgb 7.7 L, Hct 21.6 L, MCV 90.4, MCH 32.2 H , MCHC 35.6, RDW Std Deviation 45.7 H, RDW Coeff of Teri 13.9, Plt Count 103 L, MPV 10.7, Immature Gran % (Auto) 0.500, Neut % (Auto) 58.1, Lymph % (Auto) 24.0, [place] % (Auto) 13.1 H, Eos % (Auto) 3.6, Baso % (Auto) 0.7, Absolute Neuts (auto) 3.2, Absolute Lymphs (auto) 1.32, Nucleated RBC % 0 01/28/22 06:09: PT 23.0 H, INR 2.1 Micro: Microbiology 01/27/22 14:42 Nasal Secretion SARS-CoV-2 Antigen (Rapid) - Final Radiography Diagnostic Testing: Radiology Impression Renal Ultrasound 01/27/22 10:36 IMPRESSION: Normal ultrasound of the kidneys and urinary bladder. Electronically Signed: Austyn Aguilar MD at 14:58 EDT Reading Location ID and State: [address] [place] [address] , Service support , Physical Exam Narrative Const: Alert and oriented x3. No apparent distress HEENT: Head is normocephalic, atraumatic. Oral mucosa dry, lips dry Cardio: S1, S2, no murmurs, rubs or gallops Respiratory: Lung sounds clear anteriorly and posteriorly. No wheezes, rhonchi or rales noted Abdomen: Soft, nontender, slightly distended, positive bowel sounds Extremities: No pitting edema noted to bilateral lower legs, feet or arms Assessment & Plan Assessment/Plan (1) RICKY (acute kidney injury): (2) Weakness: (3) Hypotension: (4) Hx of cirrhosis: (5) Hyponatremia: PLAN: Plan - RICKY likely from hypotension, intravascular volume depletion, possibly hepato- renal physiology requiring large-volume paracentesis; at this time there is no acute indication for [facility] [employer]. Patient is not hypervolemic, acidotic or hype rkalemic. Getting albumin 25 g every 8 hours for total of 6 doses. Continue to restrict oral fluids to 1.5 L a day. Renal ultrasound did not show any calculi or hydronephrosis. Patient is having bladder scan done at bedside to rule out PVR. Baseline creatinine had been around 1 mg/dL. January 13 creatinine 1.8 mg/dL. In the ER creatinine 2.05 mg/dL. Creatinine peaked 2.07mg/dL 01/27 and today his creatinine is at 1.89 mg/dL. We will continue to monitor creatinine trends. Patient is nonoliguric. UA +leuk esterase, will send cx. -History of chronic hypervolemic hyponatremia secondary to cirrhosis, baseline sodium ranging around 121-128. Sodium 127 today. Home regimen for patient is s odium chloride tablets 2gm 3 times daily, Lasix 40 mg twice daily and Aldactone 25 mg daily (dose had been higher but was reduced due to episode of hyperkalemia). Lasix and Aldactone on hold now. - History of cirrhosis with complications of ascites, encephalopathy, GI bleed; GI consulted. Patient is requiring weekly paracentesis, last paracentesis 01/27 8.7L fluid removed. On Xifaxan 550 mg twice daily and lactulose 3 times daily - Hypotension; on midodrine and florinef. Will increase midodrine 20mg tid. - Possible transfer to [facility].
[2022-01-28] MEDS: Midodrine HCl 5 MG Tablet 20 MG PO (17:13)
[2022-01-28] MEDS: Ursodiol 250 MG Tablet PO (20:45)
[2022-01-29] VITALS (11 sets, daily range): BP systolic 89–132; BP diastolic 40–95; PULSE 61–82; RESP 18–20; TEMP 36.3–36.8; O2SAT 94–100
[2022-01-29] MEDS: Albumin Human 25% (100 mL) 25 GM/100 ML BAG IV ×2 (04:46→12:29)
[2022-01-29] MEDS: Sodium Chloride 1 GM Tablet 2 GM PO ×3 (04:58→21:06)
[2022-01-29] MEDS: Lactulose 20 GM/30 ML UDC PO ×3 (04:58→21:06)
[2022-01-29 06:15] LABS: Absolute Lymphocyte Count 1.43 X10^3/uL (0.83-4.51); Absolute Neutrophil Count 3.6 X10^3/uL (2.0-7.7); Basophil# 0.05 X10^3/uL; Basophil% 0.8 % (0-1); Eosinophil# 0.18 X10^3/uL; Eosinophils% 2.9 % (0-5); Hematocrit 22.3 % (40-54); Hemoglobin 7.9 g/dL (13.0-16.5); Lymphocyte # 1.43 X10^3/ul (0.83-4.51); Lymphocyte % 23.3 % (19-41); Mean Corp Hgb Conc 35.4 g/dL (32-36); Mean Corpuscular Hgb 33.1 pg (27.0-32.0); Mean Corpuscular Volume 93.3 fL (80-94); Mean Platelet Vol. 10.9 fl (6.2-12.0); Monocyte# 0.85 X10^3/uL; Monocyte% 13.8 % (0-10); NRBC Flagged by Analyzer 0 % (0-5); Neutrophil # 3.59 X10^3/uL (2.7-7.7); Neutrophil % 58.5 % (47-70); Platelet Count 101 K/mm3 (150-450); RBC Distribution Width CV 14.3 % (11.6-14.6); RBC Distribution Width SD 48.8 fl (35.1-43.9); Red Blood Count 2.39 M/mm3 (4.6-6.2); White Blood Count 6.1 K/mm3 (4.4-11.0)
[2022-01-29 06:44] LABS: ALB/GLOB Ratio 1.6 RATIO (0.9-2.4); AST(SGOT) 42 U/L (15-37); Alanine Aminotransfer ALT/SGPT 22 U/L (16-61); Albumin, Serum 3.3 g/dL (3.2-5.0); Alkaline Phosphatase 128 U/L (45-117); Anion Gap 7 (5-15); BUN 29 mg/dL (7-18); BUN/Creat Ratio 18.2 RATIO (10-20); Chloride 101 mmol/L (98-107); Creatinine, Serum 1.59 mg/dL (0.70-1.30); EST Glomerular Filtration Rate 49 mL/min (>60); Est Glom Filt Rate - Afr Amer 59 mL/min (>60); Estimated Creatinine Clearance 54.96 ml/min; Globulin 2.1 g/dL (2.2-4.2); Glucose 103 mg/dL (74-106); Potassium 4.2 mmol/L (3.5-5.1); Protein, Total 5.4 g/dL (6.4-8.2); Sodium Level 128 mmol/L (136-145)
[2022-01-29] MEDS: Midodrine HCl 5 MG Tablet 20 MG PO ×2 (09:21→16:20)
[2022-01-29] MEDS: Pantoprazole Sodium 20 MG Tablet PO (09:21)
[2022-01-29] MEDS: Mupirocin Ointment 22gm Tube 1 APPLIC TOPICAL ×2 (09:21→21:06)
[2022-01-29] MEDS: Fludrocortisone Acetate 0.1 MG Tablet PO (09:21)
[2022-01-29] MEDS: Magnesium Chloride 64 MG Delay Rel.Tablet PO (09:21)
[2022-01-29] MEDS: Escitalopram Oxalate 10 MG Tablet PO (09:22)
[2022-01-29] MEDS: rifAXIMin 550 MG Tablet PO ×2 (09:22→21:06)
--- NOTE | 2022-01-29 10:53 | PCM.PN.HOSP ---
Documented by User: Janell Tinoco NP-C 01/29/22 10:56 Subjective Subjective Patient seen and examined. Patient sitting in chair no distress noted. at bedside. Updated them on pending [facility] transfer and we are still waiting in bed. Objective Data Objective Data Vital Signs: Vital Signs Temp Pulse Resp BP Pulse Ox O2 Del Method 98.3 F 82 20 H 101/43 L 99 Room Air 01/29/22 09:13 01/29/22 09:13 01/29/22 09:13 01/29/22 09:13 01/29/22 09:13 01/29/22 09:13 Oxygen Delivery Method [3] Room Air Oxygen Delivery Method [2] Room Air Oxygen Delivery Method [1 ( Room Air Initial Baseline)] Oxygen Delivery Method Room Air Weight: 193 lb 12.581 oz Body Mass Index (BMI) 28.6 Intake & Output: Intake and Output for Last 24 Hours 01/27/22 01/28/22 01/29/22 23:59 23:59 23:59 Intake Total 2280 / 2280 1516 / 1696 400 / 400 Output Total 9350 / 9350 600 / 600 Balance -7070 / -7070 916 / 1096 400 / 400 Lab / Micro Data Result Diagrams: 01/29/22 05:15 01/29/22 05:15 Labs: Laboratory Results - last 24 hr 01/29/22 05:15: WBC 6.1, RBC 2.39 L, Hgb 7.9 L, Hct 22.3 L, MCV 93.3, MCH 33.1 H, MCHC 35.4, RDW Std Deviation 48.8 H, RDW Coeff of Teri 14.3, Plt Count 101 L, MPV 10.9, Immature Gran % (Auto) 0.700, Neut % (Auto) 58.5, Lymph % (Auto) 23.3, [place] % (Auto) 13.8 H, Eos % (Auto) 2.9, Baso % (Auto) 0.8, Absolute Neuts (auto) 3.6, Absolute Lymphs (auto) 1.43, Nucleated RBC % 0 01/29/22 05:15: Sodium 128 L, Potassium 4.2, Chloride 101, Carbon Dioxide 20.0 L, Anion Gap 7, BUN 29 H, Creatinine 1.59 H, Estim Creat Clear Calc 54.96, Est GFR (MDRD) Af Amer 59 L, Est GFR (MDRD) Non-Af 49 L, BUN/Creatinine Ratio 18.2, Glucose 103, Calcium 10.0, Total Bilirubin 2.20 H, AST 42 H, ALT 22, Alkaline Phosphatase 128 H, Total Protein 5.4 L, Albumin 3.3, Globulin 2.1 L, Albumin/Globulin Ratio 1.6 Micro: Microbiology 01/27/22 13:45 Urine Catheter - Catheter Urine Culture - Preliminary Presumptive E. coli 01/27/22 14:42 Nasal Secretion SARS-CoV-2 Antigen (Rapid) - Final Physical Exam Const alert and oriented x3 HEENT normocephalic Eyes PERRL, EOMs intact bilaterally and conjunctivae normal Neck no lymphadenopathy Resp clear to auscultation bilaterally Auscultation: diminished lung sounds Cardio regular rate, regular rhythm and no murmurs Peripheral Pulses: pulses 2+ throughout GI normal to inspection, nondistended, normoactive bowel sounds, non-tender and non-distended GI Narrative: Dressing to abdomen dry and intact from paracentesis Extremity normal to inspection Skin no rashes or lesions noted Skin Narrative: Right knee abrasion, upper extremity skin tears. General Skin Exam: jaundice Lesions: no lesions Rashes: no rashes Trauma: no lacerations or abrasions Neuro CN's II-XII intact bilaterally, no focal motor deficits, no sensory deficits noted and deep tendon reflexes 2+ bilaterally Psych mental status grossly normal and affect normal Assessment & Plan Assessment/Plan (1) RICKY (acute kidney injury): PLAN: Plan 1. Acute kidney injury -Diuretic regimen on hold -Continue Flomax. Outpatient follow-up with urology. -Nephrology following, ordered albumin every 8 hours x6 doses to help with intravascular rehydration. Since initial 6 doses improved BUN and creatinine another 3 doses were ordered by nephrology. -CMP daily 2. Generalized weakness -PT/OT ordered. 3. Hypotension -Blood pressure is labile -Continue Florinef, midodrine increased from 10 mg 3 times daily to 20 mg 3 times daily by nephrology 01/28/2022. -Diuretic regimen on hold. 4. 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 Albumin replaced 6g/L removed. -Follows with GI. -Continue lactulose, Xifaxan. 5. Chronic hyponatremia -Sodium 128. -Sodium tablets increased to 2 g 3 times daily on 01/28/2022 which is what patient takes at home -Nephrology following 6. History of alcohol use -denies ongoing use. 7. Anxiety/depression -on escitalopram. DVT prophylaxis-SCDs This patient was seen by Janell Tinoco NP-C under the supervision of Dr. Sexton. 13 minutes spent in clinical coordination of patient's plan of care. Documented by User: Dr. Nay Sexton MD 01/29/22 14:28 Objective Data Lab / Micro Data Result Diagrams: 01/29/22 05:15 01/29/22 05:15 Assessment & Plan Assessment/Plan (1) RICKY (acute kidney injury): Charges/Coding Addendum Addendum: This patient was seen in conjunction with Dennis Tinoco NP.? I have independently interviewed and examined the patient and reviewed pertinent historical, laboratory, and other data. I have reviewed her note and concur with her documentation Patient was seen and examined.?No acute events overnight.? Gen: Comfortable, not pale, not jaundiced CVS:HS I +II, regular, no murmurs RESP: Diminished at lung bases GI: BS present and normal, soft, nontender, ascites+, no ballotable organs EXT: Bilateral leg edema +1-2 ASSESSMENT: 1. Debility 2. RICKY on CKD stage 3, improving 3. Hypotension 4. Liver cirrhosis, chronically decompensated with ascites 5. Chronic hyponatremia 6. Anxiety/depression Plan: Continue with albumin infusions Continue to hold Spironolactone and Lasix Continue lactulose Continue florinef, midodrine, rifaximin, ursodiol Time spent coordinating all aspects of patient's care, discussing with nursin minutes Visit Charges Inpatient E&M: 19070 Subs Hosp L2
--- NOTE | 2022-01-29 16:47 | RAD_ITS ---
EXAM: XR ABDOMEN, 1 VIEW CLINICAL INDICATION: constipation TECHNIQUE: Frontal supine view of the abdomen/pelvis. This report was created using [employer] report generation technology. COMPARISON: None. FINDINGS: LOWER THORAX: No acute pathology. GASTROINTESTINAL TRACT: Unremarkable. Non-obstructive. No bowel or stomach distention. ORGANS: Unremarkable as visualized. No organomegaly. No abnormal calcifications. BONES/JOINTS: No acute pathology. SOFT TISSUES: No acute pathology. RAD/Abdomen Single View (Portable) IMPRESSION: Non-obstructive bowel gas pattern. Electronically Signed: Jose Diaz MD at 19:56 EDT ,
[2022-01-29] MEDS: Polyethylene Glycol 3350 17 GM PACKET 34 GM PO (17:23)
--- NOTE | 2022-01-29 19:19 | PN_ITS ---
Progress Note Nurse reports that earlier in the day patient had hematochezia. KUB pending. Occult stool return positive. Per nurse reports that patient has he morrhoids. Not on anticoagulation. Check H&H. Continue baseline protonix
[2022-01-29 20:17] LABS: Hematocrit 24.4 % (40-54); Hemoglobin 8.4 g/dL (13.0-16.5)
[2022-01-29] MEDS: Ursodiol 250 MG Tablet PO (21:06)
[2022-01-30] VITALS (7 sets, daily range): BP systolic 91–124; BP diastolic 44–70; PULSE 64–88; RESP 16–20; TEMP 35.9–36.4; O2SAT 95–100
[2022-01-30] MEDS: Lactulose 20 GM/30 ML UDC PO ×3 (05:37→21:23)
[2022-01-30] MEDS: Sodium Chloride 1 GM Tablet 2 GM PO ×3 (05:37→21:24)
[2022-01-30 05:38] LABS: Absolute Lymphocyte Count 1.62 X10^3/uL (0.83-4.51); Absolute Neutrophil Count 4.2 X10^3/uL (2.0-7.7); Basophil# 0.05 X10^3/uL; Basophil% 0.7 % (0-1); Eosinophil# 0.22 X10^3/uL; Eosinophils% 3.1 % (0-5); Hematocrit 23.3 % (40-54); Hemoglobin 8.2 g/dL (13.0-16.5); Lymphocyte # 1.62 X10^3/ul (0.83-4.51); Mean Corp Hgb Conc 35.2 g/dL (32-36); Mean Corpuscular Hgb 32.7 pg (27.0-32.0); Mean Corpuscular Volume 92.8 fL (80-94); Mean Platelet Vol. 11.1 fl (6.2-12.0); Monocyte# 0.86 X10^3/uL; Monocyte% 12.2 % (0-10); NRBC Flagged by Analyzer 0 % (0-5); Neutrophil # 4.23 X10^3/uL (2.7-7.7); Neutrophil % 60.3 % (47-70); Platelet Count 118 K/mm3 (150-450); RBC Distribution Width CV 14.3 % (11.6-14.6); RBC Distribution Width SD 48.6 fl (35.1-43.9); Red Blood Count 2.51 M/mm3 (4.6-6.2)
[2022-01-30 06:06] LABS: ALB/GLOB Ratio 1.6 RATIO (0.9-2.4); AST(SGOT) 49 U/L (15-37); Alanine Aminotransfer ALT/SGPT 23 U/L (16-61); Albumin, Serum 3.3 g/dL (3.2-5.0); Alkaline Phosphatase 123 U/L (45-117); Anion Gap 9 (5-15); BUN 30 mg/dL (7-18); BUN/Creat Ratio 17.6 RATIO (10-20); Calcium,Total 10.2 mg/dL (8.5-10.1); Chloride 98 mmol/L (98-107); EST Glomerular Filtration Rate 45 mL/min (>60); Est Glom Filt Rate - Afr Amer 55 mL/min (>60); Estimated Creatinine Clearance 51.41 ml/min; Globulin 2.1 g/dL (2.2-4.2); Glucose 81 mg/dL (74-106); Potassium 4.5 mmol/L (3.5-5.1); Protein, Total 5.4 g/dL (6.4-8.2); Sodium Level 126 mmol/L (136-145)
[2022-01-30] MEDS: Midodrine HCl 5 MG Tablet 20 MG PO ×3 (08:00→16:17)
[2022-01-30] MEDS: rifAXIMin 550 MG Tablet PO ×2 (10:27→21:24)
[2022-01-30] MEDS: Pantoprazole Sodium 20 MG Tablet PO (10:27)
[2022-01-30] MEDS: Escitalopram Oxalate 10 MG Tablet PO (10:27)
[2022-01-30] MEDS: Mupirocin Ointment 22gm Tube 1 APPLIC TOPICAL ×2 (10:27→21:22)
[2022-01-30] MEDS: Fludrocortisone Acetate 0.1 MG Tablet PO (10:27)
[2022-01-30] MEDS: Magnesium Chloride 64 MG Delay Rel.Tablet PO (10:27)
--- NOTE | 2022-01-30 11:26 | PCM.PN.HOSP ---
Documented by User: Janell Tinoco NP-C 01/30/22 11:28 Subjective Subjective Patient seen and examined. Patient lying in bed no distress noted. at bedside, updated on POC and that we are waiting for a bed at [facility], verbalized understanding. Objective Data Objective Data Vital Signs: Vital Signs Temp Pulse Resp BP Pulse Ox O2 Del Method 97.6 F L 78 20 H 97/55 L 100 Room Air 01/30/22 10:24 01/30/22 10:24 01/30/22 10:24 01/30/22 10:24 01/30/22 10:24 01/30/22 10:24 Oxygen Delivery Method [3] Room Air Oxygen Delivery Method [2] Room Air Oxygen Delivery Method [1 ( Room Air Initial Baseline)] Oxygen Delivery Method Room Air Weight: 193 lb 12.581 oz Body Mass Index (BMI) 28.6 Intake & Output: Intake and Output for Last 24 Hours 01/28/22 01/29/22 01/30/22 23:59 23:59 23:59 Intake Total 1516 / 1696 1580 / 1680 100 / 100 Output Total 600 / 600 Balance 916 / 1096 1580 / 1680 100 / 100 Lab / Micro Data Result Diagrams: 01/30/22 05:25 01/30/22 05:25 Labs: Laboratory Results - last 24 hr 01/29/22 20:05: Hgb 8.4 L, Hct 24.4 L 01/30/22 05:25: WBC 7.0, RBC 2.51 L, Hgb 8.2 L, Hct 23.3 L, MCV 92.8, MCH 32.7 H, MCHC 35.2, RDW Std Deviation 48.6 H, RDW Coeff of Teri 14.3, Plt Count 118 L, MPV 11.1, Immature Gran % (Auto) 0.700, Neut % (Auto) 60.3, Lymph % (Auto) 23.0, [place] % (Auto) 12.2 H, Eos % (Auto) 3.1, Baso % (Auto) 0.7, Absolute Neuts (auto) 4.2, Absolute Lymphs (auto) 1.62, Nucleated RBC % 0 01/30/22 05:25: Sodium 126 L, Potassium 4.5, Chloride 98, Carbon Dioxide 19.0 L, Anion Gap 9, BUN 30 H, Creatinine 1.70 H, Estim Creat Clear Calc 51.41, Est GFR (MDRD) Af Amer 55 L, Est GFR (MDRD) Non-Af 45 L, BUN/Creatinine Ratio 17.6, Glucose 81, Calcium 10.2 H, Total Bilirubin 2.50 H, AST 49 H, ALT 23, Alkaline Phosphatase 123 H, Total Protein 5.4 L, Albumin 3.3, Globulin 2.1 L, Albumin/Globulin Ratio 1.6 Micro: Microbiology 01/27/22 13:45 Urine Catheter - Catheter Urine Culture - Final Presumptive E. coli 01/29/22 18:40 Stool Stool Occult Blood (ALLI) - Final Occult Blood Positive 01/27/22 14:42 Nasal Secretion SARS-CoV-2 Antigen (Rapid) - Final Radiography Diagnostic Testing: Radiology Impression KUB X-Ray 01/29/22 16:47 IMPRESSION: Non-obstructive bowel gas pattern. Electronically Signed: Jose Diaz MD at 19:56 EDT Reading Location ID and State: [facility] / [place] , Service support , Physical Exam Const alert and oriented x3 HEENT normocephalic Eyes conjunctivae normal Neck no lymphadenopathy Resp clear to auscultation bilaterally Auscultation: diminished lung sounds Cardio regular rate, regular rhythm and no murmurs Peripheral Pulses: pulses 2+ throughout GI normal to inspection, nondistended, normoactive bowel sounds, non-tender and non-distended GI Narrative: Dressing to abdomen dry and intact from paracentesis Extremity normal to inspection Skin no rashes or lesions noted Skin Narrative: Right knee abrasion, upper extremity skin tears. General Skin Exam: jaundice Lesions: no lesions Rashes: no rashes Trauma: no lacerations or abrasions Neuro no focal motor deficits and no sensory deficits noted Psych mental status grossly normal and affect normal Assessment & Plan Assessment/Plan (1) RICKY (acute kidney injury): PLAN: Plan 1. Acute kidney injury -Diuretic regimen on hold -Continue Flomax. Outpatient follow-up with urology. -Nephrology following, ordered albumin every 8 hours x6 doses to help with intravascular rehydration. Since initial 6 doses improved BUN and creatinine another 3 doses were ordered by nephrology and completed yesterday -CMP daily 2. Generalized weakness -PT/OT ordered. 3. Hypotension -Blood pressure is labile -Continue Florinef, midodrine increased from 10 mg 3 times daily to 20 mg 3 times daily by nephrology 01/28/2022. -Diuretic regimen on hold. 4. 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 Albumin replaced 6g/L removed. -Follows with GI. -Continue lactulose, Xifaxan. 5. Chronic hyponatremia -Sodium 127. -Sodium tablets increased to 2 g 3 times daily on 01/28/2022 which is what patient takes at home -Nephrology following 6. History of alcohol use -denies ongoing use. 7. Anxiety/depression -on escitalopram. DVT prophylaxis-SCDs This patient was seen by Janell Tinoco NP-C under the supervision of Dr. Sexton. 11 minutes spent in clinical coordination of patient's plan of care. Documented by User: Dr. Nay Sexton MD 01/30/22 16:39 Objective Data Lab / Micro Data Result Diagrams: 01/30/22 05:25 01/30/22 05:25 Assessment & Plan Assessment/Plan (1) RICKY (acute kidney injury): Charges/Coding Addendum Addendum: This patient was seen in conjunction with Dennis Tinoco NP.? I have independently interviewed and examined the patient and reviewed pertinent historical, laboratory, and other data. I have reviewed her note and concur with her documentation Patient was seen and examined.? Patient had constipation yesterday despite being on lactulose. MiraLAX was added. Patient had a couple more bowel movements but was bloody. He has history of hemorrhoids. MiraLAX will be continued as well as Anusol Gen: Comfortable, not pale, not jaundiced CVS:HS I +II, regular, no murmurs RESP: Diminished at lung bases GI: BS present and normal, soft, nontender, ascites+, no ballotable organs EXT: Bilateral leg edema +1-2 ASSESSMENT: 1. Debility 2. RICKY on CKD stage 3, improving 3. Hypotension 4. Liver cirrhosis, chronically decompensated with ascites 5. Chronic hyponatremia 6. Anxiety/depression Plan: Continue with MiraLAX, Anusol suppository, lactulose continue with albumin infusions Continue to hold Spironolactone and Lasix Continue florinef, midodrine, rifaximin, ursodiol Time spent coordinating all aspects of patient's care, discussing with nursin minutes Visit Charges Inpatient E&M: 96696 Subs Hosp L2
[2022-01-30] MEDS: Polyethylene Glycol 3350 17 GM PACKET PO (17:02)
[2022-01-30] MEDS: Ursodiol 250 MG Tablet PO (21:24)
[2022-01-30] MEDS: 0.9% Saline Lock 10 ML Syringe IV (21:25)
[2022-01-31] MEDS: Sodium Chloride 1 GM Tablet 2 GM PO ×3 (05:57→21:06)
[2022-01-31] MEDS: Lactulose 20 GM/30 ML UDC PO ×3 (05:57→21:06)
[2022-01-31 06:28] LABS: Absolute Lymphocyte Count 1.47 X10^3/uL (0.83-4.51); Absolute Neutrophil Count 3.8 X10^3/uL (2.0-7.7); Basophil# 0.06 X10^3/uL; Basophil% 0.9 % (0-1); Eosinophil# 0.24 X10^3/uL; Eosinophils% 3.7 % (0-5); Hematocrit 22.7 % (40-54); Hemoglobin 8.1 g/dL (13.0-16.5); Lymphocyte # 1.47 X10^3/ul (0.83-4.51); Lymphocyte % 22.7 % (19-41); Mean Corp Hgb Conc 35.7 g/dL (32-36); Mean Corpuscular Hgb 33.2 pg (27.0-32.0); Mean Platelet Vol. 11.3 fl (6.2-12.0); Monocyte# 0.89 X10^3/uL; Monocyte% 13.7 % (0-10); NRBC Flagged by Analyzer 0 % (0-5); Neutrophil # 3.78 X10^3/uL (2.7-7.7); Neutrophil % 58.4 % (47-70); Platelet Count 113 K/mm3 (150-450); RBC Distribution Width CV 14.6 % (11.6-14.6); RBC Distribution Width SD 49.7 fl (35.1-43.9); Red Blood Count 2.44 M/mm3 (4.6-6.2); White Blood Count 6.5 K/mm3 (4.4-11.0)
[2022-01-31 06:59] LABS: ALB/GLOB Ratio 1.3 RATIO (0.9-2.4); AST(SGOT) 52 U/L (15-37); Alanine Aminotransfer ALT/SGPT 21 U/L (16-61); Alkaline Phosphatase 137 U/L (45-117); Anion Gap 7 (5-15); BUN 26 mg/dL (7-18); BUN/Creat Ratio 18.7 RATIO (10-20); Chloride 99 mmol/L (98-107); Creatinine, Serum 1.39 mg/dL (0.70-1.30); EST Glomerular Filtration Rate 57 mL/min (>60); Est Glom Filt Rate - Afr Amer 69 mL/min (>60); Estimated Creatinine Clearance 62.87 ml/min; Globulin 2.3 g/dL (2.2-4.2); Glucose 85 mg/dL (74-106); Potassium 4.5 mmol/L (3.5-5.1); Protein, Total 5.3 g/dL (6.4-8.2); Sodium Level 126 mmol/L (136-145)
[2022-01-31 07:00] VITALS: PULSE 71
[2022-01-31] MEDS: Fludrocortisone Acetate 0.1 MG Tablet PO (08:34)
[2022-01-31] MEDS: Escitalopram Oxalate 10 MG Tablet PO (08:34)
[2022-01-31] MEDS: Pantoprazole Sodium 20 MG Tablet PO (08:34)
[2022-01-31] MEDS: Magnesium Chloride 64 MG Delay Rel.Tablet PO (08:34)
[2022-01-31] MEDS: Midodrine HCl 5 MG Tablet 20 MG PO ×3 (08:34→17:02)
[2022-01-31] MEDS: Polyethylene Glycol 3350 17 GM PACKET PO (08:34)
[2022-01-31] MEDS: rifAXIMin 550 MG Tablet PO ×2 (08:34→21:06)
[2022-01-31] MEDS: Mupirocin Ointment 22gm Tube 1 APPLIC TOPICAL ×2 (08:34→21:06)
[2022-01-31 09:00] VITALS: BP 103/60; PULSE 77; RESP 16; TEMP 36.7; O2SAT 99
--- NOTE | 2022-01-31 10:33 | PN.HOSP_ITS ---
Documented by User: Janell Tinoco NP-C 01/31/22 10:37 Subjective Subjective Patient seen and examined. Patient sitting in chair much more alert and interactive today. at bedside asking for update regarding [facility] transfer told her he is on the waiting list but we will not know until he gets a bed when he will be going. Objective Data Objective Data Vital Signs: Vital Signs Temp Pulse Resp BP Pulse Ox O2 Del Method 98.1 F 77 16 103/60 99 Room Air 01/31/22 09:00 01/31/22 09:00 01/31/22 09:00 01/31/22 09:00 01/31/22 09:00 01/31/22 09:00 Oxygen Delivery Method [3] Room Air Oxygen Delivery Method [2] Room Air Oxygen Delivery Method [1 ( Room Air Initial Baseline)] Oxygen Delivery Method Room Air Weight: 193 lb 12.581 oz Body Mass Index (BMI) 28.6 Intake & Output: Intake and Output for Last 24 Hours 01/29/22 01/30/22 01/31/22 23:59 23:59 23:59 Intake Total 1580 / 1680 900 / 900 Balance 1580 / 1680 900 / 900 Lab / Micro Data Result Diagrams: 01/31/22 05:20 01/31/22 05:20 Labs: Laboratory Results - last 24 hr 01/31/22 05:20: WBC 6.5, RBC 2.44 L, Hgb 8.1 L, Hct 22.7 L, MCV 93.0, MCH 33.2 H , MCHC 35.7, RDW Std Deviation 49.7 H, RDW Coeff of Teri 14.6, Plt Count 113 L, MPV 11.3, Immature Gran % (Auto) 0.600, Neut % (Auto) 58.4, Lymph % (Auto) 22.7, [place] % (Auto) 13.7 H, Eos % (Auto) 3.7, Baso % (Auto) 0.9, Absolute Neuts (auto) 3.8, Absolute Lymphs (auto) 1.47, Nucleated RBC % 0 01/31/22 05:20: Sodium 126 L, Potassium 4.5, Chloride 99, Carbon Dioxide 20.0 L, Anion Gap 7, BUN 26 H, Creatinine 1.39 H, Estim Creat Clear Calc 62.87, Est GFR (MDRD) Af Amer 69, Est GFR (MDRD) Non-Af 57 L, BUN/Creatinine Ratio 18.7, Glucose 85, Calcium 10.0, Total Bilirubin 2.50 H, AST 52 H, ALT 21, Alkaline Phosphatase 137 H, Total Protein 5.3 L, Albumin 3.0 L, Globulin 2.3, Albumin/Globulin Ratio 1.3 Micro: Microbiology 01/27/22 13:45 Urine Catheter - Catheter Urine Culture - Final Presumptive E. coli 01/29/22 18:40 Stool Stool Occult Blood (ALLI) - Final Occult Blood Positive 01/27/22 14:42 Nasal Secretion SARS-CoV-2 Antigen (Rapid) - Final Physical Exam Narrative Physical exam: General: Well-nourished, well-developed. Head: Normocephalic, atraumatic, no tenderness Eyes: Vision is grossly intact. EOMI ENT, no trauma, moist mucous membranes, no rhinorrhea Neck: Nontender, full range of motion, no spinal tenderness, deformities, step- off CVS: Regular rate and rhythm. S1-S2 present. No murmur, gallop or rub. Respiratory : clear to auscultation bilaterally, chest wall nontender, no wheezing Abdomen: Soft, nontender, distended, normal bowel sounds, no masses : Deferred Back: Nontender, no CVA tenderness, no midline spinal tenderness, deformities, step-offs Extremities: Nontender full range of motion, no trauma Skin: Normal color, no trauma, abrasions. Petechial rash on abdomen Neuro: Alert, oriented, cranial nerves II through XII grossly intact. Psychiatry: Normal mood. Normal affect. Not depressed. Not anxious. Const alert and oriented x3 HEENT normocephalic Eyes conjunctivae normal Neck no lymphadenopathy Resp normal respiratory effort and clear to auscultation bilaterally Effort and Inspection: able to speak in complete sentences and symmetric chest movement Auscultation: clear to auscultation bilaterally Cardio regular rate, regular rhythm and no murmurs Peripheral Pulses: pulses 2+ throughout GI normal to inspection, nondistended, normoactive bowel sounds, non-tender and non-distended GI Narrative: Dressing to abdomen dry and intact from paracentesis Extremity normal to inspection Skin no rashes or lesions noted Skin Narrative: Right knee abrasion, upper extremity skin tears. General Skin Exam: jaundice Lesions: no lesions Rashes: no rashes Trauma: no lacerations or abrasions Neuro no focal motor deficits and no sensory deficits noted Psych mental status grossly normal and affect normal Assessment & Plan Assessment/Plan (1) RICKY (acute kidney injury): PLAN: Plan 1. Acute kidney injury -Diuretic regimen on hold -Continue Flomax. Outpatient follow-up with urology. -BUN and creatinine improved from previous day, 04/08.39 -CMP daily 2. Generalized weakness -PT/OT ordered. 3. Hypotension -Blood pressure is labile -Continue Florinef, midodrine increased from 10 mg 3 times daily to 20 mg 3 times daily by nephrology 01/28/2022. -Diuretic regimen on hold. 4. 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 Albumin replaced 6g/L removed. -Follows with GI. -Continue lactulose, Xifaxan. 5. Chronic hyponatremia -Sodium 126. -Sodium tablets increased to 2 g 3 times daily on 01/28/2022 which is what patient takes at home -Nephrology following 6. Chronic anemia -CBC daily -Patient's hemoglobin 8.1, consistent with baseline 7. History of alcohol use -denies ongoing use. 8. Anxiety/depression -on escitalopram. DVT prophylaxis-SCDs This patient was seen by CLARICE DelarosaC under the supervision of Dr. Christie. 13 minutes spent in clinical coordination of patient's plan of care. Documented by User: Dr. Maycol Christie MD 01/31/22 12:35 Objective Data Lab / Micro Data Result Diagrams: 01/31/22 05:20 01/31/22 05:20 Assessment & Plan Assessment/Plan (1) RICKY (acute kidney injury): PLAN: Plan 1. Acute kidney injury -Diuretic regimen on hold -Continue Flomax. Outpatient follow-up with urology. -BUN and creatinine improved from previous day, 04/08.39 -CMP daily 2. Generalized weakness -PT/OT ordered. 3. Hypotension -Blood pressure is labile -Continue Florinef, midodrine increased from 10 mg 3 times daily to 20 mg 3 times daily by nephrology 01/28/2022. -Diuretic regimen on hold. 4. 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 Albumin replaced 6g/L removed. -Follows with GI. -Continue lactulose, Xifaxan. 5. Chronic hyponatremia -Sodium 126. -Sodium tablets increased to 2 g 3 times daily on 01/28/2022 which is what patient takes at home -Nephrology following 6. Chronic anemia -CBC daily -Patient's hemoglobin 8.1, consistent with baseline 7. History of alcohol use -denies ongoing use. 8. Anxiety/depression -on escitalopram. DVT prophylaxis-SCDs This patient was seen by ZURI Delarosa under the supervision of Dr. Christie. Addt'l Comments This patient was seen in conjunction with ZURI Delarosa . I have independently interviewed and examined the patient and reviewed pertinent historical, laboratory, and other data. Please refer to ZURI Delarosa note for details of this patient's presentation, findings, and recommendations. I have reviewed ZURI Delarosa note and concur with documented findings. In brief, patient is a 51-year-old gentleman with history of known cirrhosis of the liver secondary to alcoholic hepatitis who presented with increasing lethargy patient was found to have acute kidney injury admitted to regular nursing floor for further management. Plan is for patient to be transferred to [facility] pending bed availability Physical Examination: GENERAL: cooperative HEENT: Atraumatic; EYES; icteric, NECK; supple, normal thyroid, RESPIRATORY: Diminished to auscultation CARDIOVASCULAR: Regular S1 S2, GI: soft, normoactive bowel sounds, : No Renal angle tenderness; EXTREMITIES: No edema, no clubbing, MUSCULOSKELETAL: no muscle wasting NEURO: Awake; no lateralizing signs. SKIN: No Rash PSYCH; Flat affect Assessment: 1. Acute kidney injury 2. Chronic kidney disease stage III 3. Decompensated cirrhosis of the liver with ascites 4. Chronic hyponatremia 5. Physical deconditioning 6. Depression with anxiety Recommendations: 1. I have discussed the results of my overview and impressions with the patient 2. Options for management were reviewed Total time spent by myself and the advanced practice practitioner evaluating patient, reviewing labs, subsequent management decisions, discussion with patient as well as other providers 40 minutes ( 25 of which was spent by myself) Charges/Coding Visit Charges Inpatient E&M: 04267 Subs Hosp L2
[2022-01-31 11:04] VITALS: PULSE 69
--- NOTE | 2022-01-31 12:18 | PCM.PN.REN ---
Subjective Subjective Acute events overnight Feels okay Denies shortness of breath Objective Data Objective Data Vital Signs: Vital Signs Temp Pulse Resp BP Pulse Ox O2 Del Method 98.1 F 77 16 103/60 99 Room Air 01/31/22 09:00 01/31/22 09:00 01/31/22 09:00 01/31/22 09:00 01/31/22 09:00 01/31/22 09:00 Oxygen Delivery Method [3] Room Air Oxygen Delivery Method [2] Room Air Oxygen Delivery Method [1 ( Room Air Initial Baseline)] Oxygen Delivery Method Room Air Weight: 87.9 kg Body Mass Index (BMI) 28.6 Intake & Output: Intake and Output for Last 24 Hours 01/29/22 01/30/22 01/31/22 23:59 23:59 23:59 Intake Total 1580 / 1680 900 / 900 Balance 1580 / 1680 900 / 900 Lab / Micro Data Result Diagrams: 01/31/22 05:20 01/31/22 05:20 Labs: Laboratory Results - last 24 hr 01/31/22 05:20: WBC 6.5, RBC 2.44 L, Hgb 8.1 L, Hct 22.7 L, MCV 93.0, MCH 33.2 H, MCHC 35.7, RDW Std Deviation 49.7 H, RDW Coeff of Teri 14.6, Plt Count 113 L, MPV 11.3, Immature Gran % (Auto) 0.600, Neut % (Auto) 58.4, Lymph % (Auto) 22.7, [place] % (Auto) 13.7 H, Eos % (Auto) 3.7, Baso % (Auto) 0.9, Absolute Neuts (auto) 3.8, Absolute Lymphs (auto) 1.47, Nucleated RBC % 0 01/31/22 05:20: Sodium 126 L, Potassium 4.5, Chloride 99, Carbon Dioxide 20.0 L, Anion Gap 7, BUN 26 H, Creatinine 1.39 H, Estim Creat Clear Calc 62.87, Est GFR (MDRD) Af Amer 69, Est GFR (MDRD) Non-Af 57 L, BUN/Creatinine Ratio 18.7, Glucose 85, Calcium 10.0, Total Bilirubin 2.50 H, AST 52 H, ALT 21, Alkaline Phosphatase 137 H, Total Protein 5.3 L, Albumin 3.0 L, Globulin 2.3, Albumin/Globulin Ratio 1.3 Micro: Microbiology 01/27/22 13:45 Urine Catheter - Catheter Urine Culture - Final Presumptive E. coli 01/29/22 18:40 Stool Stool Occult Blood (ALLI) - Final Occult Blood Positive 01/27/22 14:42 Nasal Secretion SARS-CoV-2 Antigen (Rapid) - Final Physical Exam Narrative Alert sitting in side of bed no acute distress S1-S2 regular Breath sounds are equal and clear Abdomen is obese positive for ascites Does have some lower extremity edema Assessment & Plan Assessment/Plan (1) RICKY (acute kidney injury): (2) Weakness: (3) Hypotension: (4) Hx of cirrhosis: (5) Hyponatremia: PLAN: Plan - RICKY likely from hypotension, intravascular volume depletion, possibly hepato-renal physiology requiring large-volume paracentesis; at this time there is no acute indication for [employer]. Patient is not hypervolemic, acidotic or hyperkalemic. Getting albumin 25 g every 8 hours for total of 6 doses. Continue to restrict oral fluids to 1.5 L a day. Renal ultrasound did not show any calculi or hydronephrosis. Patient is having bladder scan done at bedside to rule out PVR. Baseline creatinine had been around 1 mg/dL. January 13 creatinine 1.8 mg/dL. In the ER creatinine 2.05 mg/dL. Creatinine peaked 2.07mg/dL -01/31 -Overall renal function is stable with serum creatinine improved to 1.39 mg/dL today -Volume appears relatively stable as well -Sodium is down to 126 mmol/L -We will restart low-dose Lasix in addition to free water restriction to 1.5 L. He is currently on 2 g sodium chloride 3 times daily. -Repeat renal panel in the morning Thank you please call [phone] with any concerns
[2022-01-31] MEDS: Furosemide 20 MG Tablet PO (13:26)
[2022-01-31 15:00] VITALS: BP 100/69; PULSE 71; PULSE 76; RESP 16; TEMP 36.6; O2SAT 98
[2022-01-31 18:59] VITALS: PULSE 74
[2022-01-31 20:31] VITALS: BP 102/51; PULSE 76; RESP 18; TEMP 36.4; O2SAT 98
[2022-01-31] MEDS: Ursodiol 250 MG Tablet PO (21:06)
[2022-02-01] VITALS (9 sets, daily range): BP systolic 96–105; BP diastolic 44–68; PULSE 65–86; RESP 16–18; TEMP 36.4–36.7; O2SAT 96–99
[2022-02-01 05:42] LABS: Absolute Lymphocyte Count 1.43 X10^3/uL (0.83-4.51); Basophil# 0.07 X10^3/uL; Basophil% 0.9 % (0-1); Eosinophil# 0.21 X10^3/uL; Eosinophils% 2.7 % (0-5); Hematocrit 22.8 % (40-54); Hemoglobin 8.1 g/dL (13.0-16.5); Lymphocyte # 1.43 X10^3/ul (0.83-4.51); Lymphocyte % 18.3 % (19-41); Mean Corp Hgb Conc 35.5 g/dL (32-36); Mean Corpuscular Hgb 32.7 pg (27.0-32.0); Mean Corpuscular Volume 91.9 fL (80-94); Mean Platelet Vol. 11.5 fl (6.2-12.0); Monocyte# 1.05 X10^3/uL; Monocyte% 13.5 % (0-10); NRBC Flagged by Analyzer 0 % (0-5); Neutrophil # 5.01 X10^3/uL (2.7-7.7); Neutrophil % 64.2 % (47-70); Platelet Count 119 K/mm3 (150-450); RBC Distribution Width CV 14.7 % (11.6-14.6); RBC Distribution Width SD 49.7 fl (35.1-43.9); Red Blood Count 2.48 M/mm3 (4.6-6.2); White Blood Count 7.8 K/mm3 (4.4-11.0)
[2022-02-01] MEDS: Lactulose 20 GM/30 ML UDC PO ×3 (05:42→21:44)
[2022-02-01] MEDS: Sodium Chloride 1 GM Tablet 2 GM PO ×3 (05:42→21:44)
[2022-02-01 06:06] LABS: ALB/GLOB Ratio 1.2 RATIO (0.9-2.4); AST(SGOT) 60 U/L (15-37); Alanine Aminotransfer ALT/SGPT 26 U/L (16-61); Alkaline Phosphatase 132 U/L (45-117); Anion Gap 9 (5-15); BUN 26 mg/dL (7-18); BUN/Creat Ratio 18.4 RATIO (10-20); Calcium,Total 10.2 mg/dL (8.5-10.1); Chloride 101 mmol/L (98-107); Creatinine, Serum 1.41 mg/dL (0.70-1.30); EST Glomerular Filtration Rate 56 mL/min (>60); Est Glom Filt Rate - Afr Amer 68 mL/min (>60); Estimated Creatinine Clearance 61.98 ml/min; Globulin 2.4 g/dL (2.2-4.2); Glucose 99 mg/dL (74-106); Potassium 4.7 mmol/L (3.5-5.1); Protein, Total 5.4 g/dL (6.4-8.2); Sodium Level 129 mmol/L (136-145)
[2022-02-01] MEDS: Midodrine HCl 5 MG Tablet 20 MG PO ×3 (08:45→16:31)
[2022-02-01] MEDS: Escitalopram Oxalate 10 MG Tablet PO (09:54)
[2022-02-01] MEDS: Furosemide 20 MG Tablet PO (09:54)
[2022-02-01] MEDS: Pantoprazole Sodium 20 MG Tablet PO (09:54)
[2022-02-01] MEDS: rifAXIMin 550 MG Tablet PO ×2 (09:54→21:44)
[2022-02-01] MEDS: Fludrocortisone Acetate 0.1 MG Tablet PO (09:54)
[2022-02-01] MEDS: Magnesium Chloride 64 MG Delay Rel.Tablet PO (09:54)
[2022-02-01] MEDS: Mupirocin Ointment 22gm Tube 1 APPLIC TOPICAL ×2 (09:55→21:43)
[2022-02-01] MEDS: Polyethylene Glycol 3350 17 GM PACKET PO (09:55)
--- NOTE | 2022-02-01 10:31 | PCM.PN.HOSP ---
Documented by User: Janell Tinoco NP-C 02/01/22 10:33 Subjective Subjective Patient seen and examined. Patient lying in bed no distress noted. Patient expresses frustration at waiting for transfer. Discussed with patient and his that this is not uncommon and that we will continue to do what we can do here for him until we receive a bed at [facility]. Reviewed labs with patient and . Objective Data Objective Data Vital Signs: Vital Signs Temp Pulse Resp BP Pulse Ox O2 Del Method 98.1 F 78 17 96/49 L 97 Room Air 02/01/22 09:49 02/01/22 09:49 02/01/22 09:49 02/01/22 09:49 02/01/22 09:49 02/01/22 09:49 Oxygen Delivery Method [3] Room Air Oxygen Delivery Method [2] Room Air Oxygen Delivery Method [1 ( Room Air Initial Baseline)] Oxygen Delivery Method Room Air Weight: 193 lb 12.581 oz Body Mass Index (BMI) 28.6 Intake & Output: Intake and Output for Last 24 Hours 01/30/22 01/31/22 02/01/22 23:59 23:59 23:59 Intake Total 900 / 900 Balance 900 / 900 Lab / Micro Data Result Diagrams: 02/01/22 04:36 02/01/22 04:36 Labs: Laboratory Results - last 24 hr 02/01/22 04:36: WBC 7.8, RBC 2.48 L, Hgb 8.1 L, Hct 22.8 L, MCV 91.9, MCH 32.7 H, MCHC 35.5, RDW Std Deviation 49.7 H, RDW Coeff of Teri 14.7 H, Plt Count 119 L, MPV 11.5, Immature Gran % (Auto) 0.400, Neut % (Auto) 64.2, Lymph % (Auto) 18.3 L, [place] % (Auto) 13.5 H, Eos % (Auto) 2.7, Baso % (Auto) 0.9, Absolute Neuts (auto) 5.0, Absolute Lymphs (auto) 1.43, Nucleated RBC % 0 02/01/22 04:36: Sodium 129 L, Potassium 4.7, Chloride 101, Carbon Dioxide 19.0 L, Anion Gap 9, BUN 26 H, Creatinine 1.41 H, Estim Creat Clear Calc 61.98, Est GFR (MDRD) Af Amer 68, Est GFR (MDRD) Non-Af 56 L, BUN/Creatinine Ratio 18.4, Glucose 99, Calcium 10.2 H, Total Bilirubin 2.80 H, AST 60 H, ALT 26, Alkaline Phosphatase 132 H, Total Protein 5.4 L, Albumin 3.0 L, Globulin 2.4, Albumin/Globulin Ratio 1.2 Micro: Microbiology 01/27/22 13:45 Urine Catheter - Catheter Urine Culture - Final Presumptive E. coli 01/29/22 18:40 Stool Stool Occult Blood (ALLI) - Final Occult Blood Positive 01/27/22 14:42 Nasal Secretion SARS-CoV-2 Antigen (Rapid) - Final Physical Exam Const alert and oriented x3 HEENT normocephalic Eyes conjunctivae normal Neck no lymphadenopathy Resp normal respiratory effort Effort and Inspection: able to speak in complete sentences and symmetric chest movement Auscultation: diminished lung sounds Cardio regular rate, regular rhythm and no murmurs Peripheral Pulses: pulses 2+ throughout GI normal to inspection, nondistended, normoactive bowel sounds, non-tender and non-distended GI Narrative: Dressing to abdomen dry and intact from paracentesis Extremity normal to inspection Skin no rashes or lesions noted Skin Narrative: Right knee abrasion, upper extremity skin tears. General Skin Exam: jaundice Lesions: no lesions Rashes: no rashes Trauma: no lacerations or abrasions Neuro no focal motor deficits and no sensory deficits noted Psych mental status grossly normal and affect normal Assessment & Plan Assessment/Plan (1) RICKY (acute kidney injury): PLAN: Plan 1. Acute kidney injury -Diuretic regimen on hold -Continue Flomax. Outpatient follow-up with urology. -BUN and creatinine stable -CMP daily 2. Generalized weakness -PT/OT ordered. 3. Hypotension -Blood pressure is labile -Continue Florinef, midodrine increased from 10 mg 3 times daily to 20 mg 3 times daily by nephrology 01/28/2022. -Diuretic regimen on hold. 4. 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 Albumin replaced 6g/L removed. -Follows with GI. -Continue lactulose, Xifaxan. 5. Chronic hyponatremia -Sodium 129. -Sodium tablets increased to 2 g 3 times daily on 01/28/2022 which is what patient takes at home -Nephrology following 6. Chronic anemia -CBC daily -Patient's hemoglobin 8.1, stable 7. History of alcohol use -denies ongoing use. 8. Anxiety/depression -on escitalopram. DVT prophylaxis-SCDs This patient was seen by ZURI Delarosa under the supervision of Dr. Christie. Documented by User: Dr. Maycol Christie MD 02/01/22 11:52 Subjective Subjective Patient seen and examined. Patient lying in bed no distress noted. Patient expresses frustration at waiting for transfer. Discussed with patient and his that this is not uncommon and that we will continue to do what we can do here for him until we receive a bed at [facility]. Reviewed labs with patient and . Objective Data Lab / Micro Data Result Diagrams: 02/01/22 04:36 02/01/22 04:36 Assessment & Plan Assessment/Plan (1) RICKY (acute kidney injury): Addt'l Comments This patient was seen in conjunction with ZURI Delarosa .? I have independently interviewed and examined the patient and reviewed pertinent historical, laboratory, and other data.? Please refer to ZURI Delarosa? note for details of this patient's presentation, findings, and recommendations.? I have reviewed? ZURI Delarosa note and concur? with documented findings. In brief, patient is a 51-year-old gentleman with history of known cirrhosis of the liver secondary to alcoholic hepatitis who presented with increasing lethargy patient was found to have acute kidney injury admitted to regular nursing floor for further management.? Plan is for patient to be transferred to [facility] pending bed availability 01/28/2026; patient seen still appears ill looking. Awaiting transfer to [facility] pending bed availability Physical Examination: GENERAL: cooperative HEENT: Atraumatic; EYES; icteric, NECK; supple, normal thyroid, RESPIRATORY: Diminished to auscultation CARDIOVASCULAR:? Regular S1 S2, GI:? soft, normoactive bowel sounds, : No Renal angle tenderness; EXTREMITIES:? No edema, no clubbing, MUSCULOSKELETAL:? no muscle wasting NEURO:? Awake;? no lateralizing signs. SKIN:? No Rash PSYCH; Flat? affect Assessment:? 1.? Acute kidney injury 2.? Chronic kidney disease stage III 3.? Decompensated cirrhosis of the liver with ascites 4.? Chronic hyponatremia 5.? Physical deconditioning 6.? Depression with anxiety Recommendations: 1.? I have discussed the results of my overview and impressions with the patient 2.? Options for management were reviewed Total time spent by myself and the advanced practice practitioner evaluating patient, reviewing labs, subsequent management decisions, discussion with patient as well as other providers 40 minutes ( 25 of which was spent by myself) Charges/Coding Visit Charges Inpatient E&M: 24490 Subs Hosp L2
--- NOTE | 2022-02-01 11:17 | PCM.PN.REN ---
Subjective Subjective No acute events overnight Resting comfortably Objective Data Objective Data Vital Signs: Vital Signs Temp Pulse Resp BP Pulse Ox O2 Del Method 98.1 F 78 17 96/49 L 97 Room Air 02/01/22 09:49 02/01/22 09:49 02/01/22 09:49 02/01/22 09:49 02/01/22 09:49 02/01/22 09:49 Oxygen Delivery Method [3] Room Air Oxygen Delivery Method [2] Room Air Oxygen Delivery Method [1 ( Room Air Initial Baseline)] Oxygen Delivery Method Room Air Weight: 87.9 kg Body Mass Index (BMI) 28.6 Intake & Output: Intake and Output for Last 24 Hours 01/30/22 01/31/22 02/01/22 23:59 23:59 23:59 Intake Total 900 / 900 Balance 900 / 900 Lab / Micro Data Attestation: I reviewed the patient's lab results. Result Diagrams: 02/01/22 04:36 02/01/22 04:36 Labs: Laboratory Results - last 24 hr 02/01/22 04:36: WBC 7.8, RBC 2.48 L, Hgb 8.1 L, Hct 22.8 L, MCV 91.9, MCH 32.7 H, MCHC 35.5, RDW Std Deviation 49.7 H, RDW Coeff of Teri 14.7 H, Plt Count 119 L, MPV 11.5, Immature Gran % (Auto) 0.400, Neut % (Auto) 64.2, Lymph % (Auto) 18.3 L, [place] % (Auto) 13.5 H, Eos % (Auto) 2.7, Baso % (Auto) 0.9, Absolute Neuts (auto) 5.0, Absolute Lymphs (auto) 1.43, Nucleated RBC % 0 02/01/22 04:36: Sodium 129 L, Potassium 4.7, Chloride 101, Carbon Dioxide 19.0 L, Anion Gap 9, BUN 26 H, Creatinine 1.41 H, Estim Creat Clear Calc 61.98, Est GFR (MDRD) Af Amer 68, Est GFR (MDRD) Non-Af 56 L, BUN/Creatinine Ratio 18.4, Glucose 99, Calcium 10.2 H, Total Bilirubin 2.80 H, AST 60 H, ALT 26, Alkaline Phosphatase 132 H, Total Protein 5.4 L, Albumin 3.0 L, Globulin 2.4, Albumin/Globulin Ratio 1.2 Micro: Microbiology 01/27/22 13:45 Urine Catheter - Catheter Urine Culture - Final Presumptive E. 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 Patient is not hypervolemic, acidotic or hyperkalemic. Getting albumin 25 g every 8 hours for total of 6 doses. Continue to restrict oral fluids to 1.5 L a day. Renal ultrasound did not show any calculi or hydronephrosis. Patient is having bladder scan done at bedside to rule out PVR. Baseline creatinine had been around 1 mg/dL. January 13 creatinine 1.8 mg/dL. In the ER creatinine 2.05 mg/dL. Creatinine peaked 2.07mg/dL 02/01 -Overall stable from renal standpoint. Sodium is better 129 mmol/L currently on free water restriction in addition to salt tablets and low-dose Lasix -Renal panel in the morning -Continue midodrine Thank you please call [phone] with any concerns
[2022-02-01] MEDS: Ursodiol 250 MG Tablet PO (21:44)
[2022-02-02] VITALS (9 sets, daily range): BP systolic 93–101; BP diastolic 54–81; PULSE 67–92; RESP 16–18; TEMP 36.6–36.9; O2SAT 97–100
[2022-02-02] MEDS: Lactulose 20 GM/30 ML UDC PO ×3 (05:21→21:16)
[2022-02-02] MEDS: Sodium Chloride 1 GM Tablet 2 GM PO ×3 (05:22→21:16)
[2022-02-02 05:38] LABS: Absolute Neutrophil Count 3.7 X10^3/uL (2.0-7.7); Basophil# 0.07 X10^3/uL; Eosinophil# 0.31 X10^3/uL; Eosinophils% 4.4 % (0-5); Hematocrit 22.6 % (40-54); Hemoglobin 7.8 g/dL (13.0-16.5); Lymphocyte % 24.3 % (19-41); Mean Corp Hgb Conc 34.5 g/dL (32-36); Mean Corpuscular Hgb 32.1 pg (27.0-32.0); Mean Platelet Vol. 10.8 fl (6.2-12.0); Monocyte# 1.19 X10^3/uL; NRBC Flagged by Analyzer 0 % (0-5); Neutrophil # 3.69 X10^3/uL (2.7-7.7); Neutrophil % 52.7 % (47-70); Platelet Count 135 K/mm3 (150-450); RBC Distribution Width SD 51.7 fl (35.1-43.9); Red Blood Count 2.43 M/mm3 (4.6-6.2)
[2022-02-02 06:03] LABS: ALB/GLOB Ratio 1.3 RATIO (0.9-2.4); AST(SGOT) 59 U/L (15-37); Alanine Aminotransfer ALT/SGPT 23 U/L (16-61); Albumin, Serum 2.9 g/dL (3.2-5.0); Alkaline Phosphatase 129 U/L (45-117); Anion Gap 8 (5-15); BUN 28 mg/dL (7-18); BUN/Creat Ratio 17.9 RATIO (10-20); Calcium,Total 10.2 mg/dL (8.5-10.1); Chloride 101 mmol/L (98-107); Creatinine, Serum 1.56 mg/dL (0.70-1.30); EST Glomerular Filtration Rate 50 mL/min (>60); Est Glom Filt Rate - Afr Amer 61 mL/min (>60); Estimated Creatinine Clearance 56.02 ml/min; Globulin 2.2 g/dL (2.2-4.2); Glucose 89 mg/dL (74-106); Potassium 4.9 mmol/L (3.5-5.1); Protein, Total 5.1 g/dL (6.4-8.2); Sodium Level 127 mmol/L (136-145)
[2022-02-02] MEDS: Escitalopram Oxalate 10 MG Tablet PO (08:28)
[2022-02-02] MEDS: Midodrine HCl 5 MG Tablet 20 MG PO ×3 (08:28→17:03)
[2022-02-02] MEDS: Pantoprazole Sodium 20 MG Tablet PO (08:29)
[2022-02-02] MEDS: Fludrocortisone Acetate 0.1 MG Tablet PO (08:29)
[2022-02-02] MEDS: Magnesium Chloride 64 MG Delay Rel.Tablet PO (08:29)
[2022-02-02] MEDS: Furosemide 20 MG Tablet PO (08:29)
[2022-02-02] MEDS: rifAXIMin 550 MG Tablet PO ×2 (08:29→21:16)
[2022-02-02] MEDS: Polyethylene Glycol 3350 17 GM PACKET PO (08:31)
--- NOTE | 2022-02-02 10:15 | PN.HOSP_ITS ---
Documented by User: Janell Tinoco NP-Cuate 02/02/22 10:18 Subjective Subjective Patient seen and examined. Patient lying in bed no distress noted. at bedside. Objective Data Objective Data Vital Signs: Vital Signs Temp Pulse Resp BP Pulse Ox O2 Del Method 97.9 F 70 18 101/81 H 97 Room Air 02/02/22 08:35 02/02/22 08:35 02/02/22 08:35 02/02/22 08:35 02/02/22 08:35 02/02/22 08:35 Oxygen Delivery Method [3] Room Air Oxygen Delivery Method [2] Room Air Oxygen Delivery Method [1 ( Room Air Initial Baseline)] Oxygen Delivery Method Room Air Weight: 193 lb 12.581 oz Body Mass Index (BMI) 28.6 Intake & Output: Intake and Output for Last 24 Hours 01/31/22 02/01/22 02/02/22 23:59 23:59 23:59 Intake Total 900 / 900 Balance 900 / 900 Lab / Micro Data Result Diagrams: 02/02/22 05:04 02/02/22 05:04 Labs: Laboratory Results - last 24 hr 02/02/22 05:04: WBC 7.0, RBC 2.43 L, Hgb 7.8 L, Hct 22.6 L, MCV 93.0, MCH 32.1 H , MCHC 34.5, RDW Std Deviation 51.7 H, RDW Coeff of Teri 15.0 H, Plt Count 135 L, MPV 10.8, Immature Gran % (Auto) 0.600, Neut % (Auto) 52.7, Lymph % (Auto) 24.3, [place] % (Auto) 17.0 H, Eos % (Auto) 4.4, Baso % (Auto) 1.0, Absolute Neuts (auto) 3.7, Absolute Lymphs (auto) 1.70, Nucleated RBC % 0 02/02/22 05:04: Sodium 127 L, Potassium 4.9, Chloride 101, Carbon Dioxide 18.0 L , Anion Gap 8, BUN 28 H, Creatinine 1.56 H, Estim Creat Clear Calc 56.02, Est GFR (MDRD) Af Amer 61, Est GFR (MDRD) Non-Af 50 L, BUN/Creatinine Ratio 17.9, Glucose 89, Calcium 10.2 H, Total Bilirubin 3.00 H, AST 59 H, ALT 23, Alkaline Phosphatase 129 H, Total Protein 5.1 L, Albumin 2.9 L, Globulin 2.2, Albumin/Globulin Ratio 1.3 Micro: Microbiology 01/27/22 13:45 Urine Catheter - Catheter Urine Culture - Final Presumptive E. coli 01/29/22 18:40 Stool Stool Occult Blood (ALLI) - Final Occult Blood Positive 01/27/22 14:42 Nasal Secretion SARS-CoV-2 Antigen (Rapid) - Final Physical Exam Const alert and oriented x3 HEENT normocephalic Eyes conjunctivae normal Neck no lymphadenopathy Resp normal respiratory effort Effort and Inspection: able to speak in complete sentences and symmetric chest movement Auscultation: clear to auscultation bilaterally and diminished lung sounds Cardio regular rate, regular rhythm and no murmurs Peripheral Pulses: pulses 2+ throughout GI normal to inspection, nondistended, normoactive bowel sounds, non-tender and non-distended GI Narrative: Dressing to abdomen dry and intact from paracentesis Extremity normal to inspection Skin no rashes or lesions noted Skin Narrative: Right knee abrasion, upper extremity skin tears. General Skin Exam: jaundice Lesions: no lesions Rashes: no rashes Trauma: no lacerations or abrasions Neuro no focal motor deficits and no sensory deficits noted Psych mental status grossly normal and affect normal Assessment & Plan Assessment/Plan (1) RICKY (acute kidney injury): PLAN: Plan 1. Acute kidney injury -Diuretic regimen on hold -Continue Flomax. Outpatient follow-up with urology. -BUN and creatinine stable -CMP daily -Patient continues to be on the wait list for [facility] transfer 2. Generalized weakness -PT/OT ordered. 3. Hypotension -Blood pressure stable -Continue Florinef, midodrine increased from 10 mg 3 times daily to 20 mg 3 times daily by nephrology 01/28/2022. -Diuretic regimen on hold. 4. 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 Albumin replaced 6g/L removed. -Follows with GI. -Continue lactulose, Xifaxan. 5. Chronic hyponatremia -Sodium 127. -Sodium tablets increased to 2 g 3 times daily on 01/28/2022 which is what patient takes at home -Nephrology following 6. Chronic anemia -CBC daily -Patient's hemoglobin 7.8, stable 7. History of alcohol use -denies ongoing use. 8. Anxiety/depression -on escitalopram. DVT prophylaxis-SCDs This patient was seen by Janell Tinoco NP-C under the supervision of Dr. Gardner. Documented by User: Dr. Israel Gardner MD 02/02/22 16:55 Subjective Subjective Patient seen and examined. Patient lying in bed no distress noted. at bedside. Follow-up for RICKY complicated with decompensated alcoholic cirrhosis. Patient is lethargic. Patient is accepted in [facility] pending bed availability. Objective Data Lab / Micro Data Result Diagrams: 02/02/22 05:04 02/02/22 05:04 Physical Exam Narrative Physical exam General: Mild lethargy. Fluctuating confusion and orientation. HEENT: Atraumatic, PERRLA, EOMI, Normocephalic Oral: No Gingival or Mucosal Lesions/ Ulcerations Neck: Supple, No JVD, Negative Carotid Bruits Lungs: Air entry diminished in bilateral lung bases. No crepitation/rhonchi Cardiovascular: Regular rate, Regular Rhythm, Normal S1, Normal S2, No murmurs Abdomen: Bowel Sounds Present, Soft, Non Tender, moderate to severe ascites, distended : No renal angle tenderness. No suprapubic tenderness. Extremities: Bilateral leg pitting edema, Capillary Refill Less than 3 Seconds Skin: Mild skin bruising. Blood blister. Musculoskeletal: No Tenderness to Palpation of Joints or Extremities Neurological: Cranial nerves II-XII grossly intact, DTR 2+/4 Psych/Mental Status: flat affect. Assessment & Plan Assessment/Plan (1) RICKY (acute kidney injury): PLAN: Plan 1. Acute kidney injury -Diuretic regimen on hold -Continue Flomax. Outpatient follow-up with urology. -BUN and creatinine stable -CMP daily -Patient continues to be on the wait list for [facility] transfer 2. Generalized weakness -PT/OT ordered. 3. Hypotension -Blood pressure stable -Continue Florinef, midodrine increased from 10 mg 3 times daily to 20 mg 3 times daily by nephrology 01/28/2022. -Diuretic regimen on hold. 4. 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 Albumin replaced 6g/L removed. -Follows with GI. -Continue lactulose, Xifaxan. 5. Chronic hyponatremia -Sodium 127. -Sodium tablets increased to 2 g 3 times daily on 01/28/2022 which is what mireya ent takes at home -Nephrology following 6. Chronic anemia -CBC daily -Patient's hemoglobin 7.8, stable 7. History of alcohol use -denies ongoing use. 8. Anxiety/depression -on escitalopram. DVT prophylaxis-SCDs This patient was seen by CLARICE DelarosaC under the supervision of Dr. Gardner. This patient was seen in conjunction with MARCUS Maciel. I have independently interviewed and examined the patient and reviewed pertinent history, examination findings, laboratory and plan of management. I have reviewed the note and agree with the documented findings with the few additional points. In brief, patient is admitted for drowsiness, lethargic and found to be RICKY. Patient has decompensated alcoholic cirrhosis with ascites, thrombocytopenia, and jaundice and portal hypertension. 1. RICKY and hyponatremia on CKD stage IIIa: RICKY most likely due to hypotension, intravascular volume depletion possibly hepatorenal syndrome from large-volume paracentesis. 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 Renal ultrasound did not show calculi or hydronephrosis. Weekend Receptionist is following. Baseline creatinine around 1 mg/dL. Peak creatinine 2.07. Serum sodium is better 129. On water restriction, salt tablet and low-dose Lasix. Continue midodrine. 2. Decompensated alcoholic cirrhosis with ascites, portal hypertension and thrombocytopenia and toxic metabolic encephalopathy 3. Anemia of chronic disease: Hemoglobin 7.8. No need for transfusion. Monitor CBC 4. Other chronic comorbidities include history of chronic alcohol use, anxiety and depression I have discussed my assessment with MARCUS Maciel and orders have been reviewed. Charges/Coding Visit Charges Inpatient E&M: 93339 Subs Hosp L2
[2022-02-02] MEDS: Mupirocin Ointment 22gm Tube 1 APPLIC TOPICAL ×2 (11:28→21:18)
--- NOTE | 2022-02-02 14:48 | PN.RENAL_ITS ---
Subjective Subjective feels ok frustrated that he is still here Objective Data Objective Data Vital Signs: Vital Signs Temp Pulse Resp BP Pulse Ox O2 Del Method 97.9 F 70 18 101/81 H 97 Room Air 02/02/22 08:35 02/02/22 11:30 02/02/22 08:35 02/02/22 08:35 02/02/22 08:35 02/02/22 08:35 Oxygen Delivery Method [3] Room Air Oxygen Delivery Method [2] Room Air Oxygen Delivery Method [1 ( Room Air Initial Baseline)] Oxygen Delivery Method Room Air Weight: 87.9 kg Body Mass Index (BMI) 28.6 Intake & Output: Intake and Output for Last 24 Hours 01/31/22 02/01/22 02/02/22 23:59 23:59 23:59 Intake Total 900 / 900 Balance 900 / 900 Lab / Micro Data Attestation: I reviewed the patient's lab results. Result Diagrams: 02/02/22 05:04 02/02/22 05:04 Labs: Laboratory Results - last 24 hr 02/02/22 05:04: WBC 7.0, RBC 2.43 L, Hgb 7.8 L, Hct 22.6 L, MCV 93.0, MCH 32.1 H , MCHC 34.5, RDW Std Deviation 51.7 H, RDW Coeff of Teri 15.0 H, Plt Count 135 L, MPV 10.8, Immature Gran % (Auto) 0.600, Neut % (Auto) 52.7, Lymph % (Auto) 24.3, [place] % (Auto) 17.0 H, Eos % (Auto) 4.4, Baso % (Auto) 1.0, Absolute Neuts (auto) 3.7, Absolute Lymphs (auto) 1.70, Nucleated RBC % 0 02/02/22 05:04: Sodium 127 L, Potassium 4.9, Chloride 101, Carbon Dioxide 18.0 L , Anion Gap 8, BUN 28 H, Creatinine 1.56 H, Estim Creat Clear Calc 56.02, Est GFR (MDRD) Af Amer 61, Est GFR (MDRD) Non-Af 50 L, BUN/Creatinine Ratio 17.9, Glucose 89, Calcium 10.2 H, Total Bilirubin 3.00 H, AST 59 H, ALT 23, Alkaline Phosphatase 129 H, Total Protein 5.1 L, Albumin 2.9 L, Globulin 2.2, Albumin/Globulin Ratio 1.3 Micro: Microbiology 01/27/22 13:45 Urine Catheter - Catheter Urine Culture - Final Presumptive E. 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 Patient is not hypervolemic, acidotic or hyperk alemic. Getting albumin 25 g every 8 hours for total of 6 doses. Continue to restrict oral fluids to 1.5 L a day. Renal ultrasound did not show any calculi or hydronephrosis. Patient is having bladder scan done at bedside to rule out PVR. Baseline creatinine had been around 1 mg/dL. January 13 creatinine 1.8 mg/dL. In the ER creatinine 2.05 mg/dL. Creatinine peaked 2.07mg/dL 02/02 -Overall relatively stable from renal's standpoint -scr still some fluctuation with Na slightly lower -continue with free water -encourage solute intake -Continue midodrine -still awaiting transfer Thank you please call [phone] with any concerns
[2022-02-02] MEDS: Ursodiol 250 MG Tablet PO (21:16)
[2022-02-03] VITALS (11 sets, daily range): BP systolic 93–115; BP diastolic 48–67; PULSE 58–98; RESP 14–20; TEMP 36.6–36.8; O2SAT 97–100
[2022-02-03 04:14] LABS: Absolute Lymphocyte Count 1.69 X10^3/uL (0.83-4.51); Absolute Neutrophil Count 3.5 X10^3/uL (2.0-7.7); Basophil# 0.07 X10^3/uL; Eosinophil# 0.33 X10^3/uL; Eosinophils% 4.9 % (0-5); Hematocrit 21.7 % (40-54); Hemoglobin 7.7 g/dL (13.0-16.5); Lymphocyte # 1.69 X10^3/ul (0.83-4.51); Lymphocyte % 25.2 % (19-41); Mean Corp Hgb Conc 35.5 g/dL (32-36); Mean Corpuscular Volume 93.1 fL (80-94); Mean Platelet Vol. 11.1 fl (6.2-12.0); Monocyte# 1.12 X10^3/uL; Monocyte% 16.7 % (0-10); NRBC Flagged by Analyzer 0 % (0-5); Neutrophil # 3.46 X10^3/uL (2.7-7.7); Neutrophil % 51.8 % (47-70); Platelet Count 136 K/mm3 (150-450); RBC Distribution Width CV 15.2 % (11.6-14.6); RBC Distribution Width SD 51.4 fl (35.1-43.9); Red Blood Count 2.33 M/mm3 (4.6-6.2); White Blood Count 6.7 K/mm3 (4.4-11.0)
[2022-02-03 04:41] LABS: ALB/GLOB Ratio 1.1 RATIO (0.9-2.4); AST(SGOT) 56 U/L (15-37); Alanine Aminotransfer ALT/SGPT 23 U/L (16-61); Albumin, Serum 2.7 g/dL (3.2-5.0); Alkaline Phosphatase 125 U/L (45-117); Anion Gap 9 (5-15); BUN 29 mg/dL (7-18); BUN/Creat Ratio 17.7 RATIO (10-20); Calcium,Total 9.9 mg/dL (8.5-10.1); Chloride 101 mmol/L (98-107); Creatinine, Serum 1.64 mg/dL (0.70-1.30); EST Glomerular Filtration Rate 47 mL/min (>60); Est Glom Filt Rate - Afr Amer 57 mL/min (>60); Estimated Creatinine Clearance 53.29 ml/min; Globulin 2.4 g/dL (2.2-4.2); Glucose 85 mg/dL (74-106); Potassium 4.8 mmol/L (3.5-5.1); Protein, Total 5.1 g/dL (6.4-8.2); Sodium Level 128 mmol/L (136-145)
[2022-02-03] MEDS: Sodium Chloride 1 GM Tablet 2 GM PO ×3 (05:01→21:28)
[2022-02-03] MEDS: Lactulose 20 GM/30 ML UDC PO ×6 (05:01→23:36)
--- NOTE | 2022-02-03 08:00 | US_ITS ---
PROCEDURE: Ultrasound guided paracentesis. DATE OF EXAMINATION: 02/03/2022. INDICATION: Male, 51 years old. Ascites. PHYSICIAN: Austyn Aguilar M.D. TECHNIQUE: The risks, benefits, and alternatives to the procedure were explained to the patient. The specific risks of bleeding, infection, and damage to bowel were detailed and accepted. Witnessed informed consent was obtained. The abdomen was ultrasonographically surveyed. An appropriate pocket of fluid was identified at the left lower quadrant. The skin were cleaned and prepped in the usual sterile fashion. Using ultrasound guidance, the peritoneal cavity was accessed with a 5-[place]ic paracentesis needle/catheter system. The trocar was removed. A total of 8350 ml of brian-colored fluid were removed from the peritoneal cavity. The catheter was removed and a sterile dressing was applied. The procedure was well tolerated. US/Paracentesis with US IMPRESSION: Ultrasound guided paracentesis. Electronically Signed: Austyn Aguilar MD at 9:38 EDT ,
[2022-02-03] MEDS: Lidocaine 2% (10 ml mdv) 10 ML Vial 8 ML INFILT (08:27)
[2022-02-03] MEDS: Midodrine HCl 5 MG Tablet 20 MG PO ×3 (10:30→20:12)
[2022-02-03] MEDS: rifAXIMin 550 MG Tablet PO ×2 (10:30→21:29)
[2022-02-03] MEDS: Magnesium Chloride 64 MG Delay Rel.Tablet PO (10:31)
[2022-02-03] MEDS: Pantoprazole Sodium 20 MG Tablet PO (10:31)
[2022-02-03] MEDS: Mupirocin Ointment 22gm Tube 1 APPLIC TOPICAL ×2 (10:31→21:28)
[2022-02-03] MEDS: Fludrocortisone Acetate 0.1 MG Tablet PO (10:31)
[2022-02-03] MEDS: Furosemide 20 MG Tablet PO (10:31)
[2022-02-03] MEDS: Escitalopram Oxalate 10 MG Tablet PO (10:31)
[2022-02-03] MEDS: 0.9% Saline Lock 10 ML Syringe IV ×2 (11:42→13:47)
[2022-02-03] MEDS: Albumin Human 25% (100 mL) 25 GM/100 ML BAG IV (11:42)
--- NOTE | 2022-02-03 11:48 | PN.HOSP_ITS ---
Documented by User: Annabel Meza NP, SEASONAL PACKAGE HANDLER-C 02/03/22 11:59 Subjective Subjective Patient seen and examined. Underwent paracentesis this morning with 8.3 L removed. at bedside. Patient reports feeling increasingly frustrated with no bed yet available at [facility]. Objective Data Objective Data Vital Signs: Vital Signs Temp Pulse Resp BP Pulse Ox O2 Del Method 97.8 F 69 14 102/48 L 99 Room Air 02/03/22 10:21 02/03/22 11:02 02/03/22 10:21 02/03/22 10:21 02/03/22 10:21 02/03/22 10:21 Oxygen Delivery Method [3] Room Air Oxygen Delivery Method [2] Room Air Oxygen Delivery Method [1 ( Room Air Initial Baseline)] Oxygen Delivery Method [3] Room Air Oxygen Delivery Method [2] Room Air Oxygen Delivery Method [1 ( Room Air Initial Baseline)] Oxygen Delivery Method Room Air Weight: 193 lb 12.581 oz Body Mass Index (BMI) 28.6 Intake & Output: Intake and Output for Last 24 Hours 02/01/22 02/02/22 02/03/22 23:59 23:59 23:59 Intake Total 900 / 900 660 / 660 45 / 45 Output Total 8350 / 8350 Balance 900 / 900 660 / 660 -8305 / -8305 Lab / Micro Data Result Diagrams: 02/03/22 03:59 02/03/22 03:59 Labs: Laboratory Results - last 24 hr 02/03/22 03:59: WBC 6.7, RBC 2.33 L, Hgb 7.7 L, Hct 21.7 L, MCV 93.1, MCH 33.0 H , MCHC 35.5, RDW Std Deviation 51.4 H, RDW Coeff of Teri 15.2 H, Plt Count 136 L, MPV 11.1, Immature Gran % (Auto) 0.400, Neut % (Auto) 51.8, Lymph % (Auto) 25.2, [place] % (Auto) 16.7 H, Eos % (Auto) 4.9, Baso % (Auto) 1.0, Absolute Neuts (auto) 3.5, Absolute Lymphs (auto) 1.69, Nucleated RBC % 0 02/03/22 03:59: Sodium 128 L, Potassium 4.8, Chloride 101, Carbon Dioxide 18.0 L , Anion Gap 9, BUN 29 H, Creatinine 1.64 H, Estim Creat Clear Calc 53.29, Est GFR (MDRD) Af Amer 57 L, Est GFR (MDRD) Non-Af 47 L, BUN/Creatinine Ratio 17.7, Glucose 85, Calcium 9.9, Total Bilirubin 2.80 H, AST 56 H, ALT 23, Alkaline Phosphatase 125 H, Total Protein 5.1 L, Albumin 2.7 L, Globulin 2.4, Albumin/Globulin Ratio 1.1 Micro: Microbiology 01/27/22 13:45 Urine Catheter - Catheter Urine Culture - Final Presumptive E. coli 01/29/22 18:40 Stool Stool Occult Blood (ALLI) - Final Occult Blood Positive 01/27/22 14:42 Nasal Secretion SARS-CoV-2 Antigen (Rapid) - Final Radiography Diagnostic Testing: Radiology Impression Paracentesis Ultrasound 02/03/22 08:00 IMPRESSION: Ultrasound guided paracentesis. Electronically Signed: Austyn Aguilar MD at 9:38 EDT , Physical Exam Const alert and oriented x3 HEENT normocephalic and moist oral mucous membranes Eyes PERRL, EOMs intact bilaterally and conjunctivae normal Neck no lymphadenopathy Resp normal respiratory effort and clear to auscultation bilaterally Cardio regular rate, regular rhythm and no murmurs Peripheral Pulses: pulses 2+ throughout GI normal to inspection, nondistended, normoactive bowel sounds, non-tender and no n-distended Extremity normal to inspection Skin no rashes or lesions noted Lesions: no lesions Rashes: no rashes Trauma: no lacerations or abrasions Neuro CN's II-XII intact bilaterally, no focal motor deficits, no sensory deficits noted and deep tendon reflexes 2+ bilaterally Psych Mood & Affect: flat affect Assessment & Plan Assessment/Plan (1) RICKY (acute kidney injury): PLAN: Plan 1.? Acute kidney injury-nephrology following. Likely multifactorial secondary to hypotension, intravascular volume depletion. Renal ultrasound unremarkable. Diuretic regimen on hold. Trend BMP. 2.? Generalized weakness-PT/OT. 3.? Hypotension-stable.? Continue midodrine, Florinef.? Diuretic regimen on hold. 4. 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 Follows with GI.? Continue lactulose, Xifaxan.? Spironolactone, Lasix on hold. Awaiting bed at [facility] for transplant evaluation. 5. Chronic hyponatremia-appears improved from prior.? Stable.? On sodium tabs. 6. History of alcohol use-denies ongoing use. 7. Anxiety/depression-on escitalopram. DVT prophylaxis-SCDs This patient was seen by Annabel Meza NP-[place] under the supervision of Dr. Gardner. Awaiting bed at [facility] for liver transplant evaluation. Time spent examining patient, reviewing data and subsequent management of care: 14 minutes Documented by User: Dr. Israel Gardner MD 02/03/22 16:46 Subjective Subjective Patient seen and examined. Underwent paracentesis this morning with 8.3 L removed. at bedside. Patient reports feeling increasingly frustrated with no bed yet available at [facility]. Seen and examined. I talked to the . Patient had repeat paracentesis. IV albumin given. Objective Data Lab / Micro Data Result Diagrams: 02/03/22 03:59 02/03/22 03:59 Physical Exam Narrative Physical exam General: Mild lethargy. Fluctuating confusion and disorientation. HEENT: Atraumatic, PERRLA, EOMI, Normocephalic Oral: No Gingival or Mucosal Lesions/ Ulcerations Neck: Supple, No JVD, Negative Carotid Bruits Lungs: Air entry diminished in bilateral lung bases. No crepitation/rhonchi Cardiovascular: Regular rate, Regular Rhythm, Normal S1, Normal S2, No murmurs Abdomen: Bowel Sounds Present, Soft, Non Tender, moderate to severe ascites, distended : No renal angle tenderness. No suprapubic tenderness. Extremities: Bilateral leg pitting edema, Capillary Refill Less than 3 Seconds Skin: Mild skin bruising. Blood blister. Musculoskeletal: No Tenderness to Palpation of Joints or Extremities Neurological: Cranial nerves II-XII grossly intact, DTR 2+/4 Psych/Mental Status: flat affect. Assessment & Plan Assessment/Plan (1) RICKY (acute kidney injury): PLAN: Plan 1.? Acute kidney injury-nephrology following. Likely multifactorial secondary to hypotension, intravascular volume depletion. Renal ultrasound unremarkable. Diuretic regimen on hold. Trend BMP. 2.? Generalized weakness-PT/OT. 3.? Hypotension-stable.? Continue midodrine, Florinef.? Diuretic regimen on hold. 4. 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 Follows with GI.? Continue lactulose, Xifaxan.? Spironolactone, Lasix on hold. Awaiting bed at [facility] for transplant evaluation. 5. Chronic hyponatremia-appears improved from prior.? Stable.? On sodium tabs. 6. History of alcohol use-denies ongoing use. 7. Anxiety/depression-on escitalopram. DVT prophylaxis-SCDs This patient was seen by Annabel Meza NP-C under the supervision of Dr. Gardner. Awaiting bed at [facility] for liver transplant evaluation. Time spent examining patient, reviewing data and subsequent management of care: 15 minutes This patient was seen in conjunction with SEASONAL PACKAGE HANDLERAnnabel. I have independently interviewed and examined the patient and reviewed pertinent history, examination findings, laboratory and plan of management. I have reviewed the note and agree with the documented findings with the few additional points. In brief, patient is admitted for drowsiness, lethargic and found to be RICKY.? P atient has decompensated alcoholic cirrhosis with ascites, thrombocytopenia, and jaundice and portal hypertension. 1.? RICKY and hyponatremia on CKD stage IIIa: RICKY most likely due to hypotension, intravascular volume depletion possibly hepatorenal syndrome from large-volume paracentesis.? No need for LOT TECHNICIAN.? Renal ultrasound did not show calculi or hydronephrosis.? Investigator Utility Bill Complaints is following.? Baseline creatinine around 1 mg/dL.? Peak creatinine 2.07.? Serum sodium is better 129.? On water restrict ion, salt tablet and low-dose Lasix.? Continue midodrine. 02/03: Gradual increase in creatinine. Patient admitted with creatinine 2.07, improved to 1.41 and then started going up, most recent 1.64. 2.? Decompensated alcoholic cirrhosis with ascites, portal hypertension and thrombocytopenia and toxic metabolic encephalopathy 02/03: Patient had 8.3 L paracentesis. IV albumin given in order to prevent worsening of HRS, circulatory collapse and SBP. I talked to the patient's . [facility] is still does not have beds open waiting for more than 7 days. 3.? Anemia of chronic disease: Hemoglobin 7.8.? No need for transfusion.? Monitor CBC 4.? Other chronic comorbidities include history of chronic alcohol use, anxiety and depression I have discussed my assessment with SEASONAL PACKAGE HANDLERAnnabel and orders have been reviewed. Charges/Coding Visit Charges Inpatient E&M: 65587 Subs Hosp L2
--- NOTE | 2022-02-03 12:01 | NURSING ---
I called [facility] this morning before 0800 to get an update on getting our pt transferred to [facility]. [facility] stated that the pt is still on the list to be transferred however they have to wait to get discharges before they will have a bed. They stated they hoped it wouldn't be much longer but couldn't give me a time frame.
--- NOTE | 2022-02-03 12:15 | PN.RENAL_ITS ---
Subjective Subjective feels ok still poor solute intake Objective Data Objective Data Vital Signs: Vital Signs Temp Pulse Resp BP Pulse Ox O2 Del Method 97.8 F 69 14 102/48 L 99 Room Air 02/03/22 10:21 02/03/22 11:02 02/03/22 10:21 02/03/22 10:21 02/03/22 10:21 02/03/22 10:21 Oxygen Delivery Method [3] Room Air Oxygen Delivery Method [2] Room Air Oxygen Delivery Method [1 ( Room Air Initial Baseline)] Oxygen Delivery Method [3] Room Air Oxygen Delivery Method [2] Room Air Oxygen Delivery Method [1 ( Room Air Initial Baseline)] Oxygen Delivery Method Room Air Weight: 87.9 kg Body Mass Index (BMI) 28.6 Intake & Output: Intake and Output for Last 24 Hours 02/01/22 02/02/22 02/03/22 23:59 23:59 23:59 Intake Total 900 / 900 660 / 660 595 / 595 Output Total 8350 / 8350 Balance 900 / 900 660 / 660 -7755 / -7755 Lab / Micro Data Attestation: I reviewed the patient's lab results. Result Diagrams: 02/03/22 03:59 02/03/22 03:59 Labs: Laboratory Results - last 24 hr 02/03/22 03:59: WBC 6.7, RBC 2.33 L, Hgb 7.7 L, Hct 21.7 L, MCV 93.1, MCH 33.0 H , MCHC 35.5, RDW Std Deviation 51.4 H, RDW Coeff of Teri 15.2 H, Plt Count 136 L, MPV 11.1, Immature Gran % (Auto) 0.400, Neut % (Auto) 51.8, Lymph % (Auto) 25.2, [place] % (Auto) 16.7 H, Eos % (Auto) 4.9, Baso % (Auto) 1.0, Absolute Neuts (auto) 3.5, Absolute Lymphs (auto) 1.69, Nucleated RBC % 0 02/03/22 03:59: Sodium 128 L, Potassium 4.8, Chloride 101, Carbon Dioxide 18.0 L , Anion Gap 9, BUN 29 H, Creatinine 1.64 H, Estim Creat Clear Calc 53.29, Est GFR (MDRD) Af Amer 57 L, Est GFR (MDRD) Non-Af 47 L, BUN/Creatinine Ratio 17.7, Glucose 85, Calcium 9.9, Total Bilirubin 2.80 H, AST 56 H, ALT 23, Alkaline Phosphatase 125 H, Total Protein 5.1 L, Albumin 2.7 L, Globulin 2.4, Albumin/Globulin Ratio 1.1 Micro: Microbiology 01/27/22 13:45 Urine Catheter - Catheter Urine Culture - Final Presumptive E. coli 01/29/22 18:40 Stool Stool Occult Blood (ALLI) - Final Occult Blood Positive 01/27/22 14:42 Nasal Secretion SARS-CoV-2 Antigen (Rapid) - Final Radiography Diagnostic Testing: Radiology Impression Paracentesis Ultrasound 02/03/22 08:00 IMPRESSION: Ultrasound guided paracentesis. Electronically Signed: Austyn Aguilar MD at 9:38 EDT , Physical Exam Narrative awake, no acute distress s1s2 regular normal respiration +ascites no peripheral edema Assessment & Plan Assessment/Plan (1) RICKY (acute kidney injury): (2) Weakness: (3) Hypotension: (4) Hx of cirrhosis: (5) Hyponatremia: PLAN: Plan - RICKY likely from hypotension, intravascular volume depletion, possibly hepato- renal physiology requiring large-volume paracentesis; at this time there is no acute indication for DURABILITY TECHNICIAN. Patient is not hypervolemic, acidotic or hyperkalemic. Getting albumin 25 g every 8 hours for total of 6 doses. Continue to restrict oral fluids to 1.5 L a day. Renal ultrasound did not show any calculi or hydronephrosis. Patient is having bladder scan done at bedside to rule out PVR. Baseline creatinine had been around 1 mg/dL. January 13 creatinine 1.8 mg/dL. In the ER creatinine 2.05 mg/dL. Creatinine peaked 2.07mg/dL 02/03 -slight bump in scr -solute intake poor -d/c lasix -continue with free water restriction -continue with midodrine/octreotide -awaiting transfer to [facility] -if serum bicarb <18 start po sodium bicarb Thank you please call [phone] with any concerns
[2022-02-03] MEDS: Ursodiol 250 MG Tablet PO (21:29)
[2022-02-04] MEDS: Lactulose 20 GM/30 ML UDC PO ×7 (00:30→06:19)
[2022-02-04 03:00] VITALS: PULSE 73
[2022-02-04 06:10] LABS: Absolute Lymphocyte Count 1.43 X10^3/uL (0.83-4.51); Absolute Neutrophil Count 3.4 X10^3/uL (2.0-7.7); Basophil# 0.04 X10^3/uL; Basophil% 0.7 % (0-1); Eosinophil# 0.25 X10^3/uL; Eosinophils% 4.1 % (0-5); Hematocrit 23.9 % (40-54); Hemoglobin 8.6 g/dL (13.0-16.5); Lymphocyte # 1.43 X10^3/ul (0.83-4.51); Lymphocyte % 23.4 % (19-41); Mean Corpuscular Hgb 32.5 pg (27.0-32.0); Mean Corpuscular Volume 90.2 fL (80-94); Mean Platelet Vol. 10.9 fl (6.2-12.0); Monocyte% 14.8 % (0-10); NRBC Flagged by Analyzer 0 % (0-5); Neutrophil # 3.44 X10^3/uL (2.7-7.7); Neutrophil % 56.3 % (47-70); Platelet Count 134 K/mm3 (150-450); RBC Distribution Width CV 14.7 % (11.6-14.6); RBC Distribution Width SD 48.4 fl (35.1-43.9); Red Blood Count 2.65 M/mm3 (4.6-6.2); White Blood Count 6.1 K/mm3 (4.4-11.0)
[2022-02-04] MEDS: Sodium Chloride 1 GM Tablet 2 GM PO (06:19)
[2022-02-04 06:37] LABS: Anion Gap 9 (5-15); BUN 23 mg/dL (7-18); BUN/Creat Ratio 12.6 RATIO (10-20); Calcium,Total 10.6 mg/dL (8.5-10.1); Chloride 104 mmol/L (98-107); Creatinine, Serum 1.83 mg/dL (0.70-1.30); EST Glomerular Filtration Rate 42 mL/min (>60); Est Glom Filt Rate - Afr Amer 50 mL/min (>60); Estimated Creatinine Clearance 47.76 ml/min; Glucose 94 mg/dL (74-106); Potassium 4.1 mmol/L (3.5-5.1); Sodium Level 129 mmol/L (136-145)
[2022-02-04 07:51] VITALS: BP 123/74; PULSE 73; RESP 18; TEMP 36.6; O2SAT 98
--- NOTE | 2022-02-04 08:16 | NURSING ---
Patient left this AM at 0750, belongings bagged up by nightshift staff. Vitals taken by this RN. notified by this RN. [facility] report will be given by this RN.
--- NOTE | 2022-02-04 08:28 | PCM.DC.SUM ---
Documented by User: Annabel Meza NP, DISTANCE EDUCATION COORDINATOR-C 02/04/22 08:45 Providers Date of Admission: 01/25/22 Date of Discharge: 02/04/22 Primary Care Physician: Dr. Jovi Rodriguez, Consultations 01/27/22 07:26 Consult: Nephrology Routine Consulting Provider: Kelly Hernandez Reason for Consult: RICKY EMERGENT Consult: No MD Notified: Yes Date Notified: 01/27/22 Time Notified: 07:26 Method of Notification: Answering Service Reason For Visit: RICKY Diagnosis Discharge Diagnosis (1) RICKY (acute kidney injury): Status: Acute Code(s): N17.9 - Acute kidney failure, unspecified Medications at Discharge Home Medications ursodiol 250 mg tablet 250 mg PO QHS #30 tabs 10/20/21 escitalopram oxalate 10 mg tablet 10 mg PO DAILY 30 days #30 tabs 12/28/21 furosemide 40 mg tablet 40 mg PO BID #60 tabs 12/28/21 pantoprazole 20 mg tablet,delayed release 20 mg PO DAILY 30 days #30 tabs 12/28/21 spironolactone 50 mg tablet 25 mg PO DAILY #30 tabs 12/28/21 Vitamin B-1 100 mg PO/SL DAILY vitamin 01/05/22 magnesium 250 mg tablet 250 mg PO DAILY supplement 01/06/22 rifaximin 550 mg tablet (Xifaxan) 550 mg PO BID diarrhea 01/06/22 midodrine 5 mg tablet 10 mg PO TIDCM #90 tabs 01/11/22 fludrocortisone 0.1 mg tablet 0.1 mg PO DAILY #30 tabs 01/17/22 midodrine 10 mg tablet 10 mg PO TID #90 tabs 01/17/22 lactulose 20 gram/30 mL oral solution 20 g (30 mL) PO TID liver failure 1 month #2,700 mL 01/25/22 sodium chloride 1 gram tablet 2,000 mg PO TID 30 days #180 tabs 01/25/22 Hospital Course Operations None Procedures Paracentesis Summary of Care Provided Hospital Course: Patient is a 51-year-old male admitted 01/25/2022 due to confusion. 1.? Acute kidney injury-nephrology consulted during admission.? Likely multifactorial secondary to hypotension, intravascular volume depletion. Renal ultrasound unremarkable.? Diuretic regimen on hold.? Trend BMP. 2.? Generalized weakness-PT/OT. 3.? Hypotension-stable.? Continue midodrine, Florinef.? Diuretic regimen on hold. 4. 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 Follows with GI.? Continue lactulose, Xifaxan.? Spironolactone, Lasix on hold.? Transfer to [facility] for transplant evaluation/ongoing liver management. 5. Chronic hyponatremia-appears improved from prior.? Stable.? On sodium tabs. 6. History of alcohol use-denies ongoing use. 7. Anxiety/depression-on escitalopram. Physical Exam Const alert and oriented x3 HEENT normocephalic and moist oral mucous membranes Eyes PERRL, EOMs intact bilaterally and conjunctivae normal Neck no lymphadenopathy Resp normal respiratory effort and clear to auscultation bilaterally Cardio regular rate, regular rhythm and no murmurs Peripheral Pulses: pulses 2+ throughout GI normal to inspection, nondistended, normoactive bowel sounds, non-tender and non-distended Extremity normal to inspection Skin no rashes or lesions noted Lesions: no lesions Rashes: no rashes Trauma: no lacerations or abrasions Neuro CN's II-XII intact bilaterally, no focal motor deficits, no sensory deficits noted and deep tendon reflexes 2+ bilaterally Psych Mood & Affect: flat affect Patient discharged to [facility] for ongoing liver management/transplant evaluation. This patient was seen by ZURI Adkins under the supervision of Dr. Gardner. Time spent examining patient, reviewing data and subsequent management of care: 26 minutes Weight / BMI Weight Weight: 193 lb 12.581 oz Body Mass Index (BMI) 28.6 ABG / Lab / Microbiology Data Result Diagrams: 02/04/22 05:30 02/04/22 05:30 Laboratory: Laboratory Results - last 24 hr 02/03/22 17:20: Ammonia 60.0 H 02/04/22 05:30: WBC 6.1, RBC 2.65 L, Hgb 8.6 L, Hct 23.9 L, MCV 90.2, MCH 32.5 H, MCHC 36.0, RDW Std Deviation 48.4 H, RDW Coeff of Teri 14.7 H, Plt Count 134 L, MPV 10.9, Immature Gran % (Auto) 0.700, Neut % (Auto) 56.3, Lymph % (Auto) 23.4, Hubbard % (Auto) 14.8 H, Eos % (Auto) 4.1, Baso % (Auto) 0.7, Absolute Neuts (auto) 3.4, Absolute Lymphs (auto) 1.43, Nucleated RBC % 0 02/04/22 05:30: Sodium 129 L, Potassium 4.1, Chloride 104, Carbon Dioxide 16.0 L, Anion Gap 9, BUN 23 H, Creatinine 1.83 H, Estim Creat Clear Calc 47.76, Est GFR (MDRD) Af Amer 50 L, Est GFR (MDRD) Non-Af 42 L, BUN/Creatinine Ratio 12.6, Glucose 94, Calcium 10.6 H Microbiology: Microbiology 01/27/22 13:45 Urine Catheter - Catheter Urine Culture - Final Presumptive E. coli 01/29/22 18:40 Stool Stool Occult Blood (ALLI) - Final Occult Blood Positive 01/27/22 14:42 Nasal Secretion SARS-CoV-2 Antigen (Rapid) - Final Radiography Diagnostic Testing: Radiology Impression Paracentesis Ultrasound 02/03/22 08:00 IMPRESSION: Ultrasound guided paracentesis. Electronically Signed: Austyn Aguilar MD at 9:38 EDT , Meaningful Use Info Meaningful Use Diagnoses (Choose all that apply): None applicable Discharge Plan Admission Admit Date/Time: 01/25/22 23:48 Primary Reason for Your Visit: Cirrhosis Attending Provider: Israel Gardner Primary Care Provider: Jovi Rodriguez Consulting Providers: Justo Dunn ; Kelly Hernandez ; Nay Sexton ; Maycol Christie Discharge Orders/Prescriptions Prescriptions: No Action ursodiol 250 mg tablet 250 mg PO QHS Qty: 30 6RF pantoprazole 20 mg Tablet,Delayed Release (Dr/Ec) 20 mg PO DAILY 30 Days Qty: 30 0RF escitalopram oxalate 10 mg Tablet 10 mg PO DAILY 30 Days Qty: 30 0RF spironolactone 50 mg Tablet 25 mg PO DAILY Qty: 30 2RF furosemide 40 mg tablet 40 mg PO BID Qty: 60 0RF Vitamin B-1 100 mg PO/SL DAILY magnesium 250 mg tablet 250 mg PO DAILY Xifaxan 550 mg tablet 550 mg PO BID midodrine 5 mg tablet 10 mg PO TIDCM Qty: 90 5RF midodrine 10 mg tablet 10 mg PO TID Qty: 90 5RF Rx Instructions: do not give last dose of day after 6PM or within 4 hrs of bedtime fludrocortisone 0.1 mg tablet 0.1 mg PO DAILY Qty: 30 1RF lactulose 20 gram/30 mL solution 20 g PO TID 30 Days Qty: 2700 5RF sodium chloride 1 gram tablet 2,000 mg PO TID 30 Days Qty: 180 0RF Referrals / Follow Up: Jovi Rodriguez DO [Primary Care Provider] - Disposition Disposition (needs filled in before D/C Order can be placed[facility] Documented by User: Dr. Israel Gardner MD 02/04/22 17:32 Providers Date of Admission: 01/25/22 Reason For Visit: RICKY Diagnosis Discharge Diagnosis (1) RICKY (acute kidney injury): Status: Acute Code(s): N17.9 - Acute kidney failure, unspecified Medications at Discharge Home Medications ursodiol 250 mg tablet 250 mg PO QHS #30 tabs 10/20/21 escitalopram oxalate 10 mg tablet 10 mg PO DAILY 30 days #30 tabs 12/28/21 furosemide 40 mg tablet 40 mg PO BID #60 tabs 12/28/21 pantoprazole 20 mg tablet,delayed release 20 mg PO DAILY 30 days #30 tabs 12/28/21 spironolactone 50 mg tablet 25 mg PO DAILY #30 tabs 12/28/21 Vitamin B-1 100 mg PO/SL DAILY vitamin 01/05/22 magnesium 250 mg tablet 250 mg PO DAILY supplement 01/06/22 rifaximin 550 mg tablet (Xifaxan) 550 mg PO BID diarrhea 01/06/22 midodrine 5 mg tablet 10 mg PO TIDCM #90 tabs 01/11/22 fludrocortisone 0.1 mg tablet 0.1 mg PO DAILY #30 tabs 01/17/22 midodrine 10 mg tablet 10 mg PO TID #90 tabs 01/17/22 lactulose 20 gram/30 mL oral solution 20 g (30 mL) PO TID liver failure 1 month #2,700 mL 01/25/22 sodium chloride 1 gram tablet 2,000 mg PO TID 30 days #180 tabs 01/25/22 Hospital Course Summary of Care Provided Hospital Course: Patient is a 51-year-old male admitted 01/25/2022 due to confusion. 1.? Acute kidney injury-nephrology consulted during admission.? Likely multifactorial secondary to hypotension, intravascular volume depletion. Renal ultrasound unremarkable.? Diuretic regimen on hold.? Trend BMP. 2.? Generalized weakness-PT/OT. 3.? Hypotension-stable.? Continue midodrine, Florinef.? Diuretic regimen on hold. 4. 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 Follows with GI.? Continue lactulose, Xifaxan.? Spironolactone, Lasix on hold.? Transfer to [facility] for transplant evaluation/ongoing liver management. 5. Chronic hyponatremia-appears improved from prior.? Stable.? On sodium tabs. 6. History of alcohol use-denies ongoing use. 7. Anxiety/depression-on escitalopram. This patient was seen in conjunction with DISTANCE EDUCATION COORDINATORAnnabel.? I have independently interviewed and examined the patient and reviewed pertinent history, examination findings, laboratory and plan of management.? I have? reviewed the note and agree with the documented findings with the few? additional points. In brief, patient is admitted for drowsiness, lethargic and found to be RICKY.? Patient has decompensated alcoholic cirrhosis with ascites, thrombocytopenia, and jaundice and portal hypertension. 1.? RICKY and hyponatremia on CKD stage IIIa: RICKY most likely due to hypotension, intravascular volume depletion possibly hepatorenal syndrome from large-volume paracentesis.? No need for SCARFER.? Renal ultrasound did not show calculi or hydronephrosis.? Barn Manager is following.? Baseline creatinine around 1 mg/dL.? Peak creatinine 2.07.? Serum sodium is better 129.? On water restriction, salt tablet and low-dose Lasix.? Continue midodrine. 02/03: Gradual increase in creatinine.? Patient admitted with creatinine 2.07, improved to 1.41 and then started going up, most recent 1.64. 02/04: Transfer call was made to [facility] for x-ray transplant evaluation on 02/03. Patient accepted and awaiting transfer there. 2.? Decompensated alcoholic cirrhosis with ascites, portal hypertension and thrombocytopenia and toxic metabolic encephalopathy 02/03: Patient had 8.3 L paracentesis.? IV albumin given in order to prevent worsening of HRS, circulatory collapse and SBP.? I talked to the patient's .? [facility] is still does not have beds open waiting for more than 7 days. 3.? Anemia of chronic disease: Hemoglobin 7.8.? No need for transfusion.? Monitor CBC 02/04: Hemoglobin 8.6. Platelet count 1 34,000. Improvement on hemoglobin. 4.? Other chronic comorbidities include history of chronic alcohol use, anxiety and depression I have discussed my assessment with DISTANCE EDUCATION COORDINATORAnnabel and orders have been reviewed. Transfer process discussed with the patient and all questions were answered to patient's satisfaction. Total time spent, exact 35 minutes on discharge meds reconciliation, examination, coordination of care with nurses and ancillary staff, review of imaging and blood test and discussion with the patient on follow-up instructions. Physical Exam Const alert and oriented x3 HEENT normocephalic and moist oral mucous membranes Eyes PERRL, EOMs intact bilaterally and conjunctivae normal Neck no lymphadenopathy Resp normal respiratory effort and clear to auscultation bilaterally Cardio regular rate, regular rhythm and no murmurs Peripheral Pulses: pulses 2+ throughout GI normal to inspection, nondistended, normoactive bowel sounds, non-tender and non-distended Extremity normal to inspection Skin no rashes or lesions noted Lesions: no lesions Rashes: no rashes Trauma: no lacerations or abrasions Neuro CN's II-XII intact bilaterally, no focal motor deficits, no sensory deficits noted and deep tendon reflexes 2+ bilaterally Psych Mood & Affect: flat affect Patient discharged to [facility] for ongoing liver management/transplant evaluation. This patient was seen by Annabel Meza NP-C under the supervision of Dr. Gardner. Time spent examining patient, reviewing data and subsequent management of care: 26 minutes Physical Exam Narrative Seen and examined. Physical exam General: Patient was still lethargic, intermittent confusion and disorientation. HEENT: Atraumatic, PERRLA, EOMI, Normocephalic Oral: No Gingival or Mucosal Lesions/ Ulcerations Neck: Supple, No JVD, Negative Carotid Bruits Lungs: Air entry diminished in bilateral lung bases. No crepitation/rhonchi. No hypoxia Cardiovascular: Regular rate, Regular Rhythm, Normal S1, Normal S2, No murmurs Abdomen: Bowel Sounds Present, Soft, Non Tender, moderate to severe ascites, distended : No renal angle tenderness. No suprapubic tenderness. Extremities: Bilateral leg pitting edema, Capillary Refill Less than 3 Seconds Skin: Mild skin bruising. Blood blister. Musculoskeletal: No Tenderness to Palpation of Joints or Extremities Neurological: Cranial nerves II-XII grossly intact, DTR 2+/4 Psych/Mental Status: flat affect. ABG / Lab / Microbiology Data Result Diagrams: 02/04/22 05:30 02/04/22 05:30 Discharge Plan Admission Admit Date/Time: 01/25/22 23:48 Primary Reason for Your Visit: Cirrhosis Attending Provider: Israel Gardner Primary Care Provider: Jovi Rodriguez Consulting Providers: Justo Dunn ; Kelly Hernandez ; Nay Sexton ; Maycol Christie Discharge Orders/Prescriptions Prescriptions: No Action ursodiol 250 mg tablet 250 mg PO QHS Qty: 30 6RF pantoprazole 20 mg Tablet,Delayed Release (Dr/Ec) 20 mg PO DAILY 30 Days Qty: 30 0RF escitalopram oxalate 10 mg Tablet 10 mg PO DAILY 30 Days Qty: 30 0RF spironolactone 50 mg Tablet 25 mg PO DAILY Qty: 30 2RF furosemide 40 mg tablet 40 mg PO BID Qty: 60 0RF Vitamin B-1 100 mg PO/SL DAILY magnesium 250 mg tablet 250 mg PO DAILY Xifaxan 550 mg tablet 550 mg PO BID midodrine 5 mg tablet 10 mg PO TIDCM Qty: 90 5RF midodrine 10 mg tablet 10 mg PO TID Qty: 90 5RF Rx Instructions: do not give last dose of day after 6PM or within 4 hrs of bedtime fludrocortisone 0.1 mg tablet 0.1 mg PO DAILY Qty: 30 1RF lactulose 20 gram/30 mL solution 20 g PO TID 30 Days Qty: 2700 5RF sodium chloride 1 gram tablet 2,000 mg PO TID 30 Days Qty: 180 0RF Referrals / Follow Up: Jovi Rodriguez DO [Primary Care Provider] - Disposition Disposition (needs filled in before D/C Order can be placed): Acute Care Hospital Charges/Coding Visit Charges Inpatient E&M: 61400 Disch Hosp
== END 2022-02-04 08:00 | disposition short-term general hospital (02) | DRG 682 ==
LOC: ED 23:11 → PCU 23:59
PROVIDERS: Internal Medicine; Internal Medicine Gastroenterology; Nurse Practitioner Adult Health; Nurse Practitioner Family; Admitting Provider Hospitalist; Emergency Provider Emergency Medicine; PCP Student in an Organized Health Care Education/Training Program; Visit Provider Internal Medicine
DX: N17.9 Acute kidney failure, unspecified (principal); G92.8 Other toxic encephalopathy; K76.6 Portal hypertension; E87.1 Hypo-osmolality and hyponatremia; K92.1 Melena; K70.40 Alcoholic hepatic failure without coma; D69.6 Thrombocytopenia, unspecified; D63.1 Anemia in chronic kidney disease; K70.31 Alcoholic cirrhosis of liver with ascites; I95.9 Hypotension, unspecified; N18.31 Chronic kidney disease, stage 3a; K70.11 Alcoholic hepatitis with ascites; E87.5 Hyperkalemia; F41.9 Anxiety disorder, unspecified; F17.220 Nicotine dependence, chewing tobacco, uncomplicated; F32.A Depression, unspecified; R53.1 Weakness; Z72.89 Other problems related to lifestyle; Z79.899 Other long term (current) drug therapy
CPT/HCPCS: 36415; 49083; 74018; 76770; 80048; 80053; 80076; 81001; 82140; 82274; 83690; 85014; 85018; 85025; 85610; 85730; 87086; 87088; 87186; 87426; 97110; 97116; 97162; 97166; 97530; 97535; 97802; 99285; 99406; J7030; J7040; P9047; A4216; J2405